=== PATIENT | female | born 1995 | race Caucasian/White ===

== ENCOUNTER 2018-02-22 14:32 | Emergency (ER) | payer MEDICAID, SELFPAY ==
[2018-02-22 14:41] VITALS: BP 118/75; PULSE 80; RESP 14; TEMP 36.7; O2SAT 98
[2018-02-22 14:57] LABS: Bilirubin Negative (Negative); Blood Moderate (Negative); Clarity Cloudy; Glucose 500 mg/dL (Negative); Ketones 15 mg/dL (Negative); Leukocyte Esterase Large (Negative); Nitrite Positive (Negative); Specific Gravity >= 1.030 (1.005-1.025); Urobilinogen 0.2 EU/dL (Up TO 0.2)
[2018-02-22 15:05] LABS: C & S Indicated? Yes; WBC >50 HPF (0-5)
--- NOTE | 2018-02-22 15:11 | ED.GENADUL ---
Disposition Clinical Impression: UTI (urinary tract infection), Pyelonephritis Disposition: HOME Condition: Fair Instructions: Urinary Tract Infection in Women (ED) Additional Instructions: Encourage hydration. Please continue to monitor your glucose closely and treat accordingly. Take Bactrim as prescribed. Even if symptoms improve, take the entire course. Please follow-up with primary care this week for reevaluation. If you are unable to stay hydrated, develop increased pain, fever/chills or other new/worsening symptoms please seek care urgently once again. Prescriptions: Sulfameth/Trimeth Ds [Bactrim Ds Tablet] 1 each PO BID #28 tab Referrals: Mia Poe NP [Primary Care Provider] - Medical Decision Making - Lab Data Laboratory Tests 02/22/18 14:48 Urine Color Yellow Urine Clarity Cloudy Urine pH 6.0 Ur Specific [place] >= 1.030 H Urine Protein >=300 H Urine Ketones 15 H Urine Blood Moderate H Urine Nitrite Positive H Urine Bilirubin Negative Urine Urobilinogen 0.2 Ur Leukocyte Esterase Large H Urine RBC Not Applicable Urine WBC >50 Ur Epithelial Cells Not Applicable Urine Crystals Not Applicable Urine Bacteria Not Applicable Urine Mucus Not Applicable Ur Culture Indicated? Yes Urine Glucose 500 H Results reviewed for labs ordered during visit: Yes - Medical Decision Making Patient presents today with chief complaint of right-sided flank pain. She does have right CVA discomfort on exam. She is also endorsing some pain that radiated down towards the abdomen but none was elicited on exam today. Patient had been endorsing some dysuria for the past few days. States that this is largely been resolving. She has been trying to hydrate. Patient states initially she was concerned for UTI that she was trying to increase her hydration with hopes to be able to clear this on her own. She denies any fevers or chills. She appears nontoxic with stable vital signs. Patient does not have history of nephrolithiasis. Will obtain urinalysis to evaluate for possible infection. Patient reports she is currently menstruating. Urinalysis significant positive nitrites, moderate blood, ketones of 15 and large leukocyte esterase. I discussed these findings with the patient. Her history and physical exam findings are most concerning for pyelonephritis. I did review previous urine cultures. She will be treated with Bactrim DS twice daily ?14 days. I discussed plan with the patient. Advised she will need follow-up with primary care this week for reevaluation. Advised that she needs to increase her hydration she did appear slightly dehydrated on exam. I also advised that she needs to more closely monitor her glucose. Patient does seem well aware of the fact that when on the medications and 1 fighting an infection her glucose is prone to spiking. She is given strict return precautions. All of her questions and concerns were addressed and she is in agreement with this plan. History of Present Illness - General Chief complaint: FlankPain Stated complaint: STOMACH AND BACK PAIN -RIGHT SIDE Time Seen by Provider: 02/22/18 14:46 Source: patient, family, RN notes reviewed Mode of arrival: ambulatory Limitations: no limitations - History of Present Illness Initial comments: Patient is a 22-year-old female, well-known to myself, with chief complaint of right flank pain. She reports that she initially began noting dysuria approximately 3 days ago. Reports that the dysuria has waxed and waned. She denies any increased frequency or urgency. States that this morning she awoke with right-sided flank pain that radiates around to the lower anterior right side of her abdomen. Patient does have history of several UTIs as well as pyelonephritis. States that she has been nauseated. Denies any fevers or chills. Patient is a type I diabetic and reports that her glucose max at 300 this morning but responded well to treatment which came down to 130. States she has been monitoring her glucose well and has been trying to hydrate. Patient is currently menstruating. - Related Data Lancets [Freestyle Lancets] 1 each MC Q2H #300 each 05/16/15 Syringe and Needle,Insulin,1Ml [Insulin Syringe] 1 each AC & HS #3 box 05/16/15 Albuterol Sulfate [Proair Hfa] 1 - 2 puff IH Q4H PRN #1 inhaler 12/12/15 Insulin Glargine [Lantus Solostar] 20 unit SQ DAILY #7 pen 03/01/17 Blood Sugar Diagnostic [Freestyle Test Strips] 1 each Q2H PRN #300 strip 05/08/17 Insulin Lispro [Humalog] See Protocol SC AC #7 pkt 05/08/17 Albuterol/Ipratropium [Duoneb Updraft] 3 ml IH BID #1 box 07/15/17 Nebulizer and Compressor [Portable Nebulizer System] each MC DAILY #1 07/15/17 Glucagon [GlucaGen] 1 mg IJ DAILY #2 kit 07/22/17 Urine Acetone Test,Strips [Ketostix Reagent] 1 each MC DAILY 30 Days strip 07/22/17 Sulfameth/Trimeth Ds [Bactrim Ds Tablet] 1 each PO BID #28 tab 02/22/18 Allergies Allergy/AdvReac Type Severity Reaction Status Date / Time fluticasone propionate AdvReac eyes Unverified 02/22/18 14:44 [From Flovent Diskus] puffy/shakey Review of Systems Constitutional: no symptoms reported. denies: chills, fever, malaise Respiratory: no symptoms reported Cardiovascular: denies: chest pain Gastrointestinal: as per HPI Genitourinary: as per HPI Musculoskeletal: as per HPI Skin: denies: rash, lesions Neurological: denies: headache Past Medical History - Past Medical History Medical history: asthma, diabetes H/O IgG deficiency, Scoliosis Surgical history: other (Tonsillectomy, myringostomy tubes, pilonidal cystectomy) PROCESS VALIDATION ENGINEER history: no PROCESS VALIDATION ENGINEER history Family history: other (not pertinent) - Social History Alcohol use: occasionally Drug use: none General Exam - General Limitations: no limitations General appearance: alert, in no apparent distress - Eye Eye exam: Present: normal apperance - ENT ENT exam: Present: mucous membranes dry - Respiratory Respiratory exam: Present: normal lung sounds bilaterally. Absent: respiratory distress - Cardiovascular Cardiovascular Exam: Present: regular rate, normal rhythm, normal heart sounds - GI/Abdominal GI/Abdominal exam: Present: soft, normal bowel sounds. Absent: distended, tenderness, guarding, rebound, rigid - Rectal Rectal exam: Present: deferred - Back Exam Back exam: Present: CVA tenderness (R). Absent: CVA tenderness (L), rash noted - Neurological Exam Neurological exam: Present: alert, normal gait - Psychiatric Psychiatric exam: Present: normal affect, normal mood - Skin Skin exam: Present: warm, dry, normal color Course Vital Signs - 24 hr 02/22/18 14:41 Temperature 36.7 C Pulse 80 Respiratory 14 Rate Blood Pressure 118/75 Pulse Oximetry 98
[2018-02-22 15:25] VITALS: BP 115/74; PULSE 79; RESP 16; TEMP 36.7; O2SAT 99
== END 2018-02-22 15:31 | disposition home or self-care (01) ==
PROVIDERS: Emergency Provider Student in an Organized Health Care Education/Training Program; PCP Nurse Practitioner Family
DX: N39.0 Urinary tract infection, site not specified (principal); B96.20 Unspecified Escherichia coli [E. coli] as the cause of diseases classified elsewhere; N12 Tubulo-interstitial nephritis, not specified as acute or chronic; E86.0 Dehydration; E10.9 Type 1 diabetes mellitus without complications
CPT/HCPCS: 81025; 87077; 99283; 81003; 81015; 87086; 87186

== ENCOUNTER 2018-03-15 09:25 | Emergency (ER) | payer MEDICAID, SELFPAY ==
[2018-03-15 09:31] VITALS: BP 104/62; PULSE 103; RESP 18; TEMP 36.7; O2SAT 97
--- NOTE | 2018-03-15 09:43 | ED.GENADUL ---
Disposition Clinical Impression: Dehydration, Diabetes type 1, uncontrolled Disposition: HOME Condition: Good Instructions: Dehydration (ED), Diabetes Mellitus Type 1 in Adults (ED) Additional Instructions: Please take your insulin as directed. Please follow-up with your underwriting operations manager as soon as possible for reassessment. Avoid any positives, breads, or sugar. If you notice any worsening of your symptoms, or any new symptoms such as vomiting, diarrhea, fever, chills, shortness of breath, chest pain, numbness, weakness, or fainting , please return immediately to the emergency department for reevaluation. Please follow up with your primary care provider as soon as possible for reassessment and reevaluation. As always, it was a pleasure participating in your medical care today. Referrals: Mia Poe NP [Primary Care Provider] - Medical Decision Making - Medical Decision Making This is a 23-year-old female who presents with symptoms of poorly controlled type 1 diabetes. Sugars have been over 200. She has been increasing her regular 20 units of daily Lantus as well as slightly increasing her sliding scale to no avail. She does not recall the exact ratio calculator for her sliding scale but does state that she takes roughly 10 units of insulin with her sliding scale. Physical exam demonstrates dry oral mucosa, but no abdominal tenderness or other abnormalities on exam. We will rehydrate the patient, give her insulin here for her sugar that is over 400. Assess for DKA, and reevaluate. 1:13 PM Patient's initial laboratory workup did demonstrate mildly elevated anion gap. Sugar was notably high. Only 80 ketones in the urine.Initial bicarb was 17.8, potassium was 4.5. Sugar was 507. Patient was vigorously rehydrated with 2-3 L of normal saline. Repeat labs were drawn which demonstrated a improving bicarbonate 20.7, and anion gap which plummeted to 12.3 and a sugar that notably improved to 179. Reevaluation clinically the patient's symptoms are significantly improved and she feels very well. Additionally the patient's urinalysis is negative for any signs of infection. I did discuss with her the option of admission for continued observation and management and fluid hydration versus discharge patient made it very clear that she would prefer to be discharged home. I discussed the risks and benefits of this and the patient understands. I feel the patient has been suffering from mild dehydration, poorly controlled diabetes, under dosing of her insulin, and the lack of appropriate follow-up. I made it very clear with the patient that she needs to follow-up with her underwriting operations manager by the end of the week, and she states that she will be calling them soon as she is discharged for this follow-up. I discussed with her the importance of avoiding any missed appointments with the underwriting operations manager in the future and she understands. I have discussed with the patient the importance of continuing her insulin avoiding carbs, sugars, and close endocrinology follow-up and she understands. We discussed red flags which returned the patient understands. I have extensively reviewed the treatment plan and discharge instructions with the patient. I have addressed all patient concerns at this time. The patient was made aware of what symptoms to monitor for that would warrant a return to the emergency department. Discussed the plan with the patient, they demonstrate verbal understanding and agreement with our assessment and plan at this time. History of Present Illness - General Chief complaint: Diabetes Stated complaint: DIABETIC UNABLE TO GET KEYTONES DOWN/SUGAR UP Time Seen by Provider: 03/15/18 09:39 - History of Present Illness Initial comments: This is a 23-year-old female with a past medical history of poorly controlled type I diabetes, tobacco abuse, asthma, who presents today for evaluation of uncontrolled diabetes. She states that she normally sees an underwriting operations manager in [facility] in [place], however she has not seen him for quite some time. She states that over the past few days she has had generalized malaise, nausea, one episode of vomiting yesterday. She has noted that her sugars are in excess of 200 on a regular basis which is concerning for her. She normally takes 20 units of Lantus daily, and roughly 10 units of regular insulin on a sliding scale basis. She states that this has not been enough to control her symptoms, and in fact she has been increasing her insulin with no significant improvement. The patient denies any abdominal pain, chest pain, cough, shortness of breath, fever, chills, dysuria, hematuria, increased urinary frequency. Her last period was 3 weeks ago. Past surgical history is positive for a TNA. Patient denies any IV or illicit drug use. She has no other complaints at this time. She denies a pertinent family history - Related Data Lancets [Freestyle Lancets] 1 each MC Q2H #300 each 05/16/15 Syringe and Needle,Insulin,1Ml [Insulin Syringe] 1 each AC & HS #3 box 05/16/15 Albuterol Sulfate [Proair Hfa] 1 - 2 puff IH Q4H PRN #1 inhaler 12/12/15 Insulin Glargine [Lantus Solostar] 20 unit SQ DAILY #7 pen 03/01/17 Blood Sugar Diagnostic [Freestyle Test Strips] 1 each Q2H PRN #300 strip 05/08/17 Insulin Lispro [Humalog] See Protocol SC AC #7 pkt 05/08/17 Albuterol/Ipratropium [Duoneb Updraft] 3 ml IH BID #1 box 07/15/17 Nebulizer and Compressor [Portable Nebulizer System] each MC DAILY #1 07/15/17 Glucagon [GlucaGen] 1 mg IJ DAILY #2 kit 07/22/17 Urine Acetone Test,Strips [Ketostix Reagent] 1 each MC DAILY 30 Days strip 07/22/17 Allergies Allergy/AdvReac Type Severity Reaction Status Date / Time fluticasone propionate AdvReac eyes Unverified 03/08/18 15:14 [From Flovent Diskus] puffy/shakey Review of Systems Other: 10 point review of systems was performed, pertinent positives and negatives are noted in the history of present illness. Past Medical History - Past Medical History Medical history: asthma, diabetes H/O IgG deficiency, Scoliosis Surgical history: other (Tonsillectomy, myringostomy tubes, pilonidal cystectomy) SUPREME COURT JUSTICE history: no SUPREME COURT JUSTICE history Family history: other (not pertinent) - Social History Alcohol use: occasionally Drug use: none General Exam - Other Other exam information: 1.Const: Well-nourished, Well-developed, appearing stated age 2.Eyes: PERRL, no conjunctival injection, and symmetrical lids. 3.ENT: Atraumatic external nose and ears. Notably dry MM. Neck: Symmetric, trachea midline, No thyromegaly. 4.CVS: +S1/S2, No murmurs or gallops. Peripheral pulses 2+ and equal in all extremities. Brisk capillary refill in all extremities. 5.RESP: Unlabored respiratory effort. Clear to auscultation bilaterally. No wheezes rales or rhonchi 6.GI: Soft, Nontender/Nondistended, No hepatosplenomegaly. No guarding or rebound. No pain at McBurney's point, negative Simpson sign. 7.MSK: Normocephalic/Atraumatic, Extremities w/o deformity or ttp No cyanosis or clubbing, Normal movement of all extremities 8.Skin: Warm, Dry. No rashes or lesions. 9.Neuro: estate planning paralegal II-XII grossly intact. Sensation grossly intact, no focal neurologic deficits. 10.Psych: (AAO) x3. Appropriate mood and affect Course Vital Signs - 24 hr 03/15/18 09:31 Temperature 36.7 C Pulse 103 H Respiratory 18 Rate Blood Pressure 104/62 Pulse Oximetry 97
[2018-03-15] MEDS: Insulin REGULAR-Human 100 UNITS/ML UNIT 20 UNITS SC (09:55)
[2018-03-15 10:05] VITALS: BP 104/66; PULSE 84; RESP 16; O2SAT 97
[2018-03-15] MEDS: Normal Saline 2,000 ML 1000 ML IV (10:10)
[2018-03-15 10:22] LABS: Abs Immature Grans 0.03 k/cumm (0.0-0.09); Absolute Basophil Count 0.04 k/cumm (0.0-0.2); Absolute Eosinophil Count 0.33 k/cumm (0.0-0.7); Absolute Lymphocyte Count 2.61 k/cumm (1.2-3.4); Absolute Monocyte Count 0.42 k/cumm (0.11-0.7); Absolute Neutrophil Count 5.52 k/cumm (1.2-6.7); Basophils % 0.4; Eosinophils % 3.7; HCT 41.1 % (36.0-46.0); HGB 13.6 g/dL (12.0-15.5); Immature Grans % 0.3; Lymphocytes % 29.2; Mean Corp. HGB Concentration 33.1 g/dL (32.0-36.0); Mean Corpuscular Hemoglobin 30.8 pg (27.0-33.0); Mean Platelet Volume 10.2 fL (8.0-11.0); Monocytes % 4.7; Neutrophils % 61.7; Platelet Count 341 x1000/uL (130-400); RBC 4.42 m/cumm (4.00-5.20); RBC Distribution Width 12.5 % (11.7-14.6); White Blood Cell Count 8.95 k/cumm (4.4-10.8)
[2018-03-15 10:41] LABS: ALT 19 U/L (12-78); AST 12 U/L (15-37); Albumin 3.7 g/dL (3.4-5.0); Alkaline Phosphatase 128 U/L (46-116); Anion Gap 19.2 mmol/L (3-11); BUN 21 mg/dL (7-18); Bilirubin, Total 0.4 mg/dL (0.2-1.0); CO2 17.8 mmol/L (21.0-32.0); CREATININE 0.81 mg/dL (0.55-1.02); Calcium 9.1 mg/dL (8.5-10.1); Chloride 94 mmol/L (98-107); Lipase 85 U/L (73-393); Potassium 4.5 mmol/L (3.5-5.1); Sodium 131 mmol/L (136-145); Total Protein 7.6 g/dL (6.4-8.2)
[2018-03-15 10:44] LABS: Glucose 507 mg/dL (70-100)
[2018-03-15 11:22] VITALS: BP 102/65; PULSE 75; RESP 14; TEMP 36.6; O2SAT 100
[2018-03-15 11:48] VITALS: BP 95/55; PULSE 77; O2SAT 99
[2018-03-15] MEDS: Normal Saline 1,000 ML 1000 ML IV (12:15)
[2018-03-15 12:20] LABS: Bilirubin Negative (Negative); Blood Negative (Negative); Clarity Clear; Glucose 500 mg/dL (Negative); Ketones 80 mg/dL (Negative); Leukocyte Esterase Negative (Negative); Nitrite Negative (Negative); Specific Gravity 1.015 (1.005-1.025); Urobilinogen 0.2 EU/dL (Up TO 0.2); pH 5.5 (5-8)
[2018-03-15 12:51] LABS: ALT 14 U/L (12-78); AST 8 U/L (15-37); Albumin 2.9 g/dL (3.4-5.0); Alkaline Phosphatase 99 U/L (46-116); Anion Gap 12.3 mmol/L (3-11); BUN 16 mg/dL (7-18); Bilirubin, Total 0.3 mg/dL (0.2-1.0); CO2 20.7 mmol/L (21.0-32.0); CREATININE 0.71 mg/dL (0.55-1.02); Calcium 7.6 mg/dL (8.5-10.1); Chloride 105 mmol/L (98-107); Glucose 179 mg/dL (70-100); Potassium 3.6 mmol/L (3.5-5.1); Sodium 138 mmol/L (136-145)
[2018-03-15 13:25] VITALS: BP 90/48; PULSE 77; RESP 14; TEMP 36.9; O2SAT 98
== END 2018-03-15 13:39 | disposition home or self-care (01) ==
PROVIDERS: Emergency Provider Student in an Organized Health Care Education/Training Program; PCP Nurse Practitioner Family
DX: E10.65 Type 1 diabetes mellitus with hyperglycemia (principal); E86.0 Dehydration; R11.2 Nausea with vomiting, unspecified
CPT/HCPCS: 36415; 36416; 80053; 81025; 82962; 83690; 96360; 96361; 96372; 99284; 81003; 85025

== ENCOUNTER 2018-04-18 17:04 | Emergency (ER) | payer MEDICAID, SELFPAY ==
[2018-04-18 17:06] VITALS: BP 113/74; PULSE 122; RESP 16; TEMP 36.6; O2SAT 96
--- NOTE | 2018-04-18 17:15 | DI.RAD_ITS ---
SYMPTOM/DIAGNOSIS: COUGH, PRODUCTIVE PA AND LATERAL CHEST: Comparison is made with 12/09/17. The heart is normal in size. The lungs are clear. The mediastinal structures and pleura appear intact. CONCLUSION: Normal chest.
[2018-04-18] MEDS: Normal Saline 1,000 ML 1000 ML IV ×2 (17:47)
--- NOTE | 2018-04-18 18:01 | W.ED.GENAD ---
Discharge Plan Disposition Patient Disposition: HOME Condition: Good Discharge Details Chief Complaint: GenMedical Clinical Impression: Diabetes mellitus, insulin dependent (IDDM), uncontrolled, Acute hyperglycemia, Acute dehydration Primary Care Provider: Mia Poe ED Provider: Karel Espana Home Meds and New Rx's Prescriptions: No Action insulin syringe-needle U-100 [Exel Insulin] 1 EACH syringe 1 ea Miscellaneous AC & HS Qty: 3 RF: 3 lancets [FreeStyle Lancets] 1 EACH misc 1 ea Miscellaneous Q2H Qty: 300 RF: 3 ipratropium-albuterol 3 ML solution for nebulization 3 ml Inhalation BID Qty: 1 RF: 0 nebulizer and compressor [Portable Nebulizer System] 1 EACH device Miscellaneous DAILY Qty: 1 RF: 0 glucagon (human recombinant) [Glucagon Emergency Kit (human)] 1 MG kit 1 mg IJ DAILY Qty: 2 RF: 0 acetone (urine) test [Ketostix] 1 EACH strip 1 ea Miscellaneous DAILY 30 Days RF: 2 albuterol sulfate [ProAir HFA] 200 PUFF HFA aerosol inhaler 1 - 2 puff Inhalation Q4H PRN Qty: 1 RF: 1 insulin glargine [Lantus Solostar U-100 Insulin] 300 UNITS/3 ML insulin pen 20 unit SQ DAILY Qty: 7 RF: 0 blood sugar diagnostic [FreeStyle Test] 1 EACH strip 1 ea Miscellaneous Q2H PRNQty: 300 RF: 3 insulin lispro [Humalog U-100 Insulin] 100 UNIT/1 ML solution Sub-Q AC Qty: 7 RF: 0 Discharge Instructions Instructions: Dehydration (ED), Diabetic Hyperglycemia (ED) Additional Instructions: Please drink a minimum of 8-10 cups of water per day. Take your insulin as directed. Avoid any carb foods, sugary foods, and monitor your sugar every 2-4 hours. If you notice any worsening of your symptoms, or any new symptoms such as vomiting, diarrhea, fever, chills, shortness of breath, chest pain, numbness, weakness, or fainting , please return immediately to the emergency department for reevaluation. Please follow up with your primary care provider as soon as possible for reassessment and reevaluation. As always, it was a pleasure participating in your medical care today. Referrals: Mia Poe NP [Primary Care Provider] - Medical Decision Making This is a 23-year-old brittle diabetic who presents today for malaise, nausea and vomiting today, and a cough with productive yellow sputum for the last week. He appears dehydrated on exam, mucous membranes are dry, she is tachycardic. I am concerned for potential DKA. We will rehydrate aggressively, perform laboratory workup, evaluate for DKA, as well as infectious etiologies. 9:53 PM Patient's laboratory workup has returned. Her anion gap is normal, her bicarb is 23, her VBG shows no evidence of acidosis. She demonstrates no significant white count or leukocytosis. Chest x-ray per virtual radiology as no acute process. Negative chest x-ray.Urinalysis shows no evidence of infection but does show some ketones. After 2 L of normal saline, and 10 units of insulin the patient is feeling much better. Initial glucose was 295. Repeat glucose is closer normal limits. With the patient's symptomatic improvement, repeat belly exam demonstrated no tenderness, no guarding or rebound, and good ability to tolerate p.o. We did discuss with her potential observation versus discharge and the patient is requesting discharge. I think this is reasonable with the current laboratory workup. We recommended continued significant sugar-free hydration, and close follow-up with her biology department chair at [facility]. Diagnosis dehydration, hyperglycemia, and viral URI. We discussed red flags for which to return. I have extensively reviewed the treatment plan and discharge instructions with the patient and their family. I have addressed all patient concerns at this time. The patient and family was made aware of what symptoms to monitor for that would warrant a return to the emergency department. Discussed the plan with the patient and family, they demonstrate verbal understanding and agreement with our assessment and plan at this time. HPI General Date/Time Provider Initiated Documentation: 04/18/18 17:15. HPI Narrative: This is a 23-year-old female with a past medical history of brittle diabetes, asthma, distant past medical history of neutropenia, previous surgical history of TNA. She presents today for feelings of malaise. She states that one week ago she was diagnosed with a cough and upper respiratory infection with productive yellow sputum, she was seen at [facility] emergency [facility] where she was given a diagnosis of allergies, and discharged home. No antibiotics. Since then she has gradually been getting worse. Her cough has persisted with continued yellow sputum, however in addition to this she has had a new onset nausea and vomiting today with associated general malaise. She states that she has been trying to push the fluids as well as increase her insulin but she has noted any continued increase in her sugars, as well as her feelings of malaise. Patient did admit to some black in her vomit earlier today but has had no subsequent episodes of coffee grounds or black noted in her vomit. She denies any other complaints at this time. Of note the patient normally uses 20 units of Lantus nightly, and roughly 10 units of regular insulin for each administration. Related Data Home Medications Medication Instructions Recorded Confirmed insulin syringe-needle U-100 [Exel #3 box 05/16/15 Insulin] lancets [FreeStyle Lancets] #300 ea 05/16/15 albuterol sulfate [ProAir HFA] 1 - 2 puff INHALATION Q4H PRN #1 12/12/15 03/15/18 inhaler insulin glargine [Lantus Solostar 20 unit SQ DAILY #7 pen 03/01/17 03/15/18 U-100 Insulin] blood sugar diagnostic [FreeStyle #300 strip 05/08/17 03/15/18 Test] insulin lispro [Humalog U-100 See Protocol SUB-Q AC #7 pkt 05/08/17 03/15/18 Insulin] ipratropium-albuterol 3 ml INHALATION BID #1 box 07/15/17 nebulizer and compressor [Portable #1 07/15/17 Nebulizer System] acetone (urine) test [Ketostix] strip 07/22/17 glucagon (human recombinant) 1 mg IJ DAILY #2 kit 07/22/17 [Glucagon Emergency Kit (human)] Previous Rx's Medication Instructions Recorded albuterol sulfate [ProAir HFA] 1 - 2 puff INHALATION Q4H PRN #1 12/12/15 inhaler insulin glargine [Lantus Solostar 20 unit SQ DAILY #7 pen 03/01/17 U-100 Insulin] blood sugar diagnostic [FreeStyle #300 strip 05/08/17 Test] insulin lispro [Humalog U-100 See Protocol SUB-Q AC #7 pkt 05/08/17 Insulin] ipratropium-albuterol 3 ml INHALATION BID #1 box 07/15/17 glucagon (human recombinant) 1 mg IJ DAILY #2 kit 07/22/17 [Glucagon Emergency Kit (human)] Allergies Allergy/AdvReac Type Severity Reaction Status Date / Time fluticasone propionate AdvReac eyes Unverified 03/08/18 15:14 [From Flovent Diskus] puffy/shakey General Stated Complaint: GenMedical VALENT[place]: 3 Review of Systems Review of Systems All systems reviewed & are unremarkable except as noted in HPI and below PFSH Family History Mother Mental disorder Endometriosis Dementia Grandfather Diabetes Grandmother Diabetes Maternal Cousin Mental disorder Sister Mental disorder Brother DVT (deep venous thrombosis) Brother Claudication Medical History Asthma History of pneumonia Insulin dependent diabetes mellitus Scoliosis Tobacco use disorder Social History household members: friend(s) and other details: (6) lives w/ boyfriend, son and BF's 2 children m +girl 08/17/16 number of children: 4 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al status: unemployed 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: taking [employer] classes Smoking/Tobacco Use Status: Current every day alcohol intake: current alcohol intake frequency: other substance use type: does not use Surgical History Tonsillectomy and adenoidectomy (~2007) Exam Narrative Exam Narrative: 1.Const: Well-nourished, Well-developed, appearing stated age 2.Eyes: PERRL, no conjunctival injection, and symmetrical lids. 3.ENT: Atraumatic external nose and ears. Dry MM. Neck: Symmetric, trachea midline, No thyromegaly. 4.CVS: +S1/S2, tachycardic no murmurs or gallops. Peripheral pulses 2+ and equal in all extremities. Brisk capillary refill in all extremities. 5.RESP: Unlabored respiratory effort. Clear to auscultation bilaterally. No wheezes rales or rhonchi 6.GI: Soft, Nontender/Nondistended, No hepatosplenomegaly. No guarding or rebound. No pain at McBurney's point, negative Simpson sign. 7.MSK: Normocephalic/Atraumatic, Extremities w/o deformity or ttp No cyanosis or clubbing, Normal movement of all extremities 8.Skin: Warm, Dry. No rashes or lesions. 9.Neuro: account executive healthcare II-XII grossly intact. Sensation grossly intact, no focal neurologic deficits. 10.Psych: (AAO) x3. Appropriate mood and affect Course Vital Signs Temperature 36.6 C 04/18/18 17:06 Pulse 122 H 04/18/18 17:06 Respiratory Rate 16 04/18/18 17:06 Blood Pressure 113/74 04/18/18 17:06 Pulse Oximetry 96 04/18/18 17:06 Temperature 36.6 C 04/18/18 17:06 Temperature Source Skin 04/18/18 17:06 Pulse 122 H 04/18/18 17:06 Respiratory Rate 16 04/18/18 17:06 Respiratory Effort 04/18/18 17:13 Blood Pressure 113/74 04/18/18 17:06 Blood Pressure Position Sitting 04/18/18 17:06 Pulse Oximetry 96 04/18/18 17:06 Oxygen Delivery Method Room Air 04/18/18 17:06 Oxygen Flow Rate 0 04/18/18 17:06 Lab/Test Results Lab/Test Results: 04/18/18 17:16 Blood Blood Culture - Pending 04/18/18 17:16 Blood Blood Culture - Pending
--- NOTE | 2018-04-18 18:07 | ED.GENADUL_ITS ---
Discharge Plan Disposition Patient Disposition: HOME Condition: Good Discharge Details Chief Complaint: GenMedical Clinical Impression: Diabetes mellitus, insulin dependent (IDDM), uncontrolled, Acute hyperglycemia , Acute dehydration Primary Care Provider: Mia Poe ED Provider: Karel Espana Home Meds and New Rx's Prescriptions: No Action insulin syringe-needle U-100 [Exel Insulin] 1 EACH syringe 1 ea Miscellaneous AC & HS Qty: 3 RF: 3 lancets [FreeStyle Lancets] 1 EACH misc 1 ea Miscellaneous Q2H Qty: 300 RF: 3 ipratropium-albuterol 3 ML solution for nebulization 3 ml Inhalation BID Qty: 1 RF: 0 nebulizer and compressor [Portable Nebulizer System] 1 EACH device Miscellaneous DAILY Qty: 1 RF: 0 glucagon (human recombinant) [Glucagon Emergency Kit (human)] 1 MG kit 1 mg IJ DAILY Qty: 2 RF: 0 acetone (urine) test [Ketostix] 1 EACH strip 1 ea Miscellaneous DAILY 30 Days RF: 2 albuterol sulfate [ProAir HFA] 200 PUFF HFA aerosol inhaler 1 - 2 puff Inhalation Q4H PRN Qty: 1 RF: 1 insulin glargine [Lantus Solostar U-100 Insulin] 300 UNITS/3 ML insulin pen 20 unit SQ DAILY Qty: 7 RF: 0 blood sugar diagnostic [FreeStyle Test] 1 EACH strip 1 ea Miscellaneous Q2H PRNQty: 300 RF: 3 insulin lispro [Humalog U-100 Insulin] 100 UNIT/1 ML solution Sub-Q AC Qty: 7 RF: 0 Discharge Instructions Instructions: Dehydration (ED), Diabetic Hyperglycemia (ED) Additional Instructions: Please drink a minimum of 8-10 cups of water per day. Take your insulin as directed. Avoid any carb foods, sugary foods, and monitor your sugar every 2-4 hours. If you notice any worsening of your symptoms, or any new symptoms such as vomiting, diarrhea, fever, chills, shortness of breath, chest pain, numbness , weakness, or fainting , please return immediately to the emergency department for reevaluation. Please follow up with your primary care provider as soon as possible for reassessment and reevaluation. As always, it was a pleasure participating in your medical care today. Referrals: Mia Poe NP [Primary Care Provider] - Medical Decision Making This is a 23-year-old brittle diabetic who presents today for malaise, nausea and vomiting today, and a cough with productive yellow sputum for the last week. He appears dehydrated on exam, mucous membranes are dry, she is tachycardic. I am concerned for potential DKA. We will rehydrate aggressively , perform laboratory workup, evaluate for DKA, as well as infectious etiologies. 9:53 PM Patient's laboratory workup has returned. Her anion gap is normal, her bicarb is 23, her VBG shows no evidence of acidosis. She demonstrates no significant white count or leukocytosis. Chest x-ray per virtual radiology as no acute process. Negative chest x-ray.Urinalysis shows no evidence of infection but does show some ketones. After 2 L of normal saline, and 10 units of insulin the patient is feeling much better. Initial glucose was 295. Repeat glucose is closer normal limits. With the patient's symptomatic improvement, repeat belly exam demonstrated no tenderness, no guarding or rebound, and good ability to tolerate p.o. We did discuss with her potential observation versus discharge and the patient is requesting discharge. I think this is reasonable with the current laboratory workup. We recommended continued significant sugar- free hydration, and close follow-up with her director of assessing at [facility]. Diagnosis dehydration, hyperglycemia, and viral URI. We discussed red flags for which to return. I have extensively reviewed the treatment plan and discharge instructions with the patient and their family. I have addressed all patient concerns at this time. The patient and family was made aware of what symptoms to monitor for that would warrant a return to the emergency department. Discussed the plan with the patient and family, they demonstrate verbal understanding and agreement with our assessment and plan at this time. HPI General Date/Time Provider Initiated Documentation: 04/18/18 17:15 . HPI Narrative: This is a 23-year-old female with a past medical history of brittle diabetes, asthma, distant past medical history of neutropenia , previous surgical history of TNA. She presents today for feelings of malaise. She states that one week ago she was diagnosed with a cough and upper respiratory infection with productive yellow sputum, she was seen at [facility] emergency department where she was given a diagnosis of allergies, and discharged home. No antibiotics. Since then she has gradually been getting worse. Her cough has persisted with continued yellow sputum, however in addition to this she has had a new onset nausea and vomiting today with associated general malaise. She states that she has been trying to push the fluids as well as increase her insulin but she has noted any continued increase in her sugars, as well as her feelings of malaise. Patient did admit to some black in her vomit earlier today but has had no subsequent episodes of coffee grounds or black noted in her vomit. She denies any other complaints at this time. Of note the patient normally uses 20 units of Lantus nightly, and roughly 10 units of regular insulin for each administration. Related Data Home Medications Medication Instructions Recorded Confirmed insulin syringe-needle U-100 [Exel #3 box 05/16/15 Insulin] lancets [FreeStyle Lancets] #300 ea 05/16/15 albuterol sulfate [ProAir HFA] 1 - 2 puff INHALATION Q4H PRN #1 12/12/15 inhaler insulin glargine [Lantus Solostar 20 unit SQ DAILY #7 pen 03/01/17 03/15/18 U-100 Insulin] blood sugar diagnostic [FreeStyle #300 strip 05/08/17 03/15/18 Test] insulin lispro [Humalog U-100 See Protocol SUB-Q AC #7 pkt 05/08/17 03/15/18 Insulin] ipratropium-albuterol 3 ml INHALATION BID #1 box 07/15/17 nebulizer and compressor [Portable #1 07/15/17 Nebulizer System] acetone (urine) test [Ketostix] strip 07/22/17 glucagon (human recombinant) 1 mg IJ DAILY #2 kit 07/22/17 [Glucagon Emergency Kit (human)] Previous Rx's Medication Instructions Recorded albuterol sulfate [ProAir HFA] 1 - 2 puff INHALATION Q4H PRN #1 12/12/15 inhaler insulin glargine [Lantus Solostar 20 unit SQ DAILY #7 pen 03/01/17 U-100 Insulin] blood sugar diagnostic [FreeStyle #300 strip 05/08/17 Test] insulin lispro [Humalog U-100 See Protocol SUB-Q AC #7 pkt 05/08/17 Insulin] ipratropium-albuterol 3 ml INHALATION BID #1 box 07/15/17 glucagon (human recombinant) 1 mg IJ DAILY #2 kit 07/22/17 [Glucagon Emergency Kit (human)] Allergies Allergy/AdvReac Type Severity Reaction Status Date / Time fluticasone propionate AdvReac eyes Unverified 03/08/18 15:14 [From Flovent Diskus] puffy/shakey General Stated Complaint: GenMedical VALENTINA: 3 Review of Systems Review of Systems All systems reviewed & are unremarkable except as noted in HPI and below PFSH Family History Mother Mental disorder Endometriosis Dementia Grandfather Diabetes Grandmother Diabetes Maternal Cousin Mental disorder Sister Mental disorder Brother DVT (deep venous thrombosis) Brother Claudication Medical History Asthma History of pneumonia Insulin dependent diabetes mellitus Scoliosis Tobacco use disorder Social History household members: friend(s) and other details: (6) lives w/ boyfriend, son and BF's 2 children m +girl 08/17/16 number of children: 4 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al status: unemployed 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: taking [employer] classes Smoking/Tobacco Use Status: Current every day alcohol intake: current alcohol intake frequency: other substance use type: does not use Surgical History Tonsillectomy and adenoidectomy (~2007) Exam Narrative Exam Narrative: 1.Const: Well-nourished, Well-developed, appearing stated age 2.Eyes: PERRL, no conjunctival injection, and symmetrical lids. 3.ENT: Atraumatic external nose and ears. Dry MM. Neck: Symmetric, trachea midline, No thyromegaly. 4.CVS: +S1/S2, tachycardic no murmurs or gallops. Peripheral pulses 2+ and equal in all extremities. Brisk capillary refill in all extremities. 5.RESP: Unlabored respiratory effort. Clear to auscultation bilaterally. No wheezes rales or rhonchi 6.GI: Soft, Nontender/Nondistended, No hepatosplenomegaly. No guarding or rebound. No pain at McBurney's point, negative Simpson sign. 7.MSK: Normocephalic/Atraumatic, Extremities w/o deformity or ttp No cyanosis or clubbing, Normal movement of all extremities 8.Skin: Warm, Dry. No rashes or lesions. 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 Sensation grossly intact, no focal neurologic deficits. 10.Psych: (AAO) x3. Appropriate mood and affect Course Vital Signs Temperature 36.6 C 04/18/18 17:06 Pulse 122 H 04/18/18 17:06 Respiratory Rate 16 04/18/18 17:06 Blood Pressure 113/74 04/18/18 17:06 Pulse Oximetry 96 04/18/18 17:06 Temperature 36.6 C 04/18/18 17:06 Temperature Source Skin 04/18/18 17:06 Pulse 122 H 04/18/18 17:06 Respiratory Rate 16 04/18/18 17:06 Respiratory Effort 04/18/18 17:13 Blood Pressure 113/74 04/18/18 17:06 Blood Pressure Position Sitting 04/18/18 17:06 Pulse Oximetry 96 04/18/18 17:06 Oxygen Delivery Method Room Air 04/18/18 17:06 Oxygen Flow Rate 0 04/18/18 17:06 Lab/Test Results Lab/Test Results: 04/18/18 17:16 Blood Blood Culture - Pending 04/18/18 17:16 Blood Blood Culture - Pending
[2018-04-18 18:35] LABS: BE (Venous) -1.8 mmol/L (-3-3); HCO3 (Venous) 23 mmol/L (22-28); O2 Sat (Venous) 93 % (70-80); TCO2 (Venous) 20 mmol/L (22-29); pCO2 (Venous) 35 mm/Hg (34-47); pH (Venous) 7.42 (7.32-7.43); pO2 (Venous) 62 mm/Hg (28-44)
[2018-04-18 18:38] LABS: Abs Immature Grans 0.02 k/cumm (0.0-0.09); Absolute Basophil Count 0.01 k/cumm (0.0-0.2); Absolute Eosinophil Count 0.12 k/cumm (0.0-0.7); Absolute Lymphocyte Count 0.77 k/cumm (1.2-3.4); Absolute Monocyte Count 0.16 k/cumm (0.11-0.7); Absolute Neutrophil Count 5.97 k/cumm (1.2-6.7); Basophils % 0.1; Eosinophils % 1.7; HCT 38.2 % (36.0-46.0); HGB 12.8 g/dL (12.0-15.5); Immature Grans % 0.3; Lymphocytes % 10.9; Mean Corp. HGB Concentration 33.5 g/dL (32.0-36.0); Mean Corpuscular Hemoglobin 31.4 pg (27.0-33.0); Mean Corpuscular Volume 93.6 fL (80-95); Mean Platelet Volume 10.1 fL (8.0-11.0); Monocytes % 2.3; Neutrophils % 84.7; Platelet Count 318 x1000/uL (130-400); RBC 4.08 m/cumm (4.00-5.20); RBC Distribution Width 12.8 % (11.7-14.6); White Blood Cell Count 7.05 k/cumm (4.4-10.8)
[2018-04-18 18:50] LABS: Bilirubin Negative (Negative); Blood Negative (Negative); Clarity Clear; Glucose 500 mg/dL (Negative); Ketones 15 mg/dL (Negative); Leukocyte Esterase Negative (Negative); Nitrite Negative (Negative); Urobilinogen 0.2 EU/dL (Up TO 0.2); pH 5.5 (5-8)
[2018-04-18 18:53] LABS: ALT 21 U/L (12-78); AST 13 U/L (15-37); Albumin 2.9 g/dL (3.4-5.0); Alkaline Phosphatase 167 U/L (46-116); Anion Gap 9.9 mmol/L (3-11); BUN 19 mg/dL (7-18); Bilirubin, Total 0.5 mg/dL (0.2-1.0); CO2 23.1 mmol/L (21.0-32.0); CREATININE 0.59 mg/dL (0.55-1.02); Calcium 8.1 mg/dL (8.5-10.1); Chloride 98 mmol/L (98-107); Glucose 295 mg/dL (70-100); Lipase 54 U/L (73-393); Potassium 3.7 mmol/L (3.5-5.1); Sodium 131 mmol/L (136-145); Total Protein 6.3 g/dL (6.4-8.2)
--- NOTE | 2018-04-18 20:01 | DI.VRAD_ITS ---
EXAM: XR Chest, 2 Views EXAM DATE/TIME: 04/18/2018 5:18 PM CLINICAL HISTORY: 23 years old, female; Cough for 3 weeks w/ prod yell TECHNIQUE: XR of the chest, 2 views. COMPARISON: CR PORTABLE CHEST ONE VIEW 12/09/2017 8:06 AM FINDINGS: Lungs: Unremarkable. No consolidation. Pleural space: Unremarkable. No pleural effusion. No pneumothorax. Heart/Mediastinum: Unremarkable. No cardiomegaly. Bones/joints: Unremarkable for patient's age. IMPRESSION: No active pulmonary disease. No acute changes compared to 12/09/2017. Dictated and Authenticated by: Javier Mena MD. Ordering:CECILLE DANIELS MD
[2018-04-18] MEDS: Insulin REGULAR-Human 100 UNITS/ML UNIT 10 UNITS SC (20:08)
[2018-04-18 22:06] VITALS: BP 104/62; PULSE 87; TEMP 37; O2SAT 98
== END 2018-04-18 22:09 | disposition home or self-care (01) ==
PROVIDERS: Emergency Provider Student in an Organized Health Care Education/Training Program; PCP Nurse Practitioner Family
DX: E10.65 Type 1 diabetes mellitus with hyperglycemia (principal); E86.0 Dehydration; J06.0 Acute laryngopharyngitis; F17.210 Nicotine dependence, cigarettes, uncomplicated
CPT/HCPCS: 36415; 36416; 80053; 81025; 82805; 82962; 83690; 87040; 96360; 96361; 96372; 99284; 71046; 81003; 85025; 99285

== ENCOUNTER 2018-05-24 19:21 | Inpatient (IN) | payer MEDICAID, SELFPAY ==
[2018-05-24 19:37] VITALS: BP 115/67; PULSE 90; RESP 18; TEMP 36.4; O2SAT 97
--- NOTE | 2018-05-24 19:45 | ED.GENADUL_ITS ---
Discharge Plan Discharge Details Chief Complaint: Diabetes Reason For Visit: high blood sugar Primary Care Provider: Mia Poe ED Provider: Rubia Gardiner Home Meds and New Rx's Prescriptions: No Action insulin syringe-needle U-100 [Exel Insulin] 1 EACH syringe 1 ea Miscellaneous AC & HS Qty: 3 RF: 3 lancets [FreeStyle Lancets] 1 EACH misc 1 ea Miscellaneous Q2H Qty: 300 RF: 3 ipratropium-albuterol 3 ML solution for nebulization 3 ml Inhalation BID Qty: 1 RF: 0 nebulizer and compressor [Portable Nebulizer System] 1 EACH device Miscellaneous DAILY Qty: 1 RF: 0 glucagon (human recombinant) [Glucagon Emergency Kit (human)] 1 MG kit 1 mg IJ DAILY Qty: 2 RF: 0 acetone (urine) test [Ketostix] 1 EACH strip 1 ea Miscellaneous DAILY 30 Days RF: 2 albuterol sulfate [ProAir HFA] 200 PUFF HFA aerosol inhaler 1 - 2 puff Inhalation Q4H PRN Qty: 1 RF: 1 insulin glargine [Lantus Solostar U-100 Insulin] 300 UNITS/3 ML insulin pen 20 unit SQ DAILY Qty: 7 RF: 0 blood sugar diagnostic [FreeStyle Test] 1 EACH strip 1 ea Miscellaneous Q2H PRNQty: 300 RF: 3 insulin lispro [Humalog U-100 Insulin] 100 UNIT/1 ML solution Sub-Q AC Qty: 7 RF: 0 Medical Decision Making 23yo F w/ a h/o DM Type I who presents with weakness, fatigue and nausea along with hyperglycemia read as high on monitor at home today. Missed her 20 units of Lantus insulin last night due to not being at home. Denies fever, abdominal pain, chest pain, urinary symptoms, cough. Vitals within normal limits. Afebrile. Patient appears nontoxic but does appear fatigued. Likely consistent with DKA. Will place an IV, bolus IV fluids, labs, urinalysis , urine . Urine negative. Labs reviewed and note DKA. Glucose 875. Sodium 121. Bicarb 20. Anion gap 15.7. Urinalysis notes ketones. CBC unremarkable. VBG notes a pH of 7.33, bicarb 19. Will start insulin bolus and drip, continue IV fluids, and give potassium supplementation. 2139 -- d/w hospitalist - accepts pt for admission. HPI General Mode of arrival: ambulatory . Date/Time Provider Initiated Documentation: 05/24/18 19:42 . Limitations to Documentation: no limitations . Information obtained by: patient . HPI Narrative: Patient is a 23-year-old female with a history of diabetes type 1 who presents with hyperglycemia at home. She states last night she missed her 20 units of Lantus because she was staying at a hospital in [place] all day yesterday with family member. She states she takes Humalog sliding scale insulin which she took regularly yesterday. She states today her glucometer read in the 300s or high. She states today she felt weak, tired and nauseous but denies any fever, vomiting, cough, chest pain, shortness of breath, abdominal pain or urinary symptoms. Past medical history: Insulin-dependent diabetes, asthma Surgical history: Bilateral myringotomy tubes, pilonidal cystectomy, tonsillectomy, D&C Social history: Smokes tobacco, denies alcohol or drugs Medications: See list Allergies: Flovent Related Data Home Medications Medication Instructions Recorded Confirmed insulin syringe-needle U-100 [Exel #3 box 05/16/15 Insulin] lancets [FreeStyle Lancets] #300 ea 05/16/15 05/24/18 albuterol sulfate [ProAir HFA] 1 - 2 puff INHALATION Q4H PRN #1 12/12/15 inhaler insulin glargine [Lantus Solostar 20 unit SQ DAILY #7 pen 03/01/17 05/24/18 U-100 Insulin] blood sugar diagnostic [FreeStyle #300 strip 05/08/17 03/15/18 Test] insulin lispro [Humalog U-100 See Protocol SUB-Q AC #7 pkt 05/08/17 05/24/18 Insulin] ipratropium-albuterol 3 ml INHALATION BID #1 box 07/15/17 05/24/18 nebulizer and compressor [Portable #1 07/15/17 05/24/18 Nebulizer System] acetone (urine) test [Ketostix] strip 07/22/17 glucagon (human recombinant) 1 mg IJ DAILY #2 kit 07/22/17 [Glucagon Emergency Kit (human)] Previous Rx's Medication Instructions Recorded albuterol sulfate [ProAir HFA] 1 - 2 puff INHALATION Q4H PRN #1 12/12/15 inhaler insulin glargine [Lantus Solostar 20 unit SQ DAILY #7 pen 03/01/17 U-100 Insulin] blood sugar diagnostic [FreeStyle #300 strip 05/08/17 Test] insulin lispro [Humalog U-100 See Protocol SUB-Q AC #7 pkt 05/08/17 Insulin] ipratropium-albuterol 3 ml INHALATION BID #1 box 07/15/17 glucagon (human recombinant) 1 mg IJ DAILY #2 kit 07/22/17 [Glucagon Emergency Kit (human)] Allergies Allergy/AdvReac Type Severity Reaction Status Date / Time fluticasone propionate AdvReac eyes Unverified 05/24/18 20:03 [From Flovent Diskus] puffy/shakey General Stated Complaint: Diabetes VALENTINA: 3 Review of Systems Review of Systems All systems reviewed & are unremarkable except as noted in HPI and below Constitutional Denies chills, Denies excessive sweating, Reports fatigue, Denies fever(s), Reports weakness and Denies weight loss Eyes Reports system reviewed and no additional complaints, except as docu and Denies blurry vision ENT Denies vertigo, Denies dizziness, Denies otalgia, Denies nasal congestion, Denies sore throat and Denies throat swelling Cardiovascular Denies chest pain, Denies syncope, Denies rapid heart rate and Denies dyspnea Respiratory Denies dyspnea Gastrointestinal Denies abdominal pain, Denies diarrhea, Reports nausea and Denies vomiting Genitourinary Denies hematuria, Denies dysuria and Denies flank pain Musculoskeletal Denies back pain and Denies joint swelling Integumentary/Breasts Denies lesions and Denies rash Neurologic Denies behavioral changes, Denies confusion, Denies vertigo, Denies dizziness, Denies syncope and Reports weakness Psychiatric Denies behavioral changes, Denies confusion and Denies depression Endocrine Denies excessive sweating and Reports fatigue Hematologic/Lymphatic Denies easy bruising and Denies lymphadenopathy Allergic/Immunologic Denies throat swelling PFSH Family History Mother Mental disorder Endometriosis Dementia Grandfather Diabetes Grandmother Diabetes Maternal Cousin Mental disorder Sister Mental disorder Brother DVT (deep venous thrombosis) Brother Claudication Medical History Asthma History of pneumonia Insulin dependent diabetes mellitus Scoliosis Tobacco use disorder Social History household members: friend(s) and other details: (6) lives w/ boyfriend, son and BF's 2 children m +girl 08/17/16 number of children: 4 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al status: unemployed 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: taking [employer] classes Smoking/Tobacco Use Status: Current every day alcohol intake: current alcohol intake frequency: other substance use type: does not use Surgical History Tonsillectomy and adenoidectomy (~2007) Exam Const General: cooperative and healthy appearing Orientation: alert and awake HENMT Head: normal to inspection Ears: hearing grossly normal bilaterally and external ears normal General nose exam: external nose normal Face and sinus: normal facial exam Mouth: oral mucosae normal Throat: posterior oropharynx normal Eyes General: appearance normal, both eyes and all related structures Eyelids: eyelids normal Pupils: PERRL EOM: EOM intact bilaterally Neck Neck: normal visual inspection Lymphatic: no lymphadenopathy noted Chest Chest: normal inspection of the chest Resp Effort & Inspection: normal respiratory effort and able to speak in complete sentences Auscultation: clear to auscultation bilaterally Cardio Rate: regular rate Rhythm: regular rhythm GI Inspection: normal to inspection Palpation: soft, not firm, no guarding, no hepatosplenomegaly, no masses and nontender Auscultation: normal bowel sounds Skin General skin exam: no rashes or lesions noted Neuro General: alert and awake Cognition: normal cognition Speech: speech normal Gait: normal gait Motor: muscle tone normal throughout Sensory Exam: no sensory deficits noted Extrem General: normal to inspection, full ROM, normal capillary refill and no edema Psych Appearance: grossly normal Mental Status: mental status grossly normal Speech and Movement: speech and movement normal Affect: normal affect Thought Process: normal Course Laboratory Tests Range/Units 05/24/18 05/24/18 05/24/18 19:30 19:50 19:50 WBC (4.4-10.8) k/cumm 5.92 RBC (4.00-5.20) m/cumm 4.27 Hgb (12.0-15.5) g/dL 12.9 Hct (36.0-46.0) % 39.6 MCV (80-95) fL 92.7 MCH (27.0-33.0) pg 30.2 MCHC (32.0-36.0) g/dL 32.6 RDW (11.7-14.6) % 11.9 Plt Count (130-400) x1000/uL 321 MPV (8.0-11.0) fL 10.5 Immature Gran % 0.3 Neutrophils % 50.4 Lymphocytes % 39.4 Monocytes % 6.4 Eosinophils % 3.2 Basophils % 0.3 Absolute Neutrophils (1.2-6.7) k/cumm 2.98 Absolute Lymphocytes (1.2-3.4) k/cumm 2.33 Absolute Monocytes (0.11-0.7) k/cumm 0.38 Absolute Eosinophils (0.0-0.7) k/cumm 0.19 Absolute Basophils (0.0-0.2) k/cumm 0.02 VBG pH (7.32-7.43) VBG pCO2 (34-47) mm/Hg VBG pO2 (28-44) mm/Hg VBG HCO3 (22-28) mmol/L VBG Total CO2 (22-29) mmol/L VBG O2 Saturation (70-80) % VBG Base Excess (-3-3) mmol/L Sodium (136-145) mmol/L 121 L* Potassium (3.5-5.1) mmol/L 4.7 Chloride (98-107) mmol/L 85 L Carbon Dioxide (21.0-32.0) mmol/L 20.3 L Anion Gap (3-11) mmol/L 15.7 H BUN (7-18) mg/dL 23 H Creatinine (0.55-1.02) mg/dL 1.06 H Estimated GFR/1.73 m2 (mL/min/1.73m2) >= 60.00 Glucose (70-100) mg/dL 875 H* Calcium (8.5-10.1) mg/dL 9.0 Urine Color (Yellow) Yellow Urine Clarity Clear Urine pH (5-8) 6.5 Ur Specific Starbuck (1.005-1.025) 1.010 Urine Protein (Negative) mg/dL Negative Urine Ketones (Negative) mg/dL 40 H Urine Blood (Negative) Negative Urine Nitrite (Negative) Negative Urine Bilirubin (Negative) Negative Urine Urobilinogen (Up TO 0.2) EU/dL 0.2 Ur Leukocyte Esterase (Negative) Negative Urine Glucose (Negative) mg/dL >=1000 H Range/Units 05/24/18 21:10 WBC (4.4-10.8) k/cumm RBC (4.00-5.20) m/cumm Hgb (12.0-15.5) g/dL Hct (36.0-46.0) % MCV (80-95) fL MCH (27.0-33.0) pg MCHC (32.0-36.0) g/dL RDW (11.7-14.6) % Plt Count (130-400) x1000/uL MPV (8.0-11.0) fL Immature Gran % Neutrophils % Lymphocytes % Monocytes % Eosinophils % Basophils % Absolute Neutrophils (1.2-6.7) k/cumm Absolute Lymphocytes (1.2-3.4) k/cumm Absolute Monocytes (0.11-0.7) k/cumm Absolute Eosinophils (0.0-0.7) k/cumm Absolute Basophils (0.0-0.2) k/cumm VBG pH (7.32-7.43) 7.33 VBG pCO2 (34-47) mm/Hg 35 VBG pO2 (28-44) mm/Hg 43 VBG HCO3 (22-28) mmol/L 19 L VBG Total CO2 (22-29) mmol/L 17 L VBG O2 Saturation (70-80) % 77 VBG Base Excess (-3-3) mmol/L Sodium (136-145) mmol/L Potassium (3.5-5.1) mmol/L Chloride (98-107) mmol/L Carbon Dioxide (21.0-32.0) mmol/L Anion Gap (3-11) mmol/L BUN (7-18) mg/dL Creatinine (0.55-1.02) mg/dL Estimated GFR/1.73 m2 (mL/min/1.73m2) Glucose (70-100) mg/dL Calcium (8.5-10.1) mg/dL Urine Color (Yellow) Urine Clarity Urine pH (5-8) Ur Specific Starbuck (1.005-1.025) Urine Protein (Negative) mg/dL Urine Ketones (Negative) mg/dL Urine Blood (Negative) Urine Nitrite (Negative) Urine Bilirubin (Negative) Urine Urobilinogen (Up TO 0.2) EU/dL Ur Leukocyte Esterase (Negative) Urine Glucose (Negative) mg/dL Vital Signs Temperature 97.5 F L 05/24/18 19:37 Pulse 90 05/24/18 19:37 Respiratory Rate 18 05/24/18 19:37 Blood Pressure 115/67 05/24/18 19:37 Pulse Oximetry 97 05/24/18 19:37 Temperature 97.5 F L 05/24/18 19:37 Temperature Source Temporal Artery Scan 05/24/18 19:37 Pulse 90 05/24/18 19:37 Respiratory Rate 18 05/24/18 19:37 Respiratory Effort Accessory Muscle Use 05/24/18 19:40 Blood Pressure 115/67 05/24/18 19:37 Pulse Oximetry 97 05/24/18 19:37 Oxygen Delivery Method Room Air 05/24/18 19:37 Oxygen Flow Rate 0 05/24/18 19:37 Lab/Test Results Lab/Test Results: POC- Test(urine) Negative
[2018-05-24] MEDS: Normal Saline 1,000 ML 1000 ML IV ×2 (20:06→22:06)
[2018-05-24 20:09] LABS: Bilirubin Negative (Negative); Blood Negative (Negative); Clarity Clear; Glucose >=1000 mg/dL (Negative); Ketones 40 mg/dL (Negative); Leukocyte Esterase Negative (Negative); Nitrite Negative (Negative); Urobilinogen 0.2 EU/dL (Up TO 0.2); pH 6.5 (5-8)
[2018-05-24 20:10] LABS: Abs Immature Grans 0.02 k/cumm (0.0-0.09); Absolute Basophil Count 0.02 k/cumm (0.0-0.2); Absolute Eosinophil Count 0.19 k/cumm (0.0-0.7); Absolute Lymphocyte Count 2.33 k/cumm (1.2-3.4); Absolute Monocyte Count 0.38 k/cumm (0.11-0.7); Absolute Neutrophil Count 2.98 k/cumm (1.2-6.7); Basophils % 0.3; Eosinophils % 3.2; HCT 39.6 % (36.0-46.0); HGB 12.9 g/dL (12.0-15.5); Immature Grans % 0.3; Lymphocytes % 39.4; Mean Corp. HGB Concentration 32.6 g/dL (32.0-36.0); Mean Corpuscular Hemoglobin 30.2 pg (27.0-33.0); Mean Corpuscular Volume 92.7 fL (80-95); Mean Platelet Volume 10.5 fL (8.0-11.0); Monocytes % 6.4; Neutrophils % 50.4; Platelet Count 321 x1000/uL (130-400); RBC 4.27 m/cumm (4.00-5.20); RBC Distribution Width 11.9 % (11.7-14.6); White Blood Cell Count 5.92 k/cumm (4.4-10.8)
[2018-05-24 20:11] LABS: Anion Gap 15.7 mmol/L (3-11); BUN 23 mg/dL (7-18); CO2 20.3 mmol/L (21.0-32.0); CREATININE 1.06 mg/dL (0.55-1.02); Chloride 85 mmol/L (98-107); Potassium 4.7 mmol/L (3.5-5.1)
[2018-05-24 20:26] LABS: Glucose 875 mg/dL (70-100); Sodium 121 mmol/L (136-145)
[2018-05-24] MEDS: Insulin REGULAR-Human 100 UNITS/ML UNIT 7 UNITS SC (21:07)
[2018-05-24 21:14] LABS: HCO3 (Venous) 19 mmol/L (22-28); O2 Sat (Venous) 77 % (70-80); TCO2 (Venous) 17 mmol/L (22-29); pCO2 (Venous) 35 mm/Hg (34-47); pH (Venous) 7.33 (7.32-7.43); pO2 (Venous) 43 mm/Hg (28-44)
[2018-05-24 22:25] VITALS: BP 117/70; PULSE 90; RESP 16; TEMP 37; O2SAT 98
[2018-05-24 23:17] VITALS: BP 110/69; PULSE 96; RESP 18; O2SAT 97
[2018-05-24] MEDS: POTASSIUM CHLORIDE 20 MEQ/100 ML BAG 50 MEQ IVPB (23:27)
[2018-05-25] VITALS (69 sets, daily range): BP systolic 60–125; BP diastolic 11–79; PULSE 71–107; RESP 11–30; TEMP 36.1–36.9; O2SAT 96–98
--- NOTE | 2018-05-25 | W.PM.HP.N ---
Date of service: 05/25/18 Time of Service: 00:01 Assessment and Plan (1) Diabetic ketoacidosis associated with type 1 diabetes mellitus: Current visit: Yes Status: Acute continue iv insulin and iv fluids; blood sugar has come down quickly with insulin bolus and iv insulin; I have reduced her insulin to 0.02 units/kg/hr and have ordered addition of D5% 0.45NS w/ KCl 40 meq/liter. Her K+ on admission labs was normal at 4.7 but based on her acidosis she is actually hypokalemic. her hyponatremia corrects to 140 based on her glucose of 875. Her glucose is now down to 255. I will recheck her BMP now and repeat this again in 2 to 3 hours. Oncer her anion gap resolves and her ketones have resolved then she can be switched to her usual dose of insulin. (2) Diabetes mellitus, insulin dependent (IDDM), uncontrolled: Current visit: Yes Status: Acute as above. Will also ask nurses educator to work with her on sick day management and emphasizing the need to keep her insulin with her at all times and to not miss her regularly scheduled doses. History of Present Illness Chief Complaint: high blood sugars, nausea, DKA Narrative: 23-year-old female with a history of type 1 diabetes mellitus presents the emergency department with 1 day history of weakness, fatigue, nausea associated with hyperglycemia in which her monitor has been reading high all day. Patient reports she missed her 20 units of Lantus last night due to not being at home. All day she has been checking her blood sugars and dosing herself with her Humalog to try to get her blood sugars down. When she could not get her blood sugars down she came in the emergency room where she was found to be in DKA with a lab drawn glucose of 875 along with hyponatremia with a serum sodium of 121 and a serum bicarbonate of 20 with an anion gap of 15.7 with a urinalysis that was notable for ketones and glycosuria. Venous blood gas was checked and found to have a pH of 7.33 with a bicarbonate level of 19. She was evaluated and treated by Dr. Rubia Gardiner in the emergency room and the patient was given 2 L of IV fluids and bolused with 7 units of Humulin R and begun on an insulin drip of Humulin R at 6.8 units/h. Patient's had no fevers chills cough shortness of breath or dyspnea. CBC was within normal limits. Urinalysis was unremarkable except for ketonuria of 40 mg/dL and glycosurea of >1000 mg/dL. Patient is now admitted to ICU for continued management of DKA. Review of Systems Review of Systems All systems reviewed & are unremarkable except as noted in HPI and below PFSH Family History Grandfather Diabetes Grandmother Diabetes Maternal Cousin Mental disorder Sister Mental disorder Brother DVT (deep venous thrombosis) Brother Claudication Mother Diabetes Medical History Diabetic ketoacidosis associated with type 1 diabetes mellitus (Acute) Diabetes mellitus, insulin dependent (IDDM), uncontrolled (Acute) Asthma History of pneumonia Insulin dependent diabetes mellitus Scoliosis Tobacco use disorder Social History household members: friend(s) and other details: (6) lives w/ boyfriend, son and BF's 2 children m +girl 08/17/16 number of children: 4 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al status: unemployed 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: taking [employer] classes Smoking/Tobacco Use Status: Current every day alcohol intake: current alcohol intake frequency: other substance use type: does not use Surgical History Tonsillectomy and adenoidectomy (~2007) Meds Home Medications Medication Instructions Recorded Confirmed Type insulin syringe-needle U-100 [Exel #3 box 05/16/15 History Insulin] lancets [FreeStyle Lancets] #300 ea 05/16/15 05/24/18 History albuterol sulfate [ProAir HFA] 1 - 2 puff INHALATION Q4H PRN #1 12/12/15 05/24/18 Rx inhaler insulin glargine [Lantus Solostar 20 unit SQ DAILY #7 pen 03/01/17 05/24/18 Rx U-100 Insulin] blood sugar diagnostic [FreeStyle #300 strip 05/08/17 03/15/18 Rx Test] insulin lispro [Humalog U-100 See Protocol SUB-Q AC #7 pkt 05/08/17 05/24/18 Rx Insulin] ipratropium-albuterol 3 ml INHALATION BID #1 box 07/15/17 05/24/18 Rx nebulizer and compressor [Portable #1 07/15/17 05/24/18 History Nebulizer System] acetone (urine) test [Ketostix] strip 07/22/17 History glucagon (human recombinant) 1 mg IJ DAILY #2 kit 07/22/17 Rx [Glucagon Emergency Kit (human)] Allergies Allergy/AdvReac Type Severity Reaction Status Date / Time fluticasone propionate AdvReac eyes Unverified 05/24/18 20:03 [From Flovent Diskus] puffy/shakey Exam Const General: cooperative, healthy appearing and no acute distress Orientation: alert, awake and oriented x3 HENMT Head: normal to inspection, normocephalic and atraumatic Ears: hearing grossly normal bilaterally and TM's normal bilaterally General nose exam: external nose normal, nares normal and nasal mucous membranes and turbinates normal Face and sinus: normal facial exam Mouth: oral mucosae normal Teeth and gingiva: dentition normal Throat: posterior oropharynx normal and uvula midline Eyes General: appearance normal, both eyes and all related structures Visual Patel: normal visual patel by confrontation Alignment and Position: alignment normal and position normal Eyelids: eyelids normal Sclera: sclerae normal Cornea: corneas normal Pupils: PERRL EOM: EOM intact bilaterally Direct ophthalmoscopy: normal light reflex Neck Neck: normal visual inspection, full ROM, no lymphadenopathy, trachea midline, supple and no JVD Thyroid: thyroid normal Carotids: normal carotid upstroke Lymphatic: no lymphadenopathy noted Chest Chest: normal inspection of the chest and normal palpation of entire chest wall Breast inspection: normal inspection of the breasts Breast palpation: normal palpation of the breasts and normal palpation of the axillae Resp Effort & Inspection: normal respiratory effort and able to speak in complete sentences Auscultation: clear to auscultation bilaterally Percussion: percussion normal Cardio Jugular venous pressure: no JVD Palpation: normal PMI Rate: regular rate Rhythm: regular rhythm Heart Sounds: S1 normal, S2 normal and normal, physiologic split S2 Bruits: no abdominal aortic bruits, no carotid bruits, no femoral bruits and no renal bruits Pulses: brachial pulses present, radial pulses present, femoral pulses present, popliteal pulses present, posterior tibial pulses present, dorsalis pedis pulses present and normal peripheral pulses GI Inspection: normal to inspection Palpation: soft and no hepatosplenomegaly Percussion: normal to percussion Auscultation: normal bowel sounds Back/Spine/Pelvis Back: no CVA tenderness Cervical Spine: normal cervical lordosis and cervical ROM normal Thoracic/Lumbar Spine: thoracic and lumbar spine normal to inspection Skin General skin exam: no rashes or lesions noted and turgor normal Lesions: no lesions Rashes: no rashes Wounds: no wounds Hair: normal Nails: normal Neuro General: alert, awake, oriented x3, gait normal, tone normal, moves all extremities, normal light touch, pain and propioception, no focal motor deficits, CN's II-XI intact bilaterally and deep tendon reflexes 2+ bilaterally Cognition: normal cognition Speech: speech normal Gait: normal gait Motor: muscle tone normal throughout Sensory Exam: no sensory deficits noted Extrem General: normal to inspection, full ROM, normal capillary refill, no joint enlargement, no clubbing, cyanosis or edema, no calf tenderness and normal gait Psych Appearance: grossly normal and well kempt Mental Status: mental status grossly normal Speech and Movement: speech and movement normal Mood: congruent mood Affect: normal affect Attitude: cooperative Thought Process: normal Thought Content: normal Insight: insight good Judgment: judgment good Results Labs : 05/24/18 19:50 05/25/18 00:22 Laboratory Results - last 24 hr 05/24/18 05/24/18 05/24/18 19:30 19:50 19:50 WBC 5.92 RBC 4.27 Hgb 12.9 Hct 39.6 MCV 92.7 MCH 30.2 MCHC 32.6 RDW 11.9 Plt Count 321 MPV 10.5 Immature Gran % 0.3 Neutrophils % 50.4 Lymphocytes % 39.4 Monocytes % 6.4 Eosinophils % 3.2 Basophils % 0.3 Absolute Neutrophils 2.98 Absolute Lymphocytes 2.33 Absolute Monocytes 0.38 Absolute Eosinophils 0.19 Absolute Basophils 0.02 VBG pH VBG pCO2 VBG pO2 VBG HCO3 VBG Total CO2 VBG O2 Saturation VBG Base Excess Sodium 121 L* Potassium 4.7 Chloride 85 L Carbon Dioxide 20.3 L Anion Gap 15.7 H BUN 23 H Creatinine 1.06 H Estimated GFR/1.73 m2 >= 60.00 Glucose 875 H* Calcium 9.0 Urine Color Yellow Urine Clarity Clear Urine pH 6.5 Ur Specific [place] 1.010 Urine Protein Negative Urine Ketones 40 H Urine Blood Negative Urine Nitrite Negative Urine Bilirubin Negative Urine Urobilinogen 0.2 Ur Leukocyte Esterase Negative Urine Glucose >=1000 H 05/24/18 21:10 WBC RBC Hgb Hct MCV MCH MCHC RDW Plt Count MPV Immature Gran % Neutrophils % Lymphocytes % Monocytes % Eosinophils % Basophils % Absolute Neutrophils Absolute Lymphocytes Absolute Monocytes Absolute Eosinophils Absolute Basophils VBG pH 7.33 VBG pCO2 35 VBG pO2 43 VBG HCO3 19 L VBG Total CO2 17 L VBG O2 Saturation 77 VBG Base Excess Sodium Potassium Chloride Carbon Dioxide Anion Gap BUN Creatinine Estimated GFR/1.73 m2 Glucose Calcium Urine Color Urine Clarity Urine pH Ur Specific [place] Urine Protein Urine Ketones Urine Blood Urine Nitrite Urine Bilirubin Urine Urobilinogen Ur Leukocyte Esterase Urine Glucose Last Vital Signs Temp 37 C 05/24/18 22:25 Pulse 96 H 05/24/18 23:17 Resp 18 05/24/18 23:17 BP 110/69 05/24/18 23:17 Pulse Ox 97 05/24/18 23:17
[2018-05-25 00:36] LABS: Anion Gap 12.1 mmol/L (3-11); BUN 16 mg/dL (7-18); CO2 23.9 mmol/L (21.0-32.0); CREATININE 0.83 mg/dL (0.55-1.02); Calcium 8.9 mg/dL (8.5-10.1); Chloride 100 mmol/L (98-107); Glucose 147 mg/dL (70-100); Potassium 3.7 mmol/L (3.5-5.1); Sodium 136 mmol/L (136-145)
[2018-05-25] MEDS: Insulin Glargine 300 UNITS/3 ML PEN 10 UNITS SC (02:48)
[2018-05-25 03:25] LABS: Anion Gap 9.5 mmol/L (3-11); BUN 14 mg/dL (7-18); CO2 25.5 mmol/L (21.0-32.0); CREATININE 0.68 mg/dL (0.55-1.02); Calcium 8.6 mg/dL (8.5-10.1); Chloride 101 mmol/L (98-107); Glucose 228 mg/dL (70-100); Potassium 4.4 mmol/L (3.5-5.1); Sodium 136 mmol/L (136-145)
[2018-05-25] MEDS: Enoxaparin 40 MG/0.4 ML SYR SC (06:21)
[2018-05-25 07:12] LABS: Abs Immature Grans 0.03 k/cumm (0.0-0.09); Absolute Basophil Count 0.02 k/cumm (0.0-0.2); Absolute Eosinophil Count 0.38 k/cumm (0.0-0.7); Absolute Lymphocyte Count 3.26 k/cumm (1.2-3.4); Absolute Monocyte Count 0.55 k/cumm (0.11-0.7); Absolute Neutrophil Count 2.58 k/cumm (1.2-6.7); Basophils % 0.3; Eosinophils % 5.6; HCT 36.1 % (36.0-46.0); HGB 12.1 g/dL (12.0-15.5); Immature Grans % 0.4; Lymphocytes % 47.8; Mean Corp. HGB Concentration 33.5 g/dL (32.0-36.0); Mean Corpuscular Hemoglobin 30.6 pg (27.0-33.0); Mean Corpuscular Volume 91.4 fL (80-95); Monocytes % 8.1; Neutrophils % 37.8; Platelet Count 304 x1000/uL (130-400); RBC 3.95 m/cumm (4.00-5.20); White Blood Cell Count 6.82 k/cumm (4.4-10.8)
--- NOTE | 2018-05-25 07:30 | PDOC.CMIN ---
- If Service Date Differs Date of service: 05/25/18 Time of Service: 07:31 Care Management Initial Assess REASON FOR HOSPITALIZATION:: DKA, medications non-compliance. PAST MEDICAL HISTORY/PAST SURGICAL HISTORY:: Asthma, diabetes type I, scoliosis, tobacco use. Surgical hx: tonisllectomy and adenoidectomy. PREVIOUS FUNCTIONAL STATUS/SOCIAL/FAMILY SUPPORTS:: Sydnie resides in [place] with her on-again/off-again boyfriend, Baldev and her two children, ages two and six. Sydnie has family in [place] and works at [employer] there. She is independent with her ADLs and transportation. CURRENT FUNCTIONAL STATUS:: Sydnie is lying in bed in the ICU when CM visits this morning. She is engaged in conversation, makes good eye contact, and is talkative. Sydnie reports that she has been dealing with diabetes since she was a year old, and while her sugars are most often all over the place she does monitor them daily. She reports that she missed her 20 units of lantus and arrived at the ER following a day of weakness, fatigue, and nausea. Sydnie is followed by endocrinology at [facility] and admits that she hasn't been in awhile and is due to follow up with them. Sydnie's insulin drip has been discontinued, her IV fluids have been changed to NS40K at 100ml/hr and her anion gap has closed. Sydnie will have a consult with the adult educator prior to discharge. Per MD, Sydnie's Medicaid coverage has . PERCY spoke with Sosa at [employer] who reports Sydnie's coverage last month and that she will work with her to get it reinstated. ADVANCE DIRECTIVES:: None on file at [facility]. Has patient been provided with information about the portal?: Yes Did the patient sign up for the portal?: No CODE STATUS:: Full Code INSURANCE COVERAGE / FINANCIAL ISSUES:: Medicaid; a month ago. [employer] has been contacted and will be working with a navigator for possible re-instatement. CURRENT HOME/COMMUNITY SERVICES/EQUIPMENT:: No current home or community services. Glucometer and test strips. PRIMARY CARE PHYSICIAN:: Mia Poe NP. Endocrinology at [facility]. POTENTIAL DISCHARGE NEEDS:: Follow up appointment with her PCP and graphics intern. PATIENT/FAMILY EDUCATION NEEDS:: Discharge education, any limitiations, and follow up plan of care. Ask Me Three discussion. ANTICIPATED BARRIERS TO DISCHARGE:: No anticipated barriers to discharge. TRANSPORTATION:: Sydnie will transport home via private vehicle with her boyfriend, Baldev, or his father. PLAN:: Sydnie will discharge home when medically ready per MD. Anticipate patient will discharge with no services and follow up with her PCP. CM will continue to offer support to patient and care team regarding discharge planning and disposition.
[2018-05-25 07:33] LABS: ALT 18 U/L (12-78); AST 16 U/L (15-37); Albumin 2.7 g/dL (3.4-5.0); Alkaline Phosphatase 121 U/L (46-116); BUN 12 mg/dL (7-18); Bilirubin, Total 0.2 mg/dL (0.2-1.0); CREATININE 0.62 mg/dL (0.55-1.02); Calcium 8.4 mg/dL (8.5-10.1); Chloride 103 mmol/L (98-107); Glucose 156 mg/dL (70-100); Potassium 4.7 mmol/L (3.5-5.1); Sodium 135 mmol/L (136-145); Total Protein 5.8 g/dL (6.4-8.2)
--- NOTE | 2018-05-25 07:36 | INITIAL_ITS ---
- If Service Date Differs Date of service: 05/25/18 Time of Service: 07:31 Care Management Initial Assess REASON FOR HOSPITALIZATION:: DKA, medications non-compliance. PAST MEDICAL HISTORY/PAST SURGICAL HISTORY:: Asthma, diabetes type I, scoliosis , tobacco use. Surgical hx: tonisllectomy and adenoidectomy. PREVIOUS FUNCTIONAL STATUS/SOCIAL/FAMILY SUPPORTS:: Sydnie resides in [place] with her on-again/off-again boyfriend, Baldev and her two children, ages two and six. Sydnie has family in [place] and works at [employer] there. She is independent with her ADLs and transportation. CURRENT FUNCTIONAL STATUS:: Sydnie is lying in bed in the ICU when CM visits this morning. She is engaged in conversation, makes good eye contact, and is talkative. Sydnie reports that she has been dealing with diabetes since she was a year old, and while her sugars are most often all over the place she does monitor them daily. She reports that she missed her 20 units of lantus and arrived at the ER following a day of weakness, fatigue, and nausea. Sydnie is followed by endocrinology at [facility] and admits that she hasn't been in awhile and is due to follow up with them. Sydnie's insulin drip has been discontinued, her IV fluids have been changed to NS40K at 100ml/hr and her anion gap has closed. Sydnie will have a consult with the primary special educator prior to discharge. Per MD, Sydnie's Medicaid coverage has . PERCY spoke with Sosa at [employer] who reports Sydnie's coverage last month and that she will work with her to get it reinstated. ADVANCE DIRECTIVES:: None on file at [facility]. Has patient been provided with information about the portal?: Yes Did the patient sign up for the portal?: No CODE STATUS:: Full Code INSURANCE COVERAGE / FINANCIAL ISSUES:: Medicaid; a month ago. [employer] has been contacted and will be working with a navigator for possible re-instatement. CURRENT HOME/COMMUNITY SERVICES/EQUIPMENT:: No current home or community services. Glucometer and test strips. PRIMARY CARE PHYSICIAN:: Mia Poe NP. Endocrinology at [facility]. POTENTIAL DISCHARGE NEEDS:: Follow up appointment with her PCP and opener. PATIENT/FAMILY EDUCATION NEEDS:: Discharge education, any limitiations, and follow up plan of care. Ask Me Three discussion. ANTICIPATED BARRIERS TO DISCHARGE:: No anticipated barriers to discharge. TRANSPORTATION:: Sydnie will transport home via private vehicle with her boyfriend, Baldev, or his father. PLAN:: Sydnie will discharge home when medically ready per MD. Anticipate patient will discharge with no services and follow up with her PCP. CM will continue to offer support to patient and care team regarding discharge planning and disposition.
[2018-05-25] MEDS: POTASSIUM CHLORIDE/D5-0.45NACL 1,000 ML 150 MEQ IV (08:14)
[2018-05-25] MEDS: POTASSIUM CHLORIDE/0.9% NACL 1,000 ML 100 MEQ IV (09:59)
[2018-05-25 11:30] LABS: Magnesium 1.5 mg/dL (1.8-2.4)
--- NOTE | 2018-05-25 11:41 | DM INPTCON_ITS ---
DESCRIPTION/ASSESSMENT: Appreciate diabetes consult for Sydnie Jeffers who has had type 1 diabetes many years and is hospitalized for DKA as a result of not taking her Lantus dose in the evening. She states she did test ketones and they were high. She kept taking bolus insulin but it wouldn't come down. She reports early on she was treated at [facility] and was told she was a ' brittle diabetic'. This is a label that stays with her. Sydnie reports her blood sugars have been fluctuating widely despite using her insulin scale for carbohydrate and correction. She sees [facility] but has not been back for over a year. She has had a Dexcom CGM in the past, but she states her transmitter kept failing. She has also been on an insulin pump. Sydnie reports a chaotic household recently making it more difficult to focus on herself to manage her diabetes. INTERVENTION: Discussed sick day care; what to do if you miss an insulin dose and cannot control blood sugars subsequently. Focused on importance of calling her PCP if she is unable to correct her hyperglycemia after a couple of attempts and when Ketones are elevated. Discussed looking at her insulin scale, however she wishes to set up an appointment with Endocrinology at this time and she commits to doing this. Discussed current closed loop CGM and pump technology. PLAN: She agrees to see her Crate Opener Will follow blood sugars
[2018-05-25] MEDS: Insulin Aspart 300 UNITS/3 ML PEN SC ×3 (11:53→17:16)
--- NOTE | 2018-05-25 14:31 | W.PM.DS.N ---
Date of service: 05/25/18 Time of Service: 14:34 DS: Diagnosis Discharge Diagnosis (1) Diabetic ketoacidosis associated with type 1 diabetes mellitus: Status: Resolved (2) Diabetes mellitus, insulin dependent (IDDM), uncontrolled: Status: Chronic Discharge Plan Disposition Patient Disposition: HOME Condition: Stable Discharge Details Reason For Visit: DKA, MEDICATION NONCOMPLIANCE Admit Date/Time: 05/24/18 21:48 Admit Provider: Baldev Hinojosa Attending Provider: Baldev Hinojosa Primary Care Provider: Mia Poe [facility] Hospital Course: Ms Jeffers is a 23 year old female with PMHx of IDDM1, using basal bolus insulin, who was admitted to [facility] on 05/24/18 for DKA due to a missed dose of lantus (as reported by patient). The patient was treated with insulin drip, aggressive IV fluids, and transitioned to basal bolus insulin once her anion gap has closed. Her potassium and magnesium have been repleted. There does not appear to be an infectious trigger for this bout of DKA. The patient met with the early childhood special educator. She states that she has insulin and supplies at home, that she will schedule her own endocrinology appointment and her own PCP appointment. Home Meds and New Rx's Prescriptions: Continue insulin syringe-needle U-100 [Exel Insulin] 1 EACH syringe 1 ea Miscellaneous AC & HS Qty: 3 RF: 3 lancets [FreeStyle Lancets] 1 EACH misc 1 ea Miscellaneous Q2H Qty: 300 RF: 3 ipratropium-albuterol 3 ML solution for nebulization 3 ml Inhalation BID Qty: 1 RF: 0 nebulizer and compressor [Portable Nebulizer System] 1 EACH device Miscellaneous DAILY Qty: 1 RF: 0 glucagon (human recombinant) [Glucagon Emergency Kit (human)] 1 MG kit 1 mg IJ DAILY Qty: 2 RF: 0 acetone (urine) test [Ketostix] 1 EACH strip 1 ea Miscellaneous DAILY 30 Days RF: 2 albuterol sulfate [ProAir HFA] 200 PUFF HFA aerosol inhaler 1 - 2 puff Inhalation Q4H PRN Qty: 1 RF: 1 insulin glargine [Lantus Solostar U-100 Insulin] 300 UNITS/3 ML insulin pen 20 unit SQ DAILY Qty: 7 RF: 0 blood sugar diagnostic [FreeStyle Test] 1 EACH strip 1 ea Miscellaneous Q2H PRNQty: 300 RF: 3 insulin lispro [Humalog U-100 Insulin] 100 UNIT/1 ML solution Sub-Q AC Qty: 7 RF: 0 Discharge Instructions Instructions: Diabetic Ketoacidosis (DC) Additional Instructions: Check your blood sugar at least 4 times a day. Return to the hospital with any fever, bleeding, chest pain, or shortness of breath. Activity:: Activity as Tolerated Equipment/Supplies:: No Equipment Needed Diet:: Carb Counting Discharge Orders Discharge Orders: Discharge Order (Routine); Ordered 05/25/18 Ordered By: Roxy Canela Exam Narrative Exam Narrative: General: Very pleasant young female, laying comfortably in bed, in no distress Neurological: A&Ox3, no focal deficits Psychiatric: appropriate speech pattern/content Skin: intact HEENT: EOMI, MMM Cardiovascular: RRR, no m/r/g Lungs: CTAB Gastrointestinal: Abdomen soft, nontender, nondistended Extremities: no edema, clubbing, or cyanosis DS: Data Vitals/I&O Vitals and I&O: Vital Signs Temperature 36.1 C L 05/25/18 08:27 Temperature Source Tympanic 05/25/18 08:27 Pulse 88 05/25/18 10:24 Pulse 88 05/25/18 10:24 Respiratory Rate 11 L 05/25/18 10:24 Respiratory Effort Non-Labored 05/25/18 08:27 Respiratory Depth Normal 05/25/18 08:27 Respiratory Pattern Normal 05/25/18 08:27 Blood Pressure 119/76 05/25/18 10:24 Blood Pressure Mean 85 05/25/18 10:24 Pulse Oximetry 98 05/25/18 03:35 Oxygen Delivery Method Room Air 05/25/18 08:27 Oxygen Flow Rate 0 05/25/18 08:27 Pain Level 0 05/25/18 08:27 Intake & Output 05/24/18 05/25/18 05/25/18 23:59 11:59 23:59 Intake Total 1000 / 1000 2760.925 / 2760.925 Output Total 1000 / 1000 675 / 675 Balance 0 / 0 2085.925 / 2085.925 Weight 68.039 kg 72.8 kg Intake: IV 1000 / 1000 2280.925 / 2280.925 Oral 480 / 480 Output: Urine 1000 / 1000 675 / 675 Other: Urine Color Pale Yellow Urine Appearance Clear Cloudy Urine Odor None Normal Voiding Methods Bedside Commode Completed studies during hospitalization [Text1]: CXR: CONCLUSION: Normal chest. Labs on day of discharge: Labs from last 24 hours 05/25/18 05/25/18 05/25/18 06:50 06:50 02:55 WBC 6.82 RBC 3.95 L Hgb 12.1 Hct 36.1 MCV 91.4 MCH 30.6 MCHC 33.5 RDW 12.0 Plt Count 304 MPV 10.0 Immature Gran % 0.4 Neutrophils % 37.8 Lymphocytes % 47.8 Monocytes % 8.1 Eosinophils % 5.6 Basophils % 0.3 Absolute Neutrophils 2.58 Absolute Lymphocytes 3.26 Absolute Monocytes 0.55 Absolute Eosinophils 0.38 Absolute Basophils 0.02 VBG pH VBG pCO2 VBG pO2 VBG HCO3 VBG Total CO2 VBG O2 Saturation VBG Base Excess Sodium 135 L 136 Potassium 4.7 4.4 Chloride 103 101 Carbon Dioxide 22.0 25.5 Anion Gap 10.0 9.5 BUN 12 14 Creatinine 0.62 0.68 Estimated GFR/1.73 m2 >= 60.00 >= 60.00 Glucose 156 H 228 H D Calcium 8.4 L 8.6 Magnesium 1.5 L Total Bilirubin 0.2 AST 16 ALT 18 Alkaline Phosphatase 121 H Total Protein 5.8 L Albumin 2.7 L Urine Color Urine Clarity Urine pH Ur Specific [employer] Urine Protein Urine Ketones Urine Blood Urine Nitrite Urine Bilirubin Urine Urobilinogen Ur Leukocyte Esterase Urine Glucose 05/25/18 05/24/18 05/24/18 00:22 21:10 19:50 WBC 5.92 RBC 4.27 Hgb 12.9 Hct 39.6 MCV 92.7 MCH 30.2 MCHC 32.6 RDW 11.9 Plt Count 321 MPV 10.5 Immature Gran % 0.3 Neutrophils % 50.4 Lymphocytes % 39.4 Monocytes % 6.4 Eosinophils % 3.2 Basophils % 0.3 Absolute Neutrophils 2.98 Absolute Lymphocytes 2.33 Absolute Monocytes 0.38 Absolute Eosinophils 0.19 Absolute Basophils 0.02 VBG pH 7.33 VBG pCO2 35 VBG pO2 43 VBG HCO3 19 L VBG Total CO2 17 L VBG O2 Saturation 77 VBG Base Excess Sodium 136 D Potassium 3.7 D Chloride 100 Carbon Dioxide 23.9 Anion Gap 12.1 H BUN 16 D Creatinine 0.83 Estimated GFR/1.73 m2 >= 60.00 Glucose 147 H D Calcium 8.9 Magnesium Total Bilirubin AST ALT Alkaline Phosphatase Total Protein Albumin Urine Color Urine Clarity Urine pH Ur Specific [employer] Urine Protein Urine Ketones Urine Blood Urine Nitrite Urine Bilirubin Urine Urobilinogen Ur Leukocyte Esterase Urine Glucose 05/24/18 05/24/18 19:50 19:30 WBC RBC Hgb Hct MCV MCH MCHC RDW Plt Count MPV Immature Gran % Neutrophils % Lymphocytes % Monocytes % Eosinophils % Basophils % Absolute Neutrophils Absolute Lymphocytes Absolute Monocytes Absolute Eosinophils Absolute Basophils VBG pH VBG pCO2 VBG pO2 VBG HCO3 VBG Total CO2 VBG O2 Saturation VBG Base Excess Sodium 121 L* Potassium 4.7 Chloride 85 L Carbon Dioxide 20.3 L Anion Gap 15.7 H BUN 23 H Creatinine 1.06 H Estimated GFR/1.73 m2 >= 60.00 Glucose 875 H* Calcium 9.0 Magnesium Total Bilirubin AST ALT Alkaline Phosphatase Total Protein Albumin Urine Color Yellow Urine Clarity Clear Urine pH 6.5 Ur Specific [employer] 1.010 Urine Protein Negative Urine Ketones 40 H Urine Blood Negative Urine Nitrite Negative Urine Bilirubin Negative Urine Urobilinogen 0.2 Ur Leukocyte Esterase Negative Urine Glucose >=1000 H
--- NOTE | 2018-05-25 14:37 | PDOC.CMDIS ---
- If Service Date Differs Date of service: 05/25/18 Time of Service: 14:37 LACE Index Scoring Tool - Questions: Length of Stay (in days): 2 Acuity (Admit via E.D.?): Yes Comorbidities: Diabetes w/o Complication, Connective Tissue Disease E.D. Visits: 8 - Answers: Total Score: 14 Risk of Readmission: High Risk Care Management Discharge Reason for Hospitalization: DKA, medications non-compliance. Discharge Plan: Sydnie will discharge home when medically ready per MD. Anticipate patient will discharge with no services and follow up with her PCP and caretaker resort. Sydnie will transport via private vehicle with her boyfriend or his father. CM will continue to offer support to patient and care team regarding discharge planning and disposition. Patient/Family Education Needs: Discharge education, any limitations, and follow up plan of care. Ask Me Three discussion. Insurance needs; [employer] and navigator working on re-instating Sydnie's Medicaid.
--- NOTE | 2018-05-25 14:50 | CMDISCH_ITS ---
- If Service Date Differs Date of service: 05/25/18 Time of Service: 14:37 LACE Index Scoring Tool - Questions: Length of Stay (in days): 2 Acuity (Admit via E.D.?): Yes Comorbidities: Diabetes w/o Complication, Connective Tissue Disease E.D. Visits: 8 - Answers: Total Score: 14 Risk of Readmission: High Risk Care Management Discharge Reason for Hospitalization: DKA, medications non-compliance. Discharge Plan: Sydnie will discharge home when medically ready per MD. Anticipate patient will discharge with no services and follow up with her PCP and it help desk associate. Sydnie will transport via private vehicle with her boyfriend or his father. CM will continue to offer support to patient and care team regarding discharge planning and disposition. Patient/Family Education Needs: Discharge education, any limitations, and follow up plan of care. Ask Me Three discussion. Insurance needs; [employer] and navigator working on re-instating Sydnie's Medicaid.
[2018-05-25] MEDS: MAGNESIUM SULFATE 4 GM/100 ML BAG IVPB (15:20)
== END 2018-05-25 17:45 | disposition home or self-care (01) | DRG 639 ==
LOC: ER 22:16 → ICU 05-25 14:35
PROVIDERS: Admitting Provider Internal Medicine; Emergency Provider Physician Assistant; PCP Nurse Practitioner Family; Visit Provider Internal Medicine
DX: E10.10 Type 1 diabetes mellitus with ketoacidosis without coma (principal); E10.65 Type 1 diabetes mellitus with hyperglycemia; T38.3X6A Underdosing of insulin and oral hypoglycemic [antidiabetic] drugs, initial encounter; Z71.3 Dietary counseling and surveillance
CPT/HCPCS: 36415; 36416; 80048; 80053; 81025; 82805; 82962; 96361; 96365; 96366; 96368; 96372; 99222; 99239; 99285; J1650; 81003; 83735; 85025; J3475; J3480

== ENCOUNTER 2018-09-11 20:28 | Emergency (ER) | payer MEDICAID, SELFPAY ==
--- NOTE | 2018-09-11 20:35 | NUR.NOTE ---
pt developed left sided abdominal pain upon awaking this morning 6/10 movement increases pain to 10/10
[2018-09-11 20:37] VITALS: BP 115/77; PULSE 102; RESP 16; TEMP 36.7; O2SAT 99
[2018-09-11] MEDS: Ketorolac 30 MG/ML VIAL IVP (21:31)
[2018-09-11 21:39] LABS: Abs Immature Grans 0.03 k/cumm (0.0-0.09); Absolute Basophil Count 0.04 k/cumm (0.0-0.2); Absolute Eosinophil Count 0.36 k/cumm (0.0-0.7); Absolute Lymphocyte Count 4.03 k/cumm (1.2-3.4); Absolute Monocyte Count 0.56 k/cumm (0.11-0.7); Absolute Neutrophil Count 4.22 k/cumm (1.2-6.7); Basophils % 0.4; Eosinophils % 3.9; HCT 39.4 % (36.0-46.0); HGB 13.5 g/dL (12.0-15.5); Immature Grans % 0.3; Lymphocytes % 43.6; Mean Corp. HGB Concentration 34.3 g/dL (32.0-36.0); Mean Corpuscular Hemoglobin 30.5 pg (27.0-33.0); Mean Corpuscular Volume 89.1 fL (80-95); Mean Platelet Volume 9.9 fL (8.0-11.0); Monocytes % 6.1; Neutrophils % 45.7; Platelet Count 350 x1000/uL (130-400); RBC 4.42 m/cumm (4.00-5.20); RBC Distribution Width 12.3 % (11.7-14.6); White Blood Cell Count 9.24 k/cumm (4.4-10.8)
[2018-09-11 21:48] LABS: ALT 17 U/L (12-78); AST 12 U/L (15-37); Albumin 3.4 g/dL (3.4-5.0); Alkaline Phosphatase 124 U/L (46-116); Anion Gap 9.3 mmol/L (3-11); BUN 18 mg/dL (7-18); Bilirubin, Total 0.3 mg/dL (0.2-1.0); CO2 27.7 mmol/L (21.0-32.0); CREATININE 0.87 mg/dL (0.55-1.02); Calcium 8.7 mg/dL (8.5-10.1); Chloride 97 mmol/L (98-107); Glucose 337 mg/dL (70-100); Lipase 65 U/L (73-393); Potassium 4.1 mmol/L (3.5-5.1); Sodium 134 mmol/L (136-145); Total Protein 7.3 g/dL (6.4-8.2)
--- NOTE | 2018-09-11 22:03 | ED.GENADUL_ITS ---
Discharge Plan Disposition Patient Disposition: HOME Discharge Details Chief Complaint: Abd Prob Clinical Impression: Abdominal pain, Hyperglycemia Primary Care Provider: Mia Poe ED Provider: Pete Murrieta Home Meds and New Rx's Prescriptions: Continued Exel Insulin 1 EACH syringe 1 ea Miscellaneous AC & HS Qty: 3 RF: 3 lancets [FreeStyle Lancets] 1 EACH misc 1 ea Miscellaneous Q2H Qty: 300 RF: 3 ipratropium-albuterol 3 ML solution for nebulization 3 ml Inhalation BID Qty: 1 RF: 0 Portable Nebulizer System 1 EACH device Miscellaneous DAILY Qty: 1 RF: 0 Glucagon Emergency Kit (human) 1 MG kit 1 mg IJ DAILY Qty: 2 RF: 0 Ketostix 1 EACH strip 1 ea Miscellaneous DAILY 30 Days RF: 2 Lantus Solostar U-100 Insulin 100 unit/mL (3 mL) insulin pen 20 unit subcut HS Qty: 15 RF: 0 albuterol sulfate [ProAir HFA] 200 PUFF HFA aerosol inhaler 1 - 2 puff Inhalation Q4H PRN Qty: 1 RF: 1 FreeStyle Test 1 EACH strip 1 ea Miscellaneous Q2H PRNQty: 300 RF: 3 Humalog U-100 Insulin 100 UNIT/1 ML solution Sub-Q AC Qty: 7 RF: 0 Discharge Instructions Instructions: Ovarian Cyst (ED), Abdominal Pain (ED), Diabetic Hyperglycemia (ED) Additional Instructions: Return immediately to the emergency department for any significant worsening of pain, nausea vomiting, fever chills, or any further concerns. Otherwise you should follow-up with your primary care provider or women's wellness for reass essment if your symptoms are not improving. You may continue to use ibuprofen 600 mg every 6-hour as needed for discomfort. Referrals: [facility] [Provider Group] Mia Poe, KELLY [Primary Care Provider] - Discharge Data Discharge Date/Time-TO BE ENTERED AT DEPARTURE: 09/11/18 22:25 Medical Decision Making Patient presenting to the emergency department for chief complaint of abdominal pain. Patient states this started this morning while lying in bed. Patient denies any blunt injury or trauma, nausea vomiting, diarrhea, change in bowel movements, or urinary symptoms. She does state that she was concerned that this may be 1 of her ovarian cyst. Physical exam does show left-sided abdominal tenderness more to the midportion of the abdomen and suprapubic. Patient is a diabetic so plan on checking labs and giving Toradol. Patient initially deferring CT imaging or ultrasound imaging pending results of labs. Labs were reviewed and are nondiagnostic but do show hyperglycemia which patient is a type I diabetic. Patient states that she is overdue for Lantus but is planning on taking it as soon as she gets home and denies need for any treatment at this time and states that she has not been controlling her sugars as well as she knows she should. Patient clearly states understanding of the risk of not controlling her sugars. Discussed patient's lab results which are non-worrisome at this time along with physical exam that is nondiagnostic but I do not feel shows any surgical abdominal findings. Due to inclement weather and ultrasound availability which was not present patient would require transfer to another facility but I did discuss with her possibility of CT imaging for rule out of ovarian torsion which I do feels low suspicion given patient's overall comfortable periods and very mild report of pain and discomfort and overall nontoxic well appearing patient. Patient clearly states that she does not want to be transferred to another facility and states that she honestly does not think that this was an emergency but came more to appease significant other who was concerned. Patient offered CT scan which she also defers and states that she would rather follow-up with women's wellness for any reexamination. Patient states that she will call them in the morning as she has seen them before for her ovarian cyst as she is attributing her discomfort to that. Patient clearly informed and strongly encouraged to return for any new or significant worsening of symptoms, she was instructed to take her insulin as prescribed when she returns home. Return precautions were thoroughly discussed with patient. After discussion of diagnosis and plan of care patient has no further needs, questions, or concerns and states clear understanding to return to the emergency department for any worsening symptoms. Lab Data Lab results reviewed: Yes I reviewed the patient's lab results. HPI General Mode of arrival: ambulatory . Date/Time Provider Initiated Documentation: 09/11/18 20:29 . Limitations to Documentation: no limitations . Information obtained by: patient and RN notes reviewed . History of Present Illness 23 year old F presents to the emergency department with the chief complaint of Abd pain, with intensity rated at 5. Quality is described as aching and sharp, and is localized to the abdomen and left. Patient started experiencing this hour(s) (12) and it has been constant. other things that improve symptom(s), (warm compress) Patient notes no other symptoms.. Patient did receive the following treatments prior to arrival, NSAID Related Data Home Medications Medication Instructions Recorded Confirmed Exel Insulin #3 box 05/16/15 09/11/18 lancets [FreeStyle Lancets] #300 ea 05/16/15 09/11/18 albuterol sulfate [ProAir HFA] 1 - 2 puff INHALATION Q4H PRN #1 12/12/15 09/11/18 inhaler FreeStyle Test #300 strip 05/08/17 09/11/18 Humalog U-100 Insulin See Protocol SUB-Q AC #7 pkt 05/08/17 09/11/18 Portable Nebulizer System #1 07/15/17 09/11/18 ipratropium-albuterol 3 ml INHALATION BID #1 box 07/15/17 09/11/18 Glucagon Emergency Kit (human) 1 mg IJ DAILY #2 kit 07/22/17 09/11/18 Ketostix strip 07/22/17 09/11/18 insulin glargine (U-100) 100 20 unit SUBCUT HS #15 ml 07/21/18 09/11/18 unit/mL (3 mL) subcutaneous pen Previous Rx's Medication Instructions Recorded albuterol sulfate [ProAir HFA] 1 - 2 puff INHALATION Q4H PRN #1 12/12/15 inhaler FreeStyle Test #300 strip 05/08/17 Humalog U-100 Insulin See Protocol SUB-Q AC #7 pkt 05/08/17 ipratropium-albuterol 3 ml INHALATION BID #1 box 07/15/17 Glucagon Emergency Kit (human) 1 mg IJ DAILY #2 kit 07/22/17 insulin glargine (U-100) 100 20 unit SUBCUT HS #15 ml 07/21/18 unit/mL (3 mL) subcutaneous pen Allergies Allergy/AdvReac Type Severity Reaction Status Date / Time insulin detemir Allergy Intermediate Unverified 09/11/18 20:39 [From Levemir U-100 Insulin] fluticasone propionate AdvReac eyes Unverified 09/11/18 20:39 [From Flovent Diskus] puffy/shakey General Stated Complaint: Abd Prob VALENTINA: 3 Review of Systems Constitutional Denies chills, Denies fever(s) and Reports poor appetite Cardiovascular Denies chest pain and Denies dyspnea Respiratory Denies cough and Denies dyspnea Gastrointestinal Reports as per HPI, Reports abdominal pain, Denies melena, Denies change in bowel habits, Denies constipation, Denies diarrhea, Denies nausea and Denies vomiting Genitourinary Denies hematuria, Denies urinary incontinence, Denies urinary hesitancy and Denies urinary urgency Integumentary/Breasts Denies rash [facility] Medical History Diabetic ketoacidosis associated with type 1 diabetes mellitus (Resolved) Diabetes mellitus, insulin dependent (IDDM), uncontrolled (Chronic) Asthma History of pneumonia Insulin dependent diabetes mellitus Scoliosis Tobacco use disorder Surgical History Tonsillectomy and adenoidectomy (~2007) Family History Grandfather Diabetes Grandmother Diabetes Maternal Cousin Mental disorder Sister Mental disorder Brother DVT (deep venous thrombosis) Brother Claudication Mother Diabetes Social History household members: friend(s) and other details: (6) lives w/ boyfriend, son and BF's 2 children m +girl 08/17/16 marital status details: lives w/ boyfriend number of children: 4 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al status: unemployed 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: taking [employer] classes sexually active: Yes Smoking and Tabacco status: Current every day alcohol intake: current alcohol intake frequency: other substance use type: does not use Exam Const General: cooperative Orientation: alert, awake and oriented x3 Resp Effort & Inspection: normal respiratory effort and able to speak in complete sentences Auscultation: clear to auscultation bilaterally Cardio Rate: regular rate Rhythm: regular rhythm Heart Sounds: S1 normal and S2 normal GI Palpation: soft, no hepatosplenomegaly, not firm, no guarding, no masses, no p ulsatile masses, not rigid, no splenomegaly and tender in the LLQ and in the LUQ Auscultation: normal bowel sounds Back/Spine/Pelvis Back: no CVA tenderness Neuro General: alert, awake, oriented x3, gait normal and moves all extremities Course Vital Signs Temperature 36.7 C 09/11/18 20:37 Pulse 102 H 09/11/18 20:37 Respiratory Rate 16 09/11/18 20:37 Blood Pressure 115/77 09/11/18 20:37 Pulse Oximetry 99 09/11/18 20:37 Temperature 36.7 C 09/11/18 20:37 Temperature Source Skin 09/11/18 20:37 Pulse 102 H 09/11/18 20:37 Respiratory Rate 16 09/11/18 20:37 Respiratory Effort 09/11/18 20:39 Blood Pressure 115/77 09/11/18 20:37 Blood Pressure Position Sitting 09/11/18 20:37 Pulse Oximetry 99 09/11/18 20:37 Oxygen Delivery Method Room Air 09/11/18 20:37 Oxygen Flow Rate 0 09/11/18 20:37 Pain Level 6 09/11/18 20:37 Lab/Test Results Lab/Test Results: Laboratory Tests Range/Units 09/11/18 09/11/18 21:29 21:29 WBC (4.4-10.8) k/cumm 9.24 RBC (4.00-5.20) m/cumm 4.42 Hgb (12.0-15.5) g/dL 13.5 Hct (36.0-46.0) % 39.4 MCV (80-95) fL 89.1 MCH (27.0-33.0) pg 30.5 MCHC (32.0-36.0) g/dL 34.3 RDW (11.7-14.6) % 12.3 Plt Count (130-400) x1000/uL 350 MPV (8.0-11.0) fL 9.9 Immature Gran % 0.3 Neutrophils % 45.7 Lymphocytes % 43.6 Monocytes % 6.1 Eosinophils % 3.9 Basophils % 0.4 Absolute Neutrophils (1.2-6.7) k/cumm 4.22 Absolute Lymphocytes (1.2-3.4) k/cumm 4.03 H Absolute Monocytes (0.11-0.7) k/cumm 0.56 Absolute Eosinophils (0.0-0.7) k/cumm 0.36 Absolute Basophils (0.0-0.2) k/cumm 0.04 Sodium (136-145) mmol/L 134 L Potassium (3.5-5.1) mmol/L 4.1 Chloride (98-107) mmol/L 97 L Carbon Dioxide (21.0-32.0) mmol/L 27.7 Anion Gap (3-11) mmol/L 9.3 BUN (7-18) mg/dL 18 Creatinine (0.55-1.02) mg/dL 0.87 Estimated GFR/1.73 m2 (mL/min/1.73m2) >= 60.00 Glucose (70-100) mg/dL 337 H Calcium (8.5-10.1) mg/dL 8.7 Total Bilirubin (0.2-1.0) mg/dL 0.3 AST (15-37) U/L 12 L ALT (12-78) U/L 17 Alkaline Phosphatase (46-116) U/L 124 H Total Protein (6.4-8.2) g/dL 7.3 Albumin (3.4-5.0) g/dL 3.4 Lipase (73-393) U/L 65 L POC- Test(urine) Negative
== END 2018-09-11 22:25 | disposition home or self-care (01) ==
PROVIDERS: Emergency Provider Nurse Practitioner Family; PCP Nurse Practitioner Family
DX: R10.9 Unspecified abdominal pain (principal); E10.65 Type 1 diabetes mellitus with hyperglycemia; Z79.4 Long term (current) use of insulin
CPT/HCPCS: 36415; 80053; 81025; 83690; 96372; 99284; 85025; J1885

== ENCOUNTER 2019-01-11 19:25 | Emergency (ER) | payer MEDICAID, SELFPAY ==
[2019-01-11 19:33] VITALS: BP 114/68; PULSE 95; RESP 20; TEMP 36.8; O2SAT 98
[2019-01-11 20:08] LABS: Bilirubin Negative (Negative); Blood Negative (Negative); Clarity Clear (Clear); Glucose 500 mg/dL (Negative); Ketones 40 mg/dL (Negative); Leukocyte Esterase Negative (Negative); Nitrite Negative (Negative); Urobilinogen 0.2 EU/dL (Up TO 0.2); pH 5.5 (5-8)
[2019-01-11] MEDS: Normal Saline 1,000 ML 1000 ML IV ×3 (20:11→22:18)
[2019-01-11 20:25] LABS: Abs Immature Grans 0.01 k/cumm (0.0-0.09); Absolute Basophil Count 0.02 k/cumm (0.0-0.2); Absolute Eosinophil Count 0.37 k/cumm (0.0-0.7); Absolute Lymphocyte Count 2.79 k/cumm (1.2-3.4); Absolute Monocyte Count 0.51 k/cumm (0.11-0.7); Absolute Neutrophil Count 3.73 k/cumm (1.2-6.7); Basophils % 0.3; HCT 40.8 % (36.0-46.0); Immature Grans % 0.1; Lymphocytes % 37.6; Mean Corp. HGB Concentration 34.3 g/dL (32.0-36.0); Mean Corpuscular Hemoglobin 30.8 pg (27.0-33.0); Mean Corpuscular Volume 89.9 fL (80-95); Mean Platelet Volume 10.6 fL (8.0-11.0); Monocytes % 6.9; Neutrophils % 50.1; Platelet Count 299 x1000/uL (130-400); RBC 4.54 m/cumm (4.00-5.20); RBC Distribution Width 12.2 % (11.7-14.6); White Blood Cell Count 7.43 k/cumm (4.4-10.8)
[2019-01-11 20:40] LABS: ALT 12 U/L (12-78); AST 7 U/L (15-37); Albumin 3.6 g/dL (3.4-5.0); Alkaline Phosphatase 83 U/L (46-116); Anion Gap 12.5 mmol/L (3-11); BUN 13 mg/dL (7-18); Bilirubin, Total 0.4 mg/dL (0.2-1.0); CO2 23.5 mmol/L (21.0-32.0); CREATININE 0.74 mg/dL (0.55-1.02); Calcium 9.1 mg/dL (8.5-10.1); Chloride 98 mmol/L (98-107); Glucose 499 mg/dL (70-100); Potassium 4.3 mmol/L (3.5-5.1); Sodium 134 mmol/L (136-145)
[2019-01-11 21:09] LABS: BE (Venous) -1.2 mmol/L (-3-3); HCO3 (Venous) 25 mmol/L (22-28); O2 Sat (Venous) 67 % (70-80); TCO2 (Venous) 22 mmol/L (22-29); pCO2 (Venous) 46 mm/Hg (34-47); pH (Venous) 7.34 (7.32-7.43); pO2 (Venous) 34 mm/Hg (28-44)
--- NOTE | 2019-01-11 21:14 | W.ED.GENAD ---
Discharge Plan Disposition Patient Disposition: HOME Condition: Improving Discharge Details Chief Complaint: Diabetes Clinical Impression: Hyperglycemia due to type 1 diabetes mellitus Primary Care Provider: Mia Peo ED Provider: Pete Murrieta Home Meds and New Rx's Prescriptions: Continued Exel Insulin 1 EACH syringe 1 ea Miscellaneous AC & HS Qty: 3 RF: 3 lancets [FreeStyle Lancets] 1 EACH misc 1 ea Miscellaneous Q2H Qty: 300 RF: 3 ipratropium-albuterol 3 ML solution for nebulization 3 ml Inhalation BID Qty: 1 RF: 0 Portable Nebulizer System 1 EACH device Miscellaneous DAILY Qty: 1 RF: 0 Glucagon Emergency Kit (human) 1 MG kit 1 mg IJ DAILY Qty: 2 RF: 0 Ketostix 1 EACH strip 1 ea Miscellaneous DAILY 30 Days RF: 2 albuterol sulfate [ProAir HFA] 200 PUFF HFA aerosol inhaler 1 - 2 puff Inhalation Q4H PRN Qty: 1 RF: 1 FreeStyle Test 1 EACH strip 1 ea Miscellaneous Q2H PRNQty: 300 RF: 3 Humalog U-100 Insulin 100 UNIT/1 ML solution Sub-Q AC Qty: 7 RF: 0 Lantus Solostar U-100 Insulin 100 unit/mL (3 mL) insulin pen 13 unit subcut BID RF: 0 Discharge Instructions Instructions: Diabetic Hyperglycemia (ED) Additional Instructions: Continue to use your sliding scale and other insulins as prescribed. If your sugar remains high or you have any new or worsening symptoms please return immediately to the emergency department for reassessment otherwise continue to slowly advance her diet as tolerated and stay well-hydrated. Follow-up with your primary care provider if you continue to have elevated glucose without need for emergency evaluation Referrals: Mia Poe, KELLY [Primary Care Provider] - (As needed for reassessment) Medical Decision Making Patient presenting to the emergency department for chief complaint of elevated blood sugar. She does state some associated nausea and vomiting. Patient is a type I diabetic with diagnosis at 11 months who is well familiar with her disease and states that she does occasionally get spikes in her blood sugar when she has been outside a lot. Patient denies any alcohol intake, excessive sugar or food intake, denies any infectious type symptoms. She does state that she has been attempting to hydrate herself orally but when she became nauseous she began being more concerned. She states that she is started having symptoms yesterday that have persisted throughout today with sugar readings near 500. She has used her Lantus this morning and given herself approximately 60 units of regular insulin throughout the course of today. Patient denies any headache, fever chills. Physical exam is unremarkable and has no diagnostic findings, patient is well in appearance, non-tachycardic non-hypotensive. Plan to check labs, give IV fluids, and give insulin as needed. Patient does state that she is due for her nightly Lantus. Review of labs show non-worrisome CBC, VBG showing no significant acidosis, slightly low sodium and anion gap of 12.5 with a glucose of 499 otherwise nondiagnostic CMP, urinalysis with 40 urine ketones and urine glucose of 500 otherwise no signs of infection. Patient was ordered 10 units of regular insulin along with her 13 units of her nightly Lantus and additional 1 L of IV fluids. Patient does state after 1 L of fluids she is already improving and feeling better. Glucose rechecked after 2.5 L of normal saline, 10 units of insulin, and normal Lantus dose. Patient states that she feels significantly better and glucose is now 312 via fingerstick. Patient is tolerating p.o. intake now. Given that patient is improving and feeling better with non-worrisome labs I do feel that patient can go home and continue sliding scale dosing of her insulin and monitoring her sugars. Return precautions were discussed. After discussion of diagnosis and plan of care patient is no further needs, questions, or concerns and states clear understanding to return to the emergency department for any worsening symptoms. HPI General Mode of arrival: ambulatory. Date/Time Provider Initiated Documentation: 01/11/19 19:27. Limitations to Documentation: no limitations. Information obtained by: patient and RN notes reviewed. History of Present Illness 23 year old F presents to the emergency department with the chief complaint of High blood sugars, nausea , described as similar to prior episodes, Quality is described as other (Denies any pain or discomfort), Patient started experiencing this day(s) (1) and it has been constant. Other factors that worsen symptoms (Being outside in the hot sun) . Patient did receive the following treatments prior to arrival, other (Continue to use of insulin) Related Data Home Medications Medication Instructions Recorded Confirmed Exel Insulin #3 box 05/16/15 09/11/18 lancets [FreeStyle Lancets] #300 ea 05/16/15 09/11/18 albuterol sulfate [ProAir HFA] 1 - 2 puff INHALATION Q4H PRN #1 12/12/15 01/11/19 inhaler FreeStyle Test #300 strip 05/08/17 09/11/18 Humalog U-100 Insulin See Protocol SUB-Q AC #7 pkt 05/08/17 01/11/19 Portable Nebulizer System #1 07/15/17 09/11/18 ipratropium-albuterol 3 ml INHALATION BID #1 box 07/15/17 01/11/19 Glucagon Emergency Kit (human) 1 mg IJ DAILY #2 kit 07/22/17 01/11/19 Ketostix strip 07/22/17 09/11/18 Lantus Solostar U-100 Insulin 13 unit SUBCUT BID 01/11/19 01/11/19 Previous Rx's Medication Instructions Recorded albuterol sulfate [ProAir HFA] 1 - 2 puff INHALATION Q4H PRN #1 12/12/15 inhaler FreeStyle Test #300 strip 05/08/17 Humalog U-100 Insulin See Protocol SUB-Q AC #7 pkt 05/08/17 ipratropium-albuterol 3 ml INHALATION BID #1 box 07/15/17 Glucagon Emergency Kit (human) 1 mg IJ DAILY #2 kit 07/22/17 Allergies Allergy/AdvReac Type Severity Reaction Status Date / Time insulin detemir Allergy Unverified 01/11/19 19:39 [From Levemir U-100 Insulin] fluticasone AdvReac Unverified 01/11/19 19:40 [From Flovent Diskus] General Stated Complaint: Diabetes VALENTINA: 2 Review of Systems Constitutional Denies body ache(s), Denies chills, Reports fatigue, Denies fever(s) and Denies headache(s) ENT Denies headache(s) Cardiovascular Denies chest pain and Denies dyspnea Respiratory Denies dyspnea Gastrointestinal Denies abdominal pain, Reports nausea and Denies vomiting Integumentary/Breasts Denies rash Neurologic Denies confusion and Denies headache(s) Psychiatric Denies confusion Endocrine Reports as per HPI, Reports fatigue and Reports polyphagia [facility] Medical History Diabetic ketoacidosis associated with type 1 diabetes mellitus (Resolved) Diabetes mellitus, insulin dependent (IDDM), uncontrolled (Chronic) Asthma History of pneumonia Insulin dependent diabetes mellitus Scoliosis Tobacco use disorder Surgical History Tonsillectomy and adenoidectomy (~2007) Family History Grandfather Diabetes Grandmother Diabetes Maternal Cousin Mental disorder Sister Mental disorder Brother DVT (deep venous thrombosis) Brother Claudication Mother Diabetes Social History Smoking/Tobacco Use Status: Current every day Tobacco Type: cigarettes Alcohol Intake: current Alcohol Intake frequency: other Drug use: Never Substance use type: does not use Household members: friend(s) and other Details: (6) lives w/ boyfriend, son and BF's 2 children m +girl 08/17/16 Number of Children: 4 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: taking [employer] classes Sexually active: Yes Do you feel safe at home: Yes Do you feel safe in your relationship?: Yes Exam Const General: cooperative, no acute distress and not ill appearing Orientation: alert, awake and oriented x3 Resp Effort & Inspection: normal respiratory effort, able to speak in complete sentences and no respiratory distress Auscultation: clear to auscultation bilaterally Cardio Rate: regular rate Rhythm: regular rhythm Heart Sounds: S1 normal GI Palpation: soft and nontender Auscultation: normal bowel sounds Skin General skin exam: no rashes or lesions noted Neuro General: alert, awake, oriented x3, moves all extremities and no focal motor deficits Course Vital Signs Temperature 36.8 C 01/11/19 19:33 Pulse 95 H 01/11/19 19:33 Respiratory Rate 20 01/11/19 19:33 Blood Pressure 114/68 01/11/19 19:33 Pulse Oximetry 98 01/11/19 19:33 Temperature 36.8 C 01/11/19 19:33 Temperature Source Temporal Artery Scan 01/11/19 19:33 Pulse 95 H 01/11/19 19:33 Respiratory Rate 20 06/27/19 19:33 Respiratory Effort 01/11/19 19:33 Blood Pressure 114/68 01/11/19 19:33 Blood Pressure Position Sitting 01/11/19 19:33 Pulse Oximetry 98 01/11/19 19:33 Oxygen Delivery Method Room Air 01/11/19 19:33 Oxygen Flow Rate 0 01/11/19 19:33 Pain Level 0 01/11/19 19:33 Lab/Test Results Lab/Test Results: Laboratory Tests Range/Units 01/11/19 01/11/19 01/11/19 19:50 20:10 20:10 WBC (4.4-10.8) k/cumm 7.43 RBC (4.00-5.20) m/cumm 4.54 Hgb (12.0-15.5) g/dL 14.0 Hct (36.0-46.0) % 40.8 MCV (80-95) fL 89.9 MCH (27.0-33.0) pg 30.8 MCHC (32.0-36.0) g/dL 34.3 RDW (11.7-14.6) % 12.2 Plt Count (130-400) x1000/uL 299 MPV (8.0-11.0) fL 10.6 Immature Gran % 0.1 Neutrophils % 50.1 Lymphocytes % 37.6 Monocytes % 6.9 Eosinophils % 5.0 Basophils % 0.3 Absolute Neutrophils (1.2-6.7) k/cumm 3.73 Absolute Lymphocytes (1.2-3.4) k/cumm 2.79 Absolute Monocytes (0.11-0.7) k/cumm 0.51 Absolute Eosinophils (0.0-0.7) k/cumm 0.37 Absolute Basophils (0.0-0.2) k/cumm 0.02 VBG pH (7.32-7.43) VBG pCO2 (34-47) mm/Hg VBG pO2 (28-44) mm/Hg VBG HCO3 (22-28) mmol/L VBG Total CO2 (22-29) mmol/L VBG O2 Saturation (70-80) % VBG Base Excess (-3-3) mmol/L Sodium (136-145) mmol/L 134 L Potassium (3.5-5.1) mmol/L 4.3 Chloride (98-107) mmol/L 98 Carbon Dioxide (21.0-32.0) mmol/L 23.5 Anion Gap (3-11) mmol/L 12.5 H BUN (7-18) mg/dL 13 Creatinine (0.55-1.02) mg/dL 0.74 Estimated GFR/1.73 m2 (mL/min/1.73m2) >= 60.00 Glucose (70-100) mg/dL 499 H Calcium (8.5-10.1) mg/dL 9.1 Total Bilirubin (0.2-1.0) mg/dL 0.4 AST (15-37) U/L 7 L ALT (12-78) U/L 12 Alkaline Phosphatase (46-116) U/L 83 Total Protein (6.4-8.2) g/dL 7.0 Albumin (3.4-5.0) g/dL 3.6 Urine Color (Yellow) Yellow Urine Clarity (Clear) Clear Urine pH (5-8) 5.5 Ur Specific [place] (1.005-1.025) 1.010 Urine Protein (Negative) mg/dL Negative Urine Ketones (Negative) mg/dL 40 H Urine Blood (Negative) Negative Urine Nitrite (Negative) Negative Urine Bilirubin (Negative) Negative Urine Urobilinogen (Up TO 0.2) EU/dL 0.2 Ur Leukocyte Esterase (Negative) Negative Urine Glucose (Negative) mg/dL 500 H Range/Units 01/11/19 21:00 WBC (4.4-10.8) k/cumm RBC (4.00-5.20) m/cumm Hgb (12.0-15.5) g/dL Hct (36.0-46.0) % MCV (80-95) fL MCH (27.0-33.0) pg MCHC (32.0-36.0) g/dL RDW (11.7-14.6) % Plt Count (130-400) x1000/uL MPV (8.0-11.0) fL Immature Gran % Neutrophils % Lymphocytes % Monocytes % Eosinophils % Basophils % Absolute Neutrophils (1.2-6.7) k/cumm Absolute Lymphocytes (1.2-3.4) k/cumm Absolute Monocytes (0.11-0.7) k/cumm Absolute Eosinophils (0.0-0.7) k/cumm Absolute Basophils (0.0-0.2) k/cumm VBG pH (7.32-7.43) 7.34 VBG pCO2 (34-47) mm/Hg 46 VBG pO2 (28-44) mm/Hg 34 VBG HCO3 (22-28) mmol/L 25 VBG Total CO2 (22-29) mmol/L 22 VBG O2 Saturation (70-80) % 67 L VBG Base Excess (-3-3) mmol/L -1.2 Sodium (136-145) mmol/L Potassium (3.5-5.1) mmol/L Chloride (98-107) mmol/L Carbon Dioxide (21.0-32.0) mmol/L Anion Gap (3-11) mmol/L BUN (7-18) mg/dL Creatinine (0.55-1.02) mg/dL Estimated GFR/1.73 m2 (mL/min/1.73m2) Glucose (70-100) mg/dL Calcium (8.5-10.1) mg/dL Total Bilirubin (0.2-1.0) mg/dL AST (15-37) U/L ALT (12-78) U/L Alkaline Phosphatase (46-116) U/L Total Protein (6.4-8.2) g/dL Albumin (3.4-5.0) g/dL Urine Color (Yellow) Urine Clarity (Clear) Urine pH (5-8) Ur Specific [place] (1.005-1.025) Urine Protein (Negative) mg/dL Urine Ketones (Negative) mg/dL Urine Blood (Negative) Urine Nitrite (Negative) Urine Bilirubin (Negative) Urine Urobilinogen (Up TO 0.2) EU/dL Ur Leukocyte Esterase (Negative) Urine Glucose (Negative) mg/dL
[2019-01-11] MEDS: Insulin Glargine 300 UNITS/3 ML PEN 13 UNITS SC (21:25)
[2019-01-11] MEDS: Insulin REGULAR-Human 100 UNITS/ML UNIT 10 UNITS SC (21:25)
--- NOTE | 2019-01-11 22:41 | NUR.NOTE ---
Nursing Note: patient tolerated po fluids and crackers with no adverse effects. DEVELOPMENT INTERN notified.
[2019-01-11 23:02] VITALS: BP 109/70; PULSE 69; RESP 18; O2SAT 99
== END 2019-01-11 23:00 | disposition home or self-care (01) ==
PROVIDERS: Emergency Provider Nurse Practitioner Family; PCP Nurse Practitioner Family
DX: E10.65 Type 1 diabetes mellitus with hyperglycemia (principal)
CPT/HCPCS: 36415; 36416; 80053; 82805; 82962; 96360; 96361; 96372; 99284; 81003; 85025

== ENCOUNTER 2019-04-06 21:34 | Emergency (ER) | payer MEDICAID, SELFPAY ==
[2019-04-06 21:41] VITALS: BP 114/67; PULSE 96; RESP 21; TEMP 36.7; O2SAT 98
--- NOTE | 2019-04-06 21:41 | W.ED.GENAD ---
Discharge Plan Disposition Patient Disposition: HOME Condition: Stable Discharge Details Chief Complaint: Diabetes Clinical Impression: Hyperglycemia due to type 1 diabetes mellitus Primary Care Provider: Mia Poe ED Provider: Brent Mullen Home Meds and New Rx's Prescriptions: Continued (DME) insulin syringe-needle U-100 [Exel Insulin] 1 EACH syringe 1 ea Miscellaneous AC & HS Qty: 3 RF: 3 (DME) lancets [FreeStyle Lancets] 1 EACH misc 1 ea Miscellaneous Q2H Qty: 300 RF: 3 ipratropium-albuterol 3 ML solution for nebulization 3 ml Inhalation BID Qty: 1 RF: 0 (DME) Portable Nebulizer System 1 EACH device Miscellaneous DAILY Qty: 1 RF: 0 Glucagon Emergency Kit (human) 1 MG kit 1 mg IJ DAILY Qty: 2 RF: 0 (DME) Ketostix 1 EACH strip 1 ea Miscellaneous DAILY 30 Days RF: 2 albuterol sulfate [ProAir HFA] 200 PUFF HFA aerosol inhaler 1 - 2 puff Inhalation Q4H PRN Qty: 1 RF: 1 (DME) FreeStyle Test 1 EACH strip 1 ea Miscellaneous Q2H Qty: 300 RF: 3 insulin lispro [Humalog U-100 Insulin] 100 UNIT/1 ML solution See Protocol units Sub-Q AC Qty: 7 RF: 0 Lantus Solostar U-100 Insulin 100 unit/mL (3 mL) insulin pen 13 unit subcut BID RF: 0 Discharge Instructions Instructions: Diabetic Hyperglycemia (ED) Additional Instructions: follow up with your top flavor attendant this week if you feel you are becoming more ill, have high fevers or persistent vomit return to the emergency department Medical Decision Making 24 yo female with hx of IDDM comes in with 2 days of high blood sugar readings. She denies fevers, chills, dyspnea, has had feeling of mild dehydration. She arrives in no distress speaking in full sentences without n/v. She is on 13U levemir twice daily and a sliding scale humalog per pt without any recent changes. Given well appearance doubt severe dka, will hydrate and check lab work and monitor. No infectious symptoms so doubt sepsis or infectious etiologies pt remains stable and feels better with ivf. Labs reassuring with normal pH and no anion gap. Does have glucose of 400. Given lack of other symptoms will tx with sc insulin and advised f/u with her top flavor attendant and return precautions given Differential Diagnosis Differential Diagnosis: dka, hyperglycemia, Lab Data Lab results reviewed: Yes I reviewed the patient's lab results. HPI General Mode of arrival: ambulatory. Date/Time Provider Initiated Documentation: 04/06/19 21:35. Limitations to Documentation: no limitations. Information obtained by: patient. History of Present Illness 24 year old F presents to the emergency department with the chief complaint of elevated blood sugars, described as moderate, Patient started experiencing this day(s) (2) and it has been constant. No relieving factors improve symptom(s), No exacerbating factors reported . Related Data Home Medications Medication Instructions Recorded Confirmed insulin syringe-needle U-100 [Exel #3 box 05/16/15 04/06/19 Insulin] lancets [FreeStyle Lancets] #300 ea 05/16/15 04/06/19 albuterol sulfate [ProAir HFA] 1 - 2 puff INHALATION Q4H PRN #1 12/12/15 04/06/19 inhaler FreeStyle Test #300 strip 05/08/17 04/06/19 insulin lispro [Humalog U-100 See Protocol SUB-Q AC #7 pkt 05/08/17 04/06/19 Insulin] Portable Nebulizer System #1 07/15/17 04/06/19 ipratropium-albuterol 3 ml INHALATION BID #1 box 07/15/17 04/06/19 Glucagon Emergency Kit (human) 1 mg IJ DAILY #2 kit 07/22/17 04/06/19 Ketostix strip 07/22/17 04/06/19 Lantus Solostar U-100 Insulin 13 unit SUBCUT BID 01/11/19 04/06/19 Previous Rx's Medication Instructions Recorded albuterol sulfate [ProAir HFA] 1 - 2 puff INHALATION Q4H PRN #1 12/12/15 inhaler FreeStyle Test #300 strip 05/08/17 insulin lispro [Humalog U-100 See Protocol SUB-Q AC #7 pkt 05/08/17 Insulin] ipratropium-albuterol 3 ml INHALATION BID #1 box 07/15/17 Glucagon Emergency Kit (human) 1 mg IJ DAILY #2 kit 07/22/17 Allergies Allergy/AdvReac Type Severity Reaction Status Date / Time insulin detemir Allergy Severe Hives Unverified 04/06/19 22:11 [From Levemir U-100 Insulin] fluticasone AdvReac Severe Anaphylaxsi Unverified 04/06/19 22:11 [From Flovent Diskus] s General VALENTINA: 2 Review of Systems Review of Systems ROS Unobtainable: All systems reviewed & are unremarkable except as noted in HPI and below Constitutional Constitutional: Denies chills and Denies fever(s) Cardiovascular Cardiovascular: Denies dyspnea Respiratory Respiratory: Denies dyspnea Gastrointestinal Gastrointestinal: Denies abdominal pain, Denies nausea and Denies vomiting Musculoskeletal Musculoskeletal: Denies joint swelling Endocrine Endocrine: Denies heat intolerance PFSH Social History Smoking/Tobacco Use Status: Current every day Tobacco Type: cigarettes Alcohol Intake: current Alcohol Intake frequency: holidays/special occasions only Drug use: Never Substance use type: does not use Household members: friend(s) and other Details: (6) lives w/ boyfriend, son and BF's 2 children m +girl 08/17/16 Number of Children: 4 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: taking [employer] classes Sexually active: Yes Do you feel safe at home: Yes Do you feel safe in your relationship?: Yes Exam Const General: no acute distress Orientation: alert HENMT Head: normal to inspection Ears: external ears normal General nose exam: external nose normal Mouth: moist mucous membranes Eyes General: appearance normal, both eyes and all related structures Neck Neck: normal visual inspection Resp Effort & Inspection: normal respiratory effort and able to speak in complete sentences Cardio Rate: regular rate Skin General skin exam: no rashes or lesions noted Neuro General: alert and oriented x3 Extrem General: normal to inspection Psych Mental Status: mental status grossly normal
[2019-04-06] MEDS: Normal Saline 1,000 ML 1000 ML IV (22:01)
[2019-04-06 22:09] LABS: Bilirubin Negative (Negative); Blood Negative (Negative); Clarity Clear (Clear); Glucose 500 mg/dL (Negative); Ketones Trace mg/dL (Negative); Leukocyte Esterase Negative (Negative); Nitrite Negative (Negative); Urobilinogen 0.2 EU/dL (Up TO 0.2)
[2019-04-06 22:10] LABS: BE (Venous) 0.2 mmol/L (-3-3); HCO3 (Venous) 25 mmol/L (22-28); O2 Sat (Venous) 90 % (70-80); TCO2 (Venous) 22 mmol/L (22-29); pCO2 (Venous) 40 mm/Hg (34-47); pO2 (Venous) 54 mm/Hg (28-44)
[2019-04-06 22:14] LABS: Abs Immature Grans 0.01 k/cumm (0.0-0.09); Absolute Basophil Count 0.02 k/cumm (0.0-0.2); Absolute Eosinophil Count 0.32 k/cumm (0.0-0.7); Absolute Lymphocyte Count 3.44 k/cumm (1.2-3.4); Absolute Monocyte Count 0.56 k/cumm (0.11-0.7); Absolute Neutrophil Count 5.52 k/cumm (1.2-6.7); Basophils % 0.2; Eosinophils % 3.2; HGB 13.9 g/dL (12.0-15.5); Immature Grans % 0.1; Lymphocytes % 34.9; Mean Corp. HGB Concentration 33.9 g/dL (32.0-36.0); Mean Corpuscular Hemoglobin 30.5 pg (27.0-33.0); Mean Corpuscular Volume 90.1 fL (80-95); Mean Platelet Volume 9.7 fL (8.0-11.0); Monocytes % 5.7; Neutrophils % 55.9; Platelet Count 408 x1000/uL (130-400); RBC 4.55 m/cumm (4.00-5.20); RBC Distribution Width 12.6 % (11.7-14.6); White Blood Cell Count 9.87 k/cumm (4.4-10.8)
[2019-04-06 22:29] LABS: ALT 17 U/L (14-59); AST 10 U/L (15-37); Alkaline Phosphatase 135 U/L (46-116); Anion Gap 11.7 mmol/L (3-11); BUN 12 mg/dL (7-18); Bilirubin, Total 0.3 mg/dL (0.2-1.0); CO2 24.3 mmol/L (21.0-32.0); CREATININE 0.78 mg/dL (0.55-1.02); Calcium 9.3 mg/dL (8.5-10.1); Chloride 98 mmol/L (98-107); Glucose 407 mg/dL (70-100); Potassium 4.1 mmol/L (3.5-5.1); Sodium 134 mmol/L (136-145); Total Protein 7.7 g/dL (6.4-8.2)
[2019-04-06] MEDS: Insulin Aspart 100 UNITS/ML UNIT 8 UNITS SC (22:57)
[2019-04-06 23:17] VITALS: BP 154/78; PULSE 88; RESP 18; TEMP 36.7; O2SAT 99
== END 2019-04-06 23:35 | disposition home or self-care (01) ==
PROVIDERS: Emergency Provider Emergency Medicine; PCP Nurse Practitioner Family
DX: E10.65 Type 1 diabetes mellitus with hyperglycemia (principal)
CPT/HCPCS: 36415; 80053; 81025; 82805; 96360; 96372; 99284; 81003; 85025; J1815; J3490

== ENCOUNTER 2019-04-07 12:02 | Emergency (ER) | payer MEDICAID, SELFPAY ==
[2019-04-07 12:14] VITALS: BP 114/66; PULSE 92; RESP 16; TEMP 36.8; O2SAT 98
--- NOTE | 2019-04-07 12:28 | W.ED.GENAD ---
Discharge Plan Disposition Patient Disposition: HOME Condition: Improving Discharge Details Chief Complaint: Diabetes Clinical Impression: Hyperglycemia, Nausea Primary Care Provider: Mia Poe ED Provider: Rubia Gardiner Home Meds and New Rx's Prescriptions: New ondansetron HCl [Zofran] 4 mg tablet 4 mg PO Q8H PRN (Reason: nausea and vomiting) Qty: 7 RF: 0 Continued (DME) insulin syringe-needle U-100 [Exel Insulin] 1 EACH syringe 1 ea Miscellaneous AC & HS Qty: 3 RF: 3 (DME) lancets [FreeStyle Lancets] 1 EACH misc 1 ea Miscellaneous Q2H Qty: 300 RF: 3 ipratropium-albuterol 3 ML solution for nebulization 3 ml Inhalation BID Qty: 1 RF: 0 (DME) Portable Nebulizer System 1 EACH device Miscellaneous DAILY Qty: 1 RF: 0 Glucagon Emergency Kit (human) 1 MG kit 1 mg IJ DAILY Qty: 2 RF: 0 (DME) Ketostix 1 EACH strip 1 ea Miscellaneous DAILY 30 Days RF: 2 albuterol sulfate [ProAir HFA] 200 PUFF HFA aerosol inhaler 1 - 2 puff Inhalation Q4H PRN Qty: 1 RF: 1 (DME) FreeStyle Test 1 EACH strip 1 ea Miscellaneous Q2H Qty: 300 RF: 3 insulin lispro [Humalog U-100 Insulin] 100 UNIT/1 ML solution See Protocol units Sub-Q AC Qty: 7 RF: 0 Lantus Solostar U-100 Insulin 100 unit/mL (3 mL) insulin pen 13 unit subcut BID RF: 0 Discharge Instructions Instructions: Acute Nausea and Vomiting (ED), Diabetic Hyperglycemia (ED) Additional Instructions: Take the Zofran as needed and directed for any nausea or vomiting. Take your insulin as directed. Drink plenty of fluids and get plenty of rest. Follow-up with the primary care doctor next week for reevaluation. Return immediately to the emergency department if you develop any worsening or new concerning symptoms. Discharge Data Discharge Physician: Rubia Gardiner Medical Decision Making 24-year-old female with history of diabetes type 1, asthma who presents with high blood sugar ~ 400s for the past few days. She was seen here yesterday for the same complaint and her labs noted glucose 400s but otherwise unremarkable and she was given sc insulin and discharged home. She returns today with persistent high blood sugar. She took 15 units of Humalog and 13 units of Lantus this morning. Urine test negative. 1530 --labs reviewed. Normal white blood cell count. Glucose 441. Normal lactate. Normal bicarb, anion gap. Urinalysis notes ketones but negative for infection. Repeat glucose 300s. Patient complaining of some nausea. She was given a dose of Zofran and Toradol. Will give another liter IV fluids, attempt p.o. challenge and reassess. 1630 --patient states she feels much better and feels good to go home. Repeat glucose 209. She was able to eat without any further nausea or vomiting. She was given 3 tabs of Zofran for home. She is advised to drink plenty of fluids, follow-up with her primary care doctor return her anytime if worse. Medical Records Medical records reviewed: Yes I reviewed the patient's medical records. Lab Data Lab results reviewed: Yes I reviewed the patient's lab results. Labs: Laboratory Tests Range/Units 04/07/19 04/07/19 04/07/19 12:34 12:55 12:55 WBC (4.4-10.8) k/cumm RBC (4.00-5.20) m/cumm Hgb (12.0-15.5) g/dL Hct (36.0-46.0) % MCV (80-95) fL MCH (27.0-33.0) pg MCHC (32.0-36.0) g/dL RDW (11.7-14.6) % Plt Count (130-400) x1000/uL MPV (8.0-11.0) fL Immature Gran % Neutrophils % Lymphocytes % Monocytes % Eosinophils % Basophils % Absolute Neutrophils (1.2-6.7) k/cumm Absolute Lymphocytes (1.2-3.4) k/cumm Absolute Monocytes (0.11-0.7) k/cumm Absolute Eosinophils (0.0-0.7) k/cumm Absolute Basophils (0.0-0.2) k/cumm Sodium (136-145) mmol/L 134 L Potassium (3.5-5.1) mmol/L 4.4 Chloride (98-107) mmol/L 100 Carbon Dioxide (21.0-32.0) mmol/L 23.9 Anion Gap (3-11) mmol/L 10.1 BUN (7-18) mg/dL 14 Creatinine (0.55-1.02) mg/dL 0.78 Estimated GFR/1.73 m2 (mL/min/1.73m2) >= 60.00 Glucose (70-100) mg/dL 441 H Lactate (0.6-1.4) mmol/L 0.9 Calcium (8.5-10.1) mg/dL 8.7 Total Bilirubin (0.2-1.0) mg/dL 0.5 AST (15-37) U/L 9 L ALT (14-59) U/L 16 Alkaline Phosphatase (46-116) U/L 129 H Total Protein (6.4-8.2) g/dL 7.3 Albumin (3.4-5.0) g/dL 3.7 Urine Color (Yellow) Yellow Urine Clarity (Clear) Clear Urine pH (5-8) 5.5 Ur Specific [place] (1.005-1.025) 1.010 Urine Protein (Negative) mg/dL Negative Urine Ketones (Negative) mg/dL 40 H Urine Blood (Negative) Negative Urine Nitrite (Negative) Negative Urine Bilirubin (Negative) Negative Urine Urobilinogen (Up TO 0.2) EU/dL 0.2 Ur Leukocyte Esterase (Negative) Negative Urine Glucose (Negative) mg/dL 500 H Range/Units 04/07/19 12:55 WBC (4.4-10.8) k/cumm 9.93 RBC (4.00-5.20) m/cumm 4.35 Hgb (12.0-15.5) g/dL 13.4 Hct (36.0-46.0) % 40.0 MCV (80-95) fL 92.0 MCH (27.0-33.0) pg 30.8 MCHC (32.0-36.0) g/dL 33.5 RDW (11.7-14.6) % 12.8 Plt Count (130-400) x1000/uL 406 H MPV (8.0-11.0) fL 9.7 Immature Gran % 0.2 Neutrophils % 66.2 Lymphocytes % 26.3 Monocytes % 4.6 Eosinophils % 2.5 Basophils % 0.2 Absolute Neutrophils (1.2-6.7) k/cumm 6.57 Absolute Lymphocytes (1.2-3.4) k/cumm 2.61 Absolute Monocytes (0.11-0.7) k/cumm 0.46 Absolute Eosinophils (0.0-0.7) k/cumm 0.25 Absolute Basophils (0.0-0.2) k/cumm 0.02 Sodium (136-145) mmol/L Potassium (3.5-5.1) mmol/L Chloride (98-107) mmol/L Carbon Dioxide (21.0-32.0) mmol/L Anion Gap (3-11) mmol/L BUN (7-18) mg/dL Creatinine (0.55-1.02) mg/dL Estimated GFR/1.73 m2 (mL/min/1.73m2) Glucose (70-100) mg/dL Lactate (0.6-1.4) mmol/L Calcium (8.5-10.1) mg/dL Total Bilirubin (0.2-1.0) mg/dL AST (15-37) U/L ALT (14-59) U/L Alkaline Phosphatase (46-116) U/L Total Protein (6.4-8.2) g/dL Albumin (3.4-5.0) g/dL Urine Color (Yellow) Urine Clarity (Clear) Urine pH (5-8) Ur Specific [place] (1.005-1.025) Urine Protein (Negative) mg/dL Urine Ketones (Negative) mg/dL Urine Blood (Negative) Urine Nitrite (Negative) Urine Bilirubin (Negative) Urine Urobilinogen (Up TO 0.2) EU/dL Ur Leukocyte Esterase (Negative) Urine Glucose (Negative) mg/dL HPI General Mode of arrival: ambulatory. Date/Time Provider Initiated Documentation: 04/07/19 12:26. Limitations to Documentation: no limitations. Information obtained by: patient. HPI Narrative: Patient is a 24-year-old female with history of asthma, diabetes who presents with hyperglycemia for the past few weeks. She states her glucose has been running in the 3 and 400s and she has been taking her insulin regularly. She states she has had decreased appetite of the past 2 weeks. She feels that her symptoms are due to cold symptoms and a recent left leg skin infection. She states she took 15 units of Humalog and 13 units of Lantus between last night and this morning. She was seen here last night for the same complaint and was given insulin and improved and was discharged home. She denies any fever. She states she had runny nose and cough but this is not resolving. She states her left leg skin infection is now near resolved. She denies any area, urinary frequency, urgency, headache, neck pain, chest pain, shortness of breath or abdominal pain. Related Data Home Medications Medication Instructions Recorded Confirmed insulin syringe-needle U-100 [Exel #3 box 05/16/15 04/06/19 Insulin] lancets [FreeStyle Lancets] #300 ea 05/16/15 04/06/19 albuterol sulfate [ProAir HFA] 1 - 2 puff INHALATION Q4H PRN #1 12/12/15 04/07/19 inhaler FreeStyle Test #300 strip 05/08/17 04/06/19 insulin lispro [Humalog U-100 See Protocol SUB-Q AC #7 pkt 05/08/17 04/07/19 Insulin] Portable Nebulizer System #1 07/15/17 04/06/19 ipratropium-albuterol 3 ml INHALATION BID #1 box 07/15/17 04/07/19 Glucagon Emergency Kit (human) 1 mg IJ DAILY #2 kit 07/22/17 04/07/19 Ketostix strip 07/22/17 04/06/19 Lantus Solostar U-100 Insulin 13 unit SUBCUT BID 01/11/19 04/07/19 ondansetron HCl [Zofran] 4 mg PO Q8H PRN #7 tab 04/07/19 Previous Rx's Medication Instructions Recorded albuterol sulfate [ProAir HFA] 1 - 2 puff INHALATION Q4H PRN #1 12/12/15 inhaler FreeStyle Test #300 strip 05/08/17 insulin lispro [Humalog U-100 See Protocol SUB-Q AC #7 pkt 05/08/17 Insulin] ipratropium-albuterol 3 ml INHALATION BID #1 box 07/15/17 Glucagon Emergency Kit (human) 1 mg IJ DAILY #2 kit 07/22/17 ondansetron HCl [Zofran] 4 mg PO Q8H PRN #7 tab 04/07/19 Allergies Allergy/AdvReac Type Severity Reaction Status Date / Time insulin detemir Allergy Severe Hives Unverified 04/07/19 12:18 [From Levemir U-100 Insulin] fluticasone AdvReac Severe Anaphylaxsi Unverified 04/07/19 12:18 [From Flovent Diskus] s General Stated Complaint: Diabetes VALENTINA: 3 Review of Systems Review of Systems ROS Unobtainable: All systems reviewed & are unremarkable except as noted in HPI and below Constitutional Constitutional: Reports as per HPI, Denies chills, Reports fatigue, Denies fever(s) and Reports poor appetite Eyes Eyes: Denies blurry vision ENT Ears, Nose, Mouth, and Throat: Denies dizziness, Denies sore throat and Denies throat swelling Cardiovascular Cardiovascular: Denies chest pain and Denies dyspnea Respiratory Respiratory: Denies cough and Denies dyspnea Gastrointestinal Gastrointestinal: Denies abdominal pain, Denies diarrhea, Reports nausea and Denies vomiting Genitourinary Genitourinary: Denies hematuria and Denies dysuria Musculoskeletal Musculoskeletal: Denies back pain and Denies numbness Integumentary/Breasts Skin/Breast: Denies lesions and Denies rash Neurologic Neurologic: Denies dizziness, Denies focal weakness and Denies numbness Endocrine Endocrine: Reports fatigue Allergic/Immunologic Allergic/Immunologic: Denies throat swelling [facility] Medical History Asthma Diabetes mellitus, insulin dependent (IDDM), uncontrolled (Chronic) onset age 2 yr,followed by [facility] [place] Diabetic ketoacidosis associated with type 1 diabetes mellitus (Resolved) History of pneumonia Insulin dependent diabetes mellitus Scoliosis Tobacco use disorder Surgical History Tonsillectomy and adenoidectomy (~2007) Family History Grandfather Diabetes Grandmother Diabetes Maternal Cousin Mental disorder Bipolar disorder Sister Mental disorder Bipolar disorder, multiple personality disorder Brother DVT (deep venous thrombosis) multiple Brother Claudication Mother Diabetes Social History Smoking/Tobacco Use Status: Current every day Tobacco Type: cigarettes Alcohol Intake: current Alcohol Intake frequency: holidays/special occasions only Drug use: Never Substance use type: does not use Household members: friend(s) and other Details: (6) lives w/ boyfriend, son and BF's 2 children m +girl 08/17/16 Number of Children: 4 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: taking [employer] classes Sexually active: Yes Do you feel safe at home: Yes Do you feel safe in your relationship?: Yes Exam Const General: cooperative, healthy appearing and no acute distress HENMT Head: normal to inspection Ears: hearing grossly normal bilaterally General nose exam: external nose normal Face and sinus: normal facial exam Mouth: oral mucosae normal Throat: posterior oropharynx normal Eyes General: appearance normal, both eyes and all related structures EOM: EOM intact bilaterally Neck Neck: normal visual inspection and No submandibular swelling Lymphatic: no lymphadenopathy noted Chest Chest: normal inspection of the chest and no tenderness Resp Effort & Inspection: normal respiratory effort and able to speak in complete sentences Auscultation: clear to auscultation bilaterally Cardio Rate: regular rate Rhythm: regular rhythm GI Inspection: normal to inspection Palpation: soft, not firm, not rigid and nontender Auscultation: normal bowel sounds Back/Spine/Pelvis Thoracic/Lumbar Spine: thoracic and lumbar spine normal to inspection Skin General skin exam: no rashes or lesions noted Neuro General: alert, awake and oriented x3 Cognition: normal cognition Speech: speech normal Motor: muscle tone normal throughout Sensory Exam: no sensory deficits noted Extrem General: normal to inspection, full ROM, normal capillary refill, no calf tenderness bilaterally and no edema Psych Appearance: grossly normal Mental Status: mental status grossly normal Speech and Movement: speech and movement normal Affect: normal affect Course Vital Signs Vital signs: Vital Signs Temperature 98.2 F 04/07/19 12:14 Pulse 92 H 04/07/19 12:14 Respiratory Rate 16 04/07/19 12:14 Blood Pressure 114/66 04/07/19 12:14 Pulse Oximetry 98 04/07/19 12:14 Temperature 98.2 F 04/07/19 12:14 Temperature Source Skin 04/07/19 12:14 Pulse 92 H 04/07/19 12:14 Respiratory Rate 16 04/07/19 12:14 Respiratory Effort Non-Labored 04/07/19 12:14 Blood Pressure 114/66 04/07/19 12:14 Blood Pressure Position Sitting 04/07/19 12:14 Pulse Oximetry 98 04/07/19 12:14 Oxygen Delivery Method Room Air 04/07/19 12:14 Oxygen Flow Rate 0 04/07/19 12:14 Pain Level 4 04/07/19 12:14
[2019-04-07 12:40] LABS: Bilirubin Negative (Negative); Blood Negative (Negative); Clarity Clear (Clear); Glucose 500 mg/dL (Negative); Ketones 40 mg/dL (Negative); Leukocyte Esterase Negative (Negative); Nitrite Negative (Negative); Urobilinogen 0.2 EU/dL (Up TO 0.2); pH 5.5 (5-8)
[2019-04-07] MEDS: Normal Saline 1,000 ML 1000 ML IV ×3 (12:55→15:45)
[2019-04-07 13:00] LABS: Lactate 0.9 mmol/L (0.6-1.4)
[2019-04-07 13:02] LABS: Abs Immature Grans 0.02 k/cumm (0.0-0.09); Absolute Basophil Count 0.02 k/cumm (0.0-0.2); Absolute Eosinophil Count 0.25 k/cumm (0.0-0.7); Absolute Lymphocyte Count 2.61 k/cumm (1.2-3.4); Absolute Monocyte Count 0.46 k/cumm (0.11-0.7); Absolute Neutrophil Count 6.57 k/cumm (1.2-6.7); Basophils % 0.2; Eosinophils % 2.5; HGB 13.4 g/dL (12.0-15.5); Immature Grans % 0.2; Lymphocytes % 26.3; Mean Corp. HGB Concentration 33.5 g/dL (32.0-36.0); Mean Corpuscular Hemoglobin 30.8 pg (27.0-33.0); Mean Platelet Volume 9.7 fL (8.0-11.0); Monocytes % 4.6; Neutrophils % 66.2; Platelet Count 406 x1000/uL (130-400); RBC 4.35 m/cumm (4.00-5.20); RBC Distribution Width 12.8 % (11.7-14.6); White Blood Cell Count 9.93 k/cumm (4.4-10.8)
[2019-04-07] MEDS: Normal Saline Flush 10 ML SYR IVP (13:11)
[2019-04-07 13:21] LABS: ALT 16 U/L (14-59); AST 9 U/L (15-37); Albumin 3.7 g/dL (3.4-5.0); Alkaline Phosphatase 129 U/L (46-116); Anion Gap 10.1 mmol/L (3-11); BUN 14 mg/dL (7-18); Bilirubin, Total 0.5 mg/dL (0.2-1.0); CO2 23.9 mmol/L (21.0-32.0); CREATININE 0.78 mg/dL (0.55-1.02); Calcium 8.7 mg/dL (8.5-10.1); Chloride 100 mmol/L (98-107); Glucose 441 mg/dL (70-100); Potassium 4.4 mmol/L (3.5-5.1); Sodium 134 mmol/L (136-145); Total Protein 7.3 g/dL (6.4-8.2)
[2019-04-07] MEDS: Insulin REGULAR-Human 100 UNITS/ML UNIT 8 UNITS SC (14:05)
[2019-04-07] MEDS: Ondansetron 4 MG/2 ML VIAL (15:22)
[2019-04-07] MEDS: Ketorolac 30 MG/ML VIAL (15:22)
[2019-04-07] MEDS: Ondansetron O.D.T. 4 MG TABEF, 3 TABS/BTL PO (16:49)
--- NOTE | 2019-04-07 16:54 | NUR.NOTE ---
Nursing Note: po trial performed on PT pt able to consume 2 gingerails and crackers with no increase in nausea
[2019-04-07 16:55] VITALS: BP 99/49; PULSE 80; RESP 16; TEMP 36.8; O2SAT 98
== END 2019-04-07 17:00 | disposition home or self-care (01) ==
PROVIDERS: Emergency Provider Physician Assistant; PCP Nurse Practitioner Family
DX: E10.65 Type 1 diabetes mellitus with hyperglycemia (principal); R11.0 Nausea
CPT/HCPCS: 36415; 36416; 80053; 81025; 82962; 96360; 96361; 99283; 81003; 83605; 85025; J1885; J2405

== ENCOUNTER 2019-09-18 02:34 | Emergency (ER) | payer MEDICAID, SELFPAY ==
[2019-09-18 02:37] VITALS: BP 106/67; PULSE 99; RESP 16; TEMP 36.5; O2SAT 99
--- NOTE | 2019-09-18 02:42 | ED.GENADUL_ITS ---
Discharge Plan Disposition Patient Disposition: HOME Condition: Good Discharge Details Chief Complaint: Nausea/Vomit/Diar Clinical Impression: Nausea and vomiting Primary Care Provider: Mia Poe ED Provider: Tin Louise Meds and New Rx's Prescriptions: New promethazine 25 mg tablet 25 mg PO TID PRN (Reason: nausea and vomiting) Qty: 10 RF: 0 Continued prenat.vits,madi,[id number] Tablet 1 tab PO DAILY RF: 0 (DME) insulin syringe-needle U-100 [Exel Insulin] 1 EACH syringe 1 ea Miscellaneous AC & HS Qty: 3 RF: 3 (DME) lancets [FreeStyle Lancets] 1 EACH misc 1 ea Miscellaneous Q2H Qty: 300 RF: 3 ipratropium-albuterol 3 ML solution for nebulization 3 ml Inhalation BID Qty: 1 RF: 0 (DME) Portable Nebulizer System 1 EACH device Miscellaneous DAILY Qty: 1 RF: 0 Glucagon Emergency Kit (human) 1 MG kit 1 mg IJ DAILY Qty: 2 RF: 0 (DME) Ketostix 1 EACH strip 1 ea Miscellaneous DAILY 30 Days RF: 2 buspirone 15 mg tablet 15 mg PO BID Qty: 60 RF: 0 venlafaxine 150 mg tablet extended release 24hr 150 mg PO DAILY Qty: 45 RF: 0 albuterol sulfate [ProAir HFA] 200 PUFF HFA aerosol inhaler 1 - 2 puff Inhalation Q4H PRN Qty: 1 RF: 1 (DME) FreeStyle Test 1 EACH strip 1 ea Miscellaneous Q2H Qty: 300 RF: 3 insulin lispro [Humalog U-100 Insulin] 100 UNIT/1 ML solution See Protocol units Sub-Q AC Qty: 7 RF: 0 Lantus Solostar U-100 Insulin 100 unit/mL (3 mL) insulin pen 26 unit subcut HS RF: 0 Discharge Instructions Additional Instructions: [place] diet and fluids until feeling better. Promethazine tablets if needed for recurrent nausea and vomiting. Follow-up with primary care towards the end of t he week if not better. Return to ED for persistent vomiting, abdominal pain, vaginal bleeding, other concerns or problems. Referrals: [facility] [Provider Group] Mia Poe, DO[facility] [employer] [Primary Care Provider] - Medical Decision Making Patient is a 6 weeks , insulin-dependent female presenting with nausea and vomiting. She reports fever tonight as well. There is no abdominal pain or diarrhea. She does not feel like she is in DKA. She has had previous pregnancies with no issues with nausea and vomiting. Fingerstick blood sugar is fine. Will place IV and give fluids, Phenergan, obtain labs. Will reevaluate once labs are back and fluids completed. Patient is feeling better. Nausea resolved. Laboratory studies are unremarkable. White count and hemoglobin are normal. Chemistries are normal. There is essentially no anion gap. Blood sugar is 130. Magnesium just a little low at 1.6. Urinalysis negative for ketones. No evidence of DKA or hyperemesis. We will plan on finishing fluids and discharging with prescription for oral Phenergan if needed. Follow-up with primary care as needed. Return to ED for persistent vomiting, abdominal pain, other concerns or problems. Medical Records Medical records reviewed: Yes I reviewed the patient's medical records. Lab Data Lab results reviewed: Yes I reviewed the patient's lab results. HPI General Mode of arrival: ambulatory . Date/Time Provider Initiated Documentation: 09/18/19 02:42 . Limitations to Documentation: no limitations . Information obtained by: patient and RN notes reviewed . HPI Narrative: Patient presents to ED with nausea vomiting. Patient reports being about 6 weeks . She had been doing fine until last couple of days developed nausea. Tonight developed fever and vomiting. She has no diarrhea. She has no abdominal pain. She has a slight cough but no other respiratory symptoms. She has no pelvic pain or vaginal bleeding. She is an insulin-dependent diabetic. Her sugars have been okay. She does, however, have a lot of ketones in her urine at home prompting her to come in. Related Data Home Medications Medication Instructions Recorded Confirmed insulin syringe-needle U-100 [Exel #3 box 05/16/15 09/07/19 Insulin] lancets [FreeStyle Lancets] #300 ea 05/16/15 09/07/19 albuterol sulfate [ProAir HFA] 1 - 2 puff INHALATION Q4H PRN #1 12/12/15 09/18/19 inhaler FreeStyle Test #300 strip 05/08/17 09/07/19 insulin lispro [Humalog U-100 See Protocol SUB-Q AC #7 pkt 05/08/17 09/18/19 Insulin] Portable Nebulizer System #1 07/15/17 09/07/19 ipratropium-albuterol 3 ml INHALATION BID #1 box 07/15/17 09/18/19 Glucagon Emergency Kit (human) 1 mg IJ DAILY #2 kit 07/22/17 09/18/19 Ketostix strip 07/22/17 09/07/19 insulin glargine 100 unit/mL (3 26 unit SUBCUT HS ml 04/23/19 09/07/19 mL) subcutaneous pen buspirone 15 mg tablet 15 mg PO BID #60 tab 09/04/19 09/18/19 venlafaxine 150 mg tablet,extended 150 mg PO DAILY #45 tab-cap 09/04/19 09/18/19 release 24 hr prenat.vits,madi,[id number] 1 tab PO DAILY 09/07/19 09/18/19 promethazine 25 mg PO TID PRN #10 tab 09/18/19 Previous Rx's Medication Instructions Recorded albuterol sulfate [ProAir HFA] 1 - 2 puff INHALATION Q4H PRN #1 12/12/15 inhaler FreeStyle Test #300 strip 05/08/17 insulin lispro [Humalog U-100 See Protocol SUB-Q AC #7 pkt 05/08/17 Insulin] ipratropium-albuterol 3 ml INHALATION BID #1 box 07/15/17 Glucagon Emergency Kit (human) 1 mg IJ DAILY #2 kit 07/22/17 buspirone 15 mg tablet 15 mg PO BID #60 tab 09/04/19 venlafaxine 150 mg tablet,extended 150 mg PO DAILY #45 tab-cap 09/04/19 release 24 hr promethazine 25 mg PO TID PRN #10 tab 09/18/19 Allergies Allergy/AdvReac Type Severity Reaction Status Date / Time insulin detemir Allergy Severe Hives Verified 09/18/19 02:42 [From Levemir U-100 Insulin] fluticasone AdvReac Severe Anaphylaxsi Verified 09/18/19 02:42 [From Flovent Diskus] s General VALENTINA: 3 Review of Systems Narrative: As documented in HPI otherwise negative as below. Const: fever; no chills, weakness Resp: slight cough; no SOB, pleuritic pain CV: no CP, diaphoresis, edema, syncope GI: nausea/vomiting; no abdominal pain, diarrhea Neuro: no headache, numbness, focal weakness, confusion [facility] Medical History Allergic rhinitis, unspecified (Chronic) Anxiety (Chronic 06/17/16) Asthma Depression (Chronic 06/03/15) was on zoloft 25 mg & Prozac in the past but these meds increased SI per pt Diabetic ketoacidosis associated with type 1 diabetes mellitus (Resolved) Frequent UTI (Chronic 03/01/18) Gastroesophageal reflux disease (Inactive 06/03/15) History of pneumonia 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) Low back pain (Chronic) Mild intermittent asthma without complication (Chronic) Pilonidal cyst with abscess (Resolved 06/03/15) Retinopathy (Chronic) Right ovarian cyst (Resolved 07/04/15) 06/2015 US: 4.1 cm hemorrhagic R ovarian cyst --> follow-up US recommended; 11/19/2015 US: WNL Scoliosis Tobacco use disorder (Chronic) Type 1 diabetes mellitus (Chronic) Dx 2 y/o; [facility] Endocrinology Surgical History Tonsillectomy and adenoidectomy (~2007) Social History Smoking/Tobacco Use Status: Current every day Tobacco Type: cigarettes Years smoked: 2,020 Alcohol Intake: current Alcohol Intake frequency: holidays/special occasions only Drug use: Never Substance use type: does not use Household members: friend(s) and other Details: (6) lives w/ boyfriend, son and BF's 2 children m +girl 08/17/16 Number of Children: 4 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: taking [employer] classes Sexually active: Yes Do you feel safe at home: Yes Do you feel safe in your relationship?: Yes Exam Narrative Exam Narrative: Vitals: Afebrile. Very slight tachycardia but otherwise normal vitals and room air pulse oximetry. Const: WDWN female in NAD. HEENT: NC/AT. Normal facial exam. Eyes: Normal conjunctiva and sclera. Neck: Supple. Trachea midline. Lungs: Normal respiratory effort. Lungs are clear. Cor: RRR without murmur/gallop. Good radial pulses. GI: Soft. NT/ND. No guarding or rebound. Neuro: A+O x 3. Normal speech, mentation, gait. Cranial nerves II - XII grossly intact. No gross motor or sensory deficit. Ext: No C/C/E. Skin: Warm and dry without rash.
[2019-09-18] MEDS: Lactated Ringers 2,000 ML 1000 ML IV (03:06)
[2019-09-18 03:18] LABS: Abs Immature Grans 0.02 k/cumm (0.0-0.09); Absolute Basophil Count 0.02 k/cumm (0.0-0.2); Absolute Eosinophil Count 0.14 k/cumm (0.0-0.7); Absolute Lymphocyte Count 1.47 k/cumm (1.2-3.4); Absolute Monocyte Count 0.75 k/cumm (0.11-0.7); Absolute Neutrophil Count 2.73 k/cumm (1.2-6.7); Basophils % 0.4; Eosinophils % 2.7; HGB 13.2 g/dL (12.0-15.5); Immature Grans % 0.4 %; Lymphocytes % 28.7; Mean Corp. HGB Concentration 34.7 g/dL (32.0-36.0); Mean Corpuscular Hemoglobin 31.3 pg (27.0-33.0); Mean Platelet Volume 9.9 fL (8.0-11.0); Monocytes % 14.6; Neutrophils % 53.2; Platelet Count 338 x1000/uL (130-400); RBC 4.22 m/cumm (4.00-5.20); RBC Distribution Width 12.1 % (11.7-14.6); White Blood Cell Count 5.13 k/cumm (4.4-10.8)
[2019-09-18 03:20] LABS: Bilirubin Negative (Negative); Blood Negative (Negative); Clarity Clear (Clear); Glucose Negative (Negative); Ketones Negative (Negative); Leukocyte Esterase Negative (Negative); Nitrite Negative (Negative)
[2019-09-18 03:41] LABS: ALT 21 U/L (14-59); AST 17 U/L (15-37); Albumin 3.6 g/dL (3.4-5.0); Alkaline Phosphatase 67 U/L (46-116); Anion Gap 11.6 mmol/L (3-11); BUN 11 mg/dL (7-18); Bilirubin, Total 0.2 mg/dL (0.2-1.0); CO2 23.4 mmol/L (21.0-32.0); CREATININE 0.59 mg/dL (0.55-1.02); Calcium 8.7 mg/dL (8.5-10.1); Chloride 102 mmol/L (98-107); Glucose 130 mg/dL (74-106); Magnesium 1.6 mg/dL (1.8-2.4); Potassium 3.6 mmol/L (3.5-5.1); Sodium 137 mmol/L (136-145); Total Protein 6.8 g/dL (6.4-8.2)
--- NOTE | 2019-09-18 04:20 | NUR.NOTE ---
Nursing Note: #2 liter LR started per pump. Pt sleeping. No c/o nausea or vomiting since arrival to er
[2019-09-18 05:00] VITALS: BP 104/54; PULSE 86; RESP 16; O2SAT 97
== END 2019-09-18 05:35 | disposition home or self-care (01) ==
PROVIDERS: Emergency Provider Emergency Medicine; PCP Nurse Practitioner Family
DX: O21.8 Other vomiting complicating pregnancy (principal); R50.9 Fever, unspecified; Z3A.01 Less than 8 weeks gestation of pregnancy; E10.9 Type 1 diabetes mellitus without complications
CPT/HCPCS: 36416; 80053; 82962; 96360; 96361; 96372; 99284; 81003; 83735; 85025

== ENCOUNTER 2020-01-16 19:29 | Emergency (ER) | payer MEDICAID, SELFPAY ==
[2020-01-16] VITALS (8 sets, daily range): BP systolic 147–176; BP diastolic 74–95; PULSE 76–153; RESP 13–49; TEMP 36.5–36.8; O2SAT 95–100
--- NOTE | 2020-01-16 19:44 | W.ED.GENAD ---
Discharge Plan Disposition Patient Disposition: [facility] Condition: Serious Discharge Details Chief Complaint: Headache Clinical Impression: Seizure, Headache Primary Care Provider: Mia Poe ED Provider: Baldev Pisano Home Meds and New Rx's Prescriptions: No Action prenat.vits,madi,[id number]-rpfvf Tablet 1 tab PO DAILY RF: 0 (DME) insulin syringe-needle U-100 [Exel Insulin] 1 EACH syringe 1 ea Miscellaneous AC & HS Qty: 3 RF: 3 (DME) lancets [FreeStyle Lancets] 1 EACH misc 1 ea Miscellaneous Q2H Qty: 300 RF: 3 ipratropium-albuterol 3 ML solution for nebulization 3 ml Inhalation BID Qty: 1 RF: 0 (DME) Portable Nebulizer System 1 EACH device Miscellaneous DAILY Qty: 1 RF: 0 Glucagon Emergency Kit (human) 1 MG kit 1 mg IJ DAILY Qty: 2 RF: 0 (DME) Ketostix 1 EACH strip 1 ea Miscellaneous DAILY 30 Days RF: 2 buspirone 15 mg tablet 15 mg PO BID Qty: 60 RF: 0 venlafaxine 150 mg tablet extended release 24hr 150 mg PO DAILY Qty: 45 RF: 0 albuterol sulfate [ProAir HFA] 200 PUFF HFA aerosol inhaler 1 - 2 puff Inhalation Q4H PRN Qty: 1 RF: 1 (DME) FreeStyle Test 1 EACH strip 1 ea Miscellaneous Q2H Qty: 300 RF: 3 insulin lispro [Humalog U-100 Insulin] 100 UNIT/1 ML solution See Protocol units Sub-Q AC Qty: 7 RF: 0 Lantus Solostar U-100 Insulin 100 unit/mL (3 mL) insulin pen 12 unit subcut HS RF: 0 promethazine 25 mg tablet 25 mg PO TID PRN (Reason: nausea and vomiting) Qty: 10 RF: 0 Medical Decision Making This is a 24-year-old female with history of diabetes, DKA, asthma, anxiety presented to the ER with headache that has progressively gotten worse over the last several hours associated with mild nausea and light sensitivity. She reports a history of somewhat similar headaches but not quite as severe. She denies recent trauma. As my HPI states that she has had a very complicated recent past medical history including a admission to the hospital in [place] for UTI, pyelonephritis which subsequently led to sepsis and DKA, resulting in transfer to [facility]. In [facility] she had an acute renal injury resulting in hemodialysis, she was intubated, in a chemically induced coma, and she lost her . She was discharged on Tuesday and reports that since that time she is actually been feeling fairly well. Will obtain IV access, give IV fluid, Compazine, Benadryl, IV Tylenol. I chose these medications as there is no major renal adjustment necessary. Will obtain CBC, CMP, magnesium, urinalysis. She did present mildly hypertensive at 176/85. I did discuss the case with Dr. Louise as soon as I exited the exam room. Laboratory values reveal a WBC of 7.31 hemoglobin 8.9 hematocrit 27.9 platelet count 554. Sodium 141, potassium 3.3, creatinine 1.28, GFR 51.68. Glucose 118. Calcium 8.0 magnesium 1.2. On 01-11-20 her white blood cell count was 11.4 hemoglobin 7.6 platelet count 368. Creatinine was 1.44. When comparing her levels today, there does not appear to be any obvious emergent process. I will give 1 g IV magnesium Upon reevaluation patient is awake, alert, was able to ambulate steadily to the restroom. She reports that her headache has gone from a 10 out of 10 down to a 6 out of 10. She is questioning when she will be able to go home and reports that she thinks she just needs a good night sleep. Her examination again does not reveal any meningismus, fever or white count. Her blood pressure has trended down slightly. No recent trauma. At about 2240 looking at the monitor it appears as though she was in sinus tachycardia, rate in the 140s. Bedside and it appears the patient was having a grand mal seizure. She was unresponsive. While is in the room her heart rate into the 90s, she stopped having any grand mal seizure, and appeared to be post ictal. Continues to report that her headache is feeling better. Dr. Louise now at bedside. Patient began having a second grand mal seizure. IO access established in the right leg and IV Ativan given. Emergent head CT obtained. Please see his note. Patient received 2 separate doses of 1 mg IV Ativan, and then a dose of [address] Louise obtained IV access, please see his note. Patient was given 1 g IV Keppra. Seizure activity discontinued. No evidence of hyperreflexia or clonus. Patient initially presented for headache, was responding nicely to medications, laboratory values showed no obvious emergent process, subsequently had multiple seizures. Patient has no history of seizures. Head CT obtained emergently and read by virtual radiology as posterior parietal cortical and subcortical white matter hypoattenuation as described above. This is nonspecific in appearance. This does not have masslike features. This could represent a parenchymal scar related to a previous insult or infection. Six-inch across the region of approximately 2.8 cm. See above report for description of images which show the findings. The area does not appear to be present in a prior study from 2016. MRI without and with contrast would be helpful for further evaluation. Blood pressure is now in the 140s over 90s and heart rate is in the 90s. O2 sat 100% on nasal cannula. Patient is no longer having seizure activity and appears hemodynamically stable. I do believe that she requires a high level of care. Given her recent hospitalization at [facility] I reached out to neurology at [facility]. I spoke with Dr. Ohcoa who was happy to accept care of the patient. He did not recommend any additional therapy at this time. He does question if there could be a cerebral vein thrombus, abscess, hypertensive encephalopathy, etc. They will pursue more advanced imaging at their facility. Agreed that a lumbar puncture was not likely indicated. If the patient has another seizure he felt as though another gram of Keppra would be appropriate. The patient will be transferred into his care in the SICU. All appropriate paperwork signed. I also discussed the case with Yao Escudero, patient's emergency contact, at [phone]. He is aware that the patient is being transferred to [facility] via ground EMS because of recurrent seizures. Medical Records Medical records reviewed: Yes I reviewed the patient's medical records. HPI General Mode of arrival: ambulatory. Date/Time Provider Initiated Documentation: 01/16/20 19:32. Limitations to Documentation: no limitations. Information obtained by: patient. HPI Narrative: This is a 24-year-old female with history of type 1 diabetes, anxiety, depression, frequent headaches, presented to the ER with a headache that began several hours ago, at that time mild in nature. Over the last several hours it is progressed, is now severe, global, worse in the frontal region. She does not describe a thunderclap headache. She reports photosensitivity, mild nausea, but no vomiting. She reports that she does get headaches, roughly 1 every 3 weeks. This is more severe than her regular headache. She has not taken any medication for her symptoms. Denies recent trauma, fever, neck pain, chest pain, shortness of breath, abdominal pain, numbness, tingling, weakness. Patient reports that she was recently admitted to [place] and subsequently transferred to [facility] and was quite sick. She is unable to give me an exact explanation as to what happened because she reports that she was in a medically induced coma however I was able to obtain records from them. On 01-01-20 she was transferred from [place] to [facility] after being admitted for 3 days for UTI. At that time she was 23 weeks . There was suspicion for pyelonephritis. She initially failed outpatient treatment with Macrobid and Augmentin. IV Unasyn and gentamicin was added. Subsequently developed DKA. Patient was at [facility] until 01-12-28. Diagnosis of arts, intubation, extubation, IUFD at 20 weeks or more gestation, UTI, metabolic acidosis, severe sepsis with septic shock, DKA. Patient did require central line, nephrostomy tube that has subsequently been removed prior to discharge. She did temporarily need hemodialysis. Related Data Home Medications Medication Instructions Recorded Confirmed insulin syringe-needle U-100 [Exel #3 box 05/16/15 09/07/19 Insulin] lancets [FreeStyle Lancets] #300 ea 05/16/15 09/07/19 albuterol sulfate [ProAir HFA] 1 - 2 puff INHALATION Q4H PRN #1 12/12/15 01/16/20 inhaler FreeStyle Test #300 strip 05/08/17 09/07/19 insulin lispro [Humalog U-100 See Protocol SUB-Q AC #7 pkt 05/08/17 01/16/20 Insulin] Portable Nebulizer System #1 07/15/17 09/07/19 ipratropium-albuterol 3 ml INHALATION BID #1 box 07/15/17 01/16/20 Glucagon Emergency Kit (human) 1 mg IJ DAILY #2 kit 07/22/17 01/16/20 Ketostix strip 07/22/17 09/07/19 insulin glargine 100 unit/mL (3 12 unit SUBCUT HS ml 04/23/19 01/16/20 mL) subcutaneous pen buspirone 15 mg tablet 15 mg PO BID #60 tab 09/04/19 01/16/20 venlafaxine 150 mg tablet,extended 150 mg PO DAILY #45 tab-cap 09/04/19 01/16/20 release 24 hr prenat.vits,madi,kbv-jaan-dbmqw 1 tab PO DAILY 09/07/19 09/18/19 promethazine 25 mg PO TID PRN #10 tab 09/18/19 01/16/20 Previous Rx's Medication Instructions Recorded albuterol sulfate [ProAir HFA] 1 - 2 puff INHALATION Q4H PRN #1 12/12/15 inhaler FreeStyle Test #300 strip 05/08/17 insulin lispro [Humalog U-100 See Protocol SUB-Q AC #7 pkt 05/08/17 Insulin] ipratropium-albuterol 3 ml INHALATION BID #1 box 07/15/17 Glucagon Emergency Kit (human) 1 mg IJ DAILY #2 kit 07/22/17 buspirone 15 mg tablet 15 mg PO BID #60 tab 09/04/19 venlafaxine 150 mg tablet,extended 150 mg PO DAILY #45 tab-cap 09/04/19 release 24 hr promethazine 25 mg PO TID PRN #10 tab 09/18/19 Allergies Allergy/AdvReac Type Severity Reaction Status Date / Time insulin detemir Allergy Severe Hives Verified 09/18/19 02:42 [From Levemir U-100 Insulin] fluticasone AdvReac Severe Anaphylaxsi Verified 09/18/19 02:42 [From Flovent Diskus] s General Stated Complaint: Headache VALENTINA: 2 Review of Systems Constitutional Constitutional: Reports fatigue, Denies fever(s), Reports headache(s) and Denies weakness Eyes Eyes: Denies blurry vision, Denies diplopia and Reports photophobia ENT Ears, Nose, Mouth, and Throat: Denies dizziness, Reports headache(s), Denies neck pain and Denies sore throat Cardiovascular Cardiovascular: Denies chest pain, Denies syncope and Denies dyspnea Respiratory Respiratory: Denies cough and Denies dyspnea Gastrointestinal Gastrointestinal: Denies abdominal pain, Reports nausea and Denies vomiting Genitourinary Genitourinary: Denies dysuria Musculoskeletal Musculoskeletal: Denies back pain, Denies neck pain, Denies numbness and Denies tingling Integumentary/Breasts Skin/Breast: Denies rash Neurologic Neurologic: Denies dizziness, Denies syncope, Reports headache(s), Denies numbness, Denies tingling and Denies weakness Endocrine Endocrine: Reports fatigue Hematologic/Lymphatic Hematologic/Lymphatic: Denies easy bleeding [facility] Medical History Allergic rhinitis, unspecified (Chronic) Anxiety (Chronic 06/17/16) Asthma Depression (Chronic 06/03/15) was on zoloft 25 mg & Prozac in the past but these meds increased SI per pt Diabetic ketoacidosis associated with type 1 diabetes mellitus (Resolved) Frequent UTI (Chronic 03/01/18) Gastroesophageal reflux disease (Inactive 06/03/15) History of pneumonia 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) Low back pain (Chronic) Mild intermittent asthma without complication (Chronic) Pilonidal cyst with abscess (Resolved 06/03/15) Retinopathy (Chronic) Right ovarian cyst (Resolved 07/04/15) 06/2015 US: 4.1 cm hemorrhagic R ovarian cyst --> follow-up US recommended; 11/19/2015 US: WNL Scoliosis Tobacco use disorder (Chronic) Type 1 diabetes mellitus (Chronic) Dx 2 y/o; [facility] [place] Social History Smoking/Tobacco Use Status: Former Tobacco Use Alcohol Intake: current Alcohol Intake frequency: holidays/special occasions only Drug use: Never Substance use type: does not use Household members: friend(s) and other Details: (6) lives w/ boyfriend, son and BF's 2 children m +girl 08/17/16 Number of Children: 4 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 Sexually active: Yes Do you feel safe at home: Yes Do you feel safe in your relationship?: Yes Exam Const General: cooperative, healthy appearing and no acute distress Orientation: alert, awake and oriented x3 HENMT Head: normal to inspection, no palpable skull fracture, normocephalic and atraumatic Ears: external ears normal, TM's normal bilaterally and EAC's normal Mouth: moist mucous membranes Throat: posterior oropharynx normal Eyes General: appearance normal, both eyes and all related structures Alignment and Position: alignment normal Periorbital: periorbital findings normal Eyelids: eyelids normal Conjunctivae: conjunctivae normal Sclera: sclerae normal Cornea: corneas normal Pupils: PERRL EOM: EOM intact bilaterally Direct ophthalmoscopy: normal light reflex Neck Neck: normal visual inspection, full ROM, no lymphadenopathy, no meningeal signs, trachea midline, supple and nontender Resp Effort & Inspection: normal respiratory effort and able to speak in complete sentences Auscultation: clear to auscultation bilaterally Cardio Rate: regular rate Rhythm: regular rhythm GI Inspection: other (Areas of ecchymosis (recent Lovenox injections)) Palpation: soft, not firm, not rigid and nontender Auscultation: normal bowel sounds Back/Spine/Pelvis Back: no CVA tenderness, No back tenderness and other (Location of recent nephrostomy tube appears well) Skin General skin exam: no rashes or lesions noted Neuro General: patient alert, patient awake, patient oriented x3, moves all extremities and no focal motor deficits Cranial Nerves: CN's II-XI intact bilaterally Cognition: normal cognition Speech: speech normal Gait: normal gait Motor: muscle tone normal throughout, strength 5/5 throughout and no fasciculations Sensory Exam: no sensory deficits noted Coordination: Does not sway with eyes open Extrem General: normal to inspection, full ROM, capillary refill normal, no pedal edema and no calf tenderness Psych Appearance: grossly normal Mental Status: mental status grossly normal Course Vital Signs Vital signs: Vital Signs Temperature 36.5 C 01/16/20 19:34 Pulse 76 01/16/20 19:34 Respiratory Rate 18 01/16/20 19:34 Blood Pressure 176/85 H 01/16/20 19:34 Pulse Oximetry 99 01/16/20 19:34 Temperature 36.5 C 01/16/20 19:34 Temperature Source Skin 01/16/20 19:34 Pulse 76 01/16/20 19:34 Respiratory Rate 18 01/16/20 19:34 Respiratory Effort 01/16/20 19:40 Blood Pressure 176/85 H 01/16/20 19:34 Blood Pressure Position Supine 01/16/20 19:34 Pulse Oximetry 99 01/16/20 19:34 Oxygen Delivery Method Room Air 01/16/20 19:34 Oxygen Flow Rate 0 01/16/20 19:34 Pain Level 10 01/16/20 19:40 Critical Care Time Critical Care Time Critical Care Time: Yes Total Critical Care Time: 45 Attestation: Upon my evaluation, this patient had a high probability of clinically significant, life-threatening deterioration due to their current medical conditions, which required my direct attention, intervention, and personal management. I have personally provided greater than 30 minutes of critical care time exclusive of the time spend on separately billable procedures. Time includes obtaining a history, examining the patient, pulse oximetry, review of laboratory data, radiology results, discussion with consultants, arranging urgent treatment with development of a management plan, evaluation of patient's response to treatment, and monitoring for potential decompensation. Interventions were performed as documented above.
[2020-01-16 21:01] LABS: Abs Immature Grans 0.04 k/cumm (0.0-0.09); Absolute Basophil Count 0.05 k/cumm (0.0-0.2); Absolute Eosinophil Count 0.19 k/cumm (0.0-0.7); Absolute Lymphocyte Count 2.28 k/cumm (1.2-3.4); Absolute Monocyte Count 0.65 k/cumm (0.11-0.7); Basophils % 0.7; Eosinophils % 2.6; HCT 27.9 % (36.0-46.0); HGB 8.9 g/dL (12.0-15.5); Immature Grans % 0.5 %; Lymphocytes % 31.2; Mean Corp. HGB Concentration 31.9 g/dL (32.0-36.0); Mean Corpuscular Hemoglobin 30.9 pg (27.0-33.0); Mean Corpuscular Volume 96.9 fL (80-95); Mean Platelet Volume 9.4 fL (8.0-11.0); Monocytes % 8.9; Neutrophils % 56.1; Platelet Count 554 x1000/uL (130-400); RBC 2.88 m/cumm (4.00-5.20); RBC Distribution Width 13.5 % (11.7-14.6); White Blood Cell Count 7.31 k/cumm (4.4-10.8)
[2020-01-16] MEDS: Normal Saline 1,000 ML 125 ML IV (21:04)
[2020-01-16] MEDS: diphenhydrAMINE 50 MG/ML VIAL IVP (21:04)
[2020-01-16] MEDS: Prochlorperazine 10 MG/2 ML VIAL IVP (21:05)
[2020-01-16 21:27] LABS: ALT 15 U/L (14-59); AST 16 U/L (15-37); Albumin 2.4 g/dL (3.4-5.0); Alkaline Phosphatase 90 U/L (46-116); Anion Gap 12.3 mmol/L (3-11); BUN 7 mg/dL (7-18); Bilirubin, Total 0.4 mg/dL (0.2-1.0); CO2 24.7 mmol/L (21.0-32.0); CREATININE 1.28 mg/dL (0.55-1.02); Chloride 104 mmol/L (98-107); Estimated GFR 51.68 (mL/min/1.73m2); Glucose 118 mg/dL (74-106); Potassium 3.3 mmol/L (3.5-5.1); Sodium 141 mmol/L (136-145)
[2020-01-16 21:35] LABS: Magnesium 1.2 mg/dL (1.8-2.4)
[2020-01-16] MEDS: ACETAMINOPHEN 1,000 MG/100 ML BTL 400 MG IVPB (22:04)
[2020-01-16 22:16] LABS: Bilirubin Negative (Negative); Blood Large (Negative); Clarity Clear (Clear); Glucose Negative (Negative); Ketones 15 mg/dL (Negative); Leukocyte Esterase Negative (Negative); Nitrite Negative (Negative); Urobilinogen 0.2 EU/dL (Up TO 0.2)
[2020-01-16] MEDS: MAGNESIUM SULFATE 1 GM/100 ML BAG IVPB (22:20)
--- NOTE | 2020-01-16 22:43 | NUR.NOTE ---
Pt HR noted to be elevated to 140's. Not answering questions, lying on left side in bed, staring straight ahead, pupils dilated, responsive to light. Pt able to say yeah when asked questions, following commands like squeeze my hand.
[2020-01-16 23:00] LABS: Bacteria Negative HPF (Negative); C & S Indicated? No; Casts Negative LPF (Negative); Crystals Negative HPF (Negative); Epithelial Cells Few HPF (Negative); Mucus Negative (Negative); WBC Negative HPF (0-5)
--- NOTE | 2020-01-16 23:05 | DI.CT_ITS ---
EXAM: CT HEAD WO CLINICAL HISTORY: Headache, seizure. TECHNIQUE: Imaging Protocol: Axial computed tomography images with coronal and sagittal reformatted images were created and reviewed COMPARISON: CT HEAD ORBITS WO CONTRAST from 06/10/2016 FINDINGS: Ventricles and Extra axial spaces: Normal in size and morphology for the patient's age. Hemorrhage: None. Cerebral parenchyma: There is an area in the left posterior high parietal region which shows decrease d attenuation in the cortical and subcortical white matter (series 2, images 41-44). No hemorrhage o r calcification is associated with this region. No definite mass effect is appreciated. Midline shift: None. Brainstem/Cerebellum: Normal. Calvarium: Normal. Visualized Paranasal sinuses/Mastoids: Clear. Soft Tissues: Unremarkable. IMPRESSION: Area of decreased attenuation in the high posterior parietal region. This region is nonspecific. Th is could represent sequelae from prior insult or infection.Further evaluation with a post-contrast CT scan and/or MRI examination prior to and following contrast is recommended. RADIATION DOSE DELIVERED: Total DLP DATA REPOSITORY: All CT scans at this facility are submitted to the National Radiology Data Registry (NRDR) Dose Index Registry (DIR) with the [employer] (A[employer]). RADIATION OPTIMIZATION: All CT scans at this facility use at least one of these dose optimization te chniques: automated exposure control; mA and/or kV adjustment per patient size (includes targeted exa ms where dose is matched to clinical indication); or iterative reconstruction.
[2020-01-16] MEDS: LORazepam 2 MG/ML VIAL (23:15)
--- NOTE | 2020-01-16 23:22 | DI.VRAD_ITS ---
PROCEDURE INFORMATION: Exam: CT Head Without Contrast Exam date and time: 01/16/2020 10:43 PM Age: 24 years old Clinical indication: Other: Siezure, headache TECHNIQUE: Imaging protocol: Computed tomography of the head without contrast. Radiation optimization: All CT scans at this facility use at least one of these dose optimization techniques: automated exposure control; mA and/or kV adjustment per patient size (includes targeted exams where dose is matched to clinical indication); or iterative reconstruction. COMPARISON: No relevant prior studies available. FINDINGS: Brain: Left posterior high parietal area cortical and subcortical white matter hypoattenuation. Significance of this is uncertain. See axial series 2, images 41 through 44. See coronal series 7, image 78. Sagittal series 8, images 39 through 33. This could represent an area of scar from a previous insult or infection. No calcifications within this region. No hemorrhage. No masslike features. Adjacent extra-axial space is unremarkable. Ventricles: Normal. No ventriculomegaly. Bones/joints: Intact calvarium. No focal bone lesions. No fracture. Sinuses: Visualized sinuses are unremarkable. No fluid levels. Mastoid air cells: Visualized mastoid air cells are well aerated. Soft tissues: Unremarkable. IMPRESSION: 1. Posterior parietal cortical and subcortical white matter hypoattenuation as described above. This is nonspecific in appearance. This does not have masslike features. This could represent a parenchymal scar related to a previous insult or infection. This extends across a region of approximately 2.8 cm. See above report for description of images which show the finding. This area does not appear to be present on a prior study from 2016. 2. MRI without and with contrast would be helpful for further evaluation. Dictated and Authenticated by: Jorge A Liang MD. Ordering:MANNY De Paz MD
[2020-01-16] MEDS: Lidocaine 2% Pres-Free 2 ML VIAL IJ (23:28)
[2020-01-16] MEDS: levETIRAcetam 1,000 MG in Normal Saline 100 ML 400 MG IVPB (23:28)
--- NOTE | 2020-01-16 23:40 | NUR.NOTE ---
2245 pt observed having seizure. #24 left wrist pulled during seizure. IO placed to R proximal tib. 1mg ativan given IO. Pt to CT with RN. Seizure activity noted on arrival back to ED @2310 1mg ativan given IO. Continued seizure activity additional 2mg ativan given IO@2315. Dani in to place #18 R EJ. Mag and NS infusing. #22 to LH, Keppra infusing. Pt continues grunting, sats 99% on NRB. Down to 93% on3L NC. Pupils round, approx L 6mm, R 7mm. 2mL 2% lidocaine to R IO. +flush, +BR.
[2020-01-17 00:02] VITALS: BP 149/93; PULSE 96; RESP 23; O2SAT 100
--- NOTE | 2020-01-17 00:05 | NUR.NOTE ---
Pt arousable to voice, alert to place. following simple commands.
[2020-01-17 00:16] LABS: *AMPHETAMINES SCREEN URINE Negative (Negative); *BARBITURATES SCREEN URINE Negative (Negative); *BENZODIAZEPINES SCREEN URINE Negative (Negative); Cannabinoids THC Negative (Negative); Cocaine Screen,Urine Negative (Negative); METHADONE URINE SCREEN Negative (Negative); OPIATES URINE SCREEN Negative (Negative)
--- NOTE | 2020-01-17 00:16 | NUR.NOTE ---
Changed to 3L O2 NC, sats 97%
[2020-01-17 00:20] LABS: Tricyclic Antidepressants Negative (Negative)
[2020-01-17 00:41] VITALS: BP 143/85; PULSE 94; RESP 25; TEMP 36.6; O2SAT 95
--- NOTE | 2020-01-17 00:41 | NUR.NOTE ---
Pt hesham Montoya called by FABRIZIO Pisano, aware of plan for transfer.
--- NOTE | 2020-01-17 01:05 | NUR.NOTE ---
[place] [facility] [place] [facility] with all belongings. Pt arousable to voice, unable to answer questions.
== END 2020-01-17 01:01 | disposition short-term general hospital (02) ==
PROVIDERS: Emergency Provider Physician Assistant; PCP Nurse Practitioner Family
DX: G40.409 Other generalized epilepsy and epileptic syndromes, not intractable, without status epilepticus (principal); R90.89 Other abnormal findings on diagnostic imaging of central nervous system; R51 Headache; E83.42 Hypomagnesemia; R03.0 Elevated blood-pressure reading, without diagnosis of hypertension; E10.319 Type 1 diabetes mellitus with unspecified diabetic retinopathy without macular edema; Z87.440 Personal history of urinary (tract) infections
CPT/HCPCS: 36415; 36416; 36680; 80053; 80307; 82962; 96361; 96365; 96366; 96375; 96376; 99291; 36010; 70450; 81003; 81015; 83735; 85025; J0131; J0780; J1200; J1953; J2060; J3475

== ENCOUNTER 2020-04-28 15:07 | Outpatient (REF) | payer MEDICAID, SELFPAY | END 2020-04-28 15:27 | LOC: LBO 15:07 | PROVIDERS: PCP Nurse Practitioner Family; Visit Provider Nurse Practitioner Family | DX: R30.0 Dysuria (principal) | CPT/HCPCS: 87077; 87086; 87186 ==

== ENCOUNTER 2020-05-28 15:21 | Outpatient (REF) | payer MEDICAID, SELFPAY | END 2020-05-28 15:41 | LOC: LBO 15:21 | PROVIDERS: PCP Nurse Practitioner Family; Visit Provider Nurse Practitioner Adult Health | DX: R30.0 Dysuria (principal); R10.9 Unspecified abdominal pain | CPT/HCPCS: 87077; 87086; 87186 ==

== ENCOUNTER 2020-07-13 16:22 | Inpatient (IN) | payer MEDICAID, SELFPAY ==
[2020-07-13] VITALS (21 sets, daily range): BP systolic 110–135; BP diastolic 59–81; PULSE 78–99; RESP 14–24; TEMP 36.1–36.7; O2SAT 98–100
--- NOTE | 2020-07-13 16:35 | W.ED.GENAD ---
Discharge Plan Disposition Patient Disposition: [facility] INPATIENT Condition: Fair Discharge Details Chief Complaint: Diabetes Clinical Impression: DKA (diabetic ketoacidoses) Admit Date/Time: 07/13/20 20:03 Admit Provider: Mike Christiansen Attending Provider: Mike Christiansen Primary Care Provider: Mia Poe ED Provider: Miguelina Blanc Medical Decision Making Patient is a pleasant 25-year-old female presenting today with chief complaint of hyperglycemia. She believes that she is bad insulin last night. Her meter continues to read high. Her monitor is able to read up to 500. Patient has been using her pump. She has switched this site as was instructed by endocrinology. However, despite this she continues to be running high. Patient seems to be very knowledgeable regarding her treatment and disease. She had DKA multiple times historically. She does not feel that she is in DKA at this point and is symptomatic associated with the hyperglycemia. She reports that she is feeling diabetic sick. She denies any fevers or chills. No change in her vision. Denies any shortness of breath or chest pain. Did not change the type of insulin with getting the pump 1 week ago. On exam, patient appears quite well. Vital signs significant for pulse of 91 otherwise within normal limits. She is not tachypneic. She denies feeling short of breath. BGL high. Patient will be started on hydration. Will await potassium prior to giving insulin. Contacted by lab, glucose 706. Labs reviewed. No leukocytosis. pH normal at 7.63. Bicarb 21. Sodium 128, corrects to 138. K 5.1. Gap of 13.2. Creatinine 1.15. Patient has been elevated historically. Was 1.28 in January. Patient has 16 ketones in her urine. 500 glucose in the urine. No evidence of infection. Patient has had kept her pump in place. We will remove this now. As she has had this morning, will give 10 units subcu regular human insulin. Will monitor patient closely. Patient received 1 L of LR. Second liter will be asked and will give 10 of potassium with this. Patient glucose 1 hour after administration of subcutaneous insulin it is 515. She states that she still feels the same as feeling fine. Patient is eating and drinking in the room. Contacted [facility] endocrinology and consulted with Dr. Morrell. Patient expressed her want to be able to be discharged home after correction tonight. She feels like she has been admitted now for. Dr. Morrell advised that the patient is doing well and that we were able to identify the issues being the insulin patient could potentially be discharged home tonight. She advised to continue to monitor glucose and recheck another hour. She states that if he continues to be high we could potentially correct with Humalog. Alternatively, she did advise that we could have the patient start her pump once again with new insulin. If seems to correct well she advised the patient could go home with the pump. Patient's pump does awake and alert her if she becomes hypoglycemic. She did recommend continuing to trend the patient's ketones. She advised that they do not have completely clear from the urine but should at least be downtrending prior to the time of discharge. Patient does have ketone strips to her urine at home. We will also ensure that the patient has alternatives at home in regard to insulin if the pump is not sufficient. 3 hours after initial subcutaneous insulin, the patient's glucose is 311. I am concerned this may be dropping too precipitously. She continues to feel well. She is taking in p.o. however, we have been limiting her carbohydrates. Will increase her carb intake at this time. Likely the insulin has plateaued at this point. She is received home Tamiflu call seen normal 2 L of fluids. Repeat UA shows an increase in her ketones from 15-40 and her urine glucose is now over thousand. Discussed these findings with the patient. I am concerned with these trends. I am also concerned with the precipitous drop in her glucose despite only 10 units subcu. The patient is today but is diabetic historically, I feel that inpatient admission would be appropriate time. The plan patient is in agreement. Consult with Dr. Chung Keenan who is in agreement with plan, help with admit orders. All of her questions and concerns were addressed and she is in agreement this plan. HPI General Mode of arrival: ambulatory. Date/Time Provider Initiated Documentation: 07/13/20 16:35. Limitations to Documentation: no limitations. Information obtained by: patient, RN notes reviewed and old records reviewed. HPI Narrative: Patient is a pleasant 25-year-old type I diabetic presenting today with hyperglycemia. Glucose has been increasing since last night. 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. Reports that this has been working well for her and her glucose had actually been more tightly monitor than it has been historically. However, she believes that she is insulin that was allowed to get too hot last night. She believes that this is what set off her current hyperglycemic state. She denies any fevers or chills. No change in her appetite. States she does not feel like she has historically when she has been in DKA. Related Data Home Medications Medication Instructions Recorded Confirmed insulin syringe-needle U-100 [Exel #3 box 05/16/15 06/26/20 Insulin] lancets [FreeStyle Lancets] #300 ea 05/16/15 06/26/20 albuterol sulfate [ProAir HFA] 1 - 2 puff INHALATION Q4H PRN #1 12/12/15 07/13/20 inhaler FreeStyle Test #300 strip 05/08/17 06/26/20 insulin lispro [Humalog U-100 See Protocol SUB-Q AC #7 pkt 05/08/17 07/13/20 Insulin] Portable Nebulizer System #1 07/15/17 06/26/20 ipratropium-albuterol 3 ml INHALATION BID #1 box 07/15/17 07/13/20 Glucagon Emergency Kit (human) 1 mg IJ DAILY #2 kit 07/22/17 07/13/20 Ketostix strip 07/22/17 06/26/20 insulin glargine 100 unit/mL (3 12 unit SUBCUT HS ml 04/23/19 07/13/20 mL) subcutaneous pen levetiracetam 500 mg tablet 500 mg PO BID 01/21/20 07/13/20 buspirone 15 mg tablet 15 mg PO BID #60 tab 05/28/20 07/13/20 venlafaxine 225 mg tablet,extended 225 mg PO DAILY #45 tab 06/26/20 07/13/20 release 24 hr Previous Rx's Medication Instructions Recorded albuterol sulfate [ProAir HFA] 1 - 2 puff INHALATION Q4H PRN #1 12/12/15 inhaler FreeStyle Test #300 strip 05/08/17 insulin lispro [Humalog U-100 See Protocol SUB-Q AC #7 pkt 05/08/17 Insulin] ipratropium-albuterol 3 ml INHALATION BID #1 box 07/15/17 Glucagon Emergency Kit (human) 1 mg IJ DAILY #2 kit 07/22/17 buspirone 15 mg tablet 15 mg PO BID #60 tab 05/28/20 venlafaxine 225 mg tablet,extended 225 mg PO DAILY #45 tab 06/26/20 release 24 hr Allergies Allergy/AdvReac Type Severity Reaction Status Date / Time insulin detemir Allergy Severe Hives Verified 07/13/20 16:32 [From Levemir U-100 Insulin] fluticasone AdvReac Severe Anaphylaxsi Verified 07/13/20 16:32 [From Flovent Diskus] s General Stated Complaint: Diabetes [place]: 3 Review of Systems Constitutional Constitutional: Reports as per HPI, Denies chills, Denies fever(s) and Denies headache(s) Eyes Eyes: Denies change in vision ENT Ears, Nose, Mouth, and Throat: Denies dizziness and Denies headache(s) Cardiovascular Cardiovascular: Reports as per HPI, Denies chest pain, Denies dyspnea and Denies dyspnea on exertion Respiratory Respiratory: Reports as per HPI, Denies chest congestion, Denies cough, Denies pain on inspiration, Denies pain with cough, Denies dyspnea, Denies dyspnea on exertion and Denies wheezing Gastrointestinal Gastrointestinal: Reports as per HPI, Denies abdominal pain, Denies diarrhea, Denies nausea and Denies vomiting Musculoskeletal Musculoskeletal: Reports as per HPI and Denies back pain Integumentary/Breasts Skin/Breast: Reports as per HPI and Denies rash Neurologic Neurologic: Reports as per HPI, Denies dizziness and Denies headache(s) Allergic/Immunologic Allergic/Immunologic: Denies wheezing [facility] Medical History Allergic rhinitis, unspecified Anxiety (06/17/16) Asthma Depression (06/03/15) was on zoloft 25 mg & Prozac in the past but these meds increased SI per pt Diabetic ketoacidosis associated with type 1 diabetes mellitus Frequent UTI (03/01/18) Gastroesophageal reflux disease (06/03/15) History of pneumonia 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 Endocrinology Surgical History Hx of nephrostomy (~12/2019) tube placement, right [facility] Tonsillectomy and adenoidectomy (~2007) Family History Grandfather Diabetes Grandmother Diabetes Maternal Cousin Mental disorder Bipolar disorder Sister Mental disorder Bipolar disorder, multiple personality disorder Brother DVT (deep venous thrombosis) multiple Brother Claudication Mother Diabetes Social History Smoking/Tobacco Use Status: Former Tobacco Use Smoking risk assessment performed?: Yes Alcohol Intake: current Alcohol Intake frequency: holidays/special occasions only Drug use: Never Substance use type: does not use Household members: friend(s) and other Details: (6) lives w/ fiance, son and BF's 2 children m +girl 08/17/16 Number of Children: 4 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: taking [employer] classes Sexually active: Yes Do you feel safe at home: Yes Do you feel safe in your relationship?: Yes Exam Const General: cooperative, healthy appearing, comfortable, no acute distress and well developed Nutritional Appearance: average body habitus and well nourished Orientation: alert, awake and oriented x3 HENMT Head: normal to inspection Ears: hearing grossly normal bilaterally Mouth: moist mucous membranes Chest Chest: normal inspection of the chest, normal palpation of entire chest wall and no crepitus Resp Effort & Inspection: normal respiratory effort, able to speak in complete sentences and no respiratory distress Auscultation: clear to auscultation bilaterally, no rales, no rhonchi and no wheezes Cardio Rate: regular rate Rhythm: regular rhythm Heart Sounds: S1 normal and S2 normal GI Inspection: normal to inspection, no edema and non-distended Palpation: soft, no hepatosplenomegaly, not firm, no guarding, not rigid and nontender Auscultation: normal bowel sounds Skin General skin exam: no rashes or lesions noted Trauma: no lacerations or abrasions Neuro General: patient alert, patient awake and patient oriented x3 Cognition: normal cognition Speech: speech normal Gait: normal gait Extrem General: normal gait Psych Appearance: grossly normal and well kempt Mental Status: mental status grossly normal Speech and Movement: speech and movement normal Course Vital Signs Vital signs: Vital Signs Temperature 36.5 C 07/13/20 16:28 Pulse 91 H 07/13/20 16:28 Respiratory Rate 16 07/13/20 16:28 Blood Pressure 135/60 07/13/20 16:28 Pulse Oximetry 99 07/13/20 16:28 Temperature 36.5 C 07/13/20 16:28 Temperature Source Skin 07/13/20 16:28 Pulse 91 H 07/13/20 16:28 Respiratory Rate 16 07/13/20 16:28 Respiratory Effort Non-Labored 07/13/20 16:28 Blood Pressure 135/60 07/13/20 16:28 Blood Pressure Position Sitting 07/13/20 16:28 Pulse Oximetry 99 07/13/20 16:28 Oxygen Delivery Method Room Air 07/13/20 16:28 Oxygen Flow Rate 0 07/13/20 16:28 Pain Level 0 07/13/20 16:28
[2020-07-13] MEDS: Lactated Ringers 1,000 ML 1000 ML IV (16:46)
[2020-07-13] MEDS: Normal Saline Flush 10 ML SYR IVP (16:46)
[2020-07-13 16:49] LABS: Abs Immature Grans 0.01 10^3/uL (0.0-0.06); Absolute Basophil Count 0.03 10^3/uL (0.0-0.2); Absolute Eosinophil Count 0.13 10^3/uL (0.0-0.7); Absolute Monocyte Count 0.34 10^3/uL (0.1-0.8); Absolute Neutrophil Count 3.26 10^3/uL (1.2-6.7); Basophils % 0.5; Eosinophils % 2.4; HCT 35.9 % (36.0-46.0); HGB 11.6 g/dL (11.2-15.7); Immature Grans % 0.2; Lymphocytes % 31.1; MCH 29.6 pg (27.0-33.0); MCHC 32.3 % (32.0-36.0); MCV 91.6 fL (80-95); MPV 10.3 fL (8.0-11.0); Monocytes % 6.2; Neutrophils % 59.6; Nucleated RBC 0 %; Platelet Count 338 10^3/uL (130-400); RBC 3.92 10^6/uL (3.93-5.22); RDW 12.4 % (11.7-14.6); WBC 5.47 10^3/uL (4.4-10.8)
[2020-07-13 17:04] LABS: Bilirubin Negative (Negative); Blood Negative (Negative); Clarity Clear (Clear); Glucose 500 mg/dL (Negative); Ketones 15 mg/dL (Negative); Leukocyte Esterase Negative (Negative); Nitrite Negative (Negative); Specific Gravity 1.015 (1.005-1.025); Urobilinogen 0.2 EU/dL (Up TO 0.2)
[2020-07-13 17:07] LABS: ALT 20 U/L (14-59); AST 11 U/L (15-37); Alkaline Phosphatase 95 U/L (46-116); Anion Gap 13.2 mmol/L (3-11); BUN 24 mg/dL (7-18); Bilirubin, Total 0.5 mg/dL (0.2-1.0); CO2 19.8 mmol/L (21.0-32.0); CREATININE 1.15 mg/dL (0.55-1.02); Chloride 95 mmol/L (98-107); Estimated GFR 57.97 (mL/min/1.73m2); Magnesium 1.8 mg/dL (1.8-2.4); Potassium 5.1 mmol/L (3.5-5.1); Sodium 128 mmol/L (136-145); Total Protein 7.2 g/dL (6.4-8.2)
[2020-07-13 17:08] LABS: Glucose 706 mg/dL (74-106)
[2020-07-13] MEDS: Insulin REGULAR-Human 100 UNITS/ML UNIT 10 UNITS SC (17:42)
[2020-07-13 18:07] LABS: BE (Venous) -5 mmol/L (-2-3); HCO3 (Venous) 21 mmol/L (23-28); O2 Sat (Venous) 75 %; TCO2 (Venous) 19 mmol/L (24-29); pCO2 (Venous) 39 mmHg (41-51); pH (Venous) 7.33 (7.31-7.41); pO2 (Venous) 42 mmHg
[2020-07-13] MEDS: Normal Saline 1,000 ML 1000 ML IV (19:00)
[2020-07-13] MEDS: POTASSIUM CHLORIDE 10 MEQ/100 ML BAG 100 MEQ IVPB (19:20)
[2020-07-13 19:31] LABS: Bilirubin Negative (Negative); Blood Negative (Negative); Clarity Clear (Clear); Glucose >=1000 mg/dL (Negative); Ketones 40 mg/dL (Negative); Leukocyte Esterase Negative (Negative); Nitrite Negative (Negative); Specific Gravity 1.015 (1.005-1.025); Urobilinogen 0.2 EU/dL (Up TO 0.2); pH 6.5 (5-8)
--- NOTE | 2020-07-13 20:22 | HPE_ITS ---
Date of service: 07/13/20 Time of Service: 20:22 Assessment and Plan Assessment and plan (1) DKA (diabetic ketoacidoses): Start date: 07/13/20 Status: Acute Assessment and plan: This is a 25-year-old lady with sudden onset of hypoglycemia presents in mild DKA which is not completely clearing in the ED. She was admitted in the ICU but on medical care with frequent glucometers and monitoring. She was given Lantus tonight and moderate dose short acting insulin coverage for before meals and at bedtime with coverage. We may check her glucometer more often and give extra boluses if needed clear urine ketones. Her basic metabolic profile already has shown normalization of her metabolic acidosis. Patient is hungry and will be given her nighttime snack on a 2100- calorie ADA diabetic diet. In the morning we can reevaluate restarting her insulin pump with adjustments. Qualifiers: Diabetes mellitus complication detail: without coma Diabetes mellitus type: type 1 Qualified Code(s): E10.10 - Type 1 diabetes mellitus with ketoacidosis without coma (2) Type 1 diabetes mellitus: Status: Chronic Assessment and plan: Patient has been type I diabetic since 11 months of age and has had 2 pregnancies with 1 loss . She has had variable control of her diabetes but recently been doing well with an insulin pump conversion. She feels that she had a bad batch of insulin prompting this problem and has intermittently had hypoglycemia without obvious provocation but usually is not going into DKA. Will reevaluate initiating her insulin pump use in the morning if she is cleared to ketosis Qualifiers: Diabetes mellitus complication status: with hyperglycemia Qualified Code(s): E10.65 - Type 1 diabetes mellitus with hyperglycemia History of Present Illness History of Present Illness Chief Complaint: Hypoglycemia with bad batch of insulin or insulin pump Narrative: This is a 25-year-old female patient has a history of type 1 diabetes since she was 11 months of age who recently had a complicated with preeclampsia and seizure and has lost 1 child and has 2 living children. She recently switched to an insulin pump with boluses intermittently and did pick up driver a new insulin with this insulin stinging and patient concerned that this was a bad batch. He presented to the ED in mild DKA and was respond to IV fluids and regular insulin bolus but did have ketones in her urine and mild metabolic acidosis for which she was admitted for IV hydra tion and close monitoring of her potassium and ketosis. Her second BMP prior to coming up to ICU for medical care revealed normalization of her TCO2 and she was feeling better with IV hydration. She did not receive continuous IV infusion of potassium downstairs and will be continued on IV normal saline since her TCO2 was normal and potassium was above 4. We will check her urine for clearing of ketones and for now we will do before meals and at bedtime moderate dose short acting insulin. She is hungry and will be given an evening snack. She will be on a 2100-calorie ADA diabetic diet. With her IV fluids continuing at a high rate we will check her BMP every 4 hours until stable. She still may need potassium supplement. She plans on returning to her insulin pump in the morning and can give us of these parameters along she is not a metabolic acidosis and cleared her ketones. Review of Systems Narrative: 13 point review of systems otherwise unrevealing or stable. Patient is overweight and does not have any complaints of polyuria or polydipsia with her hypoglycemia being sudden onset with changing to what patient feels was a bad batch of insulin. She has had no recent URI symptoms, she denies fever or chills and has no urinary. 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) Low back pain Mild intermittent asthma without complication Pilonidal cyst with abscess (06/03/15) Retinopathy Right ovarian cyst (07/04/15) 06/2015 US: 4.1 cm hemorrhagic R ovarian cyst --> follow-up US recommended; 11/19/2015 US: WNL Scoliosis Seizure Tobacco use disorder Type 1 diabetes mellitus Dx 2 y/o; [facility] Endocrinology Surgical History Hx of nephrostomy (~12/2019) tube placement, right [facility] Tonsillectomy and adenoidectomy (~2007) Family History Grandfather Diabetes Grandmother Diabetes Maternal Cousin Mental disorder Bipolar disorder Sister Mental disorder Bipolar disorder, multiple personality disorder Brother DVT (deep venous thrombosis) multiple Brother Claudication Mother Diabetes Social History Smoking/Tobacco Use Status: Former Tobacco Use Smoking risk assessment performed?: Yes Alcohol Intake: current Alcohol Intake frequency: holidays/special occasions only Drug use: Never Substance use type: does not use Household members: friend(s) and other Details: (6) lives w/ fiance, son and BF's 2 children m +girl 08/17/16 Number of Children: 4 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: taking [employer] classes Sexually active: Yes Do you feel safe at home: Yes Do you feel safe in your relationship?: Yes Meds Home Medications and Allergies Home Medications Medication Instructions Recorded Confirmed Type insulin syringe-needle U-100 [Exel #3 box 05/16/15 06/26/20 History Insulin] lancets [FreeStyle Lancets] #300 ea 05/16/15 06/26/20 History albuterol sulfate [ProAir HFA] 1 - 2 puff INHALATION Q4H PRN #1 12/12/15 07/13/20 Rx inhaler FreeStyle Test #300 strip 05/08/17 06/26/20 Rx insulin lispro [Humalog U-100 See Protocol SUB-Q AC #7 pkt 05/08/17 07/13/20 Rx Insulin] Portable Nebulizer System #1 07/15/17 06/26/20 History ipratropium-albuterol 3 ml INHALATION BID #1 box 07/15/17 07/13/20 Rx Glucagon Emergency Kit (human) 1 mg IJ DAILY #2 kit 07/22/17 07/13/20 Rx Ketostix strip 07/22/17 06/26/20 History insulin glargine 100 unit/mL (3 12 unit SUBCUT HS ml 04/23/19 07/13/20 History mL) subcutaneous pen levetiracetam 500 mg tablet 500 mg PO BID 01/21/20 07/13/20 History buspirone 15 mg tablet 15 mg PO BID #60 tab 05/28/20 07/13/20 Rx venlafaxine 225 mg tablet,extended 225 mg PO DAILY #45 tab 06/26/20 07/13/20 Rx release 24 hr Allergies Allergy/AdvReac Type Severity Reaction Status Date / Time insulin detemir Allergy Severe Hives Verified 07/13/20 16:32 [From Levemir U-100 Insulin] fluticasone AdvReac Severe Anaphylaxsi Verified 07/13/20 16:32 [From Flovent Diskus] s Exam Narrative Exam Narrative: General: Patient is moderately obese, appropriate for age, alert and oriented x3 and in no acute distress. HEENT: Normocephalic, eyes with pupils equal and reactive to light symmetrically, extraocular movement intact and sclera anicteric. Oropharynx with moist mucosa. External ears and nose normal. Neck: Supple without JVD. Lungs: Clear to auscultation percussion. Back: Normal posture without CVA tenderness. Breast: Exam deferred. Heart: Regular rate and rhythm with no murmurs or gallops appreciated. Abdomen: Obese contour, soft and nontender to palpation with normal bowel sounds in all quadrants. No palpable hepatosplenomegaly. Genitalia/rectal: Exam deferred. Extremities: Without clubbing, cyanosis or edema. Peripheral pulses are intact. All joints have good range of motion. Skin: Normal color, warm and dry with good turgor. Smooth texture. Neuro: Cranial nerves II through XII grossly intact, no focalizing motor deficits. Psych: Normal mood and affect, no abnormal thought processes, remote and recent memory intact. Patient appears to be coping well with her chronic disease presently. Results Labs Result diagrams: 07/13/20 16:40 07/13/20 21:00 Labs: Laboratory Results - last 24 hr 07/13/20 07/13/20 07/13/20 16:40 16:40 16:46 WBC 5.47 RBC 3.92 L Hgb 11.6 Hct 35.9 L MCV 91.6 MCH 29.6 MCHC 32.3 RDW 12.4 Plt Count 338 MPV 10.3 Immature Gran % 0.2 Neutrophils % 59.6 Lymphocytes % 31.1 Monocytes % 6.2 Eosinophils % 2.4 Basophils % 0.5 Nucleated RBC % 0 Absolute Neutrophils 3.26 Absolute Lymphocytes 1.70 Absolute Monocytes 0.34 Absolute Eosinophils 0.13 Absolute Basophils 0.03 VBG pH VBG pCO2 VBG pO2 VBG HCO3 VBG Total CO2 VBG O2 Saturation VBG Base Excess Sodium 128 L Potassium 5.1 Chloride 95 L Carbon Dioxide 19.8 L Anion Gap 13.2 H BUN 24 H Creatinine 1.15 H Estimated GFR/1.73 m2 57.97 Glucose 706 H* Calcium 9.0 Magnesium 1.8 Total Bilirubin 0.5 AST 11 L ALT 20 Alkaline Phosphatase 95 Total Protein 7.2 Albumin 4.0 Urine Color Yellow Urine Clarity Clear Urine pH 6.0 Ur Specific [place] 1.015 Urine Protein Negative Urine Ketones 15 H Urine Blood Negative Urine Nitrite Negative Urine Bilirubin Negative Urine Urobilinogen 0.2 Ur Leukocyte Esterase Negative Urine Glucose 500 H 07/13/20 07/13/20 18:05 19:28 WBC RBC Hgb Hct MCV MCH MCHC RDW Plt Count MPV Immature Gran % Neutrophils % Lymphocytes % Monocytes % Eosinophils % Basophils % Nucleated RBC % Absolute Neutrophils Absolute Lymphocytes Absolute Monocytes Absolute Eosinophils Absolute Basophils VBG pH 7.33 VBG pCO2 39 L VBG pO2 42 VBG HCO3 21 L VBG Total CO2 19 L VBG O2 Saturation 75 VBG Base Excess -5 L Sodium Potassium Chloride Carbon Dioxide Anion Gap BUN Creatinine Estimated GFR/1.73 m2 Glucose Calcium Magnesium Total Bilirubin AST ALT Alkaline Phosphatase Total Protein Albumin Urine Color Yellow Urine Clarity Clear Urine pH 6.5 Ur Specific [place] 1.015 Urine Protein Negative Urine Ketones 40 H Urine Blood Negative Urine Nitrite Negative Urine Bilirubin Negative Urine Urobilinogen 0.2 Ur Leukocyte Esterase Negative Urine Glucose >=1000 H Last Vital Signs Temp 36.5 C 07/13/20 16:28 Pulse 87 07/13/20 19:31 Resp 17 07/13/20 19:31 BP 135/81 07/13/20 19:31 Pulse Ox 100 07/13/20 19:31 COVID-19 Screening Have you, or household traveled for leisure in last 14 days?: No Had IN PERSON contact w/suspected or confirmed C-19 person: No
[2020-07-13 21:13] LABS: Anion Gap 9.9 mmol/L (3-11); BUN 22 mg/dL (7-18); CO2 23.1 mmol/L (21.0-32.0); CREATININE 1.07 mg/dL (0.55-1.02); Calcium 8.7 mg/dL (8.5-10.1); Chloride 102 mmol/L (98-107); Potassium 4.1 mmol/L (3.5-5.1); Sodium 135 mmol/L (136-145)
[2020-07-13 21:17] LABS: PHOSPHORUS 2.8 mg/dL (2.6-4.7)
[2020-07-13 21:19] LABS: Glucose 361 mg/dL (74-106)
[2020-07-13] MEDS: POTASSIUM CHLORIDE/0.9% NACL 1,000 ML 150 MEQ IV (21:48)
[2020-07-13] MEDS: Enoxaparin 40 MG/0.4 ML SYR SC (23:02)
[2020-07-13] MEDS: Insulin Glargine 300 UNITS/3 ML PEN 10 UNITS SC (23:03)
[2020-07-13] MEDS: Insulin Aspart 300 UNITS/3 ML PEN SC (23:48)
[2020-07-13] MEDS: Normal Saline 1,000 ML 150 ML IV (23:50)
[2020-07-14 01:50] LABS: BUN 22 mg/dL (7-18); CREATININE 1.04 mg/dL (0.55-1.02); Calcium 8.6 mg/dL (8.5-10.1); Chloride 104 mmol/L (98-107); Glucose 236 mg/dL (74-106); Potassium 3.8 mmol/L (3.5-5.1); Sodium 137 mmol/L (136-145)
[2020-07-14 03:28] VITALS: BP 116/58; PULSE 81; PULSE 93; RESP 19
[2020-07-14 03:41] VITALS: TEMP 36.7
[2020-07-14] MEDS: Normal Saline 1,000 ML 150 ML IV (06:38)
[2020-07-14 07:05] LABS: Absolute Basophil Count 0.03 10^3/uL (0.0-0.2); Absolute Eosinophil Count 0.21 10^3/uL (0.0-0.7); Absolute Lymphocyte Count 2.58 10^3/uL (1.2-3.4); Absolute Monocyte Count 0.41 10^3/uL (0.1-0.8); Basophils % 0.5; Eosinophils % 3.5; HCT 33.1 % (36.0-46.0); HGB 11.2 g/dL (11.2-15.7); Lymphocytes % 42.8; MCH 29.6 pg (27.0-33.0); MCHC 33.8 % (32.0-36.0); MCV 87.3 fL (80-95); MPV 10.3 fL (8.0-11.0); Monocytes % 6.8; Neutrophils % 46.4; Nucleated RBC 0 %; Platelet Count 339 10^3/uL (130-400); RBC 3.79 10^6/uL (3.93-5.22); RDW 12.1 % (11.7-14.6); RDW-SD 38.8 fL; WBC 6.03 10^3/uL (4.4-10.8)
[2020-07-14 07:26] LABS: Anion Gap 10.7 mmol/L (3-11); BUN 19 mg/dL (7-18); CO2 21.3 mmol/L (21.0-32.0); CREATININE 0.79 mg/dL (0.55-1.02); Calcium 8.5 mg/dL (8.5-10.1); Chloride 106 mmol/L (98-107); Glucose 236 mg/dL (74-106); Potassium 4.6 mmol/L (3.5-5.1); Sodium 138 mmol/L (136-145)
[2020-07-14] MEDS: Insulin Aspart 300 UNITS/3 ML PEN SC (07:49)
[2020-07-14] MEDS: Venlafaxine 37.5 MG CAPCR 225 MG PO (07:50)
[2020-07-14] MEDS: levETIRAcetam 500 MG TAB PO (07:50)
[2020-07-14] MEDS: busPIRone 15 MG TAB PO (07:51)
[2020-07-14 08:52] VITALS: BP 142/79; PULSE 83; PULSE 86; RESP 16; O2SAT 98
[2020-07-14 10:00] VITALS: PULSE 92; RESP 15
[2020-07-14 11:04] VITALS: BP 120/47; PULSE 92; RESP 28
--- NOTE | 2020-07-14 12:04 | DSE_ITS ---
Date of service: 07/14/20 Time of Service: 12:05 DS: Diagnosis Discharge Diagnosis (1) DKA (diabetic ketoacidoses): Status: Resolved (2) Type 1 diabetes mellitus: Status: Chronic Discharge Plan Disposition Patient Disposition: HOME Condition: Improving Discharge Details Reason For Visit: TYPE 1 DIABETES MELLITUS, DKA Admit Date/Time: 07/13/20 20:03 Admit Provider: Mike Christiansen Attending Provider: Mike Christiansen Primary Care Provider: Mia Poe Hospital Course Hospital Course: 25-year-old female with type 1 diabetes mellitus presented to emergency department last night with hyperglycemia. Patient has a CGM and a insulin pump and yesterday when her glucose readings were reading high she changed out her insulin pump tubing when it continued to run high despite repeated dosing of insulin she became concerned and presented to the emergency department. She thought perhaps she had a bad batch of insulin. However when her insulin pump was removed here at the hospital it was found that the tubing was kinked. Glucose reading on admission was 716 she was given a liter of IV fluids and given 10 units of NovoLog which brought her glucose within an hour down to 515 and within 3 hours of the insulin her glucose was down to 311. Although she did not feel like she was in DKA she was in a mild state of diabetic ketoacidosis with her urinalysis initially showed 15 mg/dL of ketones and 500 mg/dL glucose in her urine. However in spite of the 10 units of insulin and IV fluids when her urinalysis was rechecked last night ketones are gone up to 40 mg/dL and her glucose was up to 1000 mg/dL. Her CMP on admission showed a mild elevation of her anion gap at 13.2 with a carbon dioxide level of 19. Patient was admitted overnight to the intensive care unit and placed on IV fluids but was not started on a insulin drip however she was placed on moderate dose sliding scale with frequent blood sugar checks. This morning she has been restarted on her insulin pump at her basal rate of 0.9 units/h along with bolus treatment with a corrective scale of 1 unit per 40 mg/dL glucose rise over a baseline of 100 mg/dL as well as carbohydrate coverage at a ratio of 1:20. Repeat urinalysis this morning continues to show moderate ketones although serial BMPs show that her anion gap is remain closed at 10.7 with a normal carbon dioxide level of 21 and now her BUN and creatinine have been corrected with IV fluids. Patient is tolerating a diet feels well denies any nausea or vomiting and has no fever or chills. CBC this morning shows no leukocytosis. Present time I think the patient can be discharged home with close monitoring of her blood sugars and close follow-up with her PCP. She has an appointment with her apprentice cosmetologist at [facility] on August 14. She should follow-up with her coding educator in the next week to discuss management of insulin pump failure. Home Meds and New Rx's Prescriptions: Continued buspirone 15 mg tablet 15 mg PO BID Qty: 60 RF: 1 venlafaxine 225 mg tablet extended release 24hr 225 mg PO DAILY Qty: 45 RF: 0 (DME) insulin syringe-needle U-100 [Exel Insulin] 1 EACH syringe 1 ea Miscellaneous AC & HS Qty: 3 RF: 3 (DME) lancets [FreeStyle Lancets] 1 EACH misc 1 ea Miscellaneous Q2H Qty: 300 RF: 3 ipratropium-albuterol 3 ML solution for nebulization 3 ml Inhalation BID Qty: 1 RF: 0 (DME) Portable Nebulizer System 1 EACH device Miscellaneous DAILY Qty: 1 RF: 0 Glucagon Emergency Kit (human) 1 MG kit 1 mg IJ DAILY Qty: 2 RF: 0 (DME) Ketostix 1 EACH strip 1 ea Miscellaneous DAILY 30 Days RF: 2 levetiracetam [Keppra] 500 mg tablet 500 mg PO BID RF: 0 albuterol sulfate [ProAir HFA] 200 PUFF HFA aerosol inhaler 1 - 2 puff Inhalation Q4H PRN Qty: 1 RF: 1 (DME) FreeStyle Test 1 EACH strip 1 ea Miscellaneous Q2H Qty: 300 RF: 3 insulin lispro [Humalog U-100 Insulin] 100 UNIT/1 ML solution See Protocol units Sub-Q AC Qty: 7 RF: 0 Lantus Solostar U-100 Insulin 100 unit/mL (3 mL) insulin pen 12 unit subcut HS RF: 0 Discharge Instructions Instructions: Diabetic Ketoacidosis (DC) Additional Instructions: continue to monitor blood glucose before meals, and 2 hr after meals and at bedtime, continue current corrective insulin scale and carbohydrate coverage for meals. Call your primary care provider or your coding educator or apprentice cosmetologist if you continue having problems with your insulin pump. In the event of insulin pump failure he should resort to insulin shots with the same carbohydrate coverage and corrective insulin scale. Referrals: Maria L Molina [ NON-[facility] STAFF PHYSICIAN] - (keep your scheduled appointment on August 14) Mia Poe NP [Primary Care Provider] - (call for appointment to be seen in the next week) Sonali Lange NP [NURSE PRACTITIONER] - 07/23/20 2:15 pm Activity:: Activity as Tolerated Equipment/Supplies:: No Equipment Needed Diet:: Carb Counting Discharge Orders Discharge Orders: Discharge Order (Routine); Ordered 07/14/20 Ordered By: Baldev Hinojosa Discharge Data Discharge Date/Time-TO BE ENTERED AT DEPARTURE: 07/14/20 12:55 DS: Summary Status at Discharge Functional status at discharge: independent ambulation Overall status at discharge: patient is back to baseline Mental Status: mental status grossly normal Speech and Movement: speech and movement normal Mood: congruent mood Affect: normal affect Time Spent with Patient providing and/or coordinating discharge services: Less than 30 minutes Exam Narrative Exam Narrative: Young female sitting up in her bed, just finished breakfast. She has no abdominal pain. She denies any fevers or dyspnea. Exam is unremarkable. Psych Mental Status: mental status grossly normal Speech and Movement: speech and movement normal Mood: congruent mood Affect: normal affect DS: Data Vitals/I&O Vitals and I&O: Vital Signs Temperature 36.7 C 07/14/20 03:41 Temperature Source Temporal Artery Scan 07/14/20 03:41 Pulse 83 07/14/20 08:52 Pulse Rhythm Regular 07/14/20 11:15 Pulse 92 H 07/14/20 10:00 Respiratory Rate 15 07/14/20 10:00 Respiratory Effort Non-Labored 07/14/20 11:15 Respiratory Depth Normal 07/14/20 11:15 Respiratory Pattern Normal 07/14/20 11:15 Blood Pressure 142/79 H 07/14/20 08:52 Blood Pressure Mean 88 07/14/20 08:52 Blood Pressure Position Sitting 07/13/20 16:28 Pulse Oximetry 98 07/14/20 08:52 Oxygen Delivery Method Room Air 07/13/20 22:06 Oxygen Flow Rate 0 07/13/20 22:06 Pain Level 0 07/14/20 03:41 Intake & Output 07/13/20 07/14/20 07/14/20 23:59 11:59 23:59 Intake Total 2387.5 / 2387.5 2059 / 0 Output Total 1125 / 1125 1875 / 1875 Balance 1262.5 / 1262.5 185 / 185 Weight 96.615 kg 99 kg Intake: IV 2387.5 / 2387.5 1730 / 1730 Oral 330 / 330 Output: Urine 1125 / 1125 1875 / 1875 Other: Urine Color Pale Yellow Yellow Urine Appearance Clear Clear Urine Odor None Comment Hx frequent kidney infections Voiding Methods Bedside Commode Bedside Commode Data Completed and Pending Labs on day of discharge: Labs from last 24 hours 07/14/20 07/14/20 07/14/20 09:36 07:48 06:10 WBC RBC Hgb Hct MCV MCH MCHC RDW Plt Count MPV Immature Gran % Neutrophils % Lymphocytes % Monocytes % Eosinophils % Basophils % Nucleated RBC % Absolute Neutrophils Absolute Lymphocytes Absolute Monocytes Absolute Eosinophils Absolute Basophils VBG pH VBG pCO2 VBG pO2 VBG HCO3 VBG Total CO2 VBG O2 Saturation VBG Base Excess Sodium 138 Potassium 4.6 D Chloride 106 Carbon Dioxide 21.3 Anion Gap 10.7 BUN 19 H Creatinine 0.79 Estimated GFR/1.73 m2 >= 60.00 Glucose 236 H Calcium 8.5 Phosphorus Magnesium Total Bilirubin AST ALT Alkaline Phosphatase Total Protein Albumin Urine Color Cancelled Urine Clarity Cancelled Urine pH Cancelled Ur Specific [place] Cancelled Urine Protein Cancelled Urine Ketones Cancelled Urine Blood Cancelled Urine Nitrite Cancelled Urine Bilirubin Cancelled Urine Urobilinogen Cancelled Ur Leukocyte Esterase Cancelled Urine Glucose Cancelled SARS-CoV-2 (PCR) Pending Nasopharyn COVID-19 PCR Pending Ref Test Perform Site Pending 07/14/20 07/14/20 07/13/20 06:00 01:35 21:00 WBC 6.03 RBC 3.79 L Hgb 11.2 Hct 33.1 L MCV 87.3 D MCH 29.6 MCHC 33.8 RDW 12.1 Plt Count 339 MPV 10.3 Immature Gran % 0.0 Neutrophils % 46.4 Lymphocytes % 42.8 Monocytes % 6.8 Eosinophils % 3.5 Basophils % 0.5 Nucleated RBC % 0 Absolute Neutrophils 2.80 Absolute Lymphocytes 2.58 Absolute Monocytes 0.41 Absolute Eosinophils 0.21 Absolute Basophils 0.03 VBG pH VBG pCO2 VBG pO2 VBG HCO3 VBG Total CO2 VBG O2 Saturation VBG Base Excess Sodium 137 Cancelled Potassium 3.8 Cancelled Chloride 104 Cancelled Carbon Dioxide 23.0 Cancelled Anion Gap 10.0 Cancelled BUN 22 H Cancelled Creatinine 1.04 H Cancelled Estimated GFR/1.73 m2 >= 60.00 Cancelled Glucose 236 H D Cancelled Calcium 8.6 Cancelled Phosphorus Magnesium Total Bilirubin AST ALT Alkaline Phosphatase Total Protein Albumin Urine Color Urine Clarity Urine pH Ur Specific [place] Urine Protein Urine Ketones Urine Blood Urine Nitrite Urine Bilirubin Urine Urobilinogen Ur Leukocyte Esterase Urine Glucose SARS-CoV-2 (PCR) Nasopharyn COVID-19 PCR Ref Test Perform Site 07/13/20 07/13/20 07/13/20 21:00 21:00 19:28 WBC RBC Hgb Hct MCV MCH MCHC RDW Plt Count MPV Immature Gran % Neutrophils % Lymphocytes % Monocytes % Eosinophils % Basophils % Nucleated RBC % Absolute Neutrophils Absolute Lymphocytes Absolute Monocytes Absolute Eosinophils Absolute Basophils VBG pH VBG pCO2 VBG pO2 VBG HCO3 VBG Total CO2 VBG O2 Saturation VBG Base Excess Sodium 135 L Potassium 4.1 Chloride 102 Carbon Dioxide 23.1 Anion Gap 9.9 BUN 22 H Creatinine 1.07 H Estimated GFR/1.73 m2 >= 60.00 Glucose 361 H D Calcium 8.7 Phosphorus 2.8 Magnesium Total Bilirubin AST ALT Alkaline Phosphatase Total Protein Albumin Urine Color Yellow Urine Clarity Clear Urine pH 6.5 Ur Specific [place] 1.015 Urine Protein Negative Urine Ketones 40 H Urine Blood Negative Urine Nitrite Negative Urine Bilirubin Negative Urine Urobilinogen 0.2 Ur Leukocyte Esterase Negative Urine Glucose >=1000 H SARS-CoV-2 (PCR) Nasopharyn COVID-19 PCR Ref Test Perform Site 07/13/20 07/13/20 07/13/20 18:05 16:46 16:40 WBC 5.47 RBC 3.92 L Hgb 11.6 Hct 35.9 L MCV 91.6 MCH 29.6 MCHC 32.3 RDW 12.4 Plt Count 338 MPV 10.3 Immature Gran % 0.2 Neutrophils % 59.6 Lymphocytes % 31.1 Monocytes % 6.2 Eosinophils % 2.4 Basophils % 0.5 Nucleated RBC % 0 Absolute Neutrophils 3.26 Absolute Lymphocytes 1.70 Absolute Monocytes 0.34 Absolute Eosinophils 0.13 Absolute Basophils 0.03 VBG pH 7.33 VBG pCO2 39 L VBG pO2 42 VBG HCO3 21 L VBG Total CO2 19 L VBG O2 Saturation 75 VBG Base Excess -5 L Sodium Potassium Chloride Carbon Dioxide Anion Gap BUN Creatinine Estimated GFR/1.73 m2 Glucose Calcium Phosphorus Magnesium Total Bilirubin AST ALT Alkaline Phosphatase Total Protein Albumin Urine Color Yellow Urine Clarity Clear Urine pH 6.0 Ur Specific [place] 1.015 Urine Protein Negative Urine Ketones 15 H Urine Blood Negative Urine Nitrite Negative Urine Bilirubin Negative Urine Urobilinogen 0.2 Ur Leukocyte Esterase Negative Urine Glucose 500 H SARS-CoV-2 (PCR) Nasopharyn COVID-19 PCR Ref Test Perform Site 07/13/20 16:40 WBC RBC Hgb Hct MCV MCH MCHC RDW Plt Count MPV Immature Gran % Neutrophils % Lymphocytes % Monocytes % Eosinophils % Basophils % Nucleated RBC % Absolute Neutrophils Absolute Lymphocytes Absolute Monocytes Absolute Eosinophils Absolute Basophils VBG pH VBG pCO2 VBG pO2 VBG HCO3 VBG Total CO2 VBG O2 Saturation VBG Base Excess Sodium 128 L Potassium 5.1 Chloride 95 L Carbon Dioxide 19.8 L Anion Gap 13.2 H BUN 24 H Creatinine 1.15 H Estimated GFR/1.73 m2 57.97 Glucose 706 H* Calcium 9.0 Phosphorus Magnesium 1.8 Total Bilirubin 0.5 AST 11 L ALT 20 Alkaline Phosphatase 95 Total Protein 7.2 Albumin 4.0 Urine Color Urine Clarity Urine pH Ur Specific [place] Urine Protein Urine Ketones Urine Blood Urine Nitrite Urine Bilirubin Urine Urobilinogen Ur Leukocyte Esterase Urine Glucose SARS-CoV-2 (PCR) Nasopharyn COVID-19 PCR Ref Test Perform Site [facility] Medical History Allergic rhinitis, unspecified Anxiety (06/17/16) Asthma Depression (06/03/15) was on zoloft 25 mg & Prozac in the past but these meds increased SI per pt Diabetic ketoacidosis associated with type 1 diabetes mellitus Frequent UTI (03/01/18) Gastroesophageal reflux disease (06/03/15) History of pneumonia 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) Intrauterine (~12/2019) IUFD at 20 weeks or more of gestation (01/05/20) [facility] 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) Low back pain Mild intermittent asthma without complication Pilonidal cyst with abscess (06/03/15) Retinopathy Right ovarian cyst (07/04/15) 06/2015 US: 4.1 cm hemorrhagic R ovarian cyst --> follow-up US recommended; 11/19/2015 US: WNL Scoliosis Seizure Tobacco use disorder Type 1 diabetes mellitus Dx 2 y/o; [facility] [place] Endocrinology Surgical History Hx of nephrostomy (~12/2019) tube placement, right [facility] Tonsillectomy and adenoidectomy (~2007) Family History Grandfather Diabetes Grandmother Diabetes Maternal Cousin Mental disorder Bipolar disorder Sister Mental disorder Bipolar disorder, multiple personality disorder Brother DVT (deep venous thrombosis) multiple Brother Claudication Mother Diabetes Social History Smoking/Tobacco Use Status: Former Tobacco Use Smoking risk assessment performed?: Yes Alcohol Intake: current Alcohol Intake frequency: holidays/special occasions only Drug use: Never Substance use type: does not use Household members: friend(s) and other Details: (7) lives w/ fiance, son and BF's 2 children m +girl 08/17/16 Number of Children: 4 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: taking [email or web address] classes Sexually active: Yes Do you feel safe at home: Yes Do you feel safe in your relationship?: Yes
[2020-07-14 12:28] VITALS: BP 132/71; PULSE 77; RESP 17
[2020-07-15 00:37] LABS: COVID-19 RT-PCR UVMMC Result Negative (Negative)
== END 2020-07-14 12:55 | disposition home or self-care (01) | DRG 639 ==
LOC: ER 20:30 → ICU 21:05
PROVIDERS: Internal Medicine; Admitting Provider Family Medicine; Emergency Provider Physician Assistant; PCP Nurse Practitioner Family; Visit Provider Family Medicine
DX: E10.10 Type 1 diabetes mellitus with ketoacidosis without coma (principal); Z96.41 Presence of insulin pump (external) (internal); F32.9 Major depressive disorder, single episode, unspecified; K21.9 Gastro-esophageal reflux disease without esophagitis; M54.5 Low back pain; J45.20 Mild intermittent asthma, uncomplicated; F17.210 Nicotine dependence, cigarettes, uncomplicated; E10.319 Type 1 diabetes mellitus with unspecified diabetic retinopathy without macular edema
CPT/HCPCS: 36415; 36416; 80048; 80053; 82805; 82962; 96361; 96365; 96372; 99222; 99238; 99285; J1650; U0003; 81003; 83735; 84100; 85025; J3480; J3490

== ENCOUNTER 2020-09-29 18:55 | Emergency (ER) | payer MEDICAID, SELFPAY ==
[2020-09-29 19:06] VITALS: BP 136/91; PULSE 89; RESP 16; TEMP 36.4; O2SAT 99
--- NOTE | 2020-09-29 19:19 | ED.GENADUL_ITS ---
Discharge Plan Disposition Patient Disposition: HOME Condition: Good Discharge Details Clinical Impression: External otitis of right ear, Acute right otitis media Primary Care Provider: Mia Poe ED Provider: Karel Espana Home Meds and New Rx's Prescriptions: New amoxicillin-pot clavulanate [Augmentin] 875-125 mg tablet 1 tab PO BID 7 Days Qty: 14 RF: 0 Continued (DME) Ketone Urine Test Strip See Rx Instructions .ROUTE .MEDSUPPLY Qty: 25 RF: 0 (DME) insulin syringe-needle U-100 [Exel Insulin] 1 EACH syringe 1 ea Miscellaneous AC & HS Qty: 3 RF: 3 (DME) lancets [FreeStyle Lancets] 1 EACH misc 1 ea Miscellaneous Q2H Qty: 300 RF: 3 ipratropium-albuterol 3 ML solution for nebulization 3 ml Inhalation BID Qty: 1 RF: 0 (DME) Portable Nebulizer System 1 EACH device Miscellaneous DAILY Qty: 1 RF: 0 Glucagon Emergency Kit (human) 1 MG kit 1 mg IJ DAILY Qty: 2 RF: 0 venlafaxine 75 mg capsule,extended release 24hr See Rx Instructions PO DAILY Qty: 90 RF: 0 venlafaxine 150 mg capsule,extended release 24hr See Rx Instructions PO DAILY Qty: 90 RF: 0 buspirone 15 mg tablet 15 mg PO BID Qty: 60 RF: 1 magnesium 400 PO RF: 0 riboflavin (vitamin B2) 400 mg tablet 400 mg PO DAILY RF: 0 topiramate 25 mg tablet 25 mg PO BID RF: 0 sumatriptan succinate 25 mg tablet 25 mg PO ONCE RF: 0 albuterol sulfate [ProAir HFA] 200 PUFF HFA aerosol inhaler 1 - 2 puff Inhalation Q4H PRN Qty: 1 RF: 1 (DME) FreeStyle Test 1 EACH strip 1 ea Miscellaneous Q2H Qty: 300 RF: 3 insulin lispro [Humalog U-100 Insulin] 100 UNIT/1 ML solution See Protocol units Sub-Q AC Qty: 7 RF: 0 Lantus Solostar U-100 Insulin 100 unit/mL (3 mL) insulin pen 12 unit subcut HS RF: 0 Discharge Instructions Instructions: Otitis Externa (ED), Ear Infection (ED) Additional Instructions: At this time your symptoms show evidence of otitis externa and otitis media which is an infection in the inner and outer ear, however thankfully there is not yet signs of malignant otitis externa or mastoiditis. Please take the eardrops as directed, place 1 to 2 drops in your affected ear 4 times per day. Please take the Augmentin pill as directed. We have given you a small supply to go home with tonight and tomorrow morning, but you will need to fill the prescription and continue the dose. As we discussed together there is always a chance that your symptoms could worsen and these concerning pathologies could develop. If you notice worsening of pain, fever, change in symptoms or no signs of improvement please return immediately. If you notice any worsening of your symptoms, or any new symptoms such as vomiting, diarrhea, fever, chills, shortness of breath, chest pain, numbness, weakness, or fainting , please return immediately to the emergency department for reevaluation. Please follow up with your primary care provider as soon as possible for reassessment and reevaluation. As always, it was a pleasure participating in your medical care today. Referrals: Mia Poe NP [Primary Care Provider] - Medical Decision Making This is a 25-year-old female with a past medical history of insulin- dependent diabetes, presents today from urgent care for evaluation of right ear pain. Patient states that she has had sugars for the past 2 days, which she states is classic for her when she is about to get sick. Then this morning she developed pain and crackles in her right ear, and had some mild fluid discharge/drainage. She denies fever, chills, vision changes, difficulty swallowing, headache. She denies any prior symptoms were in her ear before today. She has no other complaints at this time. No other modifying factors. Physical exam demonstrates mild to moderate otitis externa, mild otitis media. No swelling of the ear itself, no evidence of malignant otitis externa at this time. No tenderness at all over the mastoid process, there is a small amount of redness and tenderness just posterior to the junction of the ear and the scalp, however no filament redness, no swelling, no bulging or deviation of the ear. Patient is afebrile, vital signs are normal, no tachycardia, tachypnea or fever. Symptoms at this time are clinically consistent with otitis externa and otitis media. We will start the patient on Augmentin for the inner ear infection and Cipro drops for the outer ear infection. With no symptoms of mastoiditis or malignant otitis externa I see no indication for IV antibiotics at this time. However I did have a very long discussion with the patient of which symptoms would constitute worsening of symptoms and potential development of these concer arsenio etiologies. She understands. Patient will be given her first dose of Augmentin here, as well as the Cipro drop to go home with. Discussed red flags which return. I have extensively reviewed the treatment plan and discharge instructions with the patient. I have addressed all patient concerns at this time. The patient was made aware of what symptoms to monitor for that would warrant a return to the emergency department. Discussed the plan with the patient, they demonstrate verbal understanding and agreement with our assessment and plan at this time. The documentation in this chart was dictated using [employer] dictation software. Please excuse any dictation errors. Also of note the patient has been managing her diabetes aggressively with her insulin, she is not concerned about this. We did discuss avoiding sugars, and she is actively already doing this. Clinically patient shows no signs of DKA or profound dehydration. HPI General Date/Time Provider Initiated Documentation: 09/29/20 19:05 . HPI Narrative: This is a 25-year-old female with a past medical history of insulin- dependent diabetes, presents today from urgent care for evaluation of right ear pain. Patient states that she has had sugars for the past 2 days, which she states is classic for her when she is about to get sick. Then this morning she developed pain and crackles in her right ear, and had some mild fluid discharge/drainage. She denies fever, chills, vision changes, difficulty s wallowing, headache. She denies any prior symptoms were in her ear before today. She has no other complaints at this time. No other modifying factors. Related Data Home Medications Medication Instructions Recorded Confirmed insulin syringe-needle U-100 [Exel #3 box 05/16/15 08/07/20 Insulin] lancets [FreeStyle Lancets] #300 ea 05/16/15 08/07/20 albuterol sulfate [ProAir HFA] 1 - 2 puff INHALATION Q4H PRN #1 12/12/15 08/07/20 inhaler FreeStyle Test #300 strip 05/08/17 08/07/20 insulin lispro [Humalog U-100 See Protocol SUB-Q AC #7 pkt 05/08/17 08/07/20 Insulin] Portable Nebulizer System #1 07/15/17 08/07/20 ipratropium-albuterol 3 ml INHALATION BID #1 box 07/15/17 08/07/20 Glucagon Emergency Kit (human) 1 mg IJ DAILY #2 kit 07/22/17 08/07/20 insulin glargine 100 unit/mL (3 12 unit SUBCUT HS ml 04/23/19 08/07/20 mL) subcutaneous pen acetone (urine) test #25 ea 08/07/20 08/07/20 buspirone 15 mg tablet 15 mg PO BID #60 tab 09/01/20 venlafaxine 150 mg See Rx Instructions PO DAILY #90 09/01/20 capsule,extended release 24 hr cap venlafaxine 75 mg capsule,extended See Rx Instructions PO DAILY #90 09/01/20 release 24 hr cap magnesium 400 PO 09/02/20 riboflavin (vitamin B2) 400 mg 400 mg PO DAILY 09/02/20 tablet sumatriptan succinate 25 mg tablet 25 mg PO ONCE 09/02/20 topiramate 25 mg tablet 25 mg PO BID 09/02/20 amoxicillin-pot clavulanate 1 tab PO BID 7 Days #14 tab 09/29/20 [Augmentin] Previous Rx's Medication Instructions Recorded albuterol sulfate [ProAir HFA] 1 - 2 puff INHALATION Q4H PRN #1 12/12/15 inhaler FreeStyle Test #300 strip 05/08/17 insulin lispro [Humalog U-100 See Protocol SUB-Q AC #7 pkt 05/08/17 Insulin] ipratropium-albuterol 3 ml INHALATION BID #1 box 07/15/17 Glucagon Emergency Kit (human) 1 mg IJ DAILY #2 kit 07/22/17 acetone (urine) test #25 ea 08/07/20 buspirone 15 mg tablet 15 mg PO BID #60 tab 09/01/20 venlafaxine 150 mg See Rx Instructions PO DAILY #90 09/01/20 capsule,extended release 24 hr cap venlafaxine 75 mg capsule,extended See Rx Instructions PO DAILY #90 09/01/20 release 24 hr cap amoxicillin-pot clavulanate 1 tab PO BID 7 Days #14 tab 09/29/20 [Augmentin] Allergies Allergy/AdvReac Type Severity Reaction Status Date / Time fluticasone Allergy Severe Anaphylaxsi Verified 09/29/20 19:29 [From Flovent Diskus] s insulin detemir Allergy Severe Hives Verified 09/29/20 19:29 [From Levemir U-100 Insulin] General Stated Complaint: EarProblem VALENTINA: 3 Review of Systems All systems reviewed & are unremarkable except as noted in HPI and below [facility] Medical History Allergic rhinitis, unspecified Anxiety (06/17/16) Asthma Depression (06/03/15) was on zoloft 25 mg & Prozac in the past but these meds increased SI per pt Diabetic ketoacidosis associated with type 1 diabetes mellitus [facility] hospitalization 07/2020 Frequent UTI (03/01/18) Gastroesophageal reflux disease (06/03/15) History of pneumonia 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 [place] 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) Low back pain Mild intermittent asthma without complication Pilonidal cyst with abscess (06/03/15) Retinopathy Right ovarian cyst (07/04/15) 06/2015 US: 4.1 cm hemorrhagic R ovarian cyst --> follow-up US recommended; 11/19/2015 US: WNL Scoliosis Seizure Tobacco use disorder Type 1 diabetes mellitus Dx 2 y/o; [facility] [place] Surgical History Hx of nephrostomy (~12/2019) tube placement, right [facility] [place] Tonsillectomy and adenoidectomy (~2007) Family History Grandfather Diabetes Grandmother Diabetes Maternal Cousin Mental disorder Bipolar disorder Sister Mental disorder Bipolar disorder, multiple personality disorder Brother DVT (deep venous thrombosis) multiple Brother Claudication Mother Diabetes Social History Smoking/Tobacco Use Status: Former Tobacco Use Smoking risk assessment performed?: Yes Alcohol Intake: current Alcohol Intake frequency: holidays/special occasions only Drug use: Never Substance use type: does not use Household members: friend(s) and other Details: (6) lives w/ fiance, son and BF's 2 children m +girl 08/17/16 Number of Children: 4 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: taking [employer] classes Sexually active: Yes Do you feel safe at home: Yes Do you feel safe in your relationship?: Yes Exam Narrative Exam Narrative: 1.Const: Well-nourished, Well-developed, appearing stated age 2.Eyes: PERRL, no conjunctival injection, and symmetrical lids. 3.ENT: Atraumatic external nose and ears. Moist MM. Neck: Symmetric, trachea midline, No thyromegaly. Patient's right ear demonstrates erythema in the canal, but no severe edema. Clear visualization of the right TM is noted, notable old scarring, no clear evidence of rupture. No active drainage. Mild fluid behind the TM on the right. No swelling of the external ear, no pain or tenderness on palpation of the, the antitragus, and minimal tenderness on palpation of the tragus. Mild tenderness just posterior to the junction of the ear and the scalp, there is a small amount of redness there. Mild tenderness there, however there is no tenderness over the mastoid process bilaterally. No redness or swelling over the mastoid process. No meningeal signs. 4.CVS: +S1/S2, No murmurs or gallops. Peripheral pulses 2+ and equal in all extremities. Brisk capillary refill in all extremities. 5.RESP: Unlabored respiratory effort. Clear to auscultation bilaterally. No wheezes rales or rhonchi 6.GI: Soft, Nontender/Nondistended, No hepatosplenomegaly. No guarding or re bound. 7.MSK: Normocephalic/Atraumatic, Extremities w/o deformity or ttp No cyanosis or clubbing, Normal movement of all extremities 8.Skin: Warm, Dry. No rashes or lesions. 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 Sensation grossly intact, no focal neurologic deficits. 10.Psych: (AAO) x3. Appropriate mood and affect Course Vital Signs Vital signs: Vital Signs Temperature 36.4 C L 09/29/20 19:06 Pulse 89 09/29/20 19:06 Respiratory Rate 16 09/29/20 19:06 Blood Pressure 136/91 H 09/29/20 19:06 Pulse Oximetry 99 09/29/20 19:06 Temperature 36.4 C L 09/29/20 19:06 Temperature Source Tympanic 09/29/20 19:06 Pulse 89 09/29/20 19:06 Respiratory Rate 16 09/29/20 19:06 Respiratory Effort Non-Labored 09/29/20 19:06 Blood Pressure 136/91 H 09/29/20 19:06 Blood Pressure Position Sitting 09/29/20 19:06 Pulse Oximetry 99 09/29/20 19:06 Oxygen Delivery Method Room Air 09/29/20 19:06 Oxygen Flow Rate 0 09/29/20 19:06 Pain Level 7 09/29/20 19:06
[2020-09-29] MEDS: Amox. 875/Clav. 125, 2 TABS/BTL 1 TAB PO (20:01)
[2020-09-29] MEDS: Ciprofloxacin 0.3% 2.5 ML BTL OD (20:01)
[2020-09-29 20:02] VITALS: BP 122/74; PULSE 75; RESP 15; O2SAT 97
== END 2020-09-29 20:03 | disposition home or self-care (01) ==
LOC: ER 19:20
PROVIDERS: Emergency Provider Student in an Organized Health Care Education/Training Program; PCP Nurse Practitioner Family
DX: H66.91 Otitis media, unspecified, right ear (principal); H60.391 Other infective otitis externa, right ear
CPT/HCPCS: 99283

== ENCOUNTER 2020-09-30 11:24 | Outpatient (REF) | payer MEDICAID, SELFPAY | END 2020-09-30 11:25 | disposition home or self-care (01) | LOC: LBN 11:24 | PROVIDERS: PCP Nurse Practitioner Family; Visit Provider Internal Medicine | DX: H66.91 Otitis media, unspecified, right ear (principal) | CPT/HCPCS: 87070; 87205 ==

== ENCOUNTER 2021-01-05 11:06 | Outpatient (REF) | payer MEDICAID, SELFPAY | END 2021-01-05 11:07 | disposition home or self-care (01) | LOC: LBN 11:06 | PROVIDERS: PCP Nurse Practitioner Family; Visit Provider Nurse Practitioner Adult Health | DX: R30.0 Dysuria (principal) | CPT/HCPCS: 87086 ==

== ENCOUNTER 2021-05-29 14:13 | Emergency (ER) | payer MEDICAID, SELFPAY ==
[2021-05-29 14:45] VITALS: BP 114/70; PULSE 110; RESP 16; TEMP 36.7; O2SAT 98
--- NOTE | 2021-05-29 14:46 | W.ED.GENAD ---
Discharge Plan Disposition Patient Disposition: HOME Condition: Improving Discharge Details Clinical Impression: Dehydration Primary Care Provider: Mia Poe ED Provider: Pablito Segovia Home Meds and New Rx's Prescriptions: Continued (DME) Ketone Urine Test Strip See Rx Instructions .ROUTE .MEDSUPPLY Qty: 25 RF: 0 venlafaxine 75 mg capsule,extended release 24hr See Rx Instructions PO DAILY Qty: 90 RF: 3 venlafaxine 150 mg capsule,extended release 24hr See Rx Instructions PO DAILY Qty: 90 RF: 3 buspirone 15 mg tablet 15 mg PO BID Qty: 180 RF: 3 (DME) insulin syringe-needle U-100 [Exel Insulin] 1 EACH syringe 1 ea Miscellaneous AC & HS Qty: 3 RF: 3 (DME) lancets [FreeStyle Lancets] 1 EACH misc 1 ea Miscellaneous Q2H Qty: 300 RF: 3 ipratropium-albuterol 3 ML solution for nebulization 3 ml Inhalation BID Qty: 1 RF: 0 (DME) nebulizer and compressor [Portable Nebulizer System] 1 EACH device Miscellaneous DAILY Qty: 1 RF: 0 Glucagon Emergency Kit (human) 1 MG kit 1 mg IJ DAILY Qty: 2 RF: 0 magnesium 400 PO RF: 0 riboflavin (vitamin B2) 400 mg tablet 400 mg PO DAILY RF: 0 sumatriptan succinate 25 mg tablet 25 mg PO ONCE RF: 0 topiramate 50 mg tablet 50 mg PO BID RF: 0 propranolol 20 mg tablet 20 mg PO BID RF: 0 albuterol sulfate [ProAir HFA] 200 PUFF HFA aerosol inhaler 1 - 2 puff Inhalation Q4H PRN Qty: 1 RF: 1 (DME) FreeStyle Test 1 EACH strip 1 ea Miscellaneous Q2H Qty: 300 RF: 3 insulin lispro [Humalog U-100 Insulin] 100 UNIT/1 ML solution See Protocol units Sub-Q AC Qty: 7 RF: 0 Lantus Solostar U-100 Insulin 100 unit/mL (3 mL) insulin pen 12 unit subcut HS RF: 0 Discharge Instructions Instructions: Dehydration (ED) Additional Instructions: Small, frequent fluids that she maintain hydration. Continue your regular medications. Return to the emergency department for any acute concerns. Medical Decision Making <Karel Espana, - Last Filed: 05/29/21 14:50> 26-year-old female with past medical history of type 1 diabetes, diabetic retinopathy, asthma, migraines, who presents today for evaluation of right flank pain. Patient states that for the 2 to 3 days she has had mild right flank pain. She has some burning with urination as well. She had no vomiting or abdominal pain whatsoever, until today when she developed mild nausea few episodes of vomiting. She denies any abdominal pain still. She states that she is concerned that she may have a urinary tract infection and in addition to that be dehydrated from the vomiting especially with her diabetes. She denies any diarrhea. She denies any chest pain shortness of breath. No fever or chills. No other complaints at this time. She has been able to eat well otherwise without complication or incident. Physical exam demonstrates mild right CVA tenderness. No pain to McBurney's point, negative Simpson sign. Notably dry mucous membranes. Symptoms are concerning for mild urinary tract infection. With no abdominal pain her symptoms appear inconsistent with appendicitis. She does appear dehydrated for sure, she is mildly tachycardic. Will get basic labs, rehydrate with IV fluids, evaluate for UTI. <Pablito Segovia MD - Last Filed: 05/29/21 16:57> Received signout from Dr. Espana. Please see his note regarding details of the initial presentation, exam and plan of care. Patient had IV access established, was observed continuous glucose monitor with glucose in the mid 100s, she was given parenteral fluids. Laboratories revealed glucosuria, reassuring chemistries with an anion gap 8, normal. Following fluids and medications, patient proved, tolerated liquids and solids by mouth and requested discharge to home. No evidence of UTI. She has no persistent flank pain. She is stable and improved at this time. HPI <Karel Espana DO - Last Filed: 05/29/21 14:50> General Date/Time Provider Initiated Documentation: 05/29/21 14:25. HPI Narrative: 26-year-old female with past medical history of type 1 diabetes, diabetic retinopathy, asthma, migraines, who presents today for evaluation of right flank pain. Patient states that for the 2 to 3 days she has had mild right flank pain. She has some burning with urination as well. She had no vomiting or abdominal pain whatsoever, until today when she developed mild nausea few episodes of vomiting. She denies any abdominal pain still. She states that she is concerned that she may have a urinary tract infection and in addition to that be dehydrated from the vomiting especially with her diabetes. She denies any diarrhea. She denies any chest pain shortness of breath. No fever or chills. No other complaints at this time. She has been able to eat well otherwise without complication or incident. Related Data Home Medications Medication Instructions Recorded Confirmed insulin syringe-needle U-100 [Exel #3 box 05/16/15 05/29/21 Insulin] lancets [FreeStyle Lancets] #300 ea 05/16/15 05/29/21 albuterol sulfate [ProAir HFA] 1 - 2 puff INHALATION Q4H PRN #1 12/12/15 05/29/21 inhaler FreeStyle Test #300 strip 05/08/17 05/29/21 insulin lispro [Humalog U-100 See Protocol SUB-Q AC #7 pkt 05/08/17 05/29/21 Insulin] ipratropium-albuterol 3 ml INHALATION BID #1 box 07/15/17 05/29/21 nebulizer and compressor [Portable #1 07/15/17 05/29/21 Nebulizer System] Glucagon Emergency Kit (human) 1 mg IJ DAILY #2 kit 07/22/17 05/29/21 insulin glargine 100 unit/mL (3 12 unit SUBCUT HS ml 04/23/19 05/29/21 mL) subcutaneous pen acetone (urine) test #25 ea 08/07/20 05/29/21 magnesium 400 PO 09/02/20 01/07/21 riboflavin (vitamin B2) 400 mg 400 mg PO DAILY 09/02/20 05/29/21 tablet sumatriptan succinate 25 mg tablet 25 mg PO ONCE 09/02/20 05/29/21 topiramate 50 mg tablet 50 mg PO BID 12/02/20 05/29/21 buspirone 15 mg tablet 15 mg PO BID #180 tab 01/07/21 05/29/21 venlafaxine 150 mg See Rx Instructions PO DAILY #90 01/07/21 05/29/21 capsule,extended release 24 hr cap venlafaxine 75 mg capsule,extended See Rx Instructions PO DAILY #90 01/07/21 05/29/21 release 24 hr cap propranolol 20 mg tablet 20 mg PO BID 03/06/21 05/29/21 Previous Rx's Medication Instructions Recorded albuterol sulfate [ProAir HFA] 1 - 2 puff INHALATION Q4H PRN #1 12/12/15 inhaler FreeStyle Test #300 strip 05/08/17 insulin lispro [Humalog U-100 See Protocol SUB-Q AC #7 pkt 05/08/17 Insulin] ipratropium-albuterol 3 ml INHALATION BID #1 box 07/15/17 Glucagon Emergency Kit (human) 1 mg IJ DAILY #2 kit 07/22/17 acetone (urine) test #25 ea 08/07/20 buspirone 15 mg tablet 15 mg PO BID #180 tab 01/07/21 venlafaxine 150 mg See Rx Instructions PO DAILY #90 01/07/21 capsule,extended release 24 hr cap venlafaxine 75 mg capsule,extended See Rx Instructions PO DAILY #90 01/07/21 release 24 hr cap Allergies Allergy/AdvReac Type Severity Reaction Status Date / Time fluticasone Allergy Severe Anaphylaxsi Verified 05/29/21 14:48 [From Flovent Diskus] s insulin detemir Allergy Severe Hives Verified 05/29/21 14:48 [From Levemir U-100 Insulin] General VALENTINA: 3 Review of Systems <Karel Espana DO - Last Filed: 05/29/21 14:50> All systems reviewed & are unremarkable except as noted in HPI and below PFSH <Karel Espana DO - Last Filed: 05/29/21 14:50> Medical History Allergic rhinitis, unspecified Anxiety (06/17/16) Asthma Depression (06/03/15) was on zoloft 25 mg & Prozac in the past but these meds increased SI per pt Diabetic ketoacidosis associated with type 1 diabetes mellitus 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) Low back pain Mild intermittent asthma without complication Pilonidal cyst with abscess (06/03/15) Proliferative diabetic retinopathy of both eyes (12/26/10) Right ovarian cyst (07/04/15) 06/2015 US: 4.1 cm hemorrhagic R ovarian cyst --> follow-up US recommended; 11/19/2015 US: WNL Scoliosis Seizure Tobacco use disorder Type 1 diabetes mellitus Dx 2 y/o; [facility] [place]ocrinology Surgical History Hx of nephrostomy (~12/2019) tube placement, right [facility] [place] Tonsillectomy and adenoidectomy (~2007) Family History Grandfather Diabetes Grandmother Diabetes Maternal Cousin Mental disorder Bipolar disorder Sister Mental disorder Bipolar disorder, multiple personality disorder Brother DVT (deep venous thrombosis) multiple Brother Claudication Mother Diabetes Social History Smoking/Tobacco Use Status: Former Tobacco Use tobacco type: cigarettes Quit Date: 12/17/19 Smoking risk assessment performed?: Yes Alcohol Intake: current Alcohol Intake frequency: holidays/special occasions only Drug use: Never Substance use type: does not use Household members: spouse and other Number of Children: 4 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: taking [id number] classes Sexually active: Yes Do you feel safe at home: Yes Do you feel safe in your relationship?: Yes Exam <Karel Espana DO - Last Filed: 05/29/21 14:50> Narrative Exam Narrative: 1.Const: Well-nourished, Well-developed, appearing stated age 2.Eyes: PERRL, no conjunctival injection, and symmetrical lids. 3.ENT: Atraumatic external nose and ears. Notably dry MM. Neck: Symmetric, trachea midline, No thyromegaly. 4.CVS: +S1/S2, No murmurs or gallops. Peripheral pulses 2+ and equal in all extremities. Brisk capillary refill in all extremities. 5.RESP: Unlabored respiratory effort. Clear to auscultation bilaterally. No wheezes rales or rhonchi 6.GI: Soft, Nontender/Nondistended, No hepatosplenomegaly. No guarding or rebound. No pain at McBurney's point, negative Simpson sign, mild right-sided CVA tenderness. 7.MSK: Normocephalic/Atraumatic, Extremities w/o deformity or ttp No cyanosis or clubbing, Normal movement of all extremities 8.Skin: Warm, Dry. No rashes or lesions. 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 Sensation grossly intact, no focal neurologic deficits. 10.Psych: (AAO) x3. Appropriate mood and affect Sign Out <aKrel Espana DO - Last Filed: 05/29/21 14:50> Sign Out Data: Sign Out Comment: Follow-up on labs and UA after rehydration. Last updated by Karel Espana DO at 05/29/21 14:53
[2021-05-29 15:29] LABS: Clarity Clear (Clear); Leukocyte Esterase Negative (Negative); Specific Gravity 1.025 (1.005-1.025)
[2021-05-29 15:30] LABS: Bilirubin Negative (Negative); Glucose 500 mg/dL (Negative); Ketones Negative (Negative); Nitrite Negative (Negative)
[2021-05-29 15:31] LABS: Blood Trace (Negative); Epithelial Cells Moderate HPF (Negative)
[2021-05-29 15:32] LABS: Bacteria Rare HPF (Negative); Crystals Negative HPF (Negative); Mucus Trace (Negative)
[2021-05-29 15:33] LABS: C & S Indicated? No; Casts Negative LPF (Negative)
[2021-05-29] MEDS: Normal Saline 1,000 ML 1000 ML IV ×2 (15:45→16:51)
[2021-05-29] MEDS: Ketorolac 15 MG/ML VIAL IVP (15:53)
[2021-05-29] MEDS: Ondansetron 4 MG/2 ML VIAL (16:00)
[2021-05-29 16:12] LABS: Albumin 3.6 g/dL (3.4-5.0); BUN 13 mg/dL (7-18); Bilirubin, Total 0.3 mg/dL (0.2-1.0); CREATININE 0.9 mg/dL (0.55-1.02); Calcium 8.4 mg/dL (8.5-10.1); Glucose 199 mg/dL (74-106); Total Protein 7.3 g/dL (6.4-8.2)
[2021-05-29 16:13] LABS: ALT 27 U/L (14-59); AST 18 U/L (15-37); Alkaline Phosphatase 94 U/L (46-116); Anion Gap 8.1 mmol/L (3-11); CO2 25.9 mmol/L (21.0-32.0); Chloride 103 mmol/L (98-107); Lipase 49 U/L (73-393); Potassium 3.6 mmol/L (3.5-5.1); Sodium 137 mmol/L (136-145)
[2021-05-29 16:18] LABS: Abs Immature Grans 0.02 10^3/uL (0.0-0.06); Absolute Basophil Count 0.01 10^3/uL (0.0-0.2); Absolute Eosinophil Count 0.04 10^3/uL (0.0-0.7); Absolute Lymphocyte Count 1.38 10^3/uL (1.2-3.4); Absolute Monocyte Count 0.41 10^3/uL (0.1-0.8); Absolute Neutrophil Count 2.95 10^3/uL (1.2-6.7); Basophils % 0.2; Eosinophils % 0.8; HCT 40.6 % (36.0-46.0); HGB 13.2 g/dL (11.2-15.7); Immature Grans % 0.4; Lymphocytes % 28.7; MCH 29.5 pg (27.0-33.0); MCHC 32.5 % (32.0-36.0); MCV 90.8 fL (80-95); MPV 10.3 fL (8.0-11.0); Monocytes % 8.5; Neutrophils % 61.4; Nucleated RBC 0 %; Platelet Count 283 10^3/uL (130-400); RBC 4.47 10^6/uL (3.93-5.22); RDW 12.5 % (11.7-14.6); RDW-SD 41.1 fL; WBC 4.81 10^3/uL (4.4-10.8)
--- NOTE | 2021-05-29 16:45 | NUR.NOTE ---
pt wanting aggie-bob and sandwich Nursing Note:
[2021-05-29 17:24] VITALS: BP 117/62; PULSE 81; TEMP 36.2; O2SAT 98
== END 2021-05-29 17:55 | disposition home or self-care (01) ==
PROVIDERS: Student in an Organized Health Care Education/Training Program; Emergency Provider Emergency Medicine; PCP Nurse Practitioner Family
DX: E86.0 Dehydration (principal); M54.59 Other low back pain; R30.0 Dysuria; R11.2 Nausea with vomiting, unspecified; E10.9 Type 1 diabetes mellitus without complications
CPT/HCPCS: 36415; 80053; 81025; 83690; 96361; 96374; 96375; 99284; 81003; 81015; 85025; J1885; J2405

== ENCOUNTER 2021-07-27 16:44 | Emergency (ER) | payer MEDICAID, SELFPAY ==
[2021-07-27 16:56] VITALS: BP 121/74; PULSE 95; RESP 12; TEMP 37.6; O2SAT 100
[2021-07-27] MEDS: Lidocaine/Prilocaine Cream 5 GM TUBE (17:48)
--- NOTE | 2021-07-27 18:15 | W.ED.GENAD ---
Discharge Plan Disposition Patient Disposition: HOME Condition: Stable Discharge Details Clinical Impression: Abscess Primary Care Provider: Mia Poe ED Provider: Pete Murrieta Home Meds and New Rx's Prescriptions: New sulfamethoxazole-trimethoprim [Bactrim DS] 800-160 mg tablet 1 tab PO BID 7 Days Qty: 14 RF: 0 Continued (DME) Ketone Urine Test Strip See Rx Instructions .ROUTE .MEDSUPPLY Qty: 25 RF: 0 venlafaxine 75 mg capsule,extended release 24hr See Rx Instructions PO DAILY Qty: 90 RF: 3 venlafaxine 150 mg capsule,extended release 24hr See Rx Instructions PO DAILY Qty: 90 RF: 3 buspirone 15 mg tablet 15 mg PO BID Qty: 180 RF: 3 (DME) insulin syringe-needle U-100 [Exel Insulin] 1 EACH syringe 1 ea Miscellaneous AC & HS Qty: 3 RF: 3 (DME) lancets [FreeStyle Lancets] 1 EACH misc 1 ea Miscellaneous Q2H Qty: 300 RF: 3 ipratropium-albuterol 3 ML solution for nebulization 3 ml Inhalation BID Qty: 1 RF: 0 (DME) nebulizer and compressor [Portable Nebulizer System] 1 EACH device Miscellaneous DAILY Qty: 1 RF: 0 Glucagon Emergency Kit (human) 1 MG kit 1 mg IJ DAILY Qty: 2 RF: 0 magnesium 400 1 tab PO DAILY RF: 0 riboflavin (vitamin B2) 400 mg tablet 400 mg PO DAILY RF: 0 sumatriptan succinate 25 mg tablet 25 mg PO DIRECTED PRNRF: 0 propranolol 20 mg tablet 20 mg PO BID RF: 0 albuterol sulfate [ProAir HFA] 200 PUFF HFA aerosol inhaler 1 - 2 puff Inhalation Q4H PRN Qty: 1 RF: 1 (DME) FreeStyle Test 1 EACH strip 1 ea Miscellaneous Q2H Qty: 300 RF: 3 insulin lispro [Humalog U-100 Insulin] 100 UNIT/1 ML solution See Protocol units Sub-Q AC Qty: 7 RF: 0 Lantus Solostar U-100 Insulin 100 unit/mL (3 mL) insulin pen 12 unit subcut HS PRNRF: 0 Discharge Instructions Instructions: Abscess (ED) Additional Instructions: Please continue to monitor the site of infection and if you notice any fever chills, significant worsening of swelling or drainage, or new symptoms return immediately to the emergency department for reassessment. Otherwise apply warm compresses 3-4 times daily and follow-up with your primary care provider preferably in 2 days for wound recheck. Take antibiotics as prescribed along with probiotics for the next 30 days. Referrals: Mia Poe NP [Primary Care Provider] - 2 days (Recheck of abscess) Medical Decision Making Patient presenting to the emergency department for chief complaint of inguinal abscess. Patient denies fever, drainage, vaginal symptoms. Patient does have history of pilonidal cyst with I&D. Physical exam shows a fluctuant cyst in the right inguinal area with surrounding lymphadenopathy. Ultrasound was utilized and obvious area of fluctuance was noted. Discussed with patient risk versus benefit of drainage and also discussed needle drainage versus incision. Given that she is a diabetic with surrounding lymphadenopathy I do feel it is best for needle drainage and patient was agreeable to this. Was able to extract all potential fluid from the area with minimal discomfort to patient. Culture was sent and patient placed on Bactrim. Did discuss with patient return and follow-up precautions along with placing patient on follow-up with primary care for recheck preferably in the next 2 days. After discussion of diagnosis and plan of care patient has no further needs, questions, or concerns and states clear understanding to return to the emergency department for any worsening symptoms. HPI General Mode of arrival: ambulatory. Date/Time Provider Initiated Documentation: 07/27/21 17:04. Limitations to Documentation: no limitations. Information obtained by: patient. History of Present Illness 26 year old F presents to the emergency department with the chief complaint of Abscess right inner thigh, described as moderate, with intensity rated at 4. Quality is described as aching and sharp, and is localized to the right and lower extremity. Patient reports no radiation. Patient started experiencing this day(s) (1) and it has been constant. No relieving factors improve symptom(s), No exacerbating factors reported . Patient notes other (Elevated blood sugar). Patient did receive the following treatments prior to arrival, none Related Data Home Medications Medication Instructions Recorded Confirmed insulin syringe-needle U-100 [Exel #3 box 05/16/15 05/29/21 Insulin] lancets [FreeStyle Lancets] #300 ea 05/16/15 05/29/21 albuterol sulfate [ProAir HFA] 1 - 2 puff INHALATION Q4H PRN #1 12/12/15 07/27/21 inhaler FreeStyle Test #300 strip 05/08/17 05/29/21 insulin lispro [Humalog U-100 See Protocol SUB-Q AC #7 pkt 05/08/17 07/27/21 Insulin] ipratropium-albuterol 3 ml INHALATION BID #1 box 07/15/17 07/27/21 nebulizer and compressor [Portable #1 07/15/17 05/29/21 Nebulizer System] Glucagon Emergency Kit (human) 1 mg IJ DAILY #2 kit 07/22/17 07/27/21 insulin glargine 100 unit/mL (3 12 unit SUBCUT HS PRN ml 04/23/19 07/27/21 mL) subcutaneous pen acetone (urine) test #25 ea 08/07/20 05/29/21 magnesium 400 1 tab PO DAILY 09/02/20 07/27/21 riboflavin (vitamin B2) 400 mg 400 mg PO DAILY 09/02/20 07/27/21 tablet sumatriptan succinate 25 mg tablet 25 mg PO DIRECTED PRN 09/02/20 07/27/21 buspirone 15 mg tablet 15 mg PO BID #180 tab 01/07/21 07/27/21 venlafaxine 150 mg See Rx Instructions PO DAILY #90 01/07/21 07/27/21 capsule,extended release 24 hr cap venlafaxine 75 mg capsule,extended See Rx Instructions PO DAILY #90 01/07/21 07/27/21 release 24 hr cap propranolol 20 mg tablet 20 mg PO BID 03/06/21 07/27/21 sulfamethoxazole-trimethoprim 1 tab PO BID 7 Days #14 tab 07/27/21 [Bactrim DS] Previous Rx's Medication Instructions Recorded albuterol sulfate [ProAir HFA] 1 - 2 puff INHALATION Q4H PRN #1 12/12/15 inhaler FreeStyle Test #300 strip 05/08/17 insulin lispro [Humalog U-100 See Protocol SUB-Q AC #7 pkt 05/08/17 Insulin] ipratropium-albuterol 3 ml INHALATION BID #1 box 07/15/17 Glucagon Emergency Kit (human) 1 mg IJ DAILY #2 kit 07/22/17 acetone (urine) test #25 ea 08/07/20 buspirone 15 mg tablet 15 mg PO BID #180 tab 01/07/21 venlafaxine 150 mg See Rx Instructions PO DAILY #90 01/07/21 capsule,extended release 24 hr cap venlafaxine 75 mg capsule,extended See Rx Instructions PO DAILY #90 01/07/21 release 24 hr cap sulfamethoxazole-trimethoprim 1 tab PO BID 7 Days #14 tab 07/27/21 [Bactrim DS] Allergies Allergy/AdvReac Type Severity Reaction Status Date / Time fluticasone Allergy Severe Anaphylaxsi Verified 07/27/21 17:02 [From Flovent Diskus] s insulin detemir Allergy Severe Hives Verified 07/27/21 17:02 [From Levemir U-100 Insulin] General Stated Complaint: RashLesion VALENTINA: 4 Review of Systems Constitutional Constitutional: Denies body ache(s), Denies chills, Denies fever(s) and Denies malaise Cardiovascular Cardiovascular: Denies chest pain Respiratory Respiratory: Denies cough Gastrointestinal Gastrointestinal: Denies abdominal pain, Reports nausea and Denies vomiting Genitourinary Genitourinary: Denies hematuria, Denies genital lesions, Denies dysuria, Denies pelvic pain, Denies urinary urgency and Denies vaginal discharge Integumentary/Breasts Skin/Breast: Reports as per HPI, Reports furuncle, Reports skin pain and Reports skin swelling Hematologic/Lymphatic Hematologic/Lymphatic: Reports lymphadenopathy PFSH All Active Problems Dehydration (Acute) Abscess (Acute) 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 12/26/10) Intractable migraine with aura without status migrainosus (Acute) 08/21/20 [facility] [place] Neurology Diabetic ketoacidosis associated with type 1 diabetes mellitus (Acute) [facility] hospitalization 07/2020 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) Type 1 diabetes mellitus (Chronic) Dx 2 y/o; [facility] [place] Endocrinology Low back pain (Chronic) Frequent UTI (Chronic 03/01/18) Depression (Chronic 06/03/15) was on zoloft 25 mg & Prozac in the past but these meds increased SI per pt Anxiety (Chronic 06/17/16) Allergic rhinitis, unspecified (Chronic) Mild intermittent asthma without complication (Chronic) Tobacco use disorder (Chronic) Medical History Asthma Gastroesophageal reflux disease (06/03/15) History of pneumonia Intrauterine (~12/2019) IUFD at 20 weeks or more of gestation (01/05/20) [facility] [place] 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) Pilonidal cyst with abscess (06/03/15) Right ovarian cyst (07/04/15) 06/2015 US: 4.1 cm hemorrhagic R ovarian cyst --> follow-up US recommended; 11/19/2015 US: WNL Scoliosis Seizure Surgical History Hx of nephrostomy (~12/2019) tube placement, right [facility] Tonsillectomy and adenoidectomy (~2007) Family History Grandfather Diabetes Grandmother Diabetes Maternal Cousin Mental disorder Bipolar disorder Sister Mental disorder Bipolar disorder, multiple personality disorder Brother DVT (deep venous thrombosis) multiple Brother Claudication Mother Diabetes Social History Smoking/Tobacco Use Status: Former Tobacco Use tobacco type: cigarettes Quit Date: 12/17/19 Smoking risk assessment performed?: Yes Alcohol Intake: current Alcohol Intake frequency: holidays/special occasions only Drug use: Never Substance use type: does not use Household members: spouse and other Number of Children: 4 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: taking [employer] classes Sexually active: Yes Do you feel safe at home: Yes Do you feel safe in your relationship?: Yes Exam Const General: cooperative and no acute distress Orientation: alert, awake and oriented x3 Resp Effort & Inspection: normal respiratory effort and able to speak in complete sentences Cardio Rate: regular rate Rhythm: regular rhythm External Female Exam: normal external appearance, no erythema and no external swelling Skin General skin exam: fluctuance (Right inguinal abscess with surrounding lymphadenopathy) Trauma: no lacerations or abrasions Course Vital Signs Vital signs: Vital Signs Temperature 37.6 C H 07/27/21 16:56 Pulse 95 H 07/27/21 16:56 Respiratory Rate 12 07/27/21 16:56 Blood Pressure 121/74 07/27/21 16:56 Pulse Oximetry 100 07/27/21 16:56 Temperature 37.6 C H 07/27/21 16:56 Temperature Source Oral 07/27/21 16:56 Pulse 95 H 07/27/21 16:56 Respiratory Rate 12 07/27/21 16:56 Respiratory Effort Non-Labored 07/27/21 17:00 Blood Pressure 121/74 07/27/21 16:56 Blood Pressure Position Sitting 07/27/21 16:56 Pulse Oximetry 100 07/27/21 16:56 Oxygen Delivery Method Room Air 07/27/21 16:56 Oxygen Flow Rate 0 07/27/21 16:56 Pain Level 4 07/27/21 16:56 Procedures Abscess I/D Site: Lower Extremity (inguinal) Side (if applicable): Right Local Anesthetic: Lidocaine 2% Amount of anesthesia used (mL): 1.5 Technique: Needle Aspiration Amount of fluid expressed (mL): 5 Irrigation: No Packing used?: None
[2021-07-27] MEDS: Sulfameth/Trimeth DS TAB 1 TAB PO (18:22)
--- NOTE | 2021-07-27 18:23 | NUR.NOTE ---
Nursing Note: referral to cm. need to see pcp with in 2 days
== END 2021-07-27 18:21 | disposition home or self-care (01) ==
PROVIDERS: Emergency Provider Nurse Practitioner Family; PCP Nurse Practitioner Family
DX: L02.214 Cutaneous abscess of groin (principal); E10.9 Type 1 diabetes mellitus without complications
CPT/HCPCS: 10160; 87070; 87205

== ENCOUNTER 2021-10-21 10:02 | Outpatient (REF) | payer MEDICAID, SELFPAY | END 2021-10-21 10:03 | disposition home or self-care (01) | LOC: LBN 10:02 | PROVIDERS: PCP Nurse Practitioner Family; Visit Provider Internal Medicine | DX: R30.9 Painful micturition, unspecified (principal) | CPT/HCPCS: 87086 ==

== ENCOUNTER 2021-11-14 08:34 | Emergency (ER) | payer MEDICAID, SELFPAY ==
[2021-11-14 08:40] VITALS: BP 107/73; PULSE 111; RESP 16; TEMP 36.6; O2SAT 98
--- NOTE | 2021-11-14 08:46 | W.ED.GENAD ---
Discharge Plan Disposition Patient Disposition: HOME Condition: Stable Discharge Details Clinical Impression: Nausea & vomiting Primary Care Provider: Mia Poe ED Provider: Jeannette Dickson Home Meds and New Rx's Prescriptions: Continued (DME) Ketone Urine Test Strip See Rx Instructions .ROUTE .MEDSUPPLY Qty: 25 0RF Rx Instructions: As directed venlafaxine 75 mg capsule,extended release 24hr See Rx Instructions PO DAILY Qty: 90 3RF Rx Instructions: Take one 75 mg pill + one 150 mg pill for a total daily dose of 225 mg PO daily; venlafaxine 150 mg capsule,extended release 24hr See Rx Instructions PO DAILY Qty: 90 3RF Rx Instructions: Take one 75 mg pill + one 150 mg pill for a total daily dose of 225 mg PO daily buspirone 15 mg tablet 15 mg PO BID Qty: 180 3RF (DME) insulin syringe-needle U-100 [Exel Insulin] 1 EACH syringe 1 ea Miscellaneous AC & HS Qty: 3 3RF (DME) lancets [FreeStyle Lancets] 1 EACH misc 1 ea Miscellaneous Q2H Qty: 300 3RF ipratropium-albuterol 3 ML solution for nebulization 3 ml Inhalation BID Qty: 1 0RF (DME) nebulizer and compressor [Portable Nebulizer System] 1 EACH device Miscellaneous DAILY Qty: 1 0RF Glucagon Emergency Kit (human) 1 MG kit 1 mg IJ DAILY Qty: 2 0RF magnesium 400 1 tab PO DAILY 0RF Rx Instructions: 08/21/20 [facility] [place] Neuro- for headache prevention riboflavin (vitamin B2) 400 mg tablet 400 mg PO DAILY 0RF Rx Instructions: 08/21/20 [facility] [place] [facility]- [place] headache prevention sumatriptan succinate 25 mg tablet 25 mg PO DIRECTED PRN0RF Rx Instructions: 08/21/20 [facility] [place] [facility]. 25-50 mg up to twice a week propranolol 20 mg tablet 20 mg PO BID 0RF Rx Instructions: Increase by 20 mg every week to 80 mg BID - [facility] [place] Neurology 03/05/21 albuterol sulfate [ProAir HFA] 200 PUFF HFA aerosol inhaler 1 - 2 puff Inhalation Q4H PRN Qty: 1 1RF Rx Instructions: use with spacer (DME) FreeStyle Test 1 EACH strip 1 ea Miscellaneous Q2H Qty: 300 3RF insulin lispro [Humalog U-100 Insulin] 100 UNIT/1 ML solution See Protocol units Sub-Q AC Qty: 7 0RF Protocol: Insulin Sliding Scale-Moderate Condition: <140 Dose/Route: 0 units Condition: 140-180 Dose/Route: 2 unit (plus any scheduled dose) Condition: 181-220 Dose/Route: 4 unit (plus any scheduled dose) Condition: 221-260 Dose/Route: 6 unit (plus any scheduled dose) Condition: 261-300 Dose/Route: 8 unit (plus any scheduled dose) Instruction: (and call hospitalist about adjusting basal insulin) Condition: 301-340 Dose/Route: 10 unit (plus any scheduled dose) Instruction: (and call hospitalist about adjusting basal insulin) Condition: 341-380 Dose/Route: 12 unit (plus any scheduled dose) Instruction: (and call hospitalist about adjusting basal insulin) Condition: 381-420 Dose/Route: 14 unit (plus any scheduled dose) Instruction: (and call hospitalist about adjusting basal insulin) Condition: 421-460 Dose/Route: 16 unit (plus any scheduled dose) Instruction: (and call hospitalist about adjusting basal insulin) Condition: 461-500 Dose/Route: 18 unit (plus any scheduled dose) Instruction: (See Text) Protocol Text: If Blood Glucose over 500 contact hospitalist about an insulin infusion or adjusting sliding scale. Rx Instructions: 1 unit for every 15 grams carbohydrate and 1 unit for evry 15 points above 100 Lantus Solostar U-100 Insulin 100 unit/mL (3 mL) insulin pen 12 unit subcut HS PRN0RF Trulicity 0.75 mg/0.5 mL pen injector 0.75 mg SUBCUT QWEEK 0RF Label Comments: ADMINISTER 0.75 MG UNDER THE SKIN EVERY 7 DAYS Discharge Instructions Instructions: Acute Nausea and Vomiting (ED) Additional Instructions: At this time there is no evidence for obstruction, I do suspect that you are having a viral illness. Take the nausea medication as directed. Follow up with primary care provider in 3-5 days. Return to ED sooner if any worsening or concerns. Increase oral fluids. Please take Tylenol or Ibuprofen with food every 4-6 hours as needed for pain and swelling. Referrals: Mia Poe NP [Primary Care Provider] - 5 days Medical Decision Making 26-year-old female past medical history of type 1 insulin-dependent diabetes myelitis presents to the ER with nausea vomiting diarrhea which began last night. She reports that she had 2 episodes of emesis last night and watery diarrhea. She reports some right upper quadrant abdominal pain. She endorses chills denies fever. She does have an insulin pump in place. She denies any sick contacts. She reports that she had some Bulgarian fries popcorn chicken at [facility] and team ill. She is unvaccinated for COVID. She denies any shortness of breath, cough, chest pain. Other past medical history includes asthma, GERD, eclampsia, pilonidal cyst with abscess, IGg2 subclass defieciency, seizure. Does have a surgical history of nephrostomy, tonsillectomy and adenoidectomy, partial hysterectomy. BGL upon arrival is 161 At this time work-up ordered including CBC, CMP, lipase, urinalysis, urine test normal saline 1 L, Zofran [address] abdomen pelvis rule out cholecystitis. Also consider stool studies. Differential diagnosis includes but not limited to cholecystitis, bowel obstruction, gastroenteritis, urinary tract infection, viral illness. 1134: Patient's blood sugar 85. Ok'd Yvonne bob. CT result negative for acute abdomen. There is mild right hydroureter without bernadette hydronephrosis no renal or ureteral stone noted. Please see V rad radiology report. Patient has tolerated p.o. fluids without difficulty here in the department. Plan is to discharge home with strict return instructions and follow-up care. This text was generated using [employer] dictation system, please disregard any oddities of phrase or misspellings.. Patient was given Zofran tablets to go. Medical Records Medical records reviewed: Yes I reviewed the patient's medical records. Lab Data Lab results reviewed: Yes I reviewed the patient's lab results. Lab results narrative: Laboratory Tests Range/Units 11/14/21 11/14/21 11/14/21 08:45 08:55 09:00 WBC (4.4-10.8) 10^3/uL RBC (3.93-5.22) 10^6/uL Hgb (11.2-15.7) g/dL Hct (36.0-46.0) % MCV (80-95) fL MCH (27.0-33.0) pg MCHC (32.0-36.0) % RDW (11.7-14.6) % Plt Count (130-400) 10^3/uL MPV (8.0-11.0) fL Immature Gran % Neutrophils % Lymphocytes % Monocytes % Eosinophils % Basophils % Nucleated RBC % (0.0-0.3) % Absolute Neutrophils (1.2-6.7) 10^3/uL Absolute Lymphocytes (1.2-3.4) 10^3/uL Absolute Monocytes (0.1-0.8) 10^3/uL Absolute Eosinophils (0.0-0.7) 10^3/uL Absolute Basophils (0.0-0.2) 10^3/uL Sodium (136-145) mmol/L 139 Potassium (3.5-5.1) mmol/L 4.2 Chloride (98-107) mmol/L 104 Carbon Dioxide (21.0-32.0) mmol/L 24.2 Anion Gap (3-11) mmol/L 10.8 BUN (7-18) mg/dL 16 Creatinine (0.55-1.02) mg/dL 1.0 Estimated GFR/1.73 m2 (mL/min/1.73m2) >= 60.00 Glucose (74-106) mg/dL 175 H Calcium (8.5-10.1) mg/dL 9.2 Magnesium (1.8-2.4) mg/dL 1.7 L Total Bilirubin (0.2-1.0) mg/dL 0.4 AST (15-37) U/L 20 ALT (14-59) U/L 29 Alkaline Phosphatase (46-116) U/L 98 Total Protein (6.4-8.2) g/dL 7.8 Albumin (3.4-5.0) g/dL 4.2 Lipase (73-393) U/L Urine Color (Yellow) Urine Clarity (Clear) Urine pH (5-8) Ur Specific [place] (1.005-1.025) Urine Protein (Negative) mg/dL Urine Ketones (Negative) mg/dL Urine Blood (Negative) Urine Nitrite (Negative) Urine Bilirubin (Negative) Urine Urobilinogen (Up TO 0.2) EU/dL Ur Leukocyte Esterase (Negative) Urine RBC (0-2) HPF Urine WBC (0-5) HPF Ur Epithelial Cells (Negative) HPF Urine Crystals (Negative) HPF Urine Bacteria (Negative) HPF Urine Casts (Negative) LPF Urine Mucus (Negative) Ur Culture Indicated? Urine Glucose (Negative) mg/dL COVID-19 Source Nasopharynx Cancelled SARS-CoV-2 (PCR) (Negative) Negative Cancelled Influenza Type A (PCR) (Negative) Negative Cancelled Influenza Type B (PCR) (Negative) Negative Cancelled RSV (PCR) (Negative) Negative Cancelled Range/Units 11/14/21 11/14/21 11/14/21 09:00 09:00 12:05 WBC (4.4-10.8) 10^3/uL 7.34 RBC (3.93-5.22) 10^6/uL 4.55 Hgb (11.2-15.7) g/dL 14.2 Hct (36.0-46.0) % 42.0 MCV (80-95) fL 92 MCH (27.0-33.0) pg 31.2 MCHC (32.0-36.0) % 33.8 RDW (11.7-14.6) % 12.2 Plt Count (130-400) 10^3/uL 309 MPV (8.0-11.0) fL 9.8 Immature Gran % 0.1 Neutrophils % 64.5 Lymphocytes % 25.2 Monocytes % 8.0 Eosinophils % 1.9 Basophils % 0.3 Nucleated RBC % (0.0-0.3) % 0.0 Absolute Neutrophils (1.2-6.7) 10^3/uL 4.73 Absolute Lymphocytes (1.2-3.4) 10^3/uL 1.85 Absolute Monocytes (0.1-0.8) 10^3/uL 0.59 Absolute Eosinophils (0.0-0.7) 10^3/uL 0.14 Absolute Basophils (0.0-0.2) 10^3/uL 0.02 Sodium (136-145) mmol/L Potassium (3.5-5.1) mmol/L Chloride (98-107) mmol/L Carbon Dioxide (21.0-32.0) mmol/L Anion Gap (3-11) mmol/L BUN (7-18) mg/dL Creatinine (0.55-1.02) mg/dL Estimated GFR/1.73 m2 (mL/min/1.73m2) Glucose (74-106) mg/dL Calcium (8.5-10.1) mg/dL Magnesium (1.8-2.4) mg/dL Total Bilirubin (0.2-1.0) mg/dL AST (15-37) U/L ALT (14-59) U/L Alkaline Phosphatase (46-116) U/L Total Protein (6.4-8.2) g/dL Albumin (3.4-5.0) g/dL Lipase (73-393) U/L 19 Urine Color (Yellow) Yellow Urine Clarity (Clear) Clear Urine pH (5-8) 6.0 Ur Specific [place] (1.005-1.025) 1.025 Urine Protein (Negative) mg/dL Negative Urine Ketones (Negative) mg/dL Trace H Urine Blood (Negative) Trace-intact H Urine Nitrite (Negative) Negative Urine Bilirubin (Negative) Negative Urine Urobilinogen (Up TO 0.2) EU/dL 0.2 Ur Leukocyte Esterase (Negative) Trace H Urine RBC (0-2) HPF 3-5 H Urine WBC (0-5) HPF 5-10 Ur Epithelial Cells (Negative) HPF Many Urine Crystals (Negative) HPF Negative Urine Bacteria (Negative) HPF Few Urine Casts (Negative) LPF Negative Urine Mucus (Negative) Trace Ur Culture Indicated? No/Sq. Contamination Urine Glucose (Negative) mg/dL Negative COVID-19 Source SARS-CoV-2 (PCR) (Negative) Influenza Type A (PCR) (Negative) Influenza Type B (PCR) (Negative) RSV (PCR) (Negative) HPI General Date/Time Provider Initiated Documentation: 11/14/21 08:42. Information obtained by: patient, RN notes reviewed and old records reviewed. HPI Narrative: 26-year-old female past medical history of type 1 insulin-dependent diabetes myelitis presents to the ER with nausea vomiting diarrhea which began last night. She reports that she had 2 episodes of emesis last night and watery diarrhea. She reports some right upper quadrant abdominal pain. She endorses chills denies fever. She does have an insulin pump in place. She denies any sick contacts. She reports that she had some [employer] fries popcorn chicken at [facility] and team ill. She is unvaccinated for COVID. She denies any shortness of breath, cough, chest pain. Other past medical history includes asthma, GERD, eclampsia, pilonidal cyst with abscess, IGg2 subclass defieciency, seizure. Does have a surgical history of nephrostomy, tonsillectomy and adenoidectomy, partial hysterectomy. BGL upon arrival is 161 Related Data Home Medications Medication Instructions Recorded Confirmed insulin syringe-needle U-100 1 mL #3 box 05/16/15 10/21/21 27 gauge x 1/2 (Exel Insulin) lancets 28 gauge (FreeStyle #300 ea 05/16/15 10/21/21 Lancets) albuterol sulfate 90 mcg/actuation 1 - 2 puff INHALATION Q4H PRN #1 12/12/15 11/14/21 aerosol inhaler (ProAir HFA) inhaler blood sugar diagnostic (FreeStyle #300 strip 05/08/17 10/21/21 Test) insulin lispro 100 unit/mL See Protocol SUB-Q AC #7 pkt 05/08/17 11/14/21 subcutaneous solution (Humalog U-100 Insulin) ipratropium 0.5 mg-albuterol 3 mg 3 ml INHALATION BID #1 box 07/15/17 11/14/21 (2.5 mg base)/3 mL nebulization soln nebulizer and compressor (Portable #1 07/15/17 10/21/21 Nebulizer System) glucagon (human recombinant) 1 mg 1 mg IJ DAILY #2 07/22/17 11/14/21 injection kit (Glucagon Emergency Kit (human-recomb)) insulin glargine 100 unit/mL (3 12 unit SUBCUT HS PRN ml 04/23/19 11/14/21 mL) subcutaneous pen (Lantus Solostar U-100 Insulin) acetone (urine) test (Ketone Urine #25 ea 08/07/20 10/21/21 Test) magnesium 400 1 tab PO DAILY 09/02/20 11/14/21 riboflavin (vitamin B2) 400 mg 400 mg PO DAILY 09/02/20 11/14/21 tablet sumatriptan succinate 25 mg tablet 25 mg PO DIRECTED PRN 09/02/20 11/14/21 buspirone 15 mg tablet 15 mg PO BID #180 tab 01/07/21 11/14/21 venlafaxine 150 mg See Rx Instructions PO DAILY #90 01/07/21 11/14/21 capsule,extended release 24 hr cap venlafaxine 75 mg capsule,extended See Rx Instructions PO DAILY #90 01/07/21 11/14/21 release 24 hr cap propranolol 20 mg tablet 20 mg PO BID 03/06/21 11/14/21 dulaglutide 0.75 mg/0.5 mL 0.75 mg SUBCUT QWEEK 11/14/21 11/14/21 subcutaneous pen injector (Trulicity) Previous Rx's Medication Instructions Recorded albuterol sulfate 90 mcg/actuation 1 - 2 puff INHALATION Q4H PRN #1 12/12/15 aerosol inhaler (ProAir HFA) inhaler blood sugar diagnostic (FreeStyle #300 strip 05/08/17 Test) insulin lispro 100 unit/mL See Protocol SUB-Q AC #7 pkt 05/08/17 subcutaneous solution (Humalog U-100 Insulin) ipratropium 0.5 mg-albuterol 3 mg 3 ml INHALATION BID #1 box 07/15/17 (2.5 mg base)/3 mL nebulization soln glucagon (human recombinant) 1 mg 1 mg IJ DAILY #2 07/22/17 injection kit (Glucagon Emergency Kit (human-recomb)) acetone (urine) test (Ketone Urine #25 ea 08/07/20 Test) buspirone 15 mg tablet 15 mg PO BID #180 tab 01/07/21 venlafaxine 150 mg See Rx Instructions PO DAILY #90 01/07/21 capsule,extended release 24 hr cap venlafaxine 75 mg capsule,extended See Rx Instructions PO DAILY #90 01/07/21 release 24 hr cap Allergies Allergy/AdvReac Type Severity Reaction Status Date / Time fluticasone Allergy Severe Anaphylaxsi Verified 11/14/21 08:45 [From Flovent Diskus] s insulin detemir Allergy Severe Hives Verified 11/14/21 08:45 [From Levemir U-100 Insulin] General Stated Complaint: Nausea/Vomit/Diar VALENT[place]: 3 Review of Systems All systems reviewed & are unremarkable except as noted in HPI and below ENT Ears, Nose, Mouth, and Throat: Denies otalgia and Denies sore throat Cardiovascular Cardiovascular: Denies chest pain and Denies dyspnea Respiratory Respiratory: Denies dyspnea Gastrointestinal Gastrointestinal: Denies melena, Denies hematochezia, Reports diarrhea, Reports nausea and Reports vomiting PFSH All Active Problems (Updated 11/14/21 @ 13:25 by Jeannette Dickson) Nausea & vomiting (Acute) Dehydration (Acute) 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 12/26/10) Intractable migraine with aura without status migrainosus (Acute) 08/21/20 [facility] [place] [facility] Diabetic ketoacidosis associated with type 1 diabetes mellitus (Acute) [place] hospitalization 07/2020 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) Type 1 diabetes mellitus (Chronic) Dx 2 y/o; [facility] Endocrinology Low back pain (Chronic) Frequent UTI (Chronic 03/01/18) Depression (Chronic 06/03/15) was on zoloft 25 mg & Prozac in the past but these meds increased SI per pt Anxiety (Chronic 06/17/16) Allergic rhinitis, unspecified (Chronic) Mild intermittent asthma without complication (Chronic) Tobacco use disorder (Chronic) Medical History Asthma Gastroesophageal reflux disease (06/03/15) History of pneumonia Intrauterine (~12/2019) IUFD at 20 weeks or more of gestation (01/05/20) [facility] [place] 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) Pilonidal cyst with abscess (06/03/15) Right ovarian cyst (07/04/15) 06/2015 US: 4.1 cm hemorrhagic R ovarian cyst --> follow-up US recommended; 11/19/2015 US: WNL Scoliosis Seizure Surgical History Hx of nephrostomy (~12/2019) tube placement, right [facility] [place] Tonsillectomy and adenoidectomy (~2007) Family History Grandfather Diabetes Grandmother Diabetes Maternal Cousin Mental disorder Bipolar disorder Sister Mental disorder Bipolar disorder, multiple personality disorder Brother DVT (deep venous thrombosis) multiple Brother Claudication Mother Diabetes Social History Smoking/Tobacco Use Status: Former Tobacco Use tobacco type: cigarettes Quit Date: 12/17/19 Smoking risk assessment performed?: Yes Alcohol Intake: current Alcohol Intake frequency: holidays/special occasions only Drug use: Never Substance use type: does not use Household members: spouse and other Number of Children: 4 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: taking [employer] classes Sexually active: Yes Do you feel safe at home: Yes Do you feel safe in your relationship?: Yes Exam Narrative Exam Narrative: Constitutional: Alert and oriented x3. Appears stated age. Normal body habitus. Head: Normocephalic, no trauma. Eyes: Pupils PERRL, Red reflex noted, EOM's intact. Eyelids symmetrical without lesions, discharge, or swelling. ENT: External ear normal to inspection, no mastoid TTP, swelling, or erythema. Chest: RRR, Normal S1, S2, distal pulses intact. Resp: Lungs clear to auscultation bilaterally, no wheezes, rales, or rhonchi. Abdomen: Soft, non-distended, Normoactive bowel sounds all 4 quads. Mild tenderness to the right upper quadrant with palpation. Musculoskeletal: Normal gait, 5/5 strength to all four extremities. Skin: No suspicious rashes or lesions. Capillary refill less than 2 sec. Neurologic: Cranial nerves II-XII intact. Alert and oriented x 3. Motor: No deficits noted. Sensory: Intact bilaterally all 4 extremities. Reflexes: DTR's intact bilaterally.. Hematologic/Lymphatic: No ecchymosis, no lymphadenopathy. Course Vital Signs Vital signs: Vital Signs Temperature 36.6 C 11/14/21 08:40 Pulse 111 H 11/14/21 08:40 Respiratory Rate 16 11/14/21 08:40 Blood Pressure 107/73 11/14/21 08:40 Pulse Oximetry 98 11/14/21 08:40 Temperature 36.6 C 11/14/21 08:40 Temperature Source Temporal Artery Scan 11/14/21 08:40 Pulse 111 H 11/14/21 08:40 Respiratory Rate 16 11/14/21 08:40 Respiratory Effort 11/14/21 08:44 Blood Pressure 107/73 11/14/21 08:40 Blood Pressure Position Sitting 11/14/21 08:40 Pulse Oximetry 98 11/14/21 08:40 Oxygen Delivery Method Room Air 11/14/21 08:40 Oxygen Flow Rate 0 11/14/21 08:40 Pain Level 0 11/14/21 08:40
[2021-11-14] MEDS: Ondansetron 4 MG/2 ML VIAL IVP (09:04)
[2021-11-14] MEDS: Normal Saline 1,000 ML 1000 ML IV ×3 (09:04→11:04)
[2021-11-14 09:14] LABS: Abs Immature Grans 0.01 10^3/uL (0.0-0.06); Absolute Basophil Count 0.02 10^3/uL (0.0-0.2); Absolute Eosinophil Count 0.14 10^3/uL (0.0-0.7); Absolute Lymphocyte Count 1.85 10^3/uL (1.2-3.4); Absolute Monocyte Count 0.59 10^3/uL (0.1-0.8); Absolute Neutrophil Count 4.73 10^3/uL (1.2-6.7); Basophils % 0.3; Eosinophils % 1.9; HGB 14.2 g/dL (11.2-15.7); Immature Grans % 0.1; Lymphocytes % 25.2; MCH 31.2 pg (27.0-33.0); MCHC 33.8 % (32.0-36.0); MCV 92 fL (80-95); MPV 9.8 fL (8.0-11.0); Neutrophils % 64.5; Platelet Count 309 10^3/uL (130-400); RBC 4.55 10^6/uL (3.93-5.22); RDW 12.2 % (11.7-14.6); RDW-SD 41.7 fL; WBC 7.34 10^3/uL (4.4-10.8)
[2021-11-14 09:27] LABS: Lipase 19 U/L (73-393)
--- NOTE | 2021-11-14 09:30 | DI.CT_ITS ---
Exam(s) CT ABDOMEN PELVIS W EXAM: CT ABDOMEN PELVIS W CLINICAL HISTORY: RUQ abd Pain, N/V/D. TECHNIQUE: Imaging Protocol: Axial computed tomography images with coronal and sagittal reformatted images were created and reviewed CONTRAST MATERIAL: Intravenous: Omnipaque 350 Contrast volume:100 ml Oral: no COMPARISON: CT RENAL COLIC WO CONTRAST from 07/08/2015 FINDINGS: ABDOMEN: Lung Bases: Normal where visualized. Liver: Normal density. No measurable mass. Gallbladder and biliary tract: No radiodense calculus or dilation. Pancreas: Normal density, no abnormal calcifications or inflammatory process. Spleen: Normal. Kidneys: Normal size, contour and axis. Mildly prominent right renal pelvis. No radiodense stones or obstructive uropathy. No masses seen. Adrenal glands: No masses seen. Abdominal Aorta: Abdominal portion non-dilated. soft tissues: small amount of fat at the umbilicus. PELVIS: Bladder: No gross wall thickening. No calculi.No focal mass. Bowel: Moderate quantity of stool. No obstruction or bowel wall thickening. Appendix normal. Peritoneal cavity: No ascites, collection or mesenteric inflammatory response. Bones: Within normal limits for age. Reproductive organs: Within normal limits. Lymph nodes: Unremarkable. Impression: Unremarkable CT scan of the abdomen and pelvis. RADIATION DOSE DELIVERED: 1,180.37mGy.cm Total DLP DATA REPOSITORY: All CT scans at this facility are submitted to the National Radiology Data Registry (NRDR) Dose Index Registry (DIR) with the [employer] (ACR). RADIATION OPTIMIZATION: All CT scans at this facility use at least one of these dose optimization te chniques: automated exposure control; mA and/or kV adjustment per patient size (includes targeted exa ms where dose is matched to clinical indication); or iterative reconstruction.
[2021-11-14 09:32] LABS: ALT 29 U/L (14-59); AST 20 U/L (15-37); Albumin 4.2 g/dL (3.4-5.0); Alkaline Phosphatase 98 U/L (46-116); Anion Gap 10.8 mmol/L (3-11); BUN 16 mg/dL (7-18); Bilirubin, Total 0.4 mg/dL (0.2-1.0); CO2 24.2 mmol/L (21.0-32.0); Calcium 9.2 mg/dL (8.5-10.1); Chloride 104 mmol/L (98-107); Glucose 175 mg/dL (74-106); Magnesium 1.7 mg/dL (1.8-2.4); Potassium 4.2 mmol/L (3.5-5.1); Sodium 139 mmol/L (136-145); Total Protein 7.8 g/dL (6.4-8.2)
[2021-11-14 09:51] LABS: COVID-19 PCR Negative (Negative); Influenza A PCR Negative (Negative); Influenza B PCR Negative (Negative); RSV PCR Negative (Negative)
[2021-11-14 09:53] LABS: Source Nasopharynx
[2021-11-14 12:13] LABS: Bilirubin Negative (Negative); Blood Trace-intact (Negative); Clarity Clear (Clear); Glucose Negative (Negative); Ketones Trace mg/dL (Negative); Leukocyte Esterase Trace (Negative); Nitrite Negative (Negative); Specific Gravity 1.025 (1.005-1.025); Urobilinogen 0.2 EU/dL (Up TO 0.2)
[2021-11-14 12:19] LABS: Epithelial Cells Many HPF (Negative)
[2021-11-14 12:20] LABS: Bacteria Few HPF (Negative); C & S Indicated? No/Sq. Contamination; Casts Negative LPF (Negative); Crystals Negative HPF (Negative); Mucus Trace (Negative)
[2021-11-14] MEDS: Omnipaque 350 MG/ML 100 ML BTL IJ (12:40)
--- NOTE | 2021-11-14 13:01 | DI.VRAD_ITS ---
PROCEDURE INFORMATION: Exam: CT Abdomen And Pelvis With Contrast Exam date and time: 11/14/2021 12:31 PM Age: 26 years old Clinical indication: Nausea and vomiting; Prior surgery; Surgery type: Tubal TECHNIQUE: Imaging protocol: Computed tomography of the abdomen and pelvis with contrast. COMPARISON: US PELVIS TRANSVAG 11/19/2015 7:05 PM FINDINGS: Liver: Normal. No mass. Gallbladder and bile ducts: Normal. No calcified stones. No ductal dilation. Pancreas: Normal. No ductal dilation. Spleen: Normal. No splenomegaly. Adrenal glands: Normal. No mass. Kidneys and ureters: There is mild right extrarenal pelvis and mild right hydroureter without bernadette hydronephrosis. No renal or ureteral stone noted. No renal masses. Stomach and bowel: Unremarkable. No obstruction. No mucosal thickening. Appendix: No evidence of appendicitis. Intraperitoneal space: Unremarkable. No free air. No significant fluid collection. Vasculature: Unremarkable. No abdominal aortic aneurysm. Lymph nodes: Unremarkable. No enlarged lymph nodes. Urinary bladder: Unremarkable as visualized. Reproductive: Unremarkable as visualized. Bones/joints: Unremarkable. No acute fracture. Soft tissues: There is a small fat containing umbilical hernia. IMPRESSION: No acute abdominal abnormality. Dictated and Authenticated by: Tobias Chaidez MD. Ordering:ISAC Machado MD
[2021-11-14 13:35] VITALS: BP 100/69; PULSE 86; RESP 16; TEMP 36.8; O2SAT 98
[2021-11-14] MEDS: Ondansetron O.D.T. 4 MG TABEF, 3 TABS/BTL PO (13:37)
[2021-11-14 13:50] VITALS: BP 100/69; PULSE 86; RESP 16; TEMP 36.8; O2SAT 98
== END 2021-11-14 13:49 | disposition home or self-care (01) ==
PROVIDERS: Emergency Provider Registered Nurse Emergency; PCP Nurse Practitioner Family
DX: R11.2 Nausea with vomiting, unspecified (principal); E10.9 Type 1 diabetes mellitus without complications; R10.11 Right upper quadrant pain; R19.7 Diarrhea, unspecified
CPT/HCPCS: 36415; 36416; 80053; 81025; 82962; 83690; 87637; 96361; 96374; 99284; 99285; 74177; 81003; 81015; 83735; 85025; J2405; J3490

== ENCOUNTER 2021-11-20 12:19 | Outpatient (REF) | payer MEDICAID, SELFPAY | END 2021-11-20 12:20 | disposition home or self-care (01) | LOC: LBN 12:19 | PROVIDERS: PCP Nurse Practitioner Family; Visit Provider Nurse Practitioner Family | DX: L02.214 Cutaneous abscess of groin (principal) | CPT/HCPCS: 87070 ==

== ENCOUNTER 2022-05-19 18:11 | Outpatient (REF) | payer MEDICAID, SELFPAY ==
[2022-05-21 11:39] LABS: COVID-19 RT-PCR UVMMC Result Negative (Negative)
== END 2022-05-19 18:12 | disposition home or self-care (01) ==
LOC: LBN 18:11
PROVIDERS: PCP Nurse Practitioner Family; Visit Provider Nurse Practitioner Adult Health
DX: J02.9 Acute pharyngitis, unspecified (principal); Z20.822 Contact with and (suspected) exposure to COVID-19
CPT/HCPCS: U0003

== ENCOUNTER 2022-10-28 11:12 | Emergency (ER) | payer MEDICAID, SELFPAY ==
[2022-10-28 11:25] VITALS: BP 123/89; PULSE 80; RESP 16; TEMP 36.9; O2SAT 99
[2022-10-28 13:23] VITALS: BP 113/77; PULSE 71; RESP 18; TEMP 36.9; O2SAT 99
--- NOTE | 2022-10-28 14:01 | ED.GENADUL_ITS ---
Discharge Plan Disposition Patient Disposition: Home Condition: Improving Discharge Details Clinical Impression: Abscess of groin, right Primary Care Provider: Mia Poe ED Provider: Rubia Gardiner Home Meds and New Rx's Prescriptions: New sulfamethoxazole-trimethoprim [Bactrim DS] 800-160 mg tablet 1 tab PO BID 7 Days Qty: 14 0RF Continued (DME) Ketone Urine Test Strip See Rx Instructions .ROUTE .MEDSUPPLY Qty: 25 0RF Rx Instructions: As directed buspirone 15 mg tablet 15 mg PO BID Qty: 180 3RF venlafaxine 150 mg capsule,extended release 24hr 150 mg PO DAILY Qty: 90 3RF albuterol sulfate [ProAir HFA] 90 mcg/actuation HFA aerosol inhaler 1 - 2 puff Inhalation Q4H PRN Qty: 1 1RF Rx Instructions: use with spacer (DME) insulin syringe-needle U-100 [Exel Insulin] 1 EACH syringe 1 ea Miscellaneous AC & HS Qty: 3 (DME) lancets [FreeStyle Lancets] 1 EACH misc 1 ea Miscellaneous Q2H Qty: 300 ipratropium-albuterol 3 ML solution for nebulization 3 ml Inhalation BID Qty: 1 0RF (DME) nebulizer and compressor [Portable Nebulizer System] 1 EACH device Miscellaneous DAILY Qty: 1 Glucagon Emergency Kit (human) 1 MG kit 1 mg IJ DAILY Qty: 2 0RF (DME) FreeStyle Test 1 EACH strip 1 ea Miscellaneous Q2H Qty: 300 3RF insulin lispro [Humalog U-100 Insulin] 100 UNIT/1 ML solution See Protocol Sub-Q AC Qty: 7 0RF Protocol: Insulin Sliding Scale-Moderate Condition: <140 Dose/Route: 0 units Condition: 140-180 Dose/Route: 2 unit (plus any scheduled dose) Condition: 181-220 Dose/Route: 4 unit (plus any scheduled dose) Condition: 221-260 Dose/Route: 6 unit (plus any scheduled dose) Condition: 261-300 Dose/Route: 8 unit (plus any scheduled dose) Instruction: (and call hospitalist about adjusting basal insulin) Condition: 301-340 Dose/Route: 10 unit (plus any scheduled dose) Instruction: (and call hospitalist about adjusting basal insulin) Condition: 341-380 Dose/Route: 12 unit (plus any scheduled dose) Instr uction: (and call hospitalist about adjusting basal insulin) Condition: 381-420 Dose/Route: 14 unit (plus any scheduled dose) Instruction: (and call hospitalist about adjusting basal insulin) Condition: 421-460 Dose/Route: 16 unit (plus any scheduled dose) Instruction: (and call hospitalist about adjusting basal insulin) Condition: 461-500 Dose/Route: 18 unit (plus any scheduled dose) Instruction: (See Text) Protocol Text: If Blood Glucose over 500 contact hospitalist about an insulin infusion or adjusting sliding scale. Rx Instructions: 1 unit for every 15 grams carbohydrate and 1 unit for evry 15 points above 100 insulin glargine [Lantus Solostar U-100 Insulin] 100 unit/mL (3 mL) insulin pen 12 unit subcut HS PRN Discharge Instructions Instructions: Cellulitis (ED), Abscess (ED) Additional Instructions: Your right groin abscess was noted to be draining purulent discharge here in the emergency department. The opening of this area was extended and packed with gauze. Please return to the emergency department in 2 days for packing removal and wound check. You also appear to be developing an area of infection just above the abscess. It would be recommended to apply warm compresses to this area if you are able taking caution to avoid soaking the area of abscess treated today or inadvertently removing the packing. A prescription for antibiotics has been sent electronically to your pharmacy to take as directed until finished. Alternate tylenol and motrin as needed and directed for pain. Return immediately to the emergency department if you develop any worsening or new concerning symptoms. Discharge Data Discharge Date/Time-TO BE ENTERED AT DEPARTURE: 10/28/22 14:20 Discharge Physician: Rubia Gardiner Medical Decision Making 27-year-old female with a history of type 1 diabetes presents with abscess to the right groin for the past few days. Patient appears comfortable and nontoxic. Her vitals are within normal limits. Her fingerstick glucose is 170. Pt denies known . Upon my assessment at bedside, there is a 1 x 1 cm abscess in the right anterior groin which is noted to be actively draining purulent drainage. Able to express the area and she had approximately 5-10 cc of purulent drainage. She admitted to significant improvement of pain. The opening to the abscess was only approximately 3 to 4 mm in size so the area was cleaned with Betadine, anesthetized with lidocaine with epinephrine and the opening was extended to approximately 1 cm and 1/4 inch iodoform packing was placed after irrigation with normal saline. Unable to express any significant amount of additional purulent drainage. Patient felt significantly better. There is also a 2 x 2 centimeter area of tender erythema, edema, and induration just superior and lateral to this but did not have significant fluctuance. Discussed with patient that this does not appear consistent with an obvious abscess at this time but to apply warm compresses trying to avoid the area that was drained today. Advised to return to the ED in 2 days for packing removal. Will cover with Bactrim due to the separate area of erythema and edema just superior and lateral to this. Usual and customary return precautions given prior to discharge. Medical Records Medical records reviewed: Yes I reviewed the patient's medical records. HPI General Mode of arrival: ambulatory . Date/Time Provider Initiated Documentation: 10/28/22 11:40 . Limitations to Documentation: no limitations . Information obtained by: patient . HPI Narrative: Patient is a 27-year-old female with history of type 1 diabetes who presents for right groin abscess for the past 2 days. Patient states she noticed an area of pain and swelling a few days ago and states it has gotten bigger. She denies any fever or chills. She states she does shave this area and has had abscesses in the past. Related Data Home Medications Medication Instructions Recorded Confirmed insulin syringe-needle U-100 1 mL ##3 05/16/15 05/19/22 27 gauge x 1/2 (Exel Insulin) lancets 28 gauge (FreeStyle #300 ea 05/16/15 05/19/22 Lancets) blood sugar diagnostic (FreeStyle #300 strips 05/08/17 05/19/22 Test strips) insulin lispro 100 unit/mL See Protocol subcut AC ##7 05/08/17 10/28/22 subcutaneous solution (Humalog U-100 Insulin) ipratropium 0.5 mg-albuterol 3 mg 3 ml inhalation BID ##1 07/15/17 10/28/22 (2.5 mg base)/3 mL nebulization soln nebulizer and compressor (Portable ##1 07/15/17 05/19/22 Nebulizer System) glucagon (human recombinant) 1 mg 1 mg IJ DAILY ##2 07/22/17 10/28/22 injection kit (Glucagon Emergency Kit (human-recomb)) insulin glargine 100 unit/mL (3 12 unit subcut HS PRN 04/23/19 10/28/22 mL) subcutaneous pen (Lantus Solostar U-100 Insulin) acetone (urine) test (Ketone Urine #25 ea 08/07/20 05/19/22 Test strips) buspirone 15 mg tablet 15 mg PO BID #180 tabs 01/07/21 10/28/22 albuterol sulfate 90 mcg/actuation 1 - 2 puff inhalation Q4H PRN ##1 04/15/22 10/28/22 aerosol inhaler (ProAir HFA) venlafaxine 150 mg 150 mg PO DAILY #90 caps 04/15/22 10/28/22 capsule,extended release 24 hr sulfamethoxazole 800 1 tab PO BID 7 days #14 tabs 10/28/22 mg-trimethoprim 160 mg tablet (Bactrim DS) Previous Rx's Medication Instructions Recorded blood sugar diagnostic (FreeStyle #300 strips 05/08/17 Test strips) insulin lispro 100 unit/mL See Protocol subcut AC ##7 05/08/17 subcutaneous solution (Humalog U-100 Insulin) ipratropium 0.5 mg-albuterol 3 mg 3 ml inhalation BID ##1 07/15/17 (2.5 mg base)/3 mL nebulization soln glucagon (human recombinant) 1 mg 1 mg IJ DAILY ##2 07/22/17 injection kit (Glucagon Emergency Kit (human-recomb)) acetone (urine) test (Ketone Urine #25 ea 08/07/20 Test strips) buspirone 15 mg tablet 15 mg PO BID #180 tabs 01/07/21 albuterol sulfate 90 mcg/actuation 1 - 2 puff inhalation Q4H PRN ##1 04/15/22 aerosol inhaler (ProAir HFA) venlafaxine 150 mg 150 mg PO DAILY #90 caps 04/15/22 capsule,extended release 24 hr sulfamethoxazole 800 1 tab PO BID 7 days #14 tabs 10/28/22 mg-trimethoprim 160 mg tablet (Bactrim DS) Allergies Allergy/AdvReac Type Severity Reaction Status Date / Time fluticasone Allergy Severe Anaphylaxsi Verified 10/30/22 10:58 [From Flovent Diskus] s insulin detemir Allergy Severe Hives Verified 10/30/22 10:58 [From Levemir U-100 Insulin] General Stated Complaint: Cellulitis VALENTINA: 4 Review of Systems All systems reviewed & are unremarkable except as noted in HPI and below Constitutional Constitutional: Reports as per HPI, Denies chills and Denies fever(s) Eyes Eyes: Denies blurry vision ENT Ears, Nose, Mouth, and Throat: Denies dizziness, Denies sore throat and Denies throat swelling Cardiovascular Cardiovascular: Denies chest pain and Denies dyspnea Respiratory Respiratory: Denies cough and Denies dyspnea Gastrointestinal Gastrointestinal: Denies abdominal pain, Denies diarrhea and Denies vomiting Genitourinary Genitourinary: Denies hematuria and Denies dysuria Musculoskeletal Musculoskeletal: Denies back pain and Denies numbness Integumentary/Breasts Skin/Breast: Reports lesions and Denies rash Neurologic Neurologic: Denies dizziness, Denies localized weakness and Denies numbness Allergic/Immunologic Allergic/Immunologic: Denies throat swelling PFSH All Active Problems Abscess of groin, right (Acute) Abscess packing removal (Acute) Obesity (Chronic) 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 12/26/10) Intractable migraine with aura without status migrainosus (Acute) 08/21/20 [facility] [place] [facility] Diabetic ketoacidosis associated with type 1 diabetes mellitus (Acute) [facility] hospitalization 07/2020 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) Pilonidal cyst with abscess (06/03/15) Right ovarian cyst (07/04/15) 06/2015 US: 4.1 cm hemorrhagic R ovarian cyst --> follow-up US recommended; 11/19/2015 US: WNL Scoliosis Seizure Surgical History Hx of nephrostomy (~12/2019) tube placement, right [facility] [place] Tonsillectomy and adenoidectomy (~2007) Family History Grandfather Diabetes Grandmother Diabetes Maternal Cousin Mental disorder Bipolar disorder Sister Mental disorder Bipolar disorder, multiple personality disorder Brother DVT (deep venous thrombosis) multiple Brother Claudication Mother Diabetes Heart disease [place] 2021 Social History Smoking/Tobacco Use Status: Former Tobacco Use tobacco type: cigarettes Quit Date: 12/17/19 Tobacco: How many years used: 5 Quit status: has quit before Smoking risk assessment performed?: Yes Alcohol Intake: current Alcohol Intake frequency: holidays/special occasions only Drug use: Never Substance use type: does not use Adopted: No Caregiver/Support person: No Foster care: No Household members: spouse, children and other Number of Children: 2 Communication Needs: None Education Level: high school Do you need help understanding health information?: Rarely 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 Pets and animals: Yes Pets and animals: cat(s) and dog(s) Sexually active: Yes Do you think of yourself as: straight/heterosexual Current gender identity: female What is your relationship status?: How often do you talk on the phone with friends or family?: three or more times per week How often do you get together with friends or relatives?: twice per week Do you belong to any clubs or organized social groups?: no Panel score (0-1 are the most socially isolated patients): 2 What type of physical activity do you participate in: walking Duration: 30-45 minutes/day Frequency: 3-4 times per week Seatbelt use: always Do you feel safe at home: Yes Do you feel safe in your relationship?: Yes Exam Const General: cooperative, healthy appearing and no acute distress Orientation: alert, awake and oriented x3 HENMT Head: normal to inspection Mouth: oral mucosae normal Eyes General: appearance normal, both eyes and all related structures Neck Neck: normal visual inspection Resp Effort & Inspection: normal respiratory effort and able to speak in complete se ntences Cardio Rate: regular rate Female genitals images: 1. 1 x 1 cm area of tenderness, erythema with active purulent discharge. 2. 2 x 2 centimeter area of tender erythema, edema and induration. No obvious fluctuance. Skin General skin exam: no rashes or lesions noted Neuro General: patient alert, patient awake and patient oriented x3 Motor: muscle tone normal throughout Extrem General: normal to inspection and full ROM Psych Appearance: grossly normal Affect: normal affect Course Vital Signs Vital signs: Vital Signs Temperature 98.4 F 10/28/22 11:25 Pulse 80 10/28/22 11:25 Respiratory Rate 16 10/28/22 11:25 Blood Pressure 123/89 10/28/22 11:25 Pulse Oximetry 99 10/28/22 11:25 Temperature 98.5 F 10/28/22 13:23 Temperature Source Skin 10/28/22 11:25 Pulse 71 10/28/22 13:23 Respiratory Rate 18 10/28/22 13:23 Respiratory Effort Normal, Non-Labored 10/28/22 13:19 Blood Pressure 113/77 10/28/22 13:23 Blood Pressure Position Sitting 10/28/22 11:25 Pulse Oximetry 99 10/28/22 13:23 Oxygen Delivery Method Room Air 10/28/22 13:23 Oxygen Flow Rate 0 10/28/22 13:23 Pain Level 6 10/28/22 11:25 Comment taking tylenol - does not help heat helps 10/28/22 11:25 Procedures Abscess I/D Site: Other (Groin) Side (if applicable): Right Local Anesthetic: Lidocaine 1% and With Epi Amount of anesthesia used (mL): 10 Technique: Incised with #11 Blade Amount of fluid expressed (mL): 10 Irrigation: Yes Packing used?: Iodoform
== END 2022-10-28 14:20 | disposition home or self-care (01) ==
PROVIDERS: Emergency Provider Physician Assistant; PCP Nurse Practitioner Family
DX: L02.214 Cutaneous abscess of groin (principal); E10.9 Type 1 diabetes mellitus without complications
CPT/HCPCS: 10061; 36416; 82962; 99282; 99283

== ENCOUNTER 2022-10-30 10:53 | Emergency (ER) | payer MEDICAID, SELFPAY ==
[2022-10-30 10:56] VITALS: BP 109/64; PULSE 80; RESP 18; TEMP 36; O2SAT 98
--- NOTE | 2022-10-30 11:18 | ED.GENADUL_ITS ---
Discharge Plan Disposition Patient Disposition: Home Discharge Details Clinical Impression: Abscess packing removal Primary Care Provider: Mia Poe ED Provider: Pete Murrieta Home Meds and New Rx's Prescriptions: Continued (DME) Ketone Urine Test Strip See Rx Instructions .ROUTE .MEDSUPPLY Qty: 25 0RF Rx Instructions: As directed buspirone 15 mg tablet 15 mg PO BID Qty: 180 3RF venlafaxine 150 mg capsule,extended release 24hr 150 mg PO DAILY Qty: 90 3RF albuterol sulfate [ProAir HFA] 90 mcg/actuation HFA aerosol inhaler 1 - 2 puff Inhalation Q4H PRN Qty: 1 1RF Rx Instructions: use with spacer (DME) insulin syringe-needle U-100 [Exel Insulin] 1 EACH syringe 1 ea Miscellaneous AC & HS Qty: 3 (DME) lancets [FreeStyle Lancets] 1 EACH misc 1 ea Miscellaneous Q2H Qty: 300 ipratropium-albuterol 3 ML solution for nebulization 3 ml Inhalation BID Qty: 1 0RF (DME) nebulizer and compressor [Portable Nebulizer System] 1 EACH device Miscellaneous DAILY Qty: 1 Glucagon Emergency Kit (human) 1 MG kit 1 mg IJ DAILY Qty: 2 0RF (DME) FreeStyle Test 1 EACH strip 1 ea Miscellaneous Q2H Qty: 300 3RF insulin lispro [Humalog U-100 Insulin] 100 UNIT/1 ML solution See Protocol Sub-Q AC Qty: 7 0RF Protocol: Insulin Sliding Scale-Moderate Condition: <140 Dose/Route: 0 units Condition: 140-180 Dose/Route: 2 unit (plus any scheduled dose) Condition: 181-220 Dose/Route: 4 unit (plus any scheduled dose) Condition: 221-260 Dose/Route: 6 unit (plus any scheduled dose) Condition: 261-300 Dose/Route: 8 unit (plus any scheduled dose) Instruction: (and call hospitalist about adjusting basal insulin) Condition: 301-340 Dose/Route: 10 unit (plus any scheduled dose) Instruction: (and call hospitalist about adjusting basal insulin) Condition: 341-380 Dose/Route: 12 unit (plus any scheduled dose) Instruction: (and call hospitalist about adjusting basal insulin) Condition: 381-420 Dose/Route: 14 unit (plus any scheduled dose) Instruction: (and call hospitalist about adjusting basal insulin) Condition: 421-460 Dose/Route: 16 unit (plus any scheduled dose) Inst ruction: (and call hospitalist about adjusting basal insulin) Condition: 461-500 Dose/Route: 18 unit (plus any scheduled dose) Instruction: (See Text) Protocol Text: If Blood Glucose over 500 contact hospitalist about an insulin infusion or adjusting sliding scale. Rx Instructions: 1 unit for every 15 grams carbohydrate and 1 unit for evry 15 points above 1 00 insulin glargine [Lantus Solostar U-100 Insulin] 100 unit/mL (3 mL) insulin pen 12 unit subcut HS PRN sulfamethoxazole-trimethoprim [Bactrim DS] 800-160 mg tablet 1 tab PO BID 7 Days Qty: 14 0RF Discharge Instructions Instructions: Abscess Follow-up (ED) Additional Instructions: At this time your abscess appears to be healing as expected. Please continue to take your antibiotic as prescribed and until all of the antibiotic pills are gone. You may continue to use [id number] pain medication as previously directed. If you develop any new or significant worsening of symptoms feel free to return the emergency department for reassessment or follow-up with your primary care provider as needed. Referrals: Mia Poe NP [Primary Care Provider] - Medical Decision Making Patient presenting to the emergency department for reassessment of abscess that recently had I&D and need of packing removal. Patient denies any worsening of condition, fever chills, or new lesions. Physical exam shows packing in place with no worrisome findings to suggest complications. Packing was removed without incident and new dressing was put on area of I&D. Patient to continue antibiotic therapy and [id number] pain medication. After discussion of diagnosis and plan of care patient has no further needs, questions, or concerns and states clear understanding to return to the emergency department for any worsening symptoms. This documentation was generated using [employer] system, please disregard any oddities of phrase or misspellings. Medical Records Medical records reviewed: Yes I reviewed the patient's medical records. Medical records narrative: Reviewed previous emergency department visit along with primary care documentation of phone conversation. HPI General Mode of arrival: ambulatory . Date/Time Provider Initiated Documentation: 10/30/22 10:54 . Limitations to Documentation: no limitations . Information obtained by: patient and RN notes reviewed . History of Present Illness 27 year old F presents to the emergency department with the chief complaint of Negative packing removal, described as moderate, with intensity rated at 5. Quality is described as aching and sharp, and is localized to the right and lower extremity. Patient notes no other symptoms.. Related Data Home Medications Medication Instructions Recorded Confirmed insulin syringe-needle U-100 1 mL ##3 05/16/15 05/19/22 27 gauge x 1/2 (Exel Insulin) lancets 28 gauge (FreeStyle #300 ea 05/16/15 05/19/22 Lancets) blood sugar diagnostic (FreeStyle #300 strips 05/08/17 05/19/22 Test strips) insulin lispro 100 unit/mL See Protocol subcut AC ##7 05/08/17 10/28/22 subcutaneous solution (Humalog U-100 Insulin) ipratropium 0.5 mg-albuterol 3 mg 3 ml inhalation BID ##1 07/15/17 10/28/22 (2.5 mg base)/3 mL nebulization soln nebulizer and compressor (Portable ##1 07/15/17 05/19/22 Nebulizer System) glucagon (human recombinant) 1 mg 1 mg IJ DAILY ##2 07/22/17 10/28/22 injection kit (Glucagon Emergency Kit (human-recomb)) insulin glargine 100 unit/mL (3 12 unit subcut HS PRN 04/23/19 10/28/22 mL) subcutaneous pen (Lantus Solostar U-100 Insulin) acetone (urine) test (Ketone Urine #25 ea 08/07/20 05/19/22 Test strips) buspirone 15 mg tablet 15 mg PO BID #180 tabs 01/07/21 10/28/22 albuterol sulfate 90 mcg/actuation 1 - 2 puff inhalation Q4H PRN ##1 04/15/22 10/28/22 aerosol inhaler (ProAir HFA) venlafaxine 150 mg 150 mg PO DAILY #90 caps 04/15/22 10/28/22 capsule,extended release 24 hr sulfamethoxazole 800 1 tab PO BID 7 days #14 tabs 10/28/22 mg-trimethoprim 160 mg tablet (Bactrim DS) Previous Rx's Medication Instructions Recorded blood sugar diagnostic (FreeStyle #300 strips 05/08/17 Test strips) insulin lispro 100 unit/mL See Protocol subcut AC ##7 05/08/17 subcutaneous solution (Humalog U-100 Insulin) ipratropium 0.5 mg-albuterol 3 mg 3 ml inhalation BID ##1 07/15/17 (2.5 mg base)/3 mL nebulization soln glucagon (human recombinant) 1 mg 1 mg IJ DAILY ##2 07/22/17 injection kit (Glucagon Emergency Kit (human-recomb)) acetone (urine) test (Ketone Urine #25 ea 08/07/20 Test strips) buspirone 15 mg tablet 15 mg PO BID #180 tabs 01/07/21 albuterol sulfate 90 mcg/actuation 1 - 2 puff inhalation Q4H PRN ##1 04/15/22 aerosol inhaler (ProAir HFA) venlafaxine 150 mg 150 mg PO DAILY #90 caps 04/15/22 capsule,extended release 24 hr sulfamethoxazole 800 1 tab PO BID 7 days #14 tabs 10/28/22 mg-trimethoprim 160 mg tablet (Bactrim DS) Allergies Allergy/AdvReac Type Severity Reaction Status Date / Time fluticasone Allergy Severe Anaphylaxsi Verified 10/30/22 10:58 [From Flovent Diskus] s insulin detemir Allergy Severe Hives Verified 10/30/22 10:58 [From Levemir U-100 Insulin] General Stated Complaint: Recheck VALENTINA: 4 Review of Systems Constitutional Constitutional: Denies chills and Denies fever(s) Integumentary/Breasts Skin/Breast: Reports as per HPI, Denies new lesions and Denies erythema PFSH All Active Problems Abscess of groin, right (Acute) Abscess packing removal (Acute) Obesity (Chronic) 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 12/26/10) Intractable migraine with aura without status migrainosus (Acute) 08/21/20 [facility] [place] [facility] Diabetic ketoacidosis associated with type 1 diabetes mellitus (Acute) [facility] hospitalization 07/2020 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) Type 1 diabetes mellitus (Chronic) Dx 2 y/o; [facility] [place] Endocrinology Low back pain (Chronic) Frequent UTI (Chronic 03/01/18) Depression (Chronic 06/03/15) was on zoloft 25 mg & Prozac in the past but these meds increased SI per pt Anxiety (Chronic 06/17/16) Allergic rhinitis, unspecified (Chronic) Mild intermittent asthma without complication (Chronic) Tobacco use disorder (Chronic) Medical History Asthma Gastroesophageal reflux disease (06/03/15) History of pneumonia Intrauterine (~12/2019) IUFD at 20 weeks or more of gestation (01/05/20) [facility] [place] 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) Pilonidal cyst with abscess (06/03/15) Right ovarian cyst (07/04/15) 06/2015 US: 4.1 cm hemorrhagic R ovarian cyst --> follow-up US recommended; 11/19/2015 US: WNL Scoliosis Seizure Surgical History Hx of nephrostomy (~12/2019) tube placement, right [facility] [place] Tonsillectomy and adenoidectomy (~2007) Family History Grandfather Diabetes Grandmother Diabetes Maternal Cousin Mental disorder Bipolar disorder Sister Mental disorder Bipolar disorder, multiple personality disorder Brother DVT (deep venous thrombosis) multiple Brother Claudication Mother Diabetes Heart disease [place] 2021 Social History Smoking/Tobacco Use Status: Former Tobacco Use tobacco type: cigarettes Quit Date: 12/17/19 Tobacco: How many years used: 5 Quit status: has quit before Smoking risk assessment performed?: Yes Alcohol Intake: current Alcohol Intake frequency: holidays/special occasions only Drug use: Never Substance use type: does not use Adopted: No Caregiver/Support person: No Foster care: No Household members: spouse, children and other Number of Children: 2 Communication Needs: None Education Level: high school Do you need help understanding health information?: Rarely 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 Pets and animals: Yes Pets and animals: cat(s) and dog(s) Sexually active: Yes Do you think of yourself as: straight/heterosexual Current gender identity: female What is your relationship status?: How often do you talk on the phone with friends or family?: three or more times per week How often do you get together with friends or relatives?: twice per week Do you belong to any clubs or organized social groups?: no Panel score (0-1 are the most socially isolated patients): 2 What type of physical activity do you participate in: walking Duration: 30-45 minutes/day Frequency: 3-4 times per week Seatbelt use: always Do you feel safe at home: Yes Do you feel safe in your relationship?: Yes Exam Const General: cooperative, no acute distress and not ill appearing Orientation: alert, awake and oriented x3 HENMT Mouth: moist mucous membranes Resp Effort & Inspection: normal respiratory effort, able to speak in complete sentences and no respiratory distress Neuro General: patient alert, patient awake, patient oriented x3, moves all extremities and no focal motor deficits Extrem Left lower extremity: hip/thigh Details: other (I&D to proximal medial thigh with packing in place. Minimal erythema, no fluctuance) Course Vital Signs Vital signs: Vital Signs Temperature 36 C L 10/30/22 10:56 Pulse 80 10/30/22 10:56 Respiratory Rate 18 10/30/22 10:56 Blood Pressure 109/64 10/30/22 10:56 Pulse Oximetry 98 10/30/22 10:56 Temperature 36 C L 10/30/22 10:56 Temperature Source Skin 10/30/22 10:56 Pulse 80 10/30/22 10:56 Respiratory Rate 18 10/30/22 10:56 Blood Pressure 109/64 10/30/22 10:56 Blood Pressure Position Sitting 10/30/22 10:56 Pulse Oximetry 98 10/30/22 10:56 Oxygen Delivery Method Room Air 10/30/22 10:56 Oxygen Flow Rate 0 10/30/22 10:56 Pain Level 5 10/30/22 10:56
== END 2022-10-30 11:24 | disposition home or self-care (01) ==
PROVIDERS: Emergency Provider Nurse Practitioner Family; PCP Nurse Practitioner Family
DX: L02.214 Cutaneous abscess of groin (principal); Z48.01 Encounter for change or removal of surgical wound dressing
CPT/HCPCS: 99281; 99282

== ENCOUNTER 2022-12-02 03:26 | Outpatient (CLI) | payer MEDICAID, SELFPAY ==
--- NOTE | 2022-12-02 14:00 | NS.NUTBLAN_ITS ---
Sydnie was referred for weight management education while a Type 1 Diabetic with an insulin pump (tandem) and dexcom 6 CGM. Has been type 1 Dm since age 2. Total Daily Dose of insulin (humolog)= 55-60 units. boluses at meals on moderate scale. Most recent A1C: 6.8% 5'6 216 lbs BMI: 35 Diet Recall: Breakfast: protein shake, Lunch: salad with chicken and 1 slice bread, Dinner: meat, 1/2 cup starch, 2 cups veg. No snacks Exercise: walks on treadmill for 3 miles per day, takes 1.5 hours. Sydnie reports that 2 years ago she had a health scare and was put into a medically induced comma due to sepsis while she was (lost ) and went into kidney failure. Prior to this event, she had limited her insulin due to fear of weight gain. She weighed around 145 lbs but had very poor glycemic management. After discharge, she was able to get an insulin pump, CGM and is followed closely by [facility]. Since having good glcyemic control, she has gained over 60 lbs and would like to get her weight down around 150 lbs again. Session today focused on how to follow a 1500 kcal balanced meal plan that will help reduce amount of insulin daily and will help her lose weight. Goal is for a 2:1 ratio at meals for carb:protein. Encouraged Sydnie to use phone nikolas to track macronutrients with goals of : 80-100 g carb, 60-70 g protein, 45-55 g fat. 4 lbs weight loss per month is goal while maintaining blood sugars at target range. Follow up planned for 01/04/23 at 1 pm.
== END 2022-12-02 03:27 | disposition home or self-care (01) ==
PROVIDERS: PCP Nurse Practitioner Family; Visit Provider Dietitian, Registered
DX: E10.9 Type 1 diabetes mellitus without complications (principal); Z79.1 Long term (current) use of non-steroidal anti-inflammatories (NSAID); E66.8 Other obesity; Z71.3 Dietary counseling and surveillance; Z68.35 Body mass index [BMI] 35.0-35.9, adult
CPT/HCPCS: 97802

== ENCOUNTER 2023-01-17 14:08 | Emergency (ER) | payer MEDICAID, SELFPAY ==
[2023-01-17 14:13] VITALS: BP 126/76; PULSE 79; RESP 15; TEMP 37; O2SAT 99
--- NOTE | 2023-01-17 14:30 | W.ED.GENAD ---
Discharge Plan Disposition Patient Disposition: Home Condition: Good Discharge Details Clinical Impression: Nausea, Hypomagnesemia Primary Care Provider: Mia Poe ED Provider: Miguelina Blanc Home Meds and New Rx's Prescriptions: New ondansetron 4 mg tablet,disintegrating 4 mg PO Q6H PRN (Reason: nausea and vomiting) Qty: 10 0RF Continued (DME) Ketone Urine Test Strip See Rx Instructions .ROUTE .MEDSUPPLY Qty: 25 0RF Rx Instructions: As directed buspirone 15 mg tablet 15 mg PO BID Qty: 180 3RF venlafaxine 150 mg capsule,extended release 24hr 150 mg PO DAILY Qty: 90 3RF albuterol sulfate [ProAir HFA] 90 mcg/actuation HFA aerosol inhaler 1 - 2 puff Inhalation Q4H PRN Qty: 1 1RF Rx Instructions: use with spacer (DME) insulin syringe-needle U-100 [Exel Insulin] 1 EACH syringe 1 ea Miscellaneous AC & HS Qty: 3 (DME) lancets [FreeStyle Lancets] 1 EACH misc 1 ea Miscellaneous Q2H Qty: 300 ipratropium-albuterol 3 ML solution for nebulization 3 ml Inhalation BID Qty: 1 0RF (DME) nebulizer and compressor [Portable Nebulizer System] 1 EACH device Miscellaneous DAILY Qty: 1 Glucagon Emergency Kit (human) 1 MG kit 1 mg IJ DAILY Qty: 2 0RF (DME) FreeStyle Test 1 EACH strip 1 ea Miscellaneous Q2H Qty: 300 3RF insulin lispro [Humalog U-100 Insulin] 100 UNIT/1 ML solution See Protocol Sub-Q AC Qty: 7 0RF Protocol: Insulin Sliding Scale-Moderate Condition: <140 Dose/Route: 0 units Condition: 140-180 Dose/Route: 2 unit (plus any scheduled dose) Condition: 181-220 Dose/Route: 4 unit (plus any scheduled dose) Condition: 221-260 Dose/Route: 6 unit (plus any scheduled dose) Condition: 261-300 Dose/Route: 8 unit (plus any scheduled dose) Instruction: (and call hospitalist about adjusting basal insulin) Condition: 301-340 Dose/Route: 10 unit (plus any scheduled dose) Instruction: (and call hospitalist about adjusting basal insulin) Condition: 341-380 Dose/Route: 12 unit (plus any scheduled dose) Instruction: (and call hospitalist about adjusting basal insulin) Condition: 381-420 Dose/Route: 14 unit (plus any scheduled dose) Instruction: (and call hospitalist about adjusting basal insulin) Condition: 421-460 Dose/Route: 16 unit (plus any scheduled dose) Instruction: (and call hospitalist about adjusting basal insulin) Condition: 461-500 Dose/Route: 18 unit (plus any scheduled dose) Instruction: (See Text) Protocol Text: If Blood Glucose over 500 contact hospitalist about an insulin infusion or adjusting sliding scale. Rx Instructions: 1 unit for every 15 grams carbohydrate and 1 unit for evry 15 points above 100 insulin glargine [Lantus Solostar U-100 Insulin] 100 unit/mL (3 mL) insulin pen 12 unit subcut HS PRN Discharge Instructions Instructions: Acute Nausea and Vomiting (ED), Hypomagnesemia (ED) Additional Instructions: Your labs are reassuring here today. They were concerning for low magnesium so I do encourage that you increase this and have attached information on that. Please continue to encourage frequent fluids and monitoring your glucose. Please follow-up with your primary care in 1 week for reevaluation. You may use the Zofran as prescribed if you have recurrence of your nausea. If develop fever/chills, increased pain, inability stay hydrated or other new/worsening symptoms to seek care urgently once again. Referrals: Mia Poe NP [Primary Care Provider] - Medical Decision Making Patient is a pleasant 27-year-old female, well-known to myself in the department, with past medical history significant for type 1 diabetes, currently well controlled, presenting today with chief complaint of nausea. She states that her has GI illness with diarrhea and vomiting. She states that she has been nauseated for the past 3 days but has not had any actual vomiting. She reports that the nausea can get to the point that actually causes stomach discomfort. Denies any fevers or chills. No pain into her back. Denies any chest pain or shortness of breath. Patient has had a tubal ligation. On exam, patient appears nontoxic, resting comfortably. She appears well-hydrated and states that she has been taking some sips of fluid has not been able to have any food secondary to the nausea. Abdomen is benign. No CVA tenderness. Patient does not have any exam findings suggest surgical abdomen. Not see any indication to suggest acute pancreatitis, appendicitis, cholecystitis, diverticulitis, pyelonephritis. She is not endorsing any abnormal vaginal discharge to suggest a sending infections. More concerning for acute viral illness. I have been seeing a lot of this recently in the community which is also consistent with his family exposure. Labs are reassuring. No leukocytosis. Stable H&H. Her magnesium was low at 1.5 which were replenished here. She does have some ketones in her urine which is expected based on history. Patient is receiving hydration, will give Zofran which worked well for her. She and I discussed imaging but at this point I do not see indication concerned about the excessive radiation. She will continue to monitor her sugars closely at home. She will continue to increase p.o. fluid intake. Return precautions discussed. Advise follow-up with primary care in 1 week. All the questions and concerns were addressed and she is agreement this plan. HPI General Date/Time Provider Initiated Documentation: 01/17/23 14:09. Limitations to Documentation: no limitations. Information obtained by: patient and RN notes reviewed. History of Present Illness 27 year old F presents to the emergency department with the chief complaint of nausea, described as severe (no vomiting), and is localized to the abdomen. Patient reports no radiation. Patient started experiencing this day(s) and it has been constant. No relieving factors improve symptom(s), No exacerbating factors reported . Patient notes loss of appetite, malaise and nausea/vomiting; denies chest pain, diaphoresis, fever/chills and shortness of breath. Patient did receive the following treatments prior to arrival, none Related Data Home Medications Medication Instructions Recorded Confirmed insulin syringe-needle U-100 1 mL ##3 05/16/15 01/17/23 27 gauge x 1/2 (Exel Insulin) lancets 28 gauge (FreeStyle #300 ea 05/16/15 01/17/23 Lancets) blood sugar diagnostic (FreeStyle #300 strips 05/08/17 01/17/23 Test strips) insulin lispro 100 unit/mL See Protocol subcut AC ##7 05/08/17 01/17/23 subcutaneous solution (Humalog U-100 Insulin) ipratropium 0.5 mg-albuterol 3 mg 3 ml inhalation BID ##1 07/15/17 01/17/23 (2.5 mg base)/3 mL nebulization soln nebulizer and compressor (Portable ##1 07/15/17 01/17/23 Nebulizer System) glucagon (human recombinant) 1 mg 1 mg IJ DAILY ##2 07/22/17 01/17/23 injection kit (Glucagon Emergency Kit (human-recomb)) insulin glargine 100 unit/mL (3 12 unit subcut HS PRN 04/23/19 01/17/23 mL) subcutaneous pen (Lantus Solostar U-100 Insulin) acetone (urine) test (Ketone Urine #25 ea 08/07/20 01/17/23 Test strips) buspirone 15 mg tablet 15 mg PO BID #180 tabs 01/07/21 01/17/23 albuterol sulfate 90 mcg/actuation 1 - 2 puff inhalation Q4H PRN ##1 04/15/22 01/17/23 aerosol inhaler (ProAir HFA) venlafaxine 150 mg 150 mg PO DAILY #90 caps 04/15/22 01/17/23 capsule,extended release 24 hr ondansetron 4 mg disintegrating 4 mg PO Q6H PRN nausea and 01/17/23 tablet vomiting #10 tabs Previous Rx's Medication Instructions Recorded blood sugar diagnostic (FreeStyle #300 strips 05/08/17 Test strips) insulin lispro 100 unit/mL See Protocol subcut AC ##7 05/08/17 subcutaneous solution (Humalog U-100 Insulin) ipratropium 0.5 mg-albuterol 3 mg 3 ml inhalation BID ##1 07/15/17 (2.5 mg base)/3 mL nebulization soln glucagon (human recombinant) 1 mg 1 mg IJ DAILY ##2 07/22/17 injection kit (Glucagon Emergency Kit (human-recomb)) acetone (urine) test (Ketone Urine #25 ea 08/07/20 Test strips) buspirone 15 mg tablet 15 mg PO BID #180 tabs 01/07/21 albuterol sulfate 90 mcg/actuation 1 - 2 puff inhalation Q4H PRN ##1 04/15/22 aerosol inhaler (ProAir HFA) venlafaxine 150 mg 150 mg PO DAILY #90 caps 04/15/22 capsule,extended release 24 hr ondansetron 4 mg disintegrating 4 mg PO Q6H PRN nausea and 01/17/23 tablet vomiting #10 tabs Allergies Allergy/AdvReac Type Severity Reaction Status Date / Time fluticasone Allergy Severe Anaphylaxsi Verified 01/17/23 14:15 [From Flovent Diskus] s insulin detemir Allergy Severe Hives Verified 01/17/23 14:15 [From Levemir U-100 Insulin] General Stated Complaint: Nausea/Vomit/Diar VALENTINA: 3 Review of Systems Constitutional Constitutional: Reports as per HPI, Denies chills, Denies fatigue, Denies fever(s) and Denies headache(s) ENT Ears, Nose, Mouth, and Throat: Denies headache(s) Cardiovascular Cardiovascular: Reports as per HPI, Denies chest pain and Denies dyspnea Respiratory Respiratory: Reports as per HPI, Denies cough and Denies dyspnea Gastrointestinal Gastrointestinal: Reports as per HPI Musculoskeletal Musculoskeletal: Reports as per HPI and Denies back pain Integumentary/Breasts Skin/Breast: Reports as per HPI and Denies rash Neurologic Neurologic: Reports as per HPI and Denies headache(s) Endocrine Endocrine: Denies fatigue PFSH All Active Problems (Updated 01/17/23 @ 15:50 by FABRIZIO Devine) Nausea (Acute) Hypomagnesemia (Acute) Obesity (Chronic) 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 12/26/10) Intractable migraine with aura without status migrainosus (Acute) 08/21/20 [facility] [place] [facility] Diabetic ketoacidosis associated with type 1 diabetes mellitus (Acute) [facility] hospitalization 07/2020 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) Type 1 diabetes mellitus (Chronic) Dx 2 y/o; [facility] [place] Endocrinology Low back pain (Chronic) Frequent UTI (Chronic 03/01/18) Depression (Chronic 06/03/15) was on zoloft 25 mg & Prozac in the past but these meds increased SI per pt Anxiety (Chronic 06/17/16) Allergic rhinitis, unspecified (Chronic) Mild intermittent asthma without complication (Chronic) Tobacco use disorder (Chronic) Medical History Asthma Gastroesophageal reflux disease (06/03/15) History of pneumonia Intrauterine (~12/2019) IUFD at 20 weeks or more of gestation (01/05/20) [facility] 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) Pilonidal cyst with abscess (06/03/15) Right ovarian cyst (07/04/15) 06/2015 US: 4.1 cm hemorrhagic R ovarian cyst --> follow-up US recommended; 11/19/2015 US: WNL Scoliosis Seizure Surgical History Hx of nephrostomy (~12/2019) tube placement, right [facility] [place] Tonsillectomy and adenoidectomy (~2007) Family History Grandfather Diabetes Grandmother Diabetes Maternal Cousin Mental disorder Bipolar disorder Sister Mental disorder Bipolar disorder, multiple personality disorder Brother DVT (deep venous thrombosis) multiple Brother Claudication Mother Diabetes Heart disease [place] 2021 Social History Smoking/Tobacco Use Status: Former Tobacco Use tobacco type: cigarettes Quit Date: 12/17/19 Tobacco: How many years used: 5 Quit status: has quit before Smoking risk assessment performed?: Yes Alcohol Intake: current Alcohol Intake frequency: holidays/special occasions only Drug use: Never Substance use type: does not use Adopted: No Caregiver/Support person: No Foster care: No Household members: spouse, children and other Number of Children: 2 Communication Needs: None Education Level: high school Do you need help understanding health information?: Rarely 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 Pets and animals: Yes Pets and animals: cat(s) and dog(s) Sexually active: Yes Do you think of yourself as: straight/heterosexual Current gender identity: female What is your relationship status?: How often do you talk on the phone with friends or family?: three or more times per week How often do you get together with friends or relatives?: twice per week Do you belong to any clubs or organized social groups?: no Panel score (0-1 are the most socially isolated patients): 2 What type of physical activity do you participate in: walking Duration: 30-45 minutes/day Frequency: 3-4 times per week Seatbelt use: always Do you feel safe at home: Yes Do you feel safe in your relationship?: Yes Exam Const General: cooperative, healthy appearing, comfortable, no acute distress and well developed Nutritional Appearance: well nourished and overweight Orientation: alert and awake [facility] Head: normal to inspection Mouth: moist mucous membranes Resp Effort & Inspection: normal respiratory effort, able to speak in complete sentences and no respiratory distress Auscultation: clear to auscultation bilaterally, no rales, no rhonchi and no wheezes Cardio Rate: regular rate Rhythm: regular rhythm Heart Sounds: S1 normal and S2 normal GI Inspection: normal to inspection Palpation: soft, no hepatosplenomegaly and nontender Percussion: normal to percussion Auscultation: normal bowel sounds Back/Spine/Pelvis Back: no CVA tenderness Skin General skin exam: no rashes or lesions noted Trauma: no lacerations or abrasions Neuro General: patient alert and patient awake Cognition: normal cognition Speech: speech normal Gait: normal gait Psych Appearance: grossly normal and well kempt Mental Status: mental status grossly normal Speech and Movement: speech and movement normal Course Vital Signs Vital signs: Vital Signs Temperature 37.0 C 01/17/23 14:13 Pulse 79 01/17/23 14:13 Respiratory Rate 15 01/17/23 14:13 Blood Pressure 126/76 01/17/23 14:13 Pulse Oximetry 99 01/17/23 14:13 Temperature 37.0 C 01/17/23 14:13 Temperature Source Oral 01/17/23 14:13 Pulse 79 01/17/23 14:13 Respiratory Rate 15 01/17/23 14:13 Blood Pressure 126/76 01/17/23 14:13 Blood Pressure Position Sitting 01/17/23 14:13 Pulse Oximetry 99 01/17/23 14:13 Oxygen Delivery Method Room Air 01/17/23 14:13 Oxygen Flow Rate 0 01/17/23 14:13 Pain Level 4 01/17/23 14:13
[2023-01-17 15:04] LABS: Abs Immature Grans 0.03 10^3/uL (0.0-0.06); Absolute Basophil Count 0.03 10^3/uL (0.0-0.2); Absolute Eosinophil Count 0.21 10^3/uL (0.0-0.7); Absolute Lymphocyte Count 2.63 10^3/uL (1.2-3.4); Absolute Neutrophil Count 4.77 10^3/uL (1.2-6.7); Basophils % 0.4; Eosinophils % 2.5; HCT 37.6 % (36.0-46.0); HGB 12.9 g/dL (11.2-15.7); Immature Grans % 0.4; Lymphocytes % 31.8; MCH 30.6 pg (27.0-33.0); MCHC 34.3 % (32.0-36.0); MCV 89 fL (80-95); MPV 9.6 fL (8.0-11.0); Monocytes % 7.3; Neutrophils % 57.6; Platelet Count 289 10^3/uL (130-400); RBC 4.22 10^6/uL (3.93-5.22); RDW 12.7 % (11.7-14.6); RDW-SD 41.4 fL; WBC 8.27 10^3/uL (4.4-10.8)
[2023-01-17 15:14] LABS: Bilirubin Negative (Negative); Blood Negative (Negative); Clarity Clear (Clear); Glucose Negative (Negative); Ketones 15 mg/dL (Negative); Leukocyte Esterase Negative (Negative); Nitrite Negative (Negative); Specific Gravity 1.015 (1.005-1.025)
[2023-01-17 15:19] LABS: ALT 21 U/L (14-59); AST 14 U/L (15-37); Albumin 3.9 g/dL (3.4-5.0); Alkaline Phosphatase 67 U/L (46-116); Anion Gap 8.4 mmol/L (3-11); BUN 16 mg/dL (7-18); Bilirubin, Total 0.6 mg/dL (0.2-1.0); CO2 25.6 mmol/L (21.0-32.0); CREATININE 0.9 mg/dL (0.55-1.02); Chloride 103 mmol/L (98-107); Estimated GFR 90.42 (mL/min/1.73m2); Glucose 151 mg/dL (74-106); Lipase 13 U/L (16-77); Magnesium 1.5 mg/dL (1.8-2.4); Potassium 3.7 mmol/L (3.5-5.1); Sodium 137 mmol/L (136-145); Total Protein 7.1 g/dL (6.4-8.2)
[2023-01-17] MEDS: Lactated Ringers 1,000 ML 1000 ML IV (15:26)
[2023-01-17] MEDS: MAGNESIUM SULFATE 1 GM/100 ML BAG IVPB (15:42)
[2023-01-17] MEDS: Ondansetron 4 MG/2 ML VIAL IVP (15:42)
== END 2023-01-17 19:11 | disposition home or self-care (01) ==
PROVIDERS: Emergency Provider Physician Assistant; PCP Nurse Practitioner Family
DX: R11.2 Nausea with vomiting, unspecified (principal); E83.42 Hypomagnesemia; R42 Dizziness and giddiness; R10.9 Unspecified abdominal pain; E10.9 Type 1 diabetes mellitus without complications; Z87.891 Personal history of nicotine dependence
CPT/HCPCS: 80053; 83690; 96365; 96368; 99284; 81003; 83735; 85025; 99283; J2405; J3475

== ENCOUNTER 2023-02-14 12:07 | Outpatient (REF) | payer MEDICAID, SELFPAY | END 2023-02-14 12:08 | disposition home or self-care (01) | LOC: LBN 12:07 | PROVIDERS: PCP Nurse Practitioner Family; Visit Provider Nurse Practitioner Family | DX: R30.0 Dysuria (principal) | CPT/HCPCS: 87077; 87086; 87186 ==

== ENCOUNTER 2023-02-22 16:04 | Outpatient (CLI) | payer MEDICAID, SELFPAY ==
[2023-02-22 11:17] LABS: Hemoglobin A1C 6.8 % (<5.7)
[2023-02-22 11:42] LABS: ALT 20 U/L (14-59); AST 15 U/L (15-37); Albumin 3.9 g/dL (3.4-5.0); Alkaline Phosphatase 67 U/L (46-116); Anion Gap 11.8 mmol/L (3-11); BUN 13 mg/dL (7-18); Bilirubin, Total 0.5 mg/dL (0.2-1.0); CO2 21.2 mmol/L (21.0-32.0); CREATININE 0.9 mg/dL (0.55-1.02); Chloride 104 mmol/L (98-107); Cholesterol 166 mg/dL (<200); Estimated GFR 90.42 (mL/min/1.73m2); Glucose 176 mg/dL (74-106); HDL Cholesterol 47 mg/dL (40-60); Sodium 137 mmol/L (136-145); TSH (W/Ref FT4) 1.73 uIU/mL (0.36-3.74); Total Protein 7.3 g/dL (6.4-8.2)
[2023-02-22 11:43] LABS: Triglyceride <25 mg/dL (<150)
[2023-02-22 11:54] LABS: LDL CHOLESTEROL 108 mg/dL (<100)
[2023-02-23 16:41] LABS: C-Peptide <0.1 ng/mL (1.1 - 4.4)
== END 2023-02-22 16:05 | disposition home or self-care (01) ==
LOC: LBO 16:05
PROVIDERS: PCP Nurse Practitioner Family; Visit Provider Internal Medicine Endocrinology, Diabetes & Metabolism
DX: E11.65 Type 2 diabetes mellitus with hyperglycemia (principal)
CPT/HCPCS: 36415; 80053; 80061; 83721; 83036; 84443; 84681

== ENCOUNTER 2023-05-19 09:20 | Outpatient (CLI) | payer MEDICAID, SELFPAY | END 2023-05-19 09:21 | disposition home or self-care (01) | PROVIDERS: PCP Nurse Practitioner Adult Health; Visit Provider Nurse Practitioner Adult Health | DX: R55 Syncope and collapse (principal) | CPT/HCPCS: 93246 ==

== ENCOUNTER 2023-06-24 07:49 | Outpatient (CLI) | payer MEDICAID, SELFPAY ==
--- NOTE | 2023-06-24 08:35 | W.CARDEVENT ---
Date of service: 06/24/23 Time of Service: 08:36 Cardiac Event Recorder Referring Provider:: Sonali Lange Indications:: Syncope Cardiac Event Note: This is a cardiac event monitor ordered for syncope. Patient was monitored for 13 days and 10 hours Rhythm throughout was sinus. Average heart rate was 86. Minimum was 56, maximum 153 There were very rare isolated atrial and ventricular ectopic beats There was no atrial fibrillation, no SVT, no high-grade AV block, no pauses greater than 3 seconds Patient's symptoms were reported which did not correlate to any dysrhythmia, only to sinus rhythm
== END 2023-06-24 07:50 | disposition home or self-care (01) ==
LOC: CARDOPNVT 07:49
PROVIDERS: PCP Nurse Practitioner Adult Health; Visit Provider Internal Medicine Cardiovascular Disease
DX: R55 Syncope and collapse (principal)

== ENCOUNTER → 2023-08-09 03:19 | Outpatient (CLI) | payer MEDICAID, SELFPAY ==
--- NOTE | 2023-08-09 08:30 | DI.US_ITS ---
APPROVED REPORT EXAM: Comprehensive 2D, Doppler, and color-flow Echocardiogram Patient Location: Out-Patient Template Inspector: Hamlet Grayson RDCS (AE) Indications: Interatrial aneurysm seen on [facility] echo 2019, abnl EKG, presyncope, ? abnormality still p resent Conclusion 1. Mildly dilated LA, other chambers normal sizes. 2. Normal LV function, EF 60%. Normal RV function. 3. Anatomically normal valves. Mild MR/TR. No pulmonary hypertension. 4. 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 5. No pericardial effusion. Wall motion Left Ventricle The left ventricle is normal size. The left ventricular systolic function is normal. The left ventric ular ejection fraction is within the normal range. There is normal left ventricular wall thickness. T here is normal LV segmental wall motion. There is no ventricular septal defect visualized. Right Ventricle The right ventricle is normal size. The right ventricular systolic function is normal. Atria Left atrium is mildly dilated. The right atrium size is normal. Atrial septal aneurysm is present. Aortic Valve The aortic valve is normal in structure. Aortic valve is trileaflet. There is no aortic valvular sten osis. No aortic regurgitation is present. Mitral Valve The mitral valve is normal in structure. No evidence of mitral valve stenosis. Mild mitral regurgitat ion. Tricuspid Valve The tricuspid valve is normal in structure. There is no tricuspid valve stenosis. Mild tricuspid regu rgitation. The RVSP is 19.3 mmHg. Pulmonic Valve The pulmonary valve is normal in structure. There is no pulmonic valvular stenosis. Trace to mild pul mendel regurgitation. Great Vessels The aortic root is normal in size. The ascending aorta is normal in size. Aortic arch is normal in ca liber. IVC is normal in size and collapses >50% with inspiration. Pericardium There is no pericardial effusion. 2D Dimensions IVSD d PLAX 0.61 cm F: 0.6-1.0 Ao Root d 2.36 cm F: 2.7 - 3.3 LVPW d PLAX 0.63 cm F: 0.6 - 1.0 Ao Asc Diam d 2.60 cm F: 2.3 - 3.1 LVID d PLAX 4.81 cm F: 3.8 - 5.2 LVDs 3.11 cm F: 2.2 - 3.5 LV EF Teichholz 64.7 % FS 35.36 % LV EDV (Teich) 108.1 mL LV ESV (Teich) 38.2 mL Stroke Vol Index (Teich) 33.94 M-Mode TAPSE 2.69 cm (M/F) >1.7 Auto EF LV EDV A4C 107.8 mL LV EDV A2C 119.0 mL LV EDV BP 114.0 mL LV ESV A4C 41.9 mL LV ESV A2C 43.1 mL LV ESV BP 43.5 mL LVEF(%) A4C 61.1 % LVEF(%) A2C 63.7 % LVEF(%) BP 61.9 % LV SV A4C 65.9 ml LV SV A2C 75.9 ml LV SV BP 70.5 ml LV CO A4C 4.6 L/min LV CO A2C 4.7 L/min LV CO BP 4.7 L/min HR A4C 70.18 BPM HR A2C 61.84 BPM LV EDV Index (BP) LA Volume LA Length A4C 5.4 cm LA Length A2C 4.6 cm LA Area A4C s 17.76 cm2 LA Area A2C s 12.48 cm2 LA Vol A4C A-L 49.63 mL LA Vol A2C A-L 28.85 mL LA Vol Biplane A-L 41.1 mL LA Vol/BSA A4C A-L LA Vol/BSA A2C A-L LA Vol/BSA BP A-L 19.9 mL/m2 LA Vol A4C MOD 43.4 mL LA Vol A2C MOD 27.9 mL LA Vol BP MOD 37.6 mL RA Volume RA Area A4C 9.4 cm2 RA ESV A4C (A-L) 19.3mL RA Vol/BSA A4C A-L RA Length A4C 3.8 cm RA ESV A4C (MOD) 19.0mL LV Diastology MV E' medial 0.107 (>0.07 m/s) MV E Vmax 1.04 (0.4-1.3 m/s) MV E/E' MED 9.73 (<14) MV A Vmax 0.50 (0.4-1.3 m/s) MV E' lateral 0.160 (>0.1 m/s) E/A Ratio 2.1 MV E/E' LAT 6.53 (<14) MV E' Average 0.133 m/s MV E/E'(average) 7.81 Aortic Valve AoV Vmax 1.25 m/s LVOT Vmax 1.11 m/s AoV Peak Grad 6.2 mmHg LVOT Peak Grad 4.9 mmHg AoV Area (Vmax) 2.69 cm2 LVOT VTI 0.256 m AoV VTI 0.292 m LVOT Mean Grad 2.4 mmHg AoV Mean Spike. 0.86 m/s LVOT SV 76.96 mL AoV Mean Grad 3.4 mmHg LVOT Diam s 1.95 cm AoV Area (VTI) 2.64 cm2 Velocity Ratio 0.89 Mitral Valve MV DT 199 (160-240 msec) Pulmonary Valve PV Vmax 0.93 (0.5-1.5 m/s) RVOT Vmax 0.67 m/s PV Peak Grad 3.5 mmHg RVOT Peak Gr. 1.8 mmHg PV Mean Spike 0.68 m/s RVOT VTI 0.143 m PV Mean Grad 2.1 mmHg RVOT Mean Gr. 0.9 mmHg Tricuspid Valve RA Pressure 3.00 mmHg TR Vmax 2.02 m/s TR Peak Grad 16.3 mmHg RVSP (TR) 19.3 mmHg
== END ==
PROVIDERS: PCP Nurse Practitioner Adult Health; Visit Provider Nurse Practitioner Adult Health
DX: R55 Syncope and collapse (principal); R93.1 Abnormal findings on diagnostic imaging of heart and coronary circulation
CPT/HCPCS: 93306

== ENCOUNTER 2023-08-25 10:55 | Outpatient (CLI) | payer MEDICAID, SELFPAY ==
--- NOTE | 2023-08-25 10:45 | RT.EKG_ITS ---
APPROVED REPORT Exam: Resting ECG Reason for Exam: baseline study Patient Location: O HR:68 bpm ECG Measurements Heart Rate 68 AXIS [place] 128 P 30 QRSd 89 QRS 0 QT 394 T 26 QTc 420 Conclusion Sinus rhythm...normal P axis, V-rate 50- 99 Low voltage, precordial leads...precordial leads <1.0mV I have reviewed and interpreted ECG and agree with software generated interpretation.
== END 2023-08-25 10:56 | disposition home or self-care (01) ==
LOC: DI.KIM 10:56
PROVIDERS: PCP Nurse Practitioner Adult Health; Visit Provider Nurse Practitioner Adult Health
DX: I49.49 Other premature depolarization (principal)
CPT/HCPCS: 93010

== ENCOUNTER 2023-08-25 11:16 | Outpatient (REF) | payer MEDICAID, SELFPAY ==
--- NOTE | 2023-08-25 10:45 | PAPFT_PTH ---
PATIENT: ySdnie Jeffers LOC: [facility] U#:[id number] AGE/SX: 28/F ROOM: RE08/25/[address]: Sonali Lange APRN : [id number] BED: DIS: 08/25/2023 SPEC #: [id number] RECD: 08/25/23 17:34 STATUS: YOVANI SOMMER #: [id number] JOSELITO: 08/25/23 10:[address]: Sonali Lange DEPT: [facility] Cytology RECD BY: Tasha Barrera Tissues: 1 - CX/ENDOCX FOR PAP SMEARS Procedures: PAP THIN PREP/UVM Screening Comments: [id number]
[2023-08-26 15:26] LABS: Chlamydia Result Negative (Negative); GC Result Negative (Negative)
== END 2023-08-25 11:17 | disposition home or self-care (01) ==
LOC: LBN 11:16
PROVIDERS: PCP Nurse Practitioner Adult Health; Visit Provider Nurse Practitioner Adult Health
DX: Z11.3 Encounter for screening for infections with a predominantly sexual mode of transmission (principal)
CPT/HCPCS: 87491; 87591; 88142; 87480; 87510; 87660

== ENCOUNTER 2023-11-22 08:54 | Outpatient (REF) | payer MEDICAID, SELFPAY | END 2023-11-22 08:55 | disposition home or self-care (01) | LOC: LBN 08:54 | PROVIDERS: PCP Nurse Practitioner Adult Health; Visit Provider Nurse Practitioner | DX: R30.0 Dysuria (principal); R35.0 Frequency of micturition; B96.89 Other specified bacterial agents as the cause of diseases classified elsewhere | CPT/HCPCS: 87086 ==

== ENCOUNTER → 2024-02-07 01:10 | Outpatient (CLI) | payer MEDICAID, SELFPAY ==
--- NOTE | 2024-02-07 07:15 | DI.US_ITS ---
Exam(s) US PELVIS TRANSVAGINAL EXAM: US PELVIS TRANSVAGINAL CLINICAL HISTORY: ? fibroid or other acute finding with ovary/uterus,h/o ovarian cyst,irregul. TECHNIQUE: Transabdominal and transvaginal pelvic ultrasound was performed using standard protocol. COMPARISON: US PELVIS TRANSVAG from 11/19/2015 FINDINGS: UTERUS: Position: Anteverted. Size: 10.4 long by 5.9 AP by 6.8 transverse cm Endometrium: 0.6 cm. Normal for patient's menstrual status. Myometrium: Unremarkable. No evidence of a uterine fibroid. Cervix: Unremarkable. OVARIES: The left ovary was only visualized transabdominally. Right: 2.7 x 1.9 x 2.2 cm Cyst or mass: No suspicious cystic or solid masses. Left: 2.7 x 1.6 x 2.8 cm Cyst or mass: No suspicious cystic or solid masses. DOPPLER: Color: Symmetric and uniform flow to both ovaries. CUL-DE-SAC: Free fluid: None. Other: None. IMPRESSION: 1. Normal-appearing uterus with endometrial stripe within normal limits. 2. Unremarkable bilateral ovaries. DATA REPOSITORY:
== END ==
PROVIDERS: PCP Nurse Practitioner Adult Health; Visit Provider Nurse Practitioner Adult Health
DX: Z87.42 Personal history of other diseases of the female genital tract (principal); N92.6 Irregular menstruation, unspecified
CPT/HCPCS: 76830; 76856

== ENCOUNTER 2024-02-16 16:41 | Outpatient (CLI) | payer MEDICAID, SELFPAY ==
[2024-02-16 17:19] LABS: TSH (W/Ref FT4) 0.59 uIU/mL (0.36-3.74)
[2024-02-22 21:02] LABS: 17-Hydroxyprogesterone 215 ng/dL
[2024-03-16 09:33] LABS: Testosterone, Total 35 ng/dL (8-60)
== END 2024-02-16 16:42 | disposition home or self-care (01) ==
LOC: LBO 16:41
PROVIDERS: PCP Nurse Practitioner Adult Health; Visit Provider Nurse Practitioner Women's Health
DX: N92.6 Irregular menstruation, unspecified (principal); E28.2 Polycystic ovarian syndrome
CPT/HCPCS: 36415; 83498; 84403; 84410; 82626; 84443

== ENCOUNTER 2024-02-20 10:38 | Outpatient (REF) | payer MEDICAID, SELFPAY | END 2024-02-20 10:39 | disposition home or self-care (01) | LOC: LBN 10:38 | PROVIDERS: PCP Nurse Practitioner Adult Health; Visit Provider Family Medicine | DX: R80.8 Other proteinuria (principal) | CPT/HCPCS: 87086 ==

== ENCOUNTER → 2024-02-22 19:50 | Emergency (ER) | payer MEDICAID, SELFPAY ==
[2024-02-22 19:52] VITALS: BP 137/91; PULSE 111; RESP 14; TEMP 36.3; O2SAT 98
--- NOTE | 2024-02-22 20:06 | W.ED.GENAD ---
Discharge Plan Disposition Patient Disposition: Home Condition: Improving Discharge Details Chief Complaint: FlankPain Clinical Impression: Nausea & vomiting Primary Care Provider: Sonali Lange ED Provider: Angel Workman Home Meds and New Rx's Prescriptions: No Action rosuvastatin 5 mg tablet 5 mg PO DAILY Qty: 90 3RF sumatriptan succinate [Imitrex] 25 mg tablet See Rx Instructions PO .COMPLEX Qty: 20 3RF Rx Instructions: take 1 tab at onset of headache; if no relief may repeat 1 tab after at least 2 hrs; max = 4 tabs/24 hrs ciprofloxacin HCl 250 mg tablet 250 mg PO BID 5 Days Qty: 10 0RF (DME) Ketone Urine Test Strip See Rx Instructions .ROUTE .MEDSUPPLY Qty: 25 0RF Rx Instructions: As directed albuterol sulfate [ProAir HFA] 90 mcg/actuation HFA aerosol inhaler 1 - 2 puff Inhalation Q4H PRN Qty: 1 1RF Rx Instructions: use with spacer (DME) insulin syringe-needle U-100 [Exel Insulin] 1 EACH syringe 1 ea Miscellaneous AC & HS Qty: 3 (DME) lancets [FreeStyle Lancets] 1 EACH misc 1 ea Miscellaneous Q2H Qty: 300 (DME) nebulizer and compressor [Portable Nebulizer System] 1 EACH device Miscellaneous DAILY Qty: 1 Glucagon Emergency Kit (human) 1 MG kit 1 mg IJ DAILY Qty: 2 0RF (DME) FreeStyle Test 1 EACH strip 1 ea Miscellaneous Q2H Qty: 300 3RF insulin lispro [Humalog U-100 Insulin] 100 UNIT/1 ML solution See Protocol Sub-Q AC Qty: 7 0RF Protocol: Insulin Sliding Scale-Moderate Condition: <140 Dose/Route: 0 units Condition: 140-180 Dose/Route: 2 unit (plus any scheduled dose) Condition: 181-220 Dose/Route: 4 unit (plus any scheduled dose) Condition: 221-260 Dose/Route: 6 unit (plus any scheduled dose) Condition: 261-300 Dose/Route: 8 unit (plus any scheduled dose) Instruction: (and call hospitalist about adjusting basal insulin) Condition: 301-340 Dose/Route: 10 unit (plus any scheduled dose) Instruction: (and call hospitalist about adjusting basal insulin) Condition: 341-380 Dose/Route: 12 unit (plus any scheduled dose) Instruction: (and call hospitalist about adjusting basal insulin) Condition: 381-420 Dose/Route: 14 unit (plus any scheduled dose) Instruction: (and call hospitalist about adjusting basal insulin) Condition: 421-460 Dose/Route: 16 unit (plus any scheduled dose) Instruction: (and call hospitalist about adjusting basal insulin) Condition: 461-500 Dose/Route: 18 unit (plus any scheduled dose) Instruction: (See Text) Protocol Text: If Blood Glucose over 500 contact hospitalist about an insulin infusion or adjusting sliding scale. Rx Instructions: 1 unit for every 15 grams carbohydrate and 1 unit for evry 15 points above 100 insulin glargine [Lantus Solostar U-100 Insulin] 100 unit/mL (3 mL) insulin pen 12 unit subcut HS PRN Patient Comments: Use in case of pump failure Discharge Instructions Instructions: Nausea and vomiting in adults Additional Instructions: Please return to the emergency department for any worsening symptoms. Follow-up close with your primary care physician HPI General Date/Time Provider Initiated Documentation: 02/22/24 20:01. HPI Narrative: 28-year-old female recent diagnosis of possible UTI presents with nausea vomiting and flank discomfort. Patient has an insulin pump that has been functioning properly. Denies vaginal bleeding or discharge. Related Data Home Medications ?Medication ?Instructions ?Recorded ?Confirmed insulin syringe-needle U-100 1 mL ##3 05/16/15 02/22/24 27 gauge x 1/2 (Exel Insulin) lancets 28 gauge (FreeStyle #300 ea 05/16/15 02/22/24 Lancets) blood sugar diagnostic (FreeStyle #300 strips 05/08/17 02/22/24 Test strips) insulin lispro 100 unit/mL See Protocol subcut AC ##7 05/08/17 02/22/24 subcutaneous solution (Humalog U-100 Insulin) nebulizer and compressor (Portable ##1 07/15/17 02/22/24 Nebulizer System) glucagon (human recombinant) 1 mg 1 mg IJ DAILY ##2 07/22/17 02/22/24 injection kit (Glucagon Emergency Kit (human-recomb)) insulin glargine 100 unit/mL (3 12 unit subcut HS PRN 04/23/19 02/22/24 mL) subcutaneous pen (Lantus Solostar U-100 Insulin) acetone (urine) test (Ketone Urine #25 ea 08/07/20 02/22/24 Test strips) albuterol sulfate 90 mcg/actuation 1 - 2 puff inhalation Q4H PRN ##1 05/12/23 02/22/24 aerosol inhaler (ProAir HFA) rosuvastatin 5 mg tablet 5 mg PO DAILY #90 tabs 02/01/24 02/22/24 sumatriptan succinate 25 mg tablet See Rx Instructions PO .COMPLEX 02/01/24 02/22/24 (Imitrex) #20 tabs ciprofloxacin HCl 250 mg tablet 250 mg PO BID 5 days #10 tabs 02/20/24 02/22/24 Previous Rx's ?Medication ?Instructions ?Recorded blood sugar diagnostic (FreeStyle #300 strips 05/08/17 Test strips) insulin lispro 100 unit/mL See Protocol subcut AC ##7 05/08/17 subcutaneous solution (Humalog U-100 Insulin) glucagon (human recombinant) 1 mg 1 mg IJ DAILY ##2 07/22/17 injection kit (Glucagon Emergency Kit (human-recomb)) acetone (urine) test (Ketone Urine #25 ea 08/07/20 Test strips) albuterol sulfate 90 mcg/actuation 1 - 2 puff inhalation Q4H PRN ##1 05/12/23 aerosol inhaler (ProAir HFA) rosuvastatin 5 mg tablet 5 mg PO DAILY #90 tabs 02/01/24 sumatriptan succinate 25 mg tablet See Rx Instructions PO .COMPLEX 02/01/24 (Imitrex) #20 tabs ciprofloxacin HCl 250 mg tablet 250 mg PO BID 5 days #10 tabs 02/20/24 Allergies Allergy/AdvReac Type Severity Reaction Status Date / Time fluticasone (From Flovent Allergy Severe Anaphylaxsi Verified 02/22/24 19:55 Diskus) s insulin detemir (From Allergy Severe Hives Verified 02/22/24 19:55 Levemir U-100 Insulin) General Stated Complaint: FlankPain VALENTINA: 3 Exam Narrative Exam Narrative: Alert oriented interactive Tachycardic slightly dry oral mucosa No CVA tenderness Neuro extremities alert oriented nonfocal No resp distress nontachypneic speaking full sentences Course Vital Signs Vital signs: Vital Signs Temperature 36.3 C L 02/22/24 19:52 Pulse 111 H 02/22/24 19:52 Respiratory Rate 14 02/22/24 19:52 Blood Pressure 137/91 H 02/22/24 19:52 Pulse Oximetry 98 02/22/24 19:52 Temperature 36.3 C L 02/22/24 19:52 Temperature Source Skin 02/22/24 19:52 Pulse 111 H 02/22/24 19:52 Respiratory Rate 14 02/22/24 19:52 Respiratory Effort Normal, Non-Labored 02/22/24 19:55 Blood Pressure 137/91 H 02/22/24 19:52 Pulse Oximetry 98 02/22/24 19:52 Oxygen Delivery Method Room Air 02/22/24 19:52 Oxygen Flow Rate 0 02/22/24 19:52 Pain Level 4 02/22/24 19:52 Lab/Test Results Lab/Test Results: POC Urine Test Start: 02/22/24 20:04 Freq: Status: Complete Protocol: Document 02/22/24 20:05 YOKO (Rec: 02/22/24 20:05 [id number]) Test(Urine)-POC POC- Test(urine) Negative POC- Test(urine) Negative Medical Decision Making 28-year-old type I diabetic presents with bilateral flank pain nausea vomiting dehydration, has been started on ciprofloxacin for presumptive UTI, not feeling any better, noted to be tachycardic on arrival dry oral mucosa, 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 Considered dehydration in the setting of viral illness versus UTI versus early DKA low suspicion for cholecystitis or appendicitis muscles consider early pyelonephritis. Screening labs VBG urinalysis fluids antiemetics close reassessment 22: 42 resting ultimately feeling much better. No evidence of DKA. Trace leuk esterase patient is already on antibiotics for UTI. Abdomen soft nontender nondistended. Mild elevation of transaminase and alk phos no tenderness in right upper quadrant or epigastrium. Patient would like to go home we will provide Zofran to go tablets. Strict return precautions given for any worsening symptoms Quality:SDOH Health Related Social Needs: No Data to Display PFSH All Active Problems (Updated 02/22/24 @ 22:43 by Angel Workman MD) Nausea & vomiting (Acute) PCOS (polycystic ovarian syndrome) (Acute) Postural dizziness with presyncope (Acute) [facility] [place] Cardiology 11/09/23 Recurrent otitis media (Acute) History of nicotine use (Chronic) Quit 12/29/2019 Atrial septal aneurysm (Chronic ~2019) 2019 ECHO [facility] [place]; repeat ECHO [facility] 2022 Obesity (Chronic) 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 12/26/10) Intractable migraine with aura without status migrainosus (Acute) 08/21/20 [facility] [place] 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) Type 1 diabetes mellitus (Chronic ~1996) Dx 2 y/o; [facility] [place] Endocrinology Allergic rhinitis, unspecified (Chronic) Mild intermittent asthma without complication (Chronic) Medical History Otitis externa Acute ear infection Tobacco use disorder Quit 2019 Frequent UTI (03/01/18) Depression (06/03/15) was on zoloft 25 mg & Prozac in the past but these meds increased SI per pt Anxiety (06/17/16) 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) Intrauterine (~12/2019) Praveena Rubi IUFD at 20 weeks or more of gestation (01/05/20) [facility] [place] Pilonidal cyst with abscess (06/03/15) Gastroesophageal reflux disease (06/03/15) Right ovarian cyst (07/04/15) 06/2015 US: 4.1 cm hemorrhagic R ovarian cyst --> follow-up US recommended; 11/19/2015 US: WNL Low back pain Diabetic ketoacidosis associated with type 1 diabetes mellitus (~07/2020) [facility] hospitalization 07/2020 Asthma History of pneumonia Scoliosis Surgical History Hx of tympanostomy tubes H/O tubal ligation (~2019) Hx of nephrostomy (~12/2019) tube placement, right [facility] [place] Tonsillectomy and adenoidectomy (~2007) Family History Grandfather Diabetes Grandmother , Post-menopausal age 74yo Diabetes Breast cancer from metastatic breast cancer Maternal Cousin Mental disorder Bipolar disorder Sister Mental disorder Bipolar disorder, multiple personality disorder Brother DVT (deep venous thrombosis) multiple Brother Claudication Mother Diabetes Heart disease [place] 2021 Social History Smoking/Tobacco Use Status: Former Tobacco Use tobacco type: cigarettes Quit Date: 12/29/19 Tobacco: How many years used: 5 Quit status: has quit before Smoking risk assessment performed?: Yes Alcohol Intake: current Alcohol Intake frequency: holidays/special occasions only Drug use: Never Substance use type: does not use Adopted: No Caregiver/Support person: No Foster care: No Household members: spouse, children and other Number of Children: 2 Communication Needs: None Education Level: high school Do you need help understanding health information?: Rarely 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: taking [employer] classes Pets and animals: Yes Pets and animals: cat(s) and dog(s) Sexually active: Yes Do you think of yourself as: straight/heterosexual Current gender identity: female What is your relationship status?: How often do you talk on the phone with friends or family?: three or more times per week How often do you get together with friends or relatives?: twice per week Do you belong to any clubs or organized social groups?: no Panel score (0-1 are the most socially isolated patients): 2 What type of physical activity do you participate in: walking Duration: 30-45 minutes/day Frequency: 3-4 times per week Seatbelt use: always Do you feel safe at home: Yes Do you feel safe in your relationship?: Yes Female Reproductive History Menstrual control method: permanent sterilization History History 3 Para 2 Hx # Term Pregnancies Multiple births Hx # Pregnancies Ectopic pregnancies AB induced Hx Number of Living Children 2 AB spontaneous 1
[2024-02-22 20:11] LABS: Bilirubin Small (Negative); Blood Negative (Negative); Clarity Clear (Clear); Glucose Negative (Negative); Ketones 15 mg/dL (Negative); Leukocyte Esterase Trace (Negative); Nitrite Negative (Negative); Specific Gravity >= 1.030 (1.005-1.025); pH 5.5 (5-8)
[2024-02-22 20:24] LABS: Bacteria Few HPF (Negative); C & S Indicated? No/Sq. Contamination; Casts Negative LPF (Negative); Crystals Negative HPF (Negative); Epithelial Cells Many HPF (Negative); Mucus Trace (Negative); RBC Negative HPF (0-2)
[2024-02-22 20:54] LABS: BE (Venous) 0 mmol/L (-2-3); HCO3 (Venous) 25 mmol/L (23-28); O2 Sat (Venous) 67 %; TCO2 (Venous) 23 mmol/L (24-29); pCO2 (Venous) 42 mmHg (41-51); pH (Venous) 7.38 (7.31-7.41); pO2 (Venous) 36 mmHg
[2024-02-22 20:55] LABS: Abs Immature Grans 0.02 10^3/uL (0.0-0.06); HCT 34.5 % (36.0-46.0); HGB 11.5 g/dL (11.2-15.7); MCH 30.3 pg (27.0-33.0); MCHC 33.3 % (32.0-36.0); MCV 91 fL (80-95); MPV 9.2 fL (8.0-11.0); Platelet Count 241 10^3/uL (130-400); RDW 13.3 % (11.7-14.6); RDW-SD 43.6 fL; WBC 5.82 10^3/uL (4.4-10.8)
[2024-02-22 20:59] LABS: COVID-19 PCR Negative (Negative); Influenza A PCR Negative (Negative); Influenza B PCR Negative (Negative); RSV PCR Negative (Negative)
[2024-02-22 21:00] LABS: Source NASOPHARYNX
[2024-02-22] MEDS: Normal Saline 1,000 ML 1000 ML IV (21:03)
[2024-02-22] MEDS: Ondansetron 4 MG/2 ML VIAL IVP (21:04)
[2024-02-22 21:16] LABS: ALT 138 U/L (14-59); AST 93 U/L (15-37); Albumin 3.4 g/dL (3.4-5.0); Alkaline Phosphatase 127 U/L (46-116); Anion Gap 10.3 mmol/L (3-11); BUN 20 mg/dL (7-18); Bilirubin, Total 0.97 mg/dL (0.2-1.0); CO2 24.7 mmol/L (21.0-32.0); CREATININE 1.2 mg/dL (0.55-1.02); Calcium 9.1 mg/dL (8.5-10.1); Chloride 102 mmol/L (98-107); Estimated GFR 63.63 (mL/min/1.73m2); Glucose 145 mg/dL (74-106); Lipase 21 U/L (16-77); Potassium 4.1 mmol/L (3.5-5.1); Sodium 137 mmol/L (136-145); Total Protein 6.7 g/dL (6.4-8.2)
[2024-02-22 21:18] LABS: Absolute Eosinophil Count 0.06 10^3/uL (0.0-0.7); Absolute Lymphocyte Count 3.32 10^3/uL (1.2-3.4); Absolute Monocyte Count 0.47 10^3/uL (0.1-0.8); Absolute Neutrophil Count 1.98 10^3/uL (1.2-6.7); Atypical Lymphocytes % 3 %; Diff Comment Manual Differential; RBC Morphology Normal
[2024-02-22 21:49] VITALS: BP 89/67; PULSE 81; RESP 18; TEMP 36.7; O2SAT 98
--- NOTE | 2024-02-22 21:51 | NUR.NOTE ---
Nursing Note: Pt states she is feeling less nauseated.
[2024-02-22] MEDS: Ondansetron O.D.T. 4 MG TABEF, 3 TABS/BTL PO (22:59)
[2024-02-22 23:01] VITALS: BP 114/64; PULSE 83; RESP 18; TEMP 37.4; O2SAT 99
[2024-03-01 14:11] LABS: Dehydroepiandrosterone (DHEA) 1.6 ng/mL (<13)
== END | disposition home or self-care (01) ==
LOC: ER 22:43 → RED 23:05
PROVIDERS: Nurse Practitioner Women's Health; Emergency Provider Emergency Medicine; PCP Nurse Practitioner Adult Health
DX: E28.2 Polycystic ovarian syndrome; R10.31 Right lower quadrant pain; R10.32 Left lower quadrant pain; R11.2 Nausea with vomiting, unspecified
CPT/HCPCS: 80053; 81025; 82805; 83690; 87637; 96361; 96374; 99284; 81003; 81015; 82626; 85025; 99283; J2405

== ENCOUNTER 2024-02-29 11:11 | Observation (INO) | payer MEDICAID, SELFPAY ==
[2024-02-29] VITALS (17 sets, daily range): BP systolic 99–125; BP diastolic 48–78; PULSE 61–90; RESP 14–17; TEMP 36.2–36.6; O2SAT 96–100
--- NOTE | 2024-02-29 12:45 | W.ED.GENAD ---
Discharge Plan Disposition Patient Disposition: Admit to [facility] Condition: Stable Discharge Details Clinical Impression: Acute hepatitis Primary Care Provider: Sonali Lange ED Provider: Karel Gonzalez Home Meds and New Rx's Prescriptions: No Action rosuvastatin 5 mg tablet 5 mg PO DAILY Qty: 90 3RF sumatriptan succinate [Imitrex] 25 mg tablet See Rx Instructions PO .COMPLEX Qty: 20 3RF Rx Instructions: take 1 tab at onset of headache; if no relief may repeat 1 tab after at least 2 hrs; max = 4 tabs/24 hrs (DME) Ketone Urine Test Strip See Rx Instructions .ROUTE .MEDSUPPLY Qty: 25 0RF Rx Instructions: As directed albuterol sulfate [ProAir HFA] 90 mcg/actuation HFA aerosol inhaler 1 - 2 puff Inhalation Q4H PRN Qty: 1 1RF Rx Instructions: use with spacer (DME) insulin syringe-needle U-100 [Exel Insulin] 1 EACH syringe 1 ea Miscellaneous AC & HS Qty: 3 (DME) lancets [FreeStyle Lancets] 1 EACH misc 1 ea Miscellaneous Q2H Qty: 300 (DME) nebulizer and compressor [Portable Nebulizer System] 1 EACH device Miscellaneous DAILY Qty: 1 Glucagon Emergency Kit (human) 1 MG kit 1 mg IJ DAILY Qty: 2 0RF (DME) FreeStyle Test 1 EACH strip 1 ea Miscellaneous Q2H Qty: 300 3RF insulin lispro [Humalog U-100 Insulin] 100 UNIT/1 ML solution See Protocol Sub-Q AC Qty: 7 0RF Protocol: Insulin Sliding Scale-Moderate Condition: <140 Dose/Route: 0 units Condition: 140-180 Dose/Route: 2 unit (plus any scheduled dose) Condition: 181-220 Dose/Route: 4 unit (plus any scheduled dose) Condition: 221-260 Dose/Route: 6 unit (plus any scheduled dose) Condition: 261-300 Dose/Route: 8 unit (plus any scheduled dose) Instruction: (and call hospitalist about adjusting basal insulin) Condition: 301-340 Dose/Route: 10 unit (plus any scheduled dose) Instruction: (and call hospitalist about adjusting basal insulin) Condition: 341-380 Dose/Route: 12 unit (plus any scheduled dose) Instruction: (and call hospitalist about adjusting basal insulin) Condition: 381-420 Dose/Route: 14 unit (plus any scheduled dose) Instruction: (and call hospitalist about adjusting basal insulin) Condition: 421-460 Dose/Route: 16 unit (plus any scheduled dose) Instruction: (and call hospitalist about adjusting basal insulin) Condition: 461-500 Dose/Route: 18 unit (plus any scheduled dose) Instruction: (See Text) Protocol Text: If Blood Glucose over 500 contact hospitalist about an insulin infusion or adjusting sliding scale. Rx Instructions: 1 unit for every 15 grams carbohydrate and 1 unit for evry 15 points above 100 insulin glargine [Lantus Solostar U-100 Insulin] 100 unit/mL (3 mL) insulin pen 12 unit subcut HS PRN Patient Comments: Use in case of pump failure HPI General Date/Time Provider Initiated Documentation: 02/29/24 11:12. HPI Narrative: 28 year-old female presents to ED today by POV/ambulating with a chief complaint of generalized illness, feels sick, with some gastrointestinal symptoms with onset ongoing for 2.5 weeks. Patient was seen at PCP office, noted mild increase in liver enzymes and some urobilirubinogen. Quality described as generalized illness, no radiation to intractable nausea/vomiting, black/bloody diarrhea, severe focal abdominal pain, high fevers, night sweats, dizziness, skin changes. Severity is described as moderate. Palliating factors include nothing specific. Provoking factors include nothing specific. Events leading up to the incident/Associated Symptoms: Patient does not equate eating anything at onset that would cause foodborne illness. Patient not anticoagulated. Related Data Home Medications ?Medication ?Instructions ?Recorded ?Confirmed insulin syringe-needle U-100 1 mL ##3 05/16/15 02/29/24 27 gauge x 1/2 (Exel Insulin) lancets 28 gauge (FreeStyle #300 ea 05/16/15 02/29/24 Lancets) blood sugar diagnostic (FreeStyle #300 strips 05/08/17 02/29/24 Test strips) insulin lispro 100 unit/mL See Protocol subcut AC ##7 05/08/17 02/29/24 subcutaneous solution (Humalog U-100 Insulin) nebulizer and compressor (Portable ##1 07/15/17 02/29/24 Nebulizer System) glucagon (human recombinant) 1 mg 1 mg IJ DAILY ##2 07/22/17 02/29/24 injection kit (Glucagon Emergency Kit (human-recomb)) insulin glargine 100 unit/mL (3 12 unit subcut HS PRN 04/23/19 02/29/24 mL) subcutaneous pen (Lantus Solostar U-100 Insulin) acetone (urine) test (Ketone Urine #25 ea 08/07/20 02/29/24 Test strips) albuterol sulfate 90 mcg/actuation 1 - 2 puff inhalation Q4H PRN ##1 05/12/23 02/29/24 aerosol inhaler (ProAir HFA) rosuvastatin 5 mg tablet 5 mg PO DAILY #90 tabs 02/01/24 02/29/24 sumatriptan succinate 25 mg tablet See Rx Instructions PO .COMPLEX 02/01/24 02/29/24 (Imitrex) #20 tabs Previous Rx's ?Medication ?Instructions ?Recorded blood sugar diagnostic (FreeStyle #300 strips 05/08/17 Test strips) insulin lispro 100 unit/mL See Protocol subcut AC ##7 05/08/17 subcutaneous solution (Humalog U-100 Insulin) glucagon (human recombinant) 1 mg 1 mg IJ DAILY ##2 07/22/17 injection kit (Glucagon Emergency Kit (human-recomb)) acetone (urine) test (Ketone Urine #25 ea 08/07/20 Test strips) albuterol sulfate 90 mcg/actuation 1 - 2 puff inhalation Q4H PRN ##1 05/12/23 aerosol inhaler (ProAir HFA) rosuvastatin 5 mg tablet 5 mg PO DAILY #90 tabs 02/01/24 sumatriptan succinate 25 mg tablet See Rx Instructions PO .COMPLEX 02/01/24 (Imitrex) #20 tabs Allergies Allergy/AdvReac Type Severity Reaction Status Date / Time fluticasone (From Flovent Allergy Severe Anaphylaxsi Verified 02/29/24 11:16 Diskus) s insulin detemir (From Allergy Severe Hives Verified 02/29/24 11:16 Levemir U-100 Insulin) General Stated Complaint: Abd Prob VALENTINA: 3 Review of Systems All systems reviewed & are unremarkable except as noted in HPI and below Exam Narrative Exam Narrative: GENERAL APPEARANCE: Well-nourished, non-toxic, awake and alert, atraumatic, no acute distress. SKIN: Warm, pink, dry, intact, without rashes/lesions/ulcerations. No jaundice. HEAD: Normocephalic, atraumatic, normal hair distribution for gender/age. EYES: Normal conjunctiva, no exudates on lids/lashes. ENT: Nares patent, no circumoral cyanosis, no facial swelling NECK: Supple, trachea midline, painless cervical ROM. LUNGS/CHEST: Lungs CTA bilaterally-no rhonchi/rales/wheezes diffusely, non-labored respirations, normal A/P diameter, symmetrical expansion, no chest wall deformity HEART (CV/PV): Regular rate and rhythm without murmur, no peripheral edema, no JVD. ABDOMEN: Soft, non-distended, no guarding, left upper quadrant tenderness, right CVA tenderness to percussion, no Simpson sign or other peritoneal signs. MSK: Normal ROM, no swelling/deformity to bilateral UEs or LEs, moving all extremities without weakness, no cyanosis, spine midline without tenderness, normal curvature. NEURO: Mental Status AAOx4 - alert to person, place, time, events No facial droop, no forehead involvement. Motor: No focal weakness - strength 5/5 in bilateral UEs and LEs, proximal and distal, symmetric. Sensory: sensation intact to light touch globally. Gait normal: patient ambulated without ataxia into ED room. PSYCH: euthymic, cooperative, pleasant, appropriate speech Course Vital Signs Vital signs: Vital Signs Temperature 36.6 C 02/29/24 11:13 Pulse 90 02/29/24 11:13 Respiratory Rate 14 02/29/24 11:13 Blood Pressure 99/78 L 02/29/24 11:13 Pulse Oximetry 99 02/29/24 11:13 Temperature 36.6 C 02/29/24 11:13 Pulse 90 02/29/24 11:13 Respiratory Rate 14 02/29/24 11:13 Blood Pressure 99/78 L 02/29/24 11:13 Blood Pressure Position Sitting 02/29/24 11:13 Pulse Oximetry 99 02/29/24 11:13 Oxygen Delivery Method Room Air 02/29/24 11:13 Oxygen Flow Rate 0 02/29/24 11:13 Pain Level 6 02/29/24 11:13 Lab/Test Results Lab/Test Results: POC- Test(urine) Negative Medical Decision Making This dictation utilizes [id number] dictation software and may contain unedited grammatical errors. 28 year-old female presents to ED today by POV/ambulating with a chief complaint of generalized illness, feels sick, with some gastrointestinal symptoms with onset ongoing for 2.5 weeks. Patient was seen at PCP office, noted mild increase in liver enzymes and some urobilirubinogen. Quality described as generalized illness, no radiation to intractable nausea/vomiting, black/bloody diarrhea, severe focal abdominal pain, high fevers, night sweats, dizziness, skin changes. Severity is described as moderate. Palliating factors include nothing specific. Provoking factors include nothing specific. Events leading up to the incident/Associated Symptoms: Patient does not equate eating anything at onset that would cause foodborne illness. Patients' medical history: Frequent UTIs, GERD, PCOS diagnosis, T1DM, atrial septal aneurysm, obesity, asthma. Family and social history: Noncontributory, does not exercise. Pertinent exam findings / vital signs include left upper quadrant tenderness, right CVA tenderness to percussion, no Simpson sign or Rovsing's, benign cardiopulmonary status, nontoxic and afebrile. Differential / pathologies of concern include [ ]. Diagnostic studies of: -CBC, BMP, VBG, LFT, lactate, procalcitonin, lipase, CK, Moody Screen, PT/INR, Acute Hepatitis Panel, magnesium, Blood Cx's, CT ABD/Pelvis w Contrast -CBC shows no leukocytosis, no anemia, and and no abnormalities on blood smear, does show high lymphocyte count -VBG is benign, do not suspect DKA -BMP is benign, nonfasting glucose 156 -LFTs are trending upward with 1.39 bilirubin and 0.8 conjugated bilirubin, AST is increased from 93 to 245 days ago, ALT 1 38-3 82, alk phos stable around 150-refluxing to acute hepatitis panel & Tylenol level -CRP mildly elevated, ESR within normal limits -Lactate and procalcitonin negative-do not suspect sepsis -UA shows significant amounts of proteinuria as well as bilirubin greater than 8 or urobilinogen -CK negative -CT results relayed to me by Dr. Lopez, he notes a large spleen but no renal abnormalities, questions of mono which I added to the lab workup -Acute Hepatitis panel pending -Moody spot negative Interventions of: -1 L IV fluids, acetaminophen, ketorolac, Zofran. ED Course/Assessment/Plan: Patient presents with 2.5 weeks of worsening possible GI illness with some left upper quadrant tenderness and right flank tenderness, dark-colored urine, has trending upward LFTs, some splenomegaly and tenderness on exam, question mono from an enlarged spleen on CT versus acute hepatitis of viral etiology, consulted with hospitalist Dr. Whitlock who added on PT/INR, considering for admission versus close follow-up on outpatient for ultrasound of the liver versus repeat labs and admission for trending. Admitted at 1630. Findings not consistent with fulminant liver failure, sepsis, DKA, biliary obstructive pathology, renal obstructive pathology or UTI/infected kidney stone. Disposition of Acute Hepatitis. Patient verbalized understanding of the plan and return to ED criteria and engaged in shared decision making. Medical Records Medical records reviewed: Yes I reviewed the patient's medical records. Imaging Data Radiologic Study: Attestation: I personally reviewed and interpreted this imaging study as follows: Imaging: CT Scan Radiologist's impression: EXAM: CT ABDOMEN PELVIS W CLINICAL HISTORY: RUQ ttp, R flank pain. TECHNIQUE: Imaging Protocol: Axial computed tomography images with coronal and sagittal reformatted images were created and reviewed CONTRAST MATERIAL: Intravenous: Omnipaque-350 100cc Oral: None COMPARISON: CT CT ABDOMEN PELVIS W from 11/14/2021 FINDINGS: VISUALIZED LUNG BASES: No nodules nor pleural effusions evident. ABDOMEN: There is no ascites. LIVER: There are no focal hepatic lesions evident. No dilated intrahepatic ducts. GALLBLADDER/BILIARY: No obvious gallbladder pathology. CBD is not dilated. PANCREAS: No evidence of pancreatic mass nor dilatation of the pancreatic duct. SPLEEN: There is mild splenomegaly now evident. Craniocaudal measurement the spleen is 14.5 cm. There are no intrasplenic lesions nor perisplenic fluid. The diameter of the splenic vein is 1 cm which is similar to October 2021. There is no thrombosis of the splenic and portal veins. ADRENALS: There are no significant adrenal masses. KIDNEYS:No cysts evident. No solid renal masses. No calculi nor hydronephrosis.. ABDOMINAL AORTA: Abdominal aorta is not enlarged. LYMPH NODES:There is no retroperitoneal nor paraaortic adenopathy. ABDOMINAL WALL: No evidence of significant anterior abdominal wall nor inguinal hernia. GI: There is no evidence of bowel obstruction, free air, nor abscess. PELVIS: GI: No evidence of appendicitis.No evidence of sigmoid diverticulitis. LYMPH NODES: There is no intrapelvic nor inguinal adenopathy. REPRODUCTIVE: Uterus and ovaries appear age-appropriate and without significant change. No free fluid in the pelvis. URINARY BLADDER: No calculi nor obvious masses evident OSSEOUS: No fractures and no significant osseous lesions. Sacroiliac joints appear unremarkable.x IMPRESSION: 1. There is mild splenomegaly. Craniocaudal measurement of the spleen is 14.5 cm. No splenic lesions nor perisplenic fluid nor thrombosis of the splenic and portal veins. 2. No significant lymphadenopathy in the abdomen and pelvis and no ascites evident. Lab Data Lab results reviewed: Yes I reviewed the patient's lab results. Labs: 02/29/24 14:25 Blood Blood Culture - Pending 02/29/24 13:46 Blood Blood Culture - Pending Laboratory Tests Range/Units 02/29/24 02/29/24 02/29/24 11:23 13:46 13:46 WBC (4.4-10.8) 10^3/uL 7.25 RBC (3.93-5.22) 10^6/uL 4.24 Hgb (11.2-15.7) g/dL 13.0 Hct (36.0-46.0) % 39.1 MCV (80-95) fL 92 MCH (27.0-33.0) pg 30.7 MCHC (32.0-36.0) % 33.2 RDW (11.7-14.6) % 14.4 Plt Count (130-400) 10^3/uL 319 MPV (8.0-11.0) fL 9.0 Immature Gran % % 0.0 Neutrophils % % 43.0 Band Neutrophils % % 0 Lymphocytes % % 28.0 Atypical Lymphs % % 21 Monocytes % % 6.0 Eosinophils % % 2.0 Basophils % % 0.0 Metamyelocytes % 0 Myelocytes % 0 Promyelocytes % 0 Other Cells % 0 Nucleated RBC % (0.0-0.3) % 0.0 Absolute Neutrophils (1.2-6.7) 10^3/uL 3.12 Absolute Lymphocytes (1.2-3.4) 10^3/uL 3.55 H Absolute Monocytes (0.1-0.8) 10^3/uL 0.44 Absolute Eosinophils (0.0-0.7) 10^3/uL 0.15 Absolute Basophils (0.0-0.2) 10^3/uL 0.00 RBC Morphology Normal VBG pH (7.31-7.41) 7.39 VBG pCO2 (41-51) mmHg 41 VBG pO2 mmHg 33 VBG HCO3 (23-28) mmol/L 25 VBG Total CO2 (24-29) mmol/L 26 VBG O2 Saturation % 63 VBG Base Excess (-2-3) mmol/L 0 VBG Lactate (0.9-1.7) mmol/L 0.9 Cancelled Sodium (136-145) mmol/L 140 Potassium (3.5-5.1) mmol/L 4.2 Chloride (98-107) mmol/L 106 Carbon Dioxide (21.0-32.0) mmol/L 23.6 Anion Gap (3-11) mmol/L 10.4 BUN (7-18) mg/dL 12 Creatinine (0.55-1.02) mg/dL 0.8 Est GFR (CKD-EPI 2020) (mL/min/1.73m2) 103.50 Glucose (74-106) mg/dL 156 H Calcium (8.5-10.1) mg/dL 9.0 Magnesium (1.8-2.4) mg/dL 1.9 Total Bilirubin (0.2-1.0) mg/dL 1.39 H Conjugated Bilirubin (0.0-0.2) mg/dL 0.8 H AST (15-37) U/L 245 H ALT (14-59) U/L 382 H Alkaline Phosphatase (46-116) U/L 153 H Creatine Kinase (26-192) U/L 46 C-Reactive Protein (<or=0.5) mg/dL Total Protein (6.4-8.2) g/dL Albumin (3.4-5.0) g/dL Lipase (16-77) U/L Procalcitonin ng/mL Urine Color (Yellow) Graciela Urine Clarity (Clear) Clear Urine pH (5-8) 6.0 Ur Specific Tererro (1.005-1.025) 1.025 Urine Protein (Neg-Trace) mg/dL 30 H Urine Ketones (Negative) mg/dL 15 H Urine Blood (Negative) Negative Urine Nitrite (Negative) Negative Urine Bilirubin (Negative) Moderate H Urine Urobilinogen (Up to 0.2) mg/dL >=8.0 H Ur Leukocyte Esterase (Negative) Negative Urine RBC (0-2) HPF 0-2 Urine WBC (0-5) HPF 0-2 Ur Epithelial Cells (Negative) HPF Moderate Urine Crystals (Negative) HPF Negative Urine Bacteria (Negative) HPF Negative Urine Casts (Negative) LPF 0-2 Hyaline Urine Mucus (Negative) Moderate Urine Other (Negative) Rare Renal Ur Culture Indicated? No Urine Glucose (Negative) mg/dL 100 H Range/Units 02/29/24 13:46 WBC (4.4-10.8) 10^3/uL RBC (3.93-5.22) 10^6/uL Hgb (11.2-15.7) g/dL Hct (36.0-46.0) % MCV (80-95) fL MCH (27.0-33.0) pg MCHC (32.0-36.0) % RDW (11.7-14.6) % Plt Count (130-400) 10^3/uL MPV (8.0-11.0) fL Immature Gran % % Neutrophils % % Band Neutrophils % % Lymphocytes % % Atypical Lymphs % % Monocytes % % Eosinophils % % Basophils % % Metamyelocytes % Myelocytes % Promyelocytes % Other Cells % Nucleated RBC % (0.0-0.3) % Absolute Neutrophils (1.2-6.7) 10^3/uL Absolute Lymphocytes (1.2-3.4) 10^3/uL Absolute Monocytes (0.1-0.8) 10^3/uL Absolute Eosinophils (0.0-0.7) 10^3/uL Absolute Basophils (0.0-0.2) 10^3/uL RBC Morphology VBG pH (7.31-7.41) VBG pCO2 (41-51) mmHg VBG pO2 mmHg VBG HCO3 (23-28) mmol/L VBG Total CO2 (24-29) mmol/L VBG O2 Saturation % VBG Base Excess (-2-3) mmol/L VBG Lactate (0.9-1.7) mmol/L Sodium (136-145) mmol/L Potassium (3.5-5.1) mmol/L Chloride (98-107) mmol/L Carbon Dioxide (21.0-32.0) mmol/L Anion Gap (3-11) mmol/L BUN (7-18) mg/dL Creatinine (0.55-1.02) mg/dL Est GFR (CKD-EPI 2020) (mL/min/1.73m2) Glucose (74-106) mg/dL Calcium (8.5-10.1) mg/dL Magnesium (1.8-2.4) mg/dL Total Bilirubin (0.2-1.0) mg/dL Conjugated Bilirubin (0.0-0.2) mg/dL AST (15-37) U/L ALT (14-59) U/L Alkaline Phosphatase (46-116) U/L Creatine Kinase (26-192) U/L Cancelled C-Reactive Protein (<or=0.5) mg/dL 1.16 H Total Protein (6.4-8.2) g/dL 7.1 Albumin (3.4-5.0) g/dL 3.4 Lipase (16-77) U/L 28 Procalcitonin ng/mL < 0.1 Urine Color (Yellow) Urine Clarity (Clear) Urine pH (5-8) Ur Specific Tererro (1.005-1.025) Urine Protein (Neg-Trace) mg/dL Urine Ketones (Negative) mg/dL Urine Blood (Negative) Urine Nitrite (Negative) Urine Bilirubin (Negative) Urine Urobilinogen (Up to 0.2) mg/dL Ur Leukocyte Esterase (Negative) Urine RBC (0-2) HPF Urine WBC (0-5) HPF Ur Epithelial Cells (Negative) HPF Urine Crystals (Negative) HPF Urine Bacteria (Negative) HPF Urine Casts (Negative) LPF Urine Mucus (Negative) Urine Other (Negative) Ur Culture Indicated? Urine Glucose (Negative) mg/dL Quality:SDOH Health Related Social Needs: No Data to Display PFSH All Active Problems (Updated 02/29/24 @ 15:34 by FABRIZIO Portillo) Acute hepatitis (Acute) Nausea & vomiting (Acute) PCOS (polycystic ovarian syndrome) (Acute) Postural dizziness with presyncope (Acute) [facility] [place] Cardiology 11/09/23 Recurrent otitis media (Acute) History of nicotine use (Chronic) Quit 12/29/2019 Atrial septal aneurysm (Chronic ~2019) 2019 ECHO [facility] [place]; repeat ECHO [facility] 2022 Obesity (Chronic) 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 12/26/10) Intractable migraine with aura without status migrainosus (Acute) 08/21/20 [facility] [place] Neurology 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) Type 1 diabetes mellitus (Chronic ~1996) Dx 2 y/o; [facility] [place] Allergic rhinitis, unspecified (Chronic) Mild intermittent asthma without complication (Chronic) Medical History Otitis externa Acute ear infection Tobacco use disorder Quit 2019 Frequent UTI (03/01/18) Depression (06/03/15) was on zoloft 25 mg & Prozac in the past but these meds increased SI per pt Anxiety (06/17/16) 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) Intrauterine (~12/2019) Praveena Rubi IUFD at 20 weeks or more of gestation (01/05/20) [facility] [place] Pilonidal cyst with abscess (06/03/15) Gastroesophageal reflux disease (06/03/15) Right ovarian cyst (07/04/15) 06/2015 US: 4.1 cm hemorrhagic R ovarian cyst --> follow-up US recommended; 11/19/2015 US: WNL Low back pain Diabetic ketoacidosis associated with type 1 diabetes mellitus (~07/2020) [facility] hospitalization 07/2020 Asthma History of pneumonia Scoliosis Surgical History Hx of tympanostomy tubes H/O tubal ligation (~2019) Hx of nephrostomy (~12/2019) tube placement, right [facility] [place] Tonsillectomy and adenoidectomy (~2007) Family History Grandfather Diabetes Grandmother , Post-menopausal age 74yo Diabetes Breast cancer from metastatic breast cancer Maternal Cousin Mental disorder Bipolar disorder Sister Mental disorder Bipolar disorder, multiple personality disorder Brother DVT (deep venous thrombosis) multiple Brother Claudication Mother Diabetes Heart disease [place] 2021 Social History Smoking/Tobacco Use Status: Former Tobacco Use tobacco type: cigarettes Quit Date: 12/29/19 Tobacco: How many years used: 5 Quit status: has quit before Smoking risk assessment performed?: Yes Alcohol Intake: current Alcohol Intake frequency: holidays/special occasions only Drug use: Never Substance use type: does not use Adopted: No Caregiver/Support person: No Foster care: No Household members: spouse, children and other Number of Children: 2 Communication Needs: None Education Level: high school Do you need help understanding health information?: Rarely 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 Pets and animals: Yes Pets and animals: cat(s) and dog(s) Sexually active: Yes Do you think of yourself as: straight/heterosexual Current gender identity: female What is your relationship status?: How often do you talk on the phone with friends or family?: three or more times per week How often do you get together with friends or relatives?: twice per week Do you belong to any clubs or organized social groups?: no Panel score (0-1 are the most socially isolated patients): 2 What type of physical activity do you participate in: walking Duration: 30-45 minutes/day Frequency: 3-4 times per week Seatbelt use: always Do you feel safe at home: Yes Do you feel safe in your relationship?: Yes Female Reproductive History Menstrual control method: permanent sterilization History History 3 Para 2 Hx # Term Pregnancies Multiple births Hx # Pregnancies Ectopic pregnancies AB induced Hx Number of Living Children 2 AB spontaneous 1
[2024-02-29 13:05] LABS: Bilirubin Moderate (Negative); Blood Negative (Negative); Clarity Clear (Clear); Glucose 100 mg/dL (Negative); Ketones 15 mg/dL (Negative); Leukocyte Esterase Negative (Negative); Nitrite Negative (Negative); Specific Gravity 1.025 (1.005-1.025); Urobilinogen >=8.0 mg/dL (Up to 0.2)
--- NOTE | 2024-02-29 13:08 | DI.CT_ITS ---
Exam(s) CT ABDOMEN PELVIS W EXAM: CT ABDOMEN PELVIS W CLINICAL HISTORY: RUQ ttp, R flank pain. TECHNIQUE: Imaging Protocol: Axial computed tomography images with coronal and sagittal reformatted images were created and reviewed CONTRAST MATERIAL: Intravenous: Omnipaque-350 100cc Oral: None COMPARISON: CT CT ABDOMEN PELVIS W from 11/14/2021 FINDINGS: VISUALIZED LUNG BASES: No nodules nor pleural effusions evident. ABDOMEN: There is no ascites. LIVER: There are no focal hepatic lesions evident. No dilated intrahepatic ducts. GALLBLADDER/BILIARY: No obvious gallbladder pathology. CBD is not dilated. PANCREAS: No evidence of pancreatic mass nor dilatation of the pancreatic duct. SPLEEN: There is mild splenomegaly now evident. Craniocaudal measurement the spleen is 14.5 cm. The re are no intrasplenic lesions nor perisplenic fluid. The diameter of the splenic vein is 1 cm which is similar to October 2021. There is no thrombosis of the splenic and portal veins. ADRENALS: There are no significant adrenal masses. KIDNEYS:No cysts evident. No solid renal masses. No calculi nor hydronephrosis.. ABDOMINAL AORTA: Abdominal aorta is not enlarged. LYMPH NODES:There is no retroperitoneal nor paraaortic adenopathy. ABDOMINAL WALL: No evidence of significant anterior abdominal wall nor inguinal hernia. GI: There is no evidence of bowel obstruction, free air, nor abscess. PELVIS: GI: No evidence of appendicitis.No evidence of sigmoid diverticulitis. LYMPH NODES: There is no intrapelvic nor inguinal adenopathy. REPRODUCTIVE: Uterus and ovaries appear age-appropriate and without significant change. No free flui d in the pelvis. URINARY BLADDER: No calculi nor obvious masses evident OSSEOUS: No fractures and no significant osseous lesions. Sacroiliac joints appear unremarkable.x IMPRESSION: 1. There is mild splenomegaly. Craniocaudal measurement of the spleen is 14.5 cm. No splenic lesion s nor perisplenic fluid nor thrombosis of the splenic and portal veins. 2. No significant lymphadenopathy in the abdomen and pelvis and no ascites evident. Called by myself to ER provider 02/29/2024 3:08 p.m. RADIATION DOSE DELIVERED: Total DLP DATA REPOSITORY: All CT scans at this facility are submitted to the National Radiology Data Registry (NRDR) Dose Index Registry (DIR) with the [employer] (ACR). RADIATION OPTIMIZATION: All CT scans at this facility use at least one of these dose optimization te chniques: automated exposure control; mA and/or kV adjustment per patient size (includes targeted exa ms where dose is matched to clinical indication); or iterative reconstruction.
[2024-02-29 13:20] LABS: Bacteria Negative HPF (Negative); Crystals Negative HPF (Negative); Epithelial Cells Moderate HPF (Negative); Mucus Moderate (Negative); Other Cells Rare Renal (Negative); RBC 0-2 HPF (0-2); WBC 0-2 HPF (0-5)
[2024-02-29 13:21] LABS: C & S Indicated? No; Casts 0-2 Hyaline LPF (Negative)
[2024-02-29 13:54] LABS: HCT 39.1 % (36.0-46.0); MCH 30.7 pg (27.0-33.0); MCHC 33.2 % (32.0-36.0); MCV 92 fL (80-95); Platelet Count 319 10^3/uL (130-400); RBC 4.24 10^6/uL (3.93-5.22); RDW 14.4 % (11.7-14.6); RDW-SD 47.8 fL; WBC 7.25 10^3/uL (4.4-10.8)
[2024-02-29] MEDS: Ketorolac 15 MG/ML VIAL IVP (14:00)
[2024-02-29] MEDS: Normal Saline 1,000 ML 1000 ML IV (14:00)
[2024-02-29] MEDS: Ondansetron 4 MG/2 ML VIAL IVP ×2 (14:00→20:59)
[2024-02-29] MEDS: ACETAMINOPHEN 1,000 MG/100 ML BTL 400 MG IVPB (14:00)
[2024-02-29 14:06] LABS: BE (Venous) 0 mmol/L (-2-3); HCO3 (Venous) 25 mmol/L (23-28); O2 Sat (Venous) 63 %; TCO2 (Venous) 26 mmol/L (24-29); pCO2 (Venous) 41 mmHg (41-51); pH (Venous) 7.39 (7.31-7.41); pO2 (Venous) 33 mmHg
[2024-02-29 14:07] LABS: Lactate 0.9 mmol/L (0.9-1.7)
[2024-02-29 14:18] LABS: Absolute Lymphocyte Count 3.55 10^3/uL (1.2-3.4); Absolute Neutrophil Count 3.12 10^3/uL (1.2-6.7); Atypical Lymphocytes % 21 %; Bands % 0 %
[2024-02-29 14:19] LABS: Absolute Eosinophil Count 0.15 10^3/uL (0.0-0.7); Absolute Monocyte Count 0.44 10^3/uL (0.1-0.8); Diff Comment Manual Differential; Metamyelocytes % 0; Myelocytes % 0; Other Cells % 0; Promyelocytes % 0; RBC Morphology Normal
[2024-02-29] MEDS: Normal Saline - Diluent 50 ML VIAL IJ (14:33)
[2024-02-29] MEDS: Omnipaque 350 MG/ML 100 ML BTL IJ (14:34)
[2024-02-29 14:39] LABS: ALT 382 U/L (14-59); AST 245 U/L (15-37); Albumin 3.4 g/dL (3.4-5.0); Alkaline Phosphatase 153 U/L (46-116); Anion Gap 10.4 mmol/L (3-11); BUN 12 mg/dL (7-18); Bilirubin, Direct 0.8 mg/dL (0.0-0.2); Bilirubin, Total 1.39 mg/dL (0.2-1.0); C-Reactive Protein 1.16 mg/dL (<or=0.5); CO2 23.6 mmol/L (21.0-32.0); CREATININE 0.8 mg/dL (0.55-1.02); Chloride 106 mmol/L (98-107); Creatine Kinase 46 U/L (26-192); Glucose 156 mg/dL (74-106); Lipase 28 U/L (16-77); Magnesium 1.9 mg/dL (1.8-2.4); Potassium 4.2 mmol/L (3.5-5.1); Sodium 140 mmol/L (136-145); Total Protein 7.1 g/dL (6.4-8.2)
[2024-02-29 14:46] LABS: Procalcitonin < 0.1 ng/mL
[2024-02-29 16:03] LABS: Mono Screening Negative (Negative)
[2024-02-29 16:10] LABS: Prothrombin Time 10.4 sec (9.1-11.1)
[2024-02-29 16:46] LABS: Acetaminophen < 2 ug/mL (10-30)
--- NOTE | 2024-02-29 17:07 | HPE_ITS ---
Date of service: 02/29/24 Time of Service: 17:07 Assessment and Plan Assessment and plan (1) Nausea & vomiting: Status: Acute Assessment and plan: She has persistent nausea and limited po intake. She is not acidotic but is high risk with type 1 DM and h/o DKA. Given this, I agree with admission for additional IV fluids and monitoring. (2) Acute hepatitis: Status: Acute Assessment and plan: I am concerned about progression of hepatic enzyme elevation. CT is reassuring other than splenomegaly. This could be acute viral illness including possible viral hepatitis. Labs pending. She is also at risk for gall stones as well as autoimmune hepatitis given her type 1 DM. Tick bourne illness also in DDX. Will follow labs, get u/s in AM. (3) Type 1 diabetes mellitus: Status: Chronic Assessment and plan: She reports decent control with A1c 6.8% managed with pump. Continue her outpatient therapy. Monitor for acidosis Qualifiers: Diabetes mellitus complication status: with hyperglycemia Qualified Code(s): E10.65 - Type 1 diabetes mellitus with hyperglycemia (4) DVT prophylaxis: Status: Acute Assessment and plan: Given age and activity level, she is low risk at this point . 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 She was first seen 02/19 for nausea associated with some left flank pain, treated with ciprofloxacin for presumed UTI though culture only grew <10k mixed kaylah. Two days later 02/21 she was seen in the ED for the same symptoms and received IV hydration and diagnosed with likely viral illness. Mild elevations of LFTs noticed at that time. Since yesterday she has felt worse, not able to eat, vomited this morning, so she went to PCP. Sabine Davidson sent her to the ED for IV fluids. She is not at pain at rest, but with mid/epigastric intense crampy abdominal pain when she tries to eat. She has been able to tolerate fluids, but less so since starting vomiting this morning. She states she did have low grade fevers up to 101 last week, but not currently. She has noted brown urine, no blood or clots. No pain with urination. No diarrhea, she was constipated earlier in the week. No stool changes of color. No jaundice. Ondansatron does work, helps nausea, but she is worried about getting dehyrated at home. She has not had pelvic pain or vaginal discharge. She is currently getting her period. She does not have URI symptoms. She does feel exhausted. Her blood sugars have been okay. No sick contacts, no travel, no known tick bites. No change is sexual partner. She did clean up a bloody bandage at work at [employer] prior to this, but wore gloves and no known exposure. She does not drink alcohol and has never used IV drugs. Review of Systems All systems reviewed & are unremarkable except as noted in HPI and below PFSH All Active Problems (Updated 02/29/24 @ 17:30 by Salvador Maldonado) DVT prophylaxis (Acute) Acute hepatitis (Acute) Nausea & vomiting (Acute) PCOS (polycystic ovarian syndrome) (Acute) Postural dizziness with presyncope (Acute) [facility] [place] [facility] 11/09/23 Recurrent otitis media (Acute) History of nicotine use (Chronic) Quit 12/29/2019 Atrial septal aneurysm (Chronic ~2019) 2019 ECHO [facility] [place]; repeat ECHO [facility] 2022 Obesity (Chronic) 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 12/26/10) Intractable migraine with aura without status migrainosus (Acute) 08[place]21/20 [facility] [facility] 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) Type 1 diabetes mellitus (Chronic ~1996) [place] 2 [place]/o[place] [facility] [place] [facility] [place] Mild intermittent asthma without complication (Chronic) Allergic rhinitis, unspecified (Chronic) Medical History Otitis externa Acute ear infection 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) Intrauterine (~12/2019) Praveena Rubi IUFD at 20 weeks or more of gestation (01/05/20) [facility] [place] Pilonidal cyst with abscess (06/03/15) Gastroesophageal reflux disease (06/03/15) Tobacco use disorder Quit 2019 Right ovarian cyst (07/04/15) 06/2015 US: 4.1 cm hemorrhagic R ovarian cyst --> follow-up US recommended; 11/19/2015 US: WNL Low back pain Frequent UTI (03/01/18) Depression (06/03/15) was on zoloft 25 mg & Prozac in the past but these meds increased SI per pt Anxiety (06/17/16) Diabetic ketoacidosis associated with type 1 diabetes mellitus (~07/2020) [facility] hospitalization 07/2020 Asthma History of pneumonia Scoliosis Surgical History Hx of tympanostomy tubes H/O tubal ligation (~2019) Hx of nephrostomy (~12/2019) tube placement, right [facility] [place] Tonsillectomy and adenoidectomy (~2007) Family History Grandfather Diabetes Grandmother , Post-menopausal age 74yo Diabetes Breast cancer from metastatic breast cancer Maternal Cousin Mental disorder Bipolar disorder Sister Mental disorder Bipolar disorder, multiple personality disorder Brother DVT (deep venous thrombosis) multiple Brother Claudication Mother Diabetes Heart disease [place] 2021 Uncle Liver disease Social History (Updated 02/29/24 @ 17:25 by Salvador Maldonado) Smoking/Tobacco Use Status: Former Tobacco Use tobacco type: cigarettes Quit Date: 12/29/19 Tobacco: How many years used: 5 Quit status: has quit before Smoking risk assessment performed?: Yes Alcohol Intake: current Alcohol Intake frequency: holidays/special occasions only Drug use: Never Substance use type: does not use Adopted: No Caregiver/Support person: No Foster care: No Household members: spouse, children and other Number of Children: 2 Communication Needs: None Education Level: high school Do you need help understanding health information?: Rarely 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 Pets and animals: Yes Pets and animals: cat(s) and dog(s) Sexually active: Yes Do you think of yourself as: straight/heterosexual Current gender identity: female What is your relationship status?: How often do you talk on the phone with friends or family?: three or more times per week How often do you get together with friends or relatives?: twice per week Do you belong to any clubs or organized social groups?: no Panel score (0-1 are the most socially isolated patients): 2 What type of physical activity do you participate in: walking Duration: 30-45 minutes/day Frequency: 3-4 times per week Seatbelt use: always Do you feel safe at home: Yes Do you feel safe in your relationship?: Yes Additional Social history: Works at [employer]. Lives in [place], Lives with , 2 kids and 3 step kids. Female Reproductive History Menstrual control method: permanent sterilization History History 2 3 Para 2 Hx # Term Pregnancies Multiple births Hx # Pregnancies Ectopic pregnancies AB induced Hx Number of Living Children 2 AB spontaneous 1 Meds Allergies and Home Medications Allergies Allergy/AdvReac Type Severity Reaction Status Date / Time fluticasone (From Flovent Allergy Severe Anaphylaxsi Verified 02/29/24 11:16 Diskus) s insulin detemir (From Allergy Severe Hives Verified 02/29/24 11:16 Levemir U-100 Insulin) Home Medications ?Medication ?Instructions ?Recorded ?Confirmed ?Type insulin syringe-needle U-100 1 mL ##3 05/16/15 02/29/24 History 27 gauge x 1/2 (Exel Insulin) lancets 28 gauge (FreeStyle #300 ea 05/16/15 02/29/24 History Lancets) blood sugar diagnostic (FreeStyle #300 strips 05/08/17 02/29/24 Rx Test strips) insulin lispro 100 unit/mL See Protocol subcut AC ##7 05/08/17 02/29/24 Rx subcutaneous solution (Humalog U-100 Insulin) nebulizer and compressor (Portable ##1 07/15/17 02/29/24 History Nebulizer System) glucagon (human recombinant) 1 mg 1 mg IJ DAILY ##2 07/22/17 02/29/24 Rx injection kit (Glucagon Emergency Kit (human-recomb)) insulin glargine 100 unit/mL (3 12 unit subcut HS PRN 04/23/19 02/29/24 History mL) subcutaneous pen (Lantus Solostar U-100 Insulin) acetone (urine) test (Ketone Urine #25 ea 08/07/20 02/29/24 Rx Test strips) albuterol sulfate 90 mcg/actuation 1 - 2 puff inhalation Q4H PRN ##1 05/12/23 02/29/24 Rx aerosol inhaler (ProAir HFA) rosuvastatin 5 mg tablet 5 mg PO DAILY #90 tabs 02/01/24 02/29/24 Rx sumatriptan succinate 25 mg tablet See Rx Instructions PO .COMPLEX 02/01/24 02/29/24 Rx (Imitrex) #20 tabs Exam Narrative Exam Narrative: GEN: Alert and oriented x 4, pleasant and cooperative, gives linear history. No acute distress at rest. HEENT: Head atraumatic. Conjunctiva clear, no icterus or palor. PEERL, EOMI. no rhinorrhea. MMM, OP benign. Neck is supple with no masses or lymphadenopathy, trachea midline LUNGS: CTAB with normal effort CV: RRR with no murmurs, gallops, or rubs. ABD: active bowel sounds, soft, nondistended, mild LUQ tenderness with mild splenomegaly to purcussion, no other masses. EXT: no cyanosis, clubbing, or edema MSK: No joint redness or swelling NEURO: CN 2-12 grossly intact. Normal movement of 4 extremities. Normal speech and coordination. No tremor SKIN: No rashes or open wounds. No jaundice PSYCH: normal mood and affect Results Imaging Abdomen CT scan report/results: report reviewed (1. There is mild splenomegaly. Craniocaudal measurement of the spleen is 14.5 cm. No splenic lesions nor perisplenic fluid nor thrombosis of the splenic and portal veins. 2. No significant lymphadenopathy in the abdomen and pelvis and no ascites evident.) CT scan - pelvis: report reviewed Labs 02/29/24 13:46 02/29/24 13:46 Labs: Laboratory Results - last 24 hr 02/29/24 02/29/24 02/29/24 11:23 13:46 13:46 WBC 7.25 RBC 4.24 Hgb 13.0 Hct 39.1 MCV 92 MCH 30.7 MCHC 33.2 RDW 14.4 Plt Count 319 MPV 9.0 Immature Gran % 0.0 Neutrophils % 43.0 Band Neutrophils % 0 Lymphocytes % 28.0 Atypical Lymphs % 21 Monocytes % 6.0 Eosinophils % 2.0 Basophils % 0.0 Metamyelocytes % 0 Myelocytes % 0 Promyelocytes % 0 Other Cells % 0 Nucleated RBC % 0.0 Absolute Neutrophils 3.12 Absolute Lymphocytes 3.55 H Absolute Monocytes 0.44 Absolute Eosinophils 0.15 Absolute Basophils 0.00 RBC Morphology Normal PT 10.4 INR 1.0 VBG pH 7.39 VBG pCO2 41 VBG pO2 33 VBG HCO3 25 VBG Total CO2 26 VBG O2 Saturation 63 VBG Base Excess 0 VBG Lactate 0.9 Cancelled Sodium 140 Potassium 4.2 Chloride 106 Carbon Dioxide 23.6 Anion Gap 10.4 BUN 12 Creatinine 0.8 Est GFR (CKD-EPI 2020) 103.50 Glucose 156 H Calcium 9.0 Magnesium 1.9 Total Bilirubin 1.39 H Conjugated Bilirubin 0.8 H AST 245 H ALT 382 H Alkaline Phosphatase 153 H Creatine Kinase 46 C-Reactive Protein Total Protein Albumin Lipase Procalcitonin Urine Color Graciela Urine Clarity Clear Urine pH 6.0 Ur Specific [place] 1.025 Urine Protein 30 H Urine Ketones 15 H Urine Blood Negative Urine Nitrite Negative Urine Bilirubin Moderate H Urine Urobilinogen >=8.0 H Ur Leukocyte Esterase Negative Urine RBC 0-2 Urine WBC 0-2 Ur Epithelial Cells Moderate Urine Crystals Negative Urine Bacteria Negative Urine Casts 0-2 Hyaline Urine Mucus Moderate Urine Other Rare Renal Ur Culture Indicated? No Urine Glucose 100 H Acetaminophen Monoscreen 02/29/24 13:46 WBC RBC Hgb Hct MCV MCH MCHC RDW Plt Count MPV Immature Gran % Neutrophils % Band Neutrophils % Lymphocytes % Atypical Lymphs % Monocytes % Eosinophils % Basophils % Metamyelocytes % Myelocytes % Promyelocytes % Other Cells % Nucleated RBC % Absolute Neutrophils Absolute Lymphocytes Absolute Monocytes Absolute Eosinophils Absolute Basophils RBC Morphology PT INR VBG pH VBG pCO2 VBG pO2 VBG HCO3 VBG Total CO2 VBG O2 Saturation VBG Base Excess VBG Lactate Sodium Potassium Chloride Carbon Dioxide Anion Gap BUN Creatinine Est GFR (CKD-EPI 2020) Glucose Calcium Magnesium Total Bilirubin Conjugated Bilirubin AST ALT Alkaline Phosphatase Creatine Kinase Cancelled C-Reactive Protein 1.16 H Total Protein 7.1 Albumin 3.4 Lipase 28 Procalcitonin < 0.1 Urine Color Urine Clarity Urine pH Ur Specific [place] Urine Protein Urine Ketones Urine Blood Urine Nitrite Urine Bilirubin Urine Urobilinogen Ur Leukocyte Esterase Urine RBC Urine WBC Ur Epithelial Cells Urine Crystals Urine Bacteria Urine Casts Urine Mucus Urine Other Ur Culture Indicated? Urine Glucose Acetaminophen < 2 Monoscreen Negative Last Vital Signs Temp 36.6 C 02/29/24 11:13 Pulse 64 02/29/24 14:50 Resp 16 02/29/24 12:58 BP 123/48 L 02/29/24 14:50 Pulse Ox 98 02/29/24 14:51 Time Spent Time spent with Patient: 55-74 minutes Time was spent: preparing to see the patient(eg.review tests), obtaining and/or reviewing separately otained hiistory, ordering medications,tests, procedures, referring, communicating with other health lawn caretaker, indepentently interpreting results and counseling the patient
--- NOTE | 2024-02-29 17:42 | W.PC.ACHO ---
Registration Status: Primary Language: Preferred Language: ED Information & Data Chief Complaint Abd Prob 02/29/24 14:54 Chief Complaint Abd Prob 02/29/24 12:46 Triage Note Pt arrives to ED c/o N/V x 2 02/29/24 11:13 .5 weeks; minimal PO intake. Pt is a Type I diabetic. Pt states her BGL has been okay. Pt is also having intermittent abd pain. 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) Intrauterine (~12/2019) IUFD at 20 weeks or more of gestation (01/05/20) Pilonidal cyst with abscess (06/03/15) Gastroesophageal reflux disease (06/03/15) Right ovarian cyst (07/04/15) Low back pain Diabetic ketoacidosis associated with type 1 diabetes mellitus (~07/2020) Asthma History of pneumonia Scoliosis (Last Reviewed 02/29/24 @ 17:23 by Salvador Maldonado) Hx of tympanostomy tubes H/O tubal ligation (~2019) Hx of nephrostomy (~12/2019) Tonsillectomy and adenoidectomy (~2007) Most Recent Vital Signs Temperature 36.6 C 02/29/24 11:13 Pulse 61 02/29/24 16:28 Respiratory Rate 16 02/29/24 12:58 Respiratory Effort Normal, Non-Labored 02/29/24 14:54 Respiratory Depth Normal 02/29/24 12:58 Respiratory Pattern Normal 02/29/24 12:58 Blood Pressure 124/71 02/29/24 16:28 Blood Pressure Mean 89 02/29/24 16:28 Blood Pressure Position Supine 02/29/24 12:58 Pulse Oximetry 100 02/29/24 16:28 Oxygen Delivery Method Room Air 02/29/24 11:13 Oxygen Flow Rate 0 02/29/24 11:13 Pain Level 6 02/29/24 11:13 Allergies fluticasone (From Flovent Diskus) Allergy (Severe, Verified 02/29/24 11:16) Anaphylaxsis insulin detemir (From Levemir U-100 Insulin) Allergy (Severe, Verified 02/29/24 11:16) Hives Precautions Isolation Standard precaution 02/29/24 14:54 IV IV Catheter Type [Left Forearm Saline Lock ] IV Catheter Gauge [Left 18 Forearm] Diet Orders Category Date Time Status Diabetes Consistent CHO [DIET] Nutrition 02/29/24 Dinner Active Diagnostics 02/29/24 02/29/24 02/29/24 Range/Units 13:46 13:46 13:46 WBC 7.25 (4.4-10.8) 10^3/uL RBC 4.24 (3.93-5.22) 10^6/uL Hgb 13.0 (11.2-15.7) g/dL Hct 39.1 (36.0-46.0) % MCV 92 (80-95) fL MCH 30.7 (27.0-33.0) pg MCHC 33.2 (32.0-36.0) % RDW 14.4 (11.7-14.6) % Plt Count 319 (130-400) 10^3/uL MPV 9.0 (8.0-11.0) fL Immature Gran % 0.0 % Neutrophils % 43.0 % Band Neutrophils % 0 % Lymphocytes % 28.0 % Atypical Lymphs % 21 % Monocytes % 6.0 % Eosinophils % 2.0 % Basophils % 0.0 % Metamyelocytes % 0 Myelocytes % 0 Promyelocytes % 0 Other Cells % 0 Nucleated RBC % 0.0 (0.0-0.3) % Absolute Neutrophils 3.12 (1.2-6.7) 10^3/uL Absolute Lymphocytes 3.55 H (1.2-3.4) 10^3/uL Absolute Monocytes 0.44 (0.1-0.8) 10^3/uL Absolute Eosinophils 0.15 (0.0-0.7) 10^3/uL Absolute Basophils 0.00 (0.0-0.2) 10^3/uL RBC Morphology Normal PT 10.4 (9.1-11.1) sec INR 1.0 (0.9-1.1) VBG pH 7.39 (7.31-7.41) VBG pCO2 41 (41-51) mmHg VBG pO2 33 mmHg VBG HCO3 25 (23-28) mmol/L VBG Total CO2 26 (24-29) mmol/L VBG O2 Saturation 63 % VBG Base Excess 0 (-2-3) mmol/L VBG Lactate Cancelled 0.9 (0.9-1.7) mmol/L Sodium 140 (136-145) mmol/L Potassium 4.2 (3.5-5.1) mmol/L Chloride 106 (98-107) mmol/L Carbon Dioxide 23.6 (21.0-32.0) mmol/L Anion Gap 10.4 (3-11) mmol/L BUN 12 (7-18) mg/dL Creatinine 0.8 (0.55-1.02) mg/dL Est GFR (CKD-EPI 2020) 103.50 (mL/min/1.73m2) Glucose 156 H (74-106) mg/dL Calcium 9.0 (8.5-10.1) mg/dL Magnesium 1.9 (1.8-2.4) mg/dL Total Bilirubin 1.39 H (0.2-1.0) mg/dL Conjugated Bilirubin 0.8 H (0.0-0.2) mg/dL AST 245 H (15-37) U/L ALT 382 H (14-59) U/L Alkaline Phosphatase 153 H (46-116) U/L Creatine Kinase Cancelled 46 (26-192) U/L C-Reactive Protein 1.16 H (<or=0.5) mg/dL Total Protein 7.1 (6.4-8.2) g/dL Albumin 3.4 (3.4-5.0) g/dL Lipase 28 (16-77) U/L Procalcitonin < 0.1 ng/mL Urine Color (Yellow) Urine Clarity (Clear) Urine pH (5-8) Ur Specific [place] (1.005-1.025) Urine Protein (Neg-Trace) mg/dL Urine Ketones (Negative) mg/dL Urine Blood (Negative) Urine Nitrite (Negative) Urine Bilirubin (Negative) Urine Urobilinogen (Up to 0.2) mg/dL Ur Leukocyte Esterase (Negative) Urine RBC (0-2) HPF Urine WBC (0-5) HPF Ur Epithelial Cells (Negative) HPF Urine Crystals (Negative) HPF Urine Bacteria (Negative) HPF Urine Casts (Negative) LPF Urine Mucus (Negative) Urine Other (Negative) Ur Culture Indicated? Urine Glucose (Negative) mg/dL Acetaminophen < 2 (10-30) ug/mL B. divergens/MO-1 PCR Pending Babesia duncani (PCR) Pending Babesia microti DNA PCR Pending Lyme Disease Antibody Pending E.chaffeensis DNA (PCR) Pending E.ewingii/canis DNA PCR Pending E.muris eauclairensis (PCR) Pending Hepatitis A IgM Ab Pending Hep Bs Antigen Pending Hep B Core Total Ab Pending Hepatitis C Antibody Pending Monoscreen Negative (Negative) A. phagocytophilum (PCR) Pending Blood B. miyamotoi (PCR) Pending 02/29/24 Range/Units 11:23 WBC (4.4-10.8) 10^3/uL RBC (3.93-5.22) 10^6/uL Hgb (11.2-15.7) g/dL Hct (36.0-46.0) % MCV (80-95) fL MCH (27.0-33.0) pg MCHC (32.0-36.0) % RDW (11.7-14.6) % Plt Count (130-400) 10^3/uL MPV (8.0-11.0) fL Immature Gran % % Neutrophils % % Band Neutrophils % % Lymphocytes % % Atypical Lymphs % % Monocytes % % Eosinophils % % Basophils % % Metamyelocytes % Myelocytes % Promyelocytes % Other Cells % Nucleated RBC % (0.0-0.3) % Absolute Neutrophils (1.2-6.7) 10^3/uL Absolute Lymphocytes (1.2-3.4) 10^3/uL Absolute Monocytes (0.1-0.8) 10^3/uL Absolute Eosinophils (0.0-0.7) 10^3/uL Absolute Basophils (0.0-0.2) 10^3/uL RBC Morphology PT (9.1-11.1) sec INR (0.9-1.1) VBG pH (7.31-7.41) VBG pCO2 (41-51) mmHg VBG pO2 mmHg VBG HCO3 (23-28) mmol/L VBG Total CO2 (24-29) mmol/L VBG O2 Saturation % VBG Base Excess (-2-3) mmol/L VBG Lactate (0.9-1.7) mmol/L Sodium (136-145) mmol/L Potassium (3.5-5.1) mmol/L Chloride (98-107) mmol/L Carbon Dioxide (21.0-32.0) mmol/L Anion Gap (3-11) mmol/L BUN (7-18) mg/dL Creatinine (0.55-1.02) mg/dL Est GFR (CKD-EPI 2020) (mL/min/1.73m2) Glucose (74-106) mg/dL Calcium (8.5-10.1) mg/dL Magnesium (1.8-2.4) mg/dL Total Bilirubin (0.2-1.0) mg/dL Conjugated Bilirubin (0.0-0.2) mg/dL AST (15-37) U/L ALT (14-59) U/L Alkaline Phosphatase (46-116) U/L Creatine Kinase (26-192) U/L C-Reactive Protein (<or=0.5) mg/dL Total Protein (6.4-8.2) g/dL Albumin (3.4-5.0) g/dL Lipase (16-77) U/L Procalcitonin ng/mL Urine Color Graciela (Yellow) Urine Clarity Clear (Clear) Urine pH 6.0 (5-8) Ur Specific [place] 1.025 (1.005-1.025) Urine Protein 30 H (Neg-Trace) mg/dL Urine Ketones 15 H (Negative) mg/dL Urine Blood Negative (Negative) Urine Nitrite Negative (Negative) Urine Bilirubin Moderate H (Negative) Urine Urobilinogen >=8.0 H (Up to 0.2) mg/dL Ur Leukocyte Esterase Negative (Negative) Urine RBC 0-2 (0-2) HPF Urine WBC 0-2 (0-5) HPF Ur Epithelial Cells Moderate (Negative) HPF Urine Crystals Negative (Negative) HPF Urine Bacteria Negative (Negative) HPF Urine Casts 0-2 Hyaline (Negative) LPF Urine Mucus Moderate (Negative) Urine Other Rare Renal (Negative) Ur Culture Indicated? No Urine Glucose 100 H (Negative) mg/dL Acetaminophen (10-30) ug/mL B. divergens/MO-1 PCR Babesia duncani (PCR) Babesia microti DNA PCR Lyme Disease Antibody E.chaffeensis DNA (PCR) E.ewingii/canis DNA PCR E.muris eauclairensis (PCR) Hepatitis A IgM Ab Hep Bs Antigen Hep B Core Total Ab Hepatitis C Antibody Monoscreen (Negative) A. phagocytophilum (PCR) Blood B. miyamotoi (PCR) 02/29/24 14:25 Blood Culture - Pending Blood 02/29/24 13:46 Blood Culture - Pending Blood [id number] Documentation Fingerstick Glucose Start: 02/29/24 13:00 Freq: Status: Complete Protocol: Activity Type Activity Date Activity User E-sign Co-sign Detail Recorded Client Recorded Date Recorded By Document 02/29/24 14:52 BKG DAEMON(10) [id number] 02/29/24 14:54 BKG DAEMON(10) POC Urine Test Start: 02/29/24 11:12 Freq: .Urine Test Status: Active Protocol: Activity Type Activity Date Activity User E-sign Co-sign Detail Recorded Client Recorded Date Recorded By Document 02/29/24 11:33 N.LAFR [id number] 02/29/24 11:33 N.LAFR Intake and Output - 24 Hour Total 02/29/24 11:11 thru 02/29/24 16:32 Intake Total 1110 Balance 1110 Weight 97.522 kg Intake: IV 1110 Falls Risk Assessment History of Falls No History 02/29/24 14:54 Contributing Factors No Factors 02/29/24 14:54 Ambulatory Aids Independent 02/29/24 14:54 Tubes/Lines None 02/29/24 14:54 Gait Evaluation No gait disturbance 02/29/24 14:54 Cognition No cognitive impairment 02/29/24 14:54 Fall Total Score 0 02/29/24 14:54 Level of Risk Standard/Low Risk 02/29/24 14:54 Problems (Last Reviewed 02/29/24 @ 17:23 by Salvador Maldonado) DVT prophylaxis (Acute) Acute hepatitis (Acute) Nausea & vomiting (Acute) Type 1 diabetes mellitus (Chronic ~1996) v v v v v v v v v Sending and/or Receiving Nurses: Please use comment section below to note any information pertinent to the patient hand-off not included above. Information / Comments: Patient has hepatitis. Here for observation. IV was ultrasound guided. Zofran effective, no nausea now. Report received from: Joe Cornelius RN
[2024-02-29] MEDS: Normal Saline Flush 10 ML SYR IVP (21:00)
[2024-02-29] MEDS: Lactated Ringers 1,000 ML 100 ML IV (21:03)
[2024-03-01] MEDS: Ondansetron 4 MG/2 ML VIAL IVP (05:16)
[2024-03-01 06:53] LABS: HGB 11.4 g/dL (11.2-15.7); MCH 31.5 pg (27.0-33.0); MCHC 34.5 % (32.0-36.0); MCV 91 fL (80-95); MPV 9.2 fL (8.0-11.0); Platelet Count 288 10^3/uL (130-400); RBC 3.62 10^6/uL (3.93-5.22); RDW 14.5 % (11.7-14.6); RDW-SD 47.7 fL; WBC 6.38 10^3/uL (4.4-10.8)
[2024-03-01 07:07] LABS: INR 1.1 (0.9-1.1); Prothrombin Time 10.6 sec (9.1-11.1)
[2024-03-01 07:18] LABS: Absolute Lymphocyte Count 4.27 10^3/uL (1.2-3.4); Absolute Neutrophil Count 1.53 10^3/uL (1.2-6.7); Atypical Lymphocytes % 20 %
[2024-03-01 07:19] VITALS: BP 112/68; PULSE 71; RESP 20; TEMP 36.6; O2SAT 98
[2024-03-01 07:19] LABS: ALT 299 U/L (14-59); AST 173 U/L (15-37); Albumin 2.6 g/dL (3.4-5.0); Alkaline Phosphatase 123 U/L (46-116); Anion Gap 7.9 mmol/L (3-11); BUN 11 mg/dL (7-18); Bilirubin, Total 1.18 mg/dL (0.2-1.0); CO2 24.1 mmol/L (21.0-32.0); CREATININE 0.8 mg/dL (0.55-1.02); Calcium 8.4 mg/dL (8.5-10.1); Chloride 108 mmol/L (98-107); Estimated GFR 102.86 (mL/min/1.73m2); Glucose 110 mg/dL (74-106); Potassium 4.2 mmol/L (3.5-5.1); Sodium 140 mmol/L (136-145); Total Protein 5.5 g/dL (6.4-8.2)
[2024-03-01 07:20] LABS: Absolute Basophil Count 0.06 10^3/uL (0.0-0.2); Absolute Eosinophil Count 0.19 10^3/uL (0.0-0.7); Absolute Monocyte Count 0.32 10^3/uL (0.1-0.8); Diff Comment Manual Differential; RBC Morphology Normal
[2024-03-01] MEDS: Lactated Ringers 1,000 ML 100 ML IV (07:28)
[2024-03-01] MEDS: Metoclopramide 10 MG/2 ML VIAL IVP (07:29)
[2024-03-01 07:35] LABS: Lyme Ab w Rflx to Lyme Confirm Negative (Negative)
--- NOTE | 2024-03-01 08:00 | DI.US_ITS ---
Exam(s) US ABDOMEN EXAM: US ABDOMEN CLINICAL HISTORY: elevated liver enzymes, large spleen TECHNIQUE: Ultrasound abdomen performed using standard protocol. COMPARISON: CT CT ABDOMEN PELVIS W from 02/29/2024 FINDINGS: ABDOMINAL AORTA AND IVC: Visualized portions normal caliber. PANCREAS: The pancreas cannot be visualized due to overlying bowel gas. LIVER: Liver measures 15 cm long. There is no evidence of a hepatic mass sonographically. Hepatopet al flow in the Portal Vein. GALLBLADDER:No evidence of cholelithiasis. No evidence of wall thickening. No pericholecystic fluid i dentified. BILIARY SYSTEM: Common bile duct measures < 7 mm. No intrahepatic biliary ductal dilation. LEWIS'S SIGN: Negative. KIDNEYS: Kidneys are symmetric in size. No evidence of renal calculi. No evidence of hydronephrosis. No renal mass or cyst identified. SPLEEN: The spleen measures 13 cm. ASCITES: None seen. IMPRESSION: 1. Sonographically unremarkable liver. No evidence of cholelithiasis or biliary ductal dilatation. 2. Spleen at the upper limits of normal at 13 cm. 3. Examination limited secondary to overlying bowel gas. DATA REPOSITORY:
--- NOTE | 2024-03-01 09:04 | PGE_ITS ---
Date of Service Date of service: 03/01/24 Time of Service: 09:04 Assessment and Plan Assessment and plan (1) Nausea & vomiting: Status: Acute Assessment and plan: She has persistent nausea and limited po intake. She is not acidotic but is high risk with type 1 DM and h/o DKA. Given this, I agree with admission for additional IV fluids and monitoring. Continue PRN antiemetic and IVF CMP in AM (2) Acute hepatitis: Status: Acute Assessment and plan: Improving hepatic enzyme elevation. CT is reassuring other than splenomegaly. Procal negtive and blood cultures pending This could be acute viral illness Risk for gall stones as well as autoimmune hepatitis given her type 1 DM. ABD US negative but limited d/t overlying bowel gas [place] illness also in DDX: Lyme antibody neg -others pending (3) Type 1 diabetes mellitus: Status: Chronic Assessment and plan: She reports decent control with A1c 6.8% managed with pump. Chem glucose 110 Continue her outpatient therapy. Continue to monitor for acidosis Qualifiers: Diabetes mellitus complication status: with hyperglycemia Qualified Code(s): E10.65 - Type 1 diabetes mellitus with hyperglycemia (4) DVT prophylaxis: Status: Acute Assessment and plan: Given age and activity level, she is low risk at this point . ambulatory in room (5) Discharge planning issues: Status: Acute Assessment and plan: Discharge when able to tolerate PO and medically stable Discussed with Dr. Henderson Objective Last Vital Signs Temp 36.6 C 03/01/24 07:19 Pulse 71 03/01/24 07:19 Resp 20 03/01/24 07:19 BP 112/68 03/01/24 07:19 Pulse Ox 98 03/01/24 07:19 Laboratory Results - last 24 hr 02/29/24 02/29/24 02/29/24 11:23 13:46 13:46 WBC 7.25 RBC 4.24 Hgb 13.0 Hct 39.1 MCV 92 MCH 30.7 MCHC 33.2 RDW 14.4 Plt Count 319 MPV 9.0 Immature Gran % 0.0 Neutrophils % 43.0 Band Neutrophils % 0 Lymphocytes % 28.0 Atypical Lymphs % 21 Monocytes % 6.0 Eosinophils % 2.0 Basophils % 0.0 Metamyelocytes % 0 Myelocytes % 0 Promyelocytes % 0 Other Cells % 0 Nucleated RBC % 0.0 Absolute Neutrophils 3.12 Absolute Lymphocytes 3.55 H Absolute Monocytes 0.44 Absolute Eosinophils 0.15 Absolute Basophils 0.00 RBC Morphology Normal PT 10.4 INR 1.0 VBG pH 7.39 VBG pCO2 41 VBG pO2 33 VBG HCO3 25 VBG Total CO2 26 VBG O2 Saturation 63 VBG Base Excess 0 VBG Lactate 0.9 Cancelled Sodium 140 Potassium 4.2 Chloride 106 Carbon Dioxide 23.6 Anion Gap 10.4 BUN 12 Creatinine 0.8 Est GFR (CKD-EPI 2020) 103.50 Glucose 156 H Calcium 9.0 Magnesium 1.9 Total Bilirubin 1.39 H Conjugated Bilirubin 0.8 H AST 245 H ALT 382 H Alkaline Phosphatase 153 H Creatine Kinase 46 C-Reactive Protein Total Protein Albumin Lipase Procalcitonin Urine Color Graciela Urine Clarity Clear Urine pH 6.0 Ur Specific [place] 1.025 Urine Protein 30 H Urine Ketones 15 H Urine Blood Negative Urine Nitrite Negative Urine Bilirubin Moderate H Urine Urobilinogen >=8.0 H Ur Leukocyte Esterase Negative Urine RBC 0-2 Urine WBC 0-2 Ur Epithelial Cells Moderate Urine Crystals Negative Urine Bacteria Negative Urine Casts 0-2 Hyaline Urine Mucus Moderate Urine Other Rare Renal Ur Culture Indicated? No Urine Glucose 100 H Acetaminophen Lyme Disease Antibody Monoscreen 02/29/24 03/01/24 13:46 06:23 WBC 6.38 RBC 3.62 L Hgb 11.4 Hct 33.0 L MCV 91 MCH 31.5 MCHC 34.5 RDW 14.5 Plt Count 288 MPV 9.2 Immature Gran % 0.0 Neutrophils % 24.0 Band Neutrophils % Lymphocytes % 47.0 Atypical Lymphs % 20 Monocytes % 5.0 Eosinophils % 3.0 Basophils % 1.0 Metamyelocytes % Myelocytes % Promyelocytes % Other Cells % Nucleated RBC % 0.0 Absolute Neutrophils 1.53 Absolute Lymphocytes 4.27 H Absolute Monocytes 0.32 Absolute Eosinophils 0.19 Absolute Basophils 0.06 RBC Morphology Normal PT 10.6 INR 1.1 VBG pH VBG pCO2 VBG pO2 VBG HCO3 VBG Total CO2 VBG O2 Saturation VBG Base Excess VBG Lactate Sodium 140 Potassium 4.2 Chloride 108 H Carbon Dioxide 24.1 Anion Gap 7.9 BUN 11 Creatinine 0.8 Est GFR (CKD-EPI 2020) 102.86 Glucose 110 H Calcium 8.4 L Magnesium Total Bilirubin 1.18 H Conjugated Bilirubin AST 173 H ALT 299 H Alkaline Phosphatase 123 H Creatine Kinase Cancelled C-Reactive Protein 1.16 H Total Protein 7.1 5.5 L Albumin 3.4 2.6 L Lipase 28 Procalcitonin < 0.1 Urine Color Urine Clarity Urine pH Ur Specific [place] Urine Protein Urine Ketones Urine Blood Urine Nitrite Urine Bilirubin Urine Urobilinogen Ur Leukocyte Esterase Urine RBC Urine WBC Ur Epithelial Cells Urine Crystals Urine Bacteria Urine Casts Urine Mucus Urine Other Ur Culture Indicated? Urine Glucose Acetaminophen < 2 Lyme Disease Antibody Negative Monoscreen Negative
[2024-03-01 09:56] LABS: Hepatitis A Antibody IgM Negative (Negative); Hepatitis B Core Antibody Negative (Negative); Hepatitis B surface Ag Negative (Negative); Hepatitis C Ab w Rflx HCV PCR Negative (Negative)
--- NOTE | 2024-03-01 11:45 | PHA.REVIEW2 ---
Pharmacy Admission Review Admission Clinical Review Admission Pharmacy Review: Discharge planning issues (Acute) DVT prophylaxis (Acute) Acute hepatitis (Acute) Nausea & vomiting (Acute) fluticasone (From Flovent Diskus) Allergy (Severe, Verified 02/29/24 11:16) Anaphylaxsis insulin detemir (From Levemir U-100 Insulin) Allergy (Severe, Verified 02/29/24 11:16) Hives Resuscitation Status Full Code Height 5 ft 6 in Weight 102.058 kg Comments Comments/Follow Ups: Per morning meeting, potential for discharge later today if patient is able to tolerate PO intake. Liver function improving. Pharmacy Admission Review Renal Dosing Renal Dosing: BUN 11 mg/dL (7-18) 03/01/24 06:23 Creatinine 0.8 mg/dL (0.55-1.02) 03/01/24 06:23 Medications needing adjustments: Reviewed (CrCl 126.28 mL/min) List of meds needing interventions: Current medications are okay Anticoagulation Anticoagulation: Hgb 11.4 g/dL (11.2-15.7) 03/01/24 06:23 Hct 33.0 % (36.0-46.0) L 03/01/24 06:23 Plt Count 288 10^3/uL (130-400) 03/01/24 06:23 INR 1.1 (0.9-1.1) 03/01/24 06:23 Creatinine 0.8 mg/dL (0.55-1.02) 03/01/24 06:23 DVT Prophylaxis: Reviewed (None - per H+P patient at low risk) Relevant Labs Relevant Labs: Sodium 140 mmol/L (136-145) 03/01/24 06:23 Potassium 4.2 mmol/L (3.5-5.1) 03/01/24 06:23 Chloride 108 mmol/L (98-107) H 03/01/24 06:23 Magnesium 1.9 mg/dL (1.8-2.4) 02/29/24 13:46 C-Reactive Protein 1.16 mg/dL (<or=0.5) H 02/29/24 13:46 Electrolytes, C-Reactive P, ESR: Reviewed (AST/ALT decreased from 245/382 to 173/299) DM Control DM Control: Glucose 110 mg/dL (74-106) H 03/01/24 06:23 DM Control: Reviewed Insulin Dosing, Diabetic Medication: Has order for glargine 12 units at bedtime PRN and patients own insulin pump. Put in order as patients own insulin lispro in PUMP. Provider originally put in order for SS insulin with meals, asked if that was supposed to be in addition to the patients pump. Provider was okay discontinuing the SS insulin and letting patient manage with their pump. Cardiac Review BP, HR, EF%: Reviewed (HR and BP WNL) QTc Review QTc: Reviewed (420 from 08/25/23 - most recent EKG) IV to PO Switch IV Medications: Reviewed (metoclopramide and ondansetron) Home Meds Home Med List reviewed: Intervened Relevent Home Meds Not ordered & why?: glucagon (PRN), rosuvastatin (acute hepatitis) and sumatriptan (PRN) Insulin lispro put in as patients own (see diabetes section) Noticed that patient recently filled Loryna. Reached out to nursing to check if patient is taking this. Per nursing, patient took for about a week and then stopped. Patient believes this medication may have contributed to nausea/vomiting. Current Meds Current Medication Order Review: Intervened Comments: Added IV admission order set Pharmacy Antibiotic Review Relevant Labs: Relevant Labs 02/29/24 13:46 C-Reactive Protein 1.16 H Procalcitonin < 0.1 Comments Comments/Follow Ups: Per morning meeting, potential for discharge later today if patient is able to tolerate PO intake. Liver function improving.
--- NOTE | 2024-03-01 12:36 | DSE_ITS ---
Date of service: 03/01/24 Time of Service: 12:37 DS: Diagnosis Discharge Diagnosis (1) Nausea & vomiting: Status: Acute (2) Acute hepatitis: Status: Acute (3) Type 1 diabetes mellitus: Status: Chronic (4) DVT prophylaxis: Status: Acute (5) Discharge planning issues: Status: Acute Discharge Plan Disposition Patient Disposition: Home Condition: Improving Discharge Details Reason For Visit: vomiting, acute hepatitis Admit Date/Time: 02/29/24 16:59 Admit Provider: Salvador Maldonado Attending Provider: Salvador Maldonado Primary Care Provider: Sonali Lange Hospital Course Hospital Course: This 28-year-old female patient with a past medical history of type 1 diabetes starting in childhood with history of DKA, PCOS, presented to the ED at [facility] on 02/29/2024 for evaluation of nausea and malaise over the past 2 to 3 weeks and worsening over the past 2 days prior to presentation. Relevant history is that the patient was seen on 02/20/2024 for nausea associated with left flank pain and was treated with ciprofloxacin for presumed UTI with cultures only growing less than 10K mixed kaylah. On 02/22/2024 patient seen in the ED for similar symptoms a nd was treated with IV hydration and diagnosed with viral like illness with mild transaminitis at the time. The patient reported that she was unable to tolerate oral intake, vomiting and visiting her primary care practitioner on the day of presentation who directed her to the emergency room for IV hydration. The patient reported no pain at rest but mid epigastric intense cramping on oral intake. Patient also reported tolerating less fluid than usual since vomiting. Patient also reported low-grade fever at 101 a week prior to presentation but was afebrile on presentation day. The patient denied dysuria, diarrhea no change in stool color, no jaundice. The patient reported taking ondansetron at home which helped with nausea but was concerned with getting dehydrated at home. The patient denied pelvic pain, vaginal discharge but reported having her periods on the day of presentation. The patient denied sick contact, recent travel, known tick bites, change in sexual partner, alcohol drinking, and IV drug use. Remarkable labs in the ED showed no leukocytosis with a high lymphocyte count, transaminitis trending upward with a bilirubin at 1.39 and a conjugated bilirubin at 0.8. CRP was mildly elevated and an UA showed significant amount of proteinuria as well as bilirubin greater than 8. CT of the abdomen and pelvis showed an enlarged spleen with that renal abnormalities. Mononucleosis screening and hepatitis panel were negative. The Hospitalist was consulted and the patient admitted for evaluation and management of nausea and vomiting, and acute hepatitis. During the stay the patient continued to receive IV fluids. An abdominal ultrasound showed limited examination due to overlying bowel gas without evidence of cholelithiasis or biliary ductal dilation; spleen seen at upper limits of normal at 13 cm. Tick borne diseases panel was ordered with results showed that Lyme's disease was negative; other results still pending and to be followed up by primary care practitioner. Transaminitis improved. Other chronic condition were managed as per home medicine regimen. The patient was able to tolerate the intake of solid food and liquid without vomiting. The patient stated that she was ready to go home but would like to have oral ondansetron as needed to manage mild nausea. The patient will be discharged home with an order for as needed oral ondansetron and will have to follow-up with her primary care practitioner within 7 days of discharge. Discussed with Dr. Henderson Home Meds and New Rx's Prescriptions: New ondansetron 4 mg tablet,disintegrating 4 mg PO Q8H PRNQty: 21 0RF Continued rosuvastatin 5 mg tablet 5 mg PO DAILY Qty: 90 3RF sumatriptan succinate [Imitrex] 25 mg tablet See Rx Instructions PO .COMPLEX Qty: 20 3RF Rx Instructions: take 1 tab at onset of headache; if no relief may repeat 1 tab after at least 2 hrs; max = 4 tabs/24 hrs (DME) Ketone Urine Test Strip See Rx Instructions .ROUTE .MEDSUPPLY Qty: 25 0RF Rx Instructions: As directed albuterol sulfate [ProAir HFA] 90 mcg/actuation HFA aerosol inhaler 1 - 2 puff Inhalation Q4H PRN Qty: 1 1RF Rx Instructions: use with spacer (DME) insulin syringe-needle U-100 [Exel Insulin] 1 EACH syringe 1 ea Miscellaneous AC & HS Qty: 3 (DME) lancets [FreeStyle Lancets] 1 EACH misc 1 ea Miscellaneous Q2H Qty: 300 (DME) nebulizer and compressor [Portable Nebulizer System] 1 EACH device Miscellaneous DAILY Qty: 1 Glucagon Emergency Kit (human) 1 MG kit 1 mg IJ DAILY Qty: 2 0RF (DME) FreeStyle Test 1 EACH strip 1 ea Miscellaneous Q2H Qty: 300 3RF insulin lispro [Humalog U-100 Insulin] 100 UNIT/1 ML solution See Protocol Sub-Q AC Qty: 7 0RF Protocol: Insulin Sliding Scale-Moderate Condition: <140 Dose/Route: 0 units Condition: 140-180 Dose/Route: 2 unit (plus any scheduled dose) Condition: 181-220 Dose/Route: 4 unit (plus any scheduled dose) Condition: 221-260 Dose/Route: 6 unit (plus any scheduled dose) Condition: 261-300 Dose/Route: 8 unit (plus any scheduled dose) Instruction: (and call hospitalist about adjusting basal insulin) Condition: 301-340 Dose/Route: 10 unit (plus any scheduled dose) I nstruction: (and call hospitalist about adjusting basal insulin) Condition: 341-380 Dose/Route: 12 unit (plus any scheduled dose) Instruction: (and call hospitalist about adjusting basal insulin) Condition: 381-420 Dose/Route: 14 unit (plus any scheduled dose) Instruction: (and call hospitalist about adjusting basal insulin) Condition: 421-460 Dose/Route: 16 unit (plus any scheduled dose) Instruction: (and call hospitalist about adjusting basal insulin) Condition: 461-500 Dose/Route: 18 unit (plus any scheduled dose) Instruction: (See Text) Protocol Text: If Blood Glucose over 500 contact hospitalist about an insulin infusion or adjusting sliding scale. Rx Instructions: 1 unit for every 15 grams carbohydrate and 1 unit for evry 15 points above 100 insulin glargine [Lantus Solostar U-100 Insulin] 100 unit/mL (3 mL) insulin pen 12 unit subcut HS PRN Patient Comments: Use in case of pump failure Discharge Instructions Activity:: Activity as Tolerated Equipment/Supplies:: No Equipment Needed Diet:: Diabetic diet Discharge Orders Discharge Orders: Discharge Order (Routine); Ordered 03/01/24 Ordered By: Christina Obrien DS: Summary Time Spent with Patient providing and/or coordinating discharge services: Greater than 30 minutes Status at Discharge Functional status at discharge: independent ambulation Overall status at discharge: patient is progressing back to baseline Mental Status: mental status grossly normal Speech and Movement: speech and movement normal Mood: congruent mood Affect: normal affect Quality:SDOH Health Related Social Needs: No Data to Display Exam Narrative Exam Narrative: Constitutional The patient in bed comfortable without acute distress HENMT: Facial structures with normal appearance Neuro:alert and oriented X 4 Resp: Clear lung bilaterally Cardio: regular rhythm, S1, S2, no murmur GI: Abdomen is not distended, soft and non tender, bowel sounds are present Integumentary: No skin lesions or eduardo exposed skin Extremities: strength 5/5 to bilateral lower and upper extremities Psych: RASS 0, congruent mood and normal affect. Psych Mental Status: mental status grossly normal Speech and Movement: speech and movement normal Mood: congruent mood Affect: normal affect DS: Data Vitals/I&O Vitals and I&O: Vital Signs Temperature 36.6 C 03/01/24 07:19 Temperature Source Temporal Artery Scan 03/01/24 07:19 Pulse 71 03/01/24 07:19 Pulse Rhythm Regular 03/01/24 07:30 Respiratory Rate 20 03/01/24 07:19 Respiratory Effort Normal, Non-Labored 03/01/24 07:30 Respiratory Depth Normal 03/01/24 07:30 Respiratory Pattern Normal 03/01/24 07:30 Blood Pressure 112/68 03/01/24 07:19 Blood Pressure Mean 89 02/29/24 16:28 Blood Pressure Position Supine 02/29/24 12:58 Pulse Oximetry 98 03/01/24 07:19 Oxygen Delivery Method Room Air 03/01/24 07:19 Oxygen Flow Rate 0 03/01/24 07:19 Pain Level 0 02/29/24 19:27 Intake & Output 02/29/24 03/01/24 03/01/24 23:59 11:59 23:59 Intake Total 1120 / 1120 1000 / 1000 Output Total 700 / 700 Balance 1120 / 1120 300 / 300 Weight 102.058 kg Intake: IV 1120 / 1120 1000 / 1000 Output: Urine 700 / 700 Other: Urine Color [place] Urine Appearance Clear Hematuria Urine Odor Normal Comment Pt on her menses Voiding Methods Toilet Data Completed and Pending Labs on day of discharge: Labs from last 24 hours 03/01/24 02/29/24 02/29/24 06:23 13:46 13:46 WBC 6.38 RBC 3.62 L Hgb 11.4 Hct 33.0 L MCV 91 MCH 31.5 MCHC 34.5 RDW 14.5 Plt Count 288 MPV 9.2 Immature Gran % 0.0 Neutrophils % 24.0 Band Neutrophils % Lymphocytes % 47.0 Atypical Lymphs % 20 Monocytes % 5.0 Eosinophils % 3.0 Basophils % 1.0 Metamyelocytes % Myelocytes % Promyelocytes % Other Cells % Nucleated RBC % 0.0 Absolute Neutrophils 1.53 Absolute Lymphocytes 4.27 H Absolute Monocytes 0.32 Absolute Eosinophils 0.19 Absolute Basophils 0.06 RBC Morphology Normal PT 10.6 INR 1.1 VBG pH VBG pCO2 VBG pO2 VBG HCO3 VBG Total CO2 VBG O2 Saturation VBG Base Excess VBG Lactate Cancelled Sodium 140 140 Potassium 4.2 4.2 Chloride 108 H 106 Carbon Dioxide 24.1 23.6 Anion Gap 7.9 10.4 BUN 11 12 Creatinine 0.8 0.8 Est GFR (CKD-EPI 2020) 102.86 103.50 Glucose 110 H 156 H Calcium 8.4 L 9.0 Magnesium 1.9 Total Bilirubin 1.18 H 1.39 H Conjugated Bilirubin 0.8 H AST 173 H 245 H ALT 299 H 382 H Alkaline Phosphatase 123 H 153 H Creatine Kinase Cancelled 46 C-Reactive Protein 1.16 H Total Protein 5.5 L 7.1 Albumin 2.6 L 3.4 Lipase 28 Procalcitonin < 0.1 Urine Color Urine Clarity Urine pH Ur Specific [place] Urine Protein Urine Ketones Urine Blood Urine Nitrite Urine Bilirubin Urine Urobilinogen Ur Leukocyte Esterase Urine RBC Urine WBC Ur Epithelial Cells Urine Crystals Urine Bacteria Urine Casts Urine Mucus Urine Other Ur Culture Indicated? Urine Glucose Acetaminophen < 2 B. divergens/MO-1 PCR Pending Babesia duncani (PCR) Pending Babesia microti DNA PCR Pending Lyme Disease Antibody Negative E.chaffeensis DNA (PCR) Pending E.ewingii/canis DNA PCR Pending E.muris eauclairensis (PCR) Pending Hepatitis A IgM Ab Negative Hep Bs Antigen Negative Hep B Core Total Ab Negative Hepatitis C Antibody Negative Monoscreen Negative Path Cons Comment Pending A. phagocytophilum (PCR) Pending Blood B. miyamotoi (PCR) Pending 02/29/24 02/29/24 13:46 11:23 WBC 7.25 RBC 4.24 Hgb 13.0 Hct 39.1 MCV 92 MCH 30.7 MCHC 33.2 RDW 14.4 Plt Count 319 MPV 9.0 Immature Gran % 0.0 Neutrophils % 43.0 Band Neutrophils % 0 Lymphocytes % 28.0 Atypical Lymphs % 21 Monocytes % 6.0 Eosinophils % 2.0 Basophils % 0.0 Metamyelocytes % 0 Myelocytes % 0 Promyelocytes % 0 Other Cells % 0 Nucleated RBC % 0.0 Absolute Neutrophils 3.12 Absolute Lymphocytes 3.55 H Absolute Monocytes 0.44 Absolute Eosinophils 0.15 Absolute Basophils 0.00 RBC Morphology Normal PT 10.4 INR 1.0 VBG pH 7.39 VBG pCO2 41 VBG pO2 33 VBG HCO3 25 VBG Total CO2 26 VBG O2 Saturation 63 VBG Base Excess 0 VBG Lactate 0.9 Sodium Potassium Chloride Carbon Dioxide Anion Gap BUN Creatinine Est GFR (CKD-EPI 2020) Glucose Calcium Magnesium Total Bilirubin Conjugated Bilirubin AST ALT Alkaline Phosphatase Creatine Kinase C-Reactive Protein Total Protein Albumin Lipase Procalcitonin Urine Color Graciela Urine Clarity Clear Urine pH 6.0 Ur Specific [place] 1.025 Urine Protein 30 H Urine Ketones 15 H Urine Blood Negative Urine Nitrite Negative Urine Bilirubin Moderate H Urine Urobilinogen >=8.0 H Ur Leukocyte Esterase Negative Urine RBC 0-2 Urine WBC 0-2 Ur Epithelial Cells Moderate Urine Crystals Negative Urine Bacteria Negative Urine Casts 0-2 Hyaline Urine Mucus Moderate Urine Other Rare Renal Ur Culture Indicated? No Urine Glucose 100 H Acetaminophen B. divergens/MO-1 PCR Babesia duncani (PCR) Babesia microti DNA PCR Lyme Disease Antibody E.chaffeensis DNA (PCR) E.ewingii/canis DNA PCR E.muris eauclairensis (PCR) Hepatitis A IgM Ab Hep Bs Antigen Hep B Core Total Ab Hepatitis C Antibody Monoscreen Path Cons Comment A. phagocytophilum (PCR) Blood B. miyamotoi (PCR) 02/29/24 14:25 Blood Blood Culture - Pending 02/29/24 13:46 Blood Blood Culture - Pending Preliminary micro results at discharge 02/29/24 14:25 Blood Culture - Pending Blood 02/29/24 13:46 Blood Culture - Pending Blood PFSH All Active Problems (Updated 03/01/24 @ 09:21 by Christina Obrien APRN) Discharge planning issues (Acute) DVT prophylaxis (Acute) Acute hepatitis (Acute) Nausea & vomiting (Acute) PCOS (polycystic ovarian syndrome) (Acute) Postural dizziness with presyncope (Acute) [facility] Cardiology 11/09/23 Recurrent otitis media (Acute) History of nicotine use (Chronic) Quit 12/29/2019 Atrial septal aneurysm (Chronic ~2019) 2019 ECHO [facility]; repeat ECHO 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) Intrauterine (~12/2019) Praveena Rubi IUFD at 20 weeks or more of gestation (01/05/20) [facility] Pilonidal cyst with abscess (06/03/15) Gastroesophageal reflux disease (06/03/15) Tobacco use disorder Quit 2019 Right ovarian cyst (07/04/15) 06/2015 US: 4.1 cm hemorrhagic R ovarian cyst --> follow-up US recommended; 11/19/2015 US: WNL Low back pain Frequent UTI (03/01/18) Depression (06/03/15) was on zoloft 25 mg & Prozac in the past but these meds increased SI per pt Anxiety (06/17/16) Diabetic ketoacidosis associated with type 1 diabetes mellitus (~07/2020) [facility] hospitalization 07/2020 Asthma History of pneumonia Scoliosis Surgical History Hx of tympanostomy tubes H/O tubal ligation (~2019) Hx of nephrostomy (~12/2019) tube placement, right [facility] Tonsillectomy and adenoidectomy (~2007) Family History (Updated 02/29/24 @ 17:26 by Salvador Maldonado) Grandfather Diabetes Grandmother , Post-menopausal age 74yo Diabetes Breast cancer from metastatic breast cancer Maternal Cousin Mental disorder Bipolar disorder Sister Mental disorder Bipolar disorder, multiple personality disorder Brother DVT (deep venous thrombosis) multiple Brother Claudication Mother Diabetes Heart disease OR 2021 Uncle Liver disease Social History (Updated 02/29/24 @ 17:25 by Salvador Maldonado) Smoking/Tobacco Use Status: Former Tobacco Use tobacco type: cigarettes Quit Date: 12/29/19 Tobacco: How many years used: 5 Quit status: has quit before Smoking risk assessment performed?: Yes Alcohol Intake: current Alcohol Intake frequency: holidays/special occasions only Drug use: Never Substance use type: does not use Adopted: No Caregiver/Support person: No Foster care: No Household members: spouse, children and other Housing: other Number of Children: 2 Communication Needs: None Education Level: high school Do you need help understanding health information?: Rarely 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 Pets and animals: Yes Pets and animals: cat(s) and dog(s) Sexually active: Yes Do you think of yourself as: straight/heterosexual Current gender identity: female What is your relationship status?: How often do you talk on the phone with friends or family?: three or more times per week How often do you get together with friends or relatives?: twice per week Do you belong to any clubs or organized social groups?: no Panel score (0-1 are the most socially isolated patients): 2 What type of physical activity do you participate in: walking Duration: 30-45 minutes/day Frequency: 3-4 times per week Seatbelt use: always Do you feel safe at home: Yes Do you feel safe in your relationship?: Yes Additional Social history: Works at [email or web address]. Lives in [place], Lives with , 2 kids and 3 step kids. Female Reproductive History Menstrual control method: permanent sterilization History History 3 Para 2 Hx # Term Pregnancies Multiple births Hx # Pregnancies Ectopic pregnancies AB induced Hx Number of Living Children 2 AB spontaneous 1 Time Spent with Patient Time Spent with Patient: 70-84 minutes4 Time was spent: preparing to see the patient(eg.review tests), obtaining and/or reviewing separately otained hiistory, ordering medications,tests, procedures, referring, communicating with other health wound care physician, indepentently interpreting results, counseling the patient and care coordination
[2024-03-04 00:09] LABS: Anaplasma phagocytophilum Negative (Negative); B. miyamotoi PCR Negative (Negative); Babesia divergens/MO-1 Negative (Negative); Babesia duncani Negative (Negative); Babesia microti Negative (Negative); Ehrlichia chaffeensis Negative (Negative); Ehrlichia ewingii/canis Negative (Negative); Ehrlichia muris eauclairensis Negative (Negative)
== END 2024-03-01 14:50 | disposition home or self-care (01) ==
LOC: ER 15:33 → MS 17:49
PROVIDERS: Admitting Provider Family Medicine; Emergency Provider Physician Assistant; PCP Nurse Practitioner Adult Health; Visit Provider Family Medicine
DX: R11.2 Nausea with vomiting, unspecified (principal); E10.65 Type 1 diabetes mellitus with hyperglycemia; E28.2 Polycystic ovarian syndrome; Z96.41 Presence of insulin pump (external) (internal); Z87.891 Personal history of nicotine dependence; E66.9 Obesity, unspecified; J45.20 Mild intermittent asthma, uncomplicated; E10.3593 Type 1 diabetes mellitus with proliferative diabetic retinopathy without macular edema, bilateral; I25.3 Aneurysm of heart; R74.01 Elevation of levels of liver transaminase levels; B17.9 Acute viral hepatitis, unspecified
CPT/HCPCS: 00123; 36415; 36416; 80048; 80053; 80076; 81025; 82550; 82805; 82962; 83690; 84145; 86704; 86709; 86803; 87040; 87340; 87798; 96361; 96365; 96375; 96376; 99285; 74177; 76700; 80329; 81003; 81015; 83605; 83735; 85025; 85610; 86140; 86308; 86618; 99222; 99239; G0378; J0131; J1885; J2405; J2765; J3490

== ENCOUNTER 2024-03-09 00:52 | Outpatient (CLI) | payer MEDICAID, SELFPAY ==
[2024-03-09 15:27] LABS: ALT 156 U/L (14-59); AST 74 U/L (15-37); Albumin 3.4 g/dL (3.4-5.0); Alkaline Phosphatase 107 U/L (46-116); Bilirubin, Direct 0.4 mg/dL (0.0-0.2); Bilirubin, Total 0.76 mg/dL (0.2-1.0); Total Protein 6.8 g/dL (6.4-8.2)
== END 2024-03-09 00:53 | disposition home or self-care (01) ==
LOC: LBO 00:52
PROVIDERS: Absent Provider Nurse Practitioner Adult Health; PCP Nurse Practitioner Adult Health; Referring Provider Nurse Practitioner Family; Visit Provider Nurse Practitioner Family
DX: R11.2 Nausea with vomiting, unspecified (principal); B17.9 Acute viral hepatitis, unspecified
CPT/HCPCS: 36415; 80076

== ENCOUNTER 2024-10-09 00:52 | Outpatient (CLI) | payer MEDICAID, SELFPAY ==
--- NOTE | 2024-10-09 05:45 | DI.US_ITS ---
Exam(s) US RENAL EXAM: US RENAL CLINICAL HISTORY: h/o nephrostomy tube on R in 2019,chronic rt flank pain,r10.9 TECHNIQUE: Ultrasound of both kidneys performed using standard protocol. COMPARISON: CT CT ABDOMEN PELVIS W from 02/29/2024 US US ABDOMEN from 03/01/2024 FINDINGS: RIGHT KIDNEY: Measures 11 cm in length. No cysts evident. Normal cortical thickness and corticomedullary differenti ation .No solid masses No intrarenal calculi nor hydronephrosis. LEFT KIDNEY: Measures 10 cm in length. No cysts evident. Normal cortical thickness and corticomedullary different iaion. No solids masses. No intrarenal calculi nor hydonephrosis. URINARY BLADDER: Prevoid volume is 153 cc Postvoid volume is 14 cc No evidence of bladder mass nor diverticuli. Ureterovesical jets: Both identified and appear symmetrical IMPRESSION: 1. No significant ultrasound findings in the kidneys. No hydronephrosis. 2. No obvious abnormality in the urinary bladder. DATA REPOSITORY:
== END 2024-10-09 01:12 ==
LOC: DI 00:52
PROVIDERS: PCP Nurse Practitioner Adult Health; Visit Provider Nurse Practitioner Adult Health
DX: R10.9 Unspecified abdominal pain (principal); G89.29 Other chronic pain
CPT/HCPCS: 76770

== ENCOUNTER 2024-10-09 09:16 | Outpatient (CLI) | payer MEDICAID, SELFPAY ==
[2024-10-09 08:13] LABS: Anion Gap 8.9 mmol/L (3-11); BUN 15 mg/dL (7-18); CO2 27.1 mmol/L (21.0-32.0); CREATININE 0.9 mg/dL (0.55-1.02); Calcium 9.8 mg/dL (8.5-10.1); Chloride 105 mmol/L (98-107); Glucose 124 mg/dL (74-106); Potassium 4.3 mmol/L (3.5-5.1); Sodium 141 mmol/L (136-145)
[2024-10-09 08:37] LABS: COMMENT (LAB VIEW ONLY) < 13.00 mg/dL
== END 2024-10-09 09:17 | disposition home or self-care (01) ==
LOC: LBO 09:16
PROVIDERS: PCP Nurse Practitioner Adult Health; Visit Provider Nurse Practitioner Adult Health
DX: R10.9 Unspecified abdominal pain (principal); G89.29 Other chronic pain
CPT/HCPCS: 36415; 80048; 82043; 82570

== ENCOUNTER 2024-10-29 15:15 | Outpatient (CLI) | payer MEDICAID, SELFPAY ==
--- NOTE | 2024-10-29 15:15 | RT.EKG_ITS ---
APPROVED REPORT Exam: Resting ECG Reason for Exam: Sensation of bradycardia Patient Location: O HR:69 bpm ECG Measurements Heart Rate 69 AXIS MO 141 P 27 QRSd 90 QRS 6 QT 380 T 33 QTc 407 Conclusion Sinus rhythm...normal P axis, V-rate 50- 99 Normal Electrocardiogram
== END 2024-10-29 15:16 | disposition home or self-care (01) ==
LOC: DI.KIM 15:16
PROVIDERS: PCP Nurse Practitioner Adult Health; Visit Provider Nurse Practitioner Adult Health
DX: I49.9 Cardiac arrhythmia, unspecified (principal); R00.1 Bradycardia, unspecified
CPT/HCPCS: 93010

== ENCOUNTER 2024-11-01 00:41 | Outpatient (CLI) | payer MEDICAID, SELFPAY ==
--- NOTE | 2024-11-01 14:30 | DI.US_ITS ---
APPROVED REPORT EXAM: Comprehensive 2D, Doppler, and color-flow Echocardiogram Patient Location: Out-Patient Manager Mass: Hamlet Grayson RDCS (AE) Indications: ? Atrial septal aneurysm seen on prior echo, syncope, dizziness Conclusion Normal left ventricular wall thickness and chamber size. Ejection fraction is 60%. Wall motion is n ormal Normal right ventricular size and function Both atria are normal in size. The atrial septum is thin and hypermobile There is no structural or hemodynamically significant valvular disease Wall motion Left Ventricle The left ventricle is normal size. Left ventricular systolic function is normal. The left ventricular ejection fraction is within the normal range. There is normal left ventricular wall thickness. There is normal LV segmental wall motion. There is no ventricular septal defect visualized. LVEF is 60%. Right Ventricle The right ventricle is normal size. The right ventricular systolic function is normal. Atria The left atrium size is normal. The right atrium size is normal. Atrial septal aneurysm is present. Aortic Valve The aortic valve is normal in structure. Aortic valve is trileaflet. There is no aortic valvular sten osis. No aortic regurgitation is present. Mitral Valve The mitral valve is normal in structure. No evidence of mitral valve stenosis. Trace mitral regurgita tion. Tricuspid Valve The tricuspid valve is normal in structure. There is no tricuspid valve stenosis. Trace tricuspid reg urgitation. Pulmonic Valve The pulmonary valve is normal in structure. There is no pulmonic valvular stenosis. There is no pulmo manolo valvular regurgitation. Great Vessels The aortic root is normal in size. The ascending aorta is normal in size. Aortic arch is normal in ca liber. IVC is normal in size and collapses >50% with inspiration. Pericardium There is no pericardial effusion. 2D Dimensions IVSD d PLAX 0.67 cm F: 0.6-1.0 Ao Root d 2.41 cm F: 2.7 - 3.3 LVPW d PLAX 0.71 cm F: 0.6 - 1.0 Ao Asc Diam d 2.61 cm F: 2.3 - 3.1 LVID d PLAX 5.26 cm F: 3.8 - 5.2 LVDs 3.57 cm F: 2.2 - 3.5 LV EF Teichholz 59.8 % FS 32.10 % LV EDV (Teich) 133.0 mL LV ESV (Teich) 53.4 mL Stroke Vol Index (Teich) 37.53 M-Mode TAPSE 1.98 cm (M/F) >1.7 Auto EF LV EDV A4C 83.4 mL LV EDV A2C 102.2 mL LV EDV BP 95.0 mL LV ESV A4C 33.2 mL LV ESV A2C 40.9 mL LV ESV BP 37.3 mL LVEF(%) A4C 60.2 % LVEF(%) A2C 59.9 % LVEF(%) BP 60.7 % LV SV A4C 50.2 ml LV SV A2C 61.2 ml LV SV BP 57.7 ml LV CO A4C 3.8 L/min LV CO A2C 4.5 L/min LV CO BP 4.2 L/min HR A4C 75.44 BPM HR A2C 73.78 BPM LV EDV Index (BP) LA Volume LA Length A4C 5.2 cm LA Length A2C 5.2 cm LA Area A4C s 14.03 cm2 LA Area A2C s 14.62 cm2 LA Vol A4C A-L 32.12 mL LA Vol A2C A-L 35.13 mL LA Vol Biplane A-L 33.7 mL LA Vol/BSA A4C A-L LA Vol/BSA A2C A-L LA Vol/BSA BP A-L 15.9 mL/m2 LA Vol A4C MOD 30.9 mL LA Vol A2C MOD 34.3 mL LA Vol BP MOD 32.5 mL RA Volume RA Area A4C 8.1 cm2 RA ESV A4C (A-L) 13.6mL RA Vol/BSA A4C A-L RA Length A4C 4.0 cm RA ESV A4C (MOD) 13.8mL LV Diastology MV E' medial 0.112 (>0.07 m/s) MV E Vmax 1.05 (0.4-1.3 m/s) MV E/E' MED 9.38 (<14) MV A Vmax 0.65 (0.4-1.3 m/s) MV E' lateral 0.141 (>0.1 m/s) E/A Ratio 1.6 MV E/E' LAT 7.47 (<14) MV E' Average 0.127 m/s MV E/E'(average) 8.32 Aortic Valve AoV Vmax 1.34 m/s LVOT Vmax 1.29 m/s AoV Peak Grad 7.2 mmHg LVOT Peak Grad 6.6 mmHg AoV Area (Vmax) 2.82 cm2 LVOT VTI 0.274 m AoV VTI 0.292 m LVOT Mean Grad 3.5 mmHg AoV Mean Spike. 0.91 m/s LVOT SV 80.79 mL AoV Mean Grad 3.8 mmHg LVOT Diam s 1.90 cm AoV Area (VTI) 2.76 cm2 AV Regurg Peak Gr. 7.19 mmHg Velocity Ratio 0.96 Mitral Valve MV DT 170 (160-240 msec) Pulmonary Valve PV Vmax 1.03 (0.5-1.5 m/s) RVOT Vmax 0.85 m/s PV Peak Grad 4.2 mmHg RVOT Peak Gr. 2.9 mmHg PV Mean Spike 0.77 m/s RVOT VTI 0.179 m PV Mean Grad 2.7 mmHg RVOT Mean Gr. 1.5 mmHg Tricuspid Valve RA Pressure 3.00 mmHg TR Vmax 2.00 m/s TR Peak Grad 15.9 mmHg RVSP (TR) 19.0 mmHg
== END 2024-11-01 01:01 ==
LOC: DI 00:41
PROVIDERS: PCP Nurse Practitioner Adult Health; Visit Provider Internal Medicine Cardiovascular Disease
DX: R42 Dizziness and giddiness (principal); R55 Syncope and collapse; I25.3 Aneurysm of heart
CPT/HCPCS: 93306

== ENCOUNTER 2024-11-22 11:12 | Outpatient (REF) | payer MEDICAID, SELFPAY | END 2024-11-22 11:13 | disposition home or self-care (01) | LOC: LBN 11:12 | PROVIDERS: PCP Nurse Practitioner Adult Health; Visit Provider Family Medicine | DX: R30.0 Dysuria (principal) | CPT/HCPCS: 87086 ==

== ENCOUNTER 2025-02-11 15:26 | Outpatient (REF) | payer MEDICAID, SELFPAY | END 2025-02-11 15:27 | disposition home or self-care (01) | LOC: LBN 15:26 | PROVIDERS: PCP Nurse Practitioner Adult Health; Visit Provider Family Medicine | DX: N30.00 Acute cystitis without hematuria (principal) | CPT/HCPCS: 87086 ==

== ENCOUNTER 2025-04-22 12:56 | Outpatient (CLI) | payer MEDICAID, SELFPAY ==
--- NOTE | 2025-04-22 12:45 | DI.RAD_ITS ---
Exam(s) XR CHEST 2V PA LATERAL EXAM: XR CHEST 2V PA LATERAL CLINICAL HISTORY: r/o PNA or other acute process please, ASTHMATIC BRONCHITIS, TYPE 1 DIABETE TECHNIQUE: 2D digital imaging was performed of the chest. Two images were obtained. PA and lateral views were obtained. COMPARISON: CR PORTABLE CHEST ONE VIEW from 12/09/2017 CR XR CHEST 2V PA LATERAL from 04/18/2018 FINDINGS: MEDIASTINUM: Normal. HEART: Normal. PULMONARY VASCULATURE: Normal. LUNGS: Clear. PLEURAL SPACE: No pleural effusion or pneumothorax. BONE:Within normal limits for the patient's age. OTHER FINDINGS:Normal. IMPRESSION: No acute pulmonary findings. DATA REPOSITORY: RADIATION DOSE DELIVERED:
== END 2025-04-22 13:16 ==
LOC: DI 12:56
PROVIDERS: PCP Nurse Practitioner Adult Health; Visit Provider Nurse Practitioner Adult Health
DX: J45.41 Moderate persistent asthma with (acute) exacerbation (principal); E10.65 Type 1 diabetes mellitus with hyperglycemia; Z87.01 Personal history of pneumonia (recurrent)
CPT/HCPCS: 71046

== ENCOUNTER 2025-05-01 08:44 | Outpatient (RCR) | payer MEDICAID, SELFPAY ==
--- NOTE | 2025-05-07 10:09 | W.HOLTRPT ---
Date of service: 05/07/25 Time of Service: 10:09 Holter Monitor Report Referring Provider:: Sonali Lange Indications:: Palpitations Holter Monitor Note: This is a 48-hour Holter monitor. Rhythm throughout was sinus with an average heart rate of 88. Minimum was 57, maximum 131. There were very very rare isolated atrial and ventricular ectopic beats. There was no atrial fibrillation, no high-grade AV block, no pauses greater than 3 seconds. No symptoms were reported
== END 2025-05-17 23:59 | disposition home or self-care (01) ==
LOC: CARDOPNVT 08:44
PROVIDERS: PCP Nurse Practitioner Adult Health; Visit Provider Internal Medicine Cardiovascular Disease
DX: R00.2 Palpitations (principal)
CPT/HCPCS: 93225; 93226

== ENCOUNTER 2025-05-29 13:07 | Outpatient (CLI) | payer MEDICAID, SELFPAY ==
[2025-05-29 13:55] LABS: Hemoglobin A1C 7.3 % (<5.7)
[2025-05-29 14:07] LABS: ALT 20 U/L (10-49); AST 19 U/L (<34); Albumin 4.3 g/dL (3.4-5.0); Alkaline Phosphatase 63 U/L (46-116); Anion Gap 4.4 mmol/L (3-11); BUN 17 mg/dL (9-23); Bilirubin, Total 0.30 mg/dL (0.2-1.2); CO2 25.6 mmol/L (20.0-31.0); Calcium 8.9 mg/dL (8.3-10.6); Chloride 110 mmol/L (98-107); Cholesterol 137 mg/dL (<200); Glucose 246 mg/dL (74-106); HDL Cholesterol 43 mg/dL (>40); Potassium 3.9 mmol/L (3.5-5.1); Sodium 140 mmol/L (136-145); Total Protein 6.8 g/dL (5.7-8.2)
[2025-05-29 14:09] LABS: TSH 1.40 uIU/mL (0.55-4.78)
[2025-05-29 14:33] LABS: Microalb ug/mg Crea 3.2 ug/mg Cr
== END 2025-05-29 13:08 | disposition home or self-care (01) ==
LOC: LBO 13:07
PROVIDERS: Nurse Practitioner Family; PCP Nurse Practitioner Adult Health; Visit Provider Internal Medicine Endocrinology, Diabetes & Metabolism
DX: E10.65 Type 1 diabetes mellitus with hyperglycemia (principal); E78.5 Hyperlipidemia, unspecified
CPT/HCPCS: 36415; 80053; 80061; 82043; 82570; 83036; 84443

== ENCOUNTER 2025-06-17 21:15 | Outpatient (REF) | payer MEDICAID, SELFPAY ==
[2025-06-17 22:28] LABS: ALT 26 U/L (10-49); AST 24 U/L (<34); Albumin 4.3 g/dL (3.2-5.0); Alkaline Phosphatase 63 U/L (46-116); Anion Gap 6.4 mmol/L (3-11); BUN 18 mg/dL (9-23); Bilirubin, Total 0.20 mg/dL (0.2-1.2); CO2 26.6 mmol/L (20.0-31.0); Calcium 8.9 mg/dL (8.3-10.6); Chloride 108 mmol/L (98-107); Glucose 246 mg/dL (74-106); Potassium 4.7 mmol/L (3.5-5.1); Sodium 141 mmol/L (136-145); Total Protein 6.4 g/dL (5.7-8.2)
[2025-06-19 11:19] LABS: Lyme Ab w Rflx to Lyme Confirm Negative (Negative)
[2025-06-20 22:03] LABS: B. miyamotoi PCR Negative (Negative); Babesia divergens/MO-1 Negative (Negative); Ehrlichia muris eauclairensis Negative (Negative)
== END 2025-06-17 21:16 | disposition home or self-care (01) ==
LOC: LBN 21:15
PROVIDERS: PCP Nurse Practitioner Adult Health; Visit Provider Nurse Practitioner Adult Health
DX: R11.0 Nausea (principal); R53.81 Other malaise; R53.83 Other fatigue; R51.9 Headache, unspecified; R50.9 Fever, unspecified
CPT/HCPCS: 80053; 87798; 86618